=== PATIENT | male | born 1950 | race Caucasian/White ===

== ENCOUNTER → 2016-06-14 | Outpatient (CLI) | payer MEDICARE ==
[2016-06-14 10:51] LABS: Basophils # (A) 0.1 k/uL (0-0.2); Basophils % (A) 1 %; CH 27.4; CHCM 32.5; Eosinophils # (A) 0.4 k/uL (0-0.7); Eosinophils % (A) 6 %; HCT 45.2 % (39.0-53.0); HDW 2.66; HGB 14.4 gm/dL (13.0-17.5); Luc # (Auto) 0.19; Luc % (Auto) 2; Lymphocytes # (A) 1.6 k/uL (1.0-4.8); Lymphocytes % (A) 21 %; MCHC 31.8 g/dL (31.0-37.0); MCV 84.8 fL (80.0-100.0); Mean Platelet Volume 7.2; Monocytes # (A) 0.6 k/uL (0-1.0); Monocytes % (A) 8 %; Neutrophils # (A) 4.9 k/uL (1.3-7.7); Neutrophils % (A) 62 %; RBC 5.33 m/uL (4.30-5.90); RDW 13.9 % (11.5-15.5); WBC 7.9 k/uL (3.8-10.6); WBC (Perox) 8.09
[2016-06-14 12:25] LABS: ALT 47 U/L (21-72); AST 28 U/L (17-59); Alkaline Phosphatase 119 U/L (38-126); Anion Gap 12 mmol/L; Bilirubin, Delta 0.2 mg/dL (0.0-0.2); Blood Urea Nitrogen 8 mg/dL (9-20); Calcium 9.3 mg/dL (8.4-10.2); Carbon Dioxide 28 mmol/L (22-30); Chloride 103 mmol/L (98-107); Cholesterol 163 mg/dL (<200); Glucose 131 mg/dL (74-99); HDL Cholesterol 43 mg/dL (40-60); Non-African American GFR(MDRD) >60 (>60 ml/min/1.73 sqM); Potassium 4.5 mmol/L (3.5-5.1); Sodium 143 mmol/L (137-145); Total Bilirubin 0.3 mg/dL (0.2-1.3); Total Protein 6.5 g/dL (6.3-8.2); Triglycerides 147 mg/dL (<150)
== END | disposition home or self-care (01) ==
LOC: LABWHC1 09:25
PROVIDERS: ATTEND Family Medicine
DX: E11.65 Type 2 diabetes mellitus with hyperglycemia (principal); I48.91 Unspecified atrial fibrillation; I10 Essential (primary) hypertension; Z79.4 Long term (current) use of insulin
CPT/HCPCS: 36415; 80053; 80061; 82248; 84153; 84439; 84443; 85025

== ENCOUNTER → 2017-04-25 | Outpatient (CLI) | payer MEDICARE ==
[2017-04-25 09:40] LABS: CH 27.7; CHCM 33.2; HCT 50.4 % (39.0-53.0); HDW 2.65; MCH 26.6 pg (25.0-35.0); MCHC 31.8 g/dL (31.0-37.0); MCV 83.6 fL (80.0-100.0); Mean Platelet Volume 6.9; RBC 6.03 m/uL (4.30-5.90); RDW 13.1 % (11.5-15.5); WBC 9.1 k/uL (3.8-10.6)
[2017-04-25 09:49] LABS: Prothrombin Time 57.2 sec (9.0-12.0)
[2017-04-25 10:00] LABS: ALT 34 U/L (21-72); AST 28 U/L (17-59); Anion Gap 11 mmol/L; Blood Urea Nitrogen 12 mg/dL (9-20); Carbon Dioxide 29 mmol/L (22-30); Chloride 95 mmol/L (98-107); Non-African American GFR(MDRD) >60 (>60 ml/min/1.73 sqM); Potassium 4.7 mmol/L (3.5-5.1); Sodium 135 mmol/L (137-145)
[2017-04-25 10:02] LABS: INR 6.3 (<1.2)
== END | disposition home or self-care (01) ==
LOC: LABWHC1 09:21
PROVIDERS: ATTEND Internal Medicine Interventional Cardiology
DX: Z01.812 Encounter for preprocedural laboratory examination (principal); R07.89 Other chest pain
CPT/HCPCS: 36415; 80051; 82565; 84439; 84443; 84450; 84460; 84520; 85027; 85610

== ENCOUNTER → 2017-05-31 | Outpatient (CLI) | payer MEDICARE ==
[2017-05-31 11:24] LABS: T4, Free (Free Thyroxine) 2.89 ng/dL (0.78-2.19)
== END | disposition home or self-care (01) ==
LOC: LABWHC1 10:34
PROVIDERS: ATTEND Nurse Practitioner Adult Health
DX: E03.9 Hypothyroidism, unspecified (principal)
CPT/HCPCS: 36415; 84439; 84443

== ENCOUNTER → 2017-06-28 | Outpatient (CLI) | payer MEDICARE ==
[2017-06-28 11:43] LABS: T4, Free (Free Thyroxine) 2.76 ng/dL (0.78-2.19)
== END | disposition home or self-care (01) ==
LOC: LABWHC1 10:44
PROVIDERS: ATTEND Internal Medicine Interventional Cardiology
DX: E03.9 Hypothyroidism, unspecified (principal)
CPT/HCPCS: 36415; 84439; 84443

== ENCOUNTER → 2017-07-01 | Outpatient (CLI) | payer MEDICARE ==
[2017-07-01 13:15] LABS: MCH 26.3 pg (25.0-35.0); MCV 82.4 fL (80.0-100.0); Mean Platelet Volume 7.3; Platelet Count 351 k/uL (150-450); RDW 13.9 % (11.5-15.5); WBC 8.8 k/uL (3.8-10.6)
[2017-07-01 13:25] LABS: INR 2.6 (<1.2); Prothrombin Time 23.4 sec (9.0-12.0)
[2017-07-01 13:31] LABS: Anion Gap 13 mmol/L; Blood Urea Nitrogen 19 mg/dL (9-20); Calcium 10.3 mg/dL (8.4-10.2); Carbon Dioxide 28 mmol/L (22-30); Chloride 99 mmol/L (98-107); Glucose 278 mg/dL (74-99); Sodium 140 mmol/L (137-145)
[2017-07-01 13:48] LABS: T4, Free (Free Thyroxine) 2.45 ng/dL (0.78-2.19)
== END | disposition home or self-care (01) ==
LOC: LABPAT 13:00
PROVIDERS: ATTEND Internal Medicine Interventional Cardiology
DX: I10 Essential (primary) hypertension (principal); I25.10 Atherosclerotic heart disease of native coronary artery without angina pectoris
CPT/HCPCS: 36415; 80048; 84439; 84443; 85027; 85610

== ENCOUNTER → 2017-07-07 | Day surgery (SDC) | payer MEDICARE ==
[2017-07-04 11:54] VITALS: BMI 25.7
[~2017-07-07] MED LIST: ALPRAZolam 0.25 MG TAB PO PRN; ALPRAZolam 0.5 MG TAB PO PRN; ASPIRIN 325 MG TAB PO STA; ATORVASTATIN 80 MG TAB PO STA; HEPARIN SODIUM 1,000 UN/ML (10ML VL) ONE; INSULIN ASPART 100 UNIT/ML 1 ML 10 ML VIAL SQ ONE; INSULIN ASPART 100 UNIT/ML 1 ML 10 ML VIAL SQ SCH; IOHEXOL 350 MG/ML 125ML BOTTLE INJ ONE; LIDOCAINE 2% INJ 20 MG/ML (20 ML MDV) ONE; LIDOCAINE 2% INJ 20 MG/ML SQ ONE; MIDAZOLAM 2 MG/2 ML VIAL IVP ONE; MIDAZOLAM 2 MG/2 ML VIAL ONE; NITROGLYCERIN SL TABS 0.4 MG TAB SUBLINGUAL PRN; RX INFO: IV CONTRAST WAS GIVEN 1 EACH MISC MISCELLANE PRN; SODIUM CHLORIDE 0.9% 1,000 ML IV SCH; SODIUM CHLORIDE 0.9% 1,000 ML in EMPTY BAG 1 BAG IV ONE; VERAPAMIL 2.5 MG/ML 2 ML AMP ONE; diphenhydrAMINE 50 MG/ML 1 ML VIAL IVP ONE; diphenhydrAMINE 50 MG/ML 1 ML VIAL ONE; glipiZIDE 5 MG TAB PO STA
[2017-07-07 09:57] LABS: Glucose,Whole Blood 406 mg/dL (75-99)
[2017-07-07 09:58] VITALS: RESP 18
[2017-07-07 10:14] LABS: INR 1.1 (<1.2); Prothrombin Time 10.3 sec (9.0-12.0)
[2017-07-07 11:08] LABS: Glucose,Whole Blood 391 mg/dL (75-99)
[2017-07-07] MEDS: VERAPAMIL SYRINGE (5 MG/10 ML) INTRAARTER ONE ×2 (11:13→11:25)
[2017-07-07 11:35] LABS: Anion Gap 12 mmol/L; Blood Urea Nitrogen 16 mg/dL (9-20); Calcium 9.4 mg/dL (8.4-10.2); Carbon Dioxide 24 mmol/L (22-30); Chloride 103 mmol/L (98-107); Glucose 361 mg/dL (74-99); Potassium 4.3 mmol/L (3.5-5.1); Sodium 139 mmol/L (137-145)
[2017-07-07 11:50] LABS: Glucose,Whole Blood 345 mg/dL (75-99)
--- NOTE | 2017-07-07 12:18 | CC ---
CARDIAC CATHETERIZATION REPORT DATE OF SERVICE: 07/07/2017. PROCEDURE: Left heart catheterization and coronary angiography. PERFORMED BY: Dr. Narda Mcmullen. Moderate conscious sedation time 33 minutes. Patient was monitored closely. He was given Versed and Benadryl. PROCEDURE NOTE: Under local anesthesia and strict aseptic precautions, a 6-Irish introducer was placed in the right radial artery. Using Ultimate 1 catheter, I performed selective coronary angiography and a pigtail catheter was used to check pressures. LV gram was not performed. The sheath was taken out and a TR band applied as per protocol. The saturation in the fingers of the right hand was 97%. Patient received 2000 units of heparin. He also received verapamil 2 mg at the beginning and end of the procedure. CARDIAC CATHETERIZATION FINDINGS: Left ventricle end-diastolic pressure was about 5 mmHg. There was no gradient across aortic valve. CORONARY ANGIOGRAPHY FINDINGS: RIGHT CORONARY ARTERY: This is a dominant vessel, has no significant disease. Distally IT bifurcates into a large PDA and PLV, both of which supply a sizable amount of myocardium. No significant disease in the dominant RCA. LEFT MAIN CORONARY ARTERY: Short patent disease-free vessel that bifurcates into LAD and circumflex. LEFT ANTERIOR DESCENDING CORONARY ARTERY: A good caliber vessel extends along the anterior wall supplies a sizable amount of myocardium. Gives off septal and diagonal branches and runs all the way to the apex supplying a sizable amount of myocardium. No significant disease in the entire LAD system other than minor 30% irregularities. LEFT POSTERIOR CIRCUMFLEX CORONARY ARTERY: Nondominant, fair caliber, fair distribution vessel that supplies a fair amount of myocardium. No significant disease. LEFT VENTRICULOGRAM: This was not performed. FINAL IMPRESSION: This patient does not have any significant obstructive coronary artery disease. He has a right dominant system. Normal to low filling pressures. RECOMMENDATION: Findings were discussed with the patient and family. Continued medical therapy with risk factor modification advised. His blood sugar is somewhat elevated. We will address this issue as well in the outpatient setting. Patient will be discharged later on today if he remains stable. MMODL / IJN: [id number] /
--- NOTE | 2017-07-07 12:18 | LTR ---
July 07, 2017 Dear Pavan: Thank you for the opportunity to participate in the care of Mr. Roberts. Please find enclosed my cardiac cath report for your records. I am pleased to report to you that he does not have any significant obstructive CAD that would require intervention. Continued risk factor modification, optimization of blood sugars is advised. If the sugars continue to be high, he may be better off to be referred to the intensive diabetes clinic. Thank you for referral and please call for questions. With kindest regards Sincerely yours, Narda Mcmullen MD. NANETTE / JEANNIE: [id number] /
[2017-07-07 13:25] LABS: Glucose,Whole Blood 360 mg/dL (75-99)
[2017-07-07 13:55] VITALS: TEMP 98
[2017-07-07 16:03] VITALS: BP 161/79; PULSE 55
[2017-07-07 17:15] LABS: Glucose,Whole Blood 143 mg/dL (75-99)
[2017-07-07 20:09] LABS: Hemoglobin A1C 11.4 % (4.0-6.0)
== END ==
LOC: CATHCVL 09:14
PROVIDERS: ATTEND Internal Medicine Interventional Cardiology
DX: I20.0 Unstable angina (principal); I10 Essential (primary) hypertension; I48.0 Paroxysmal atrial fibrillation; Z79.01 Long term (current) use of anticoagulants; Z87.891 Personal history of nicotine dependence; E11.9 Type 2 diabetes mellitus without complications; Z79.84 Long term (current) use of oral hypoglycemic drugs; E78.00 Pure hypercholesterolemia, unspecified; E78.5 Hyperlipidemia, unspecified; Z79.899 Other long term (current) drug therapy; E03.9 Hypothyroidism, unspecified; Z82.49 Family history of ischemic heart disease and other diseases of the circulatory system; Z88.8 Allergy status to other drugs, medicaments and biological substances
CPT/HCPCS: 93458; 84481; 80048; 84443; 85610; 83036; C1769; C1894; J2001; J2250; J1200; J1644; Q9967

== ENCOUNTER → 2017-07-10 | Outpatient (CLI) | payer MEDICARE | END | disposition home or self-care (01) | LOC: LABWHC1 16:54 | PROVIDERS: ATTEND Internal Medicine Interventional Cardiology | DX: E03.9 Hypothyroidism, unspecified (principal) | CPT/HCPCS: 36415; 84439 ==

== ENCOUNTER → 2017-08-26 | Outpatient (CLI) | payer MEDICARE ==
[2017-08-26 10:43] LABS: T4, Free (Free Thyroxine) 1.34 ng/dL (0.78-2.19)
== END ==
LOC: LABWHC1 08:45
PROVIDERS: ATTEND Internal Medicine Endocrinology, Diabetes & Metabolism
DX: E78.5 Hyperlipidemia, unspecified (principal)
CPT/HCPCS: 36415; 80061; 82043; 82570; 83036; 84439; 84443

== ENCOUNTER → 2018-02-15 | Outpatient (CLI) | payer MEDICARE ==
[2018-02-15 10:40] LABS: Basophils # (A) 0.1 k/uL (0-0.2); Basophils % (A) 1 %; Eosinophils # (A) 0.5 k/uL (0-0.7); Eosinophils % (A) 5 %; HCT 41.5 % (39.0-53.0); HGB 13.1 gm/dL (13.0-17.5); Lymphocytes # (A) 1.9 k/uL (1.0-4.8); Lymphocytes % (A) 21 %; MCH 26.8 pg (25.0-35.0); MCHC 31.6 g/dL (31.0-37.0); MCV 84.8 fL (80.0-100.0); Mean Platelet Volume 6.9; Monocytes # (A) 0.6 k/uL (0-1.0); Monocytes % (A) 7 %; Neutrophils # (A) 5.9 k/uL (1.3-7.7); Neutrophils % (A) 63 %; Platelet Count 284 k/uL (150-450); RBC 4.89 m/uL (4.30-5.90); WBC 9.3 k/uL (3.8-10.6)
[2018-02-15 11:20] LABS: Albumin 4.1 g/dL (3.5-5.0); Calcium 9.7 mg/dL (8.4-10.2); Potassium 4.5 mmol/L (3.5-5.1); Total Bilirubin 0.4 mg/dL (0.2-1.3); Total Protein 6.9 g/dL (6.3-8.2)
[2018-02-15 11:29] LABS: T4, Free (Free Thyroxine) 1.36 ng/dL (0.78-2.19)
== END | disposition home or self-care (01) ==
LOC: LABWHC1 09:57
PROVIDERS: ATTEND Family Medicine
DX: I10 Essential (primary) hypertension (principal); E03.9 Hypothyroidism, unspecified; E11.9 Type 2 diabetes mellitus without complications; Z79.4 Long term (current) use of insulin
CPT/HCPCS: 36415; 80053; 84439; 84443; 85025

== ENCOUNTER → 2018-04-12 | Outpatient (CLI) | payer MEDICARE ==
[2018-04-12 20:01] LABS: Hemoglobin A1C 6.4 % (4.0-6.0)
== END ==
LOC: LABWHC1 13:01
PROVIDERS: ATTEND Family Medicine
DX: Z00.00 Encounter for general adult medical examination without abnormal findings (principal); E11.9 Type 2 diabetes mellitus without complications; Z79.899 Other long term (current) drug therapy
CPT/HCPCS: 36415; 83036; 84153

== ENCOUNTER 2018-07-21 13:26 | Inpatient (IN) | payer MEDICARE ==
[2018-07-21] MEDS ORDERED: DILTIAZEM DRIP BOLUS FROM BAG 1 MG SOLN IV ONE (14:02)
[2018-07-21] MEDS ORDERED: DILTIAZEM 125 MG in SODIUM CHLORIDE 0.9% 100 ML IV SCH (14:15)
[2018-07-21 14:16] LABS: Anisocytosis Slight; Basophils # (A) 0.1 k/uL (0-0.2); Basophils % (A) 1 %; Eosinophils # (A) 0.4 k/uL (0-0.7); Eosinophils % (A) 4 %; HCT 46.9 % (39.0-53.0); HGB 14.3 gm/dL (13.0-17.5); Hypochromasia Moderate; Lymphocytes # (A) 1.2 k/uL (1.0-4.8); Lymphocytes % (A) 13 %; MCH 23.3 pg (25.0-35.0); MCHC 30.5 g/dL (31.0-37.0); MCV 76.5 fL (80.0-100.0); Mean Platelet Volume 6.3; Microcytosis Slight; Monocytes # (A) 0.6 k/uL (0-1.0); Monocytes % (A) 6 %; Neutrophils # (A) 7.3 k/uL (1.3-7.7); Neutrophils % (A) 75 %; Platelet Count 285 k/uL (150-450); RBC 6.13 m/uL (4.30-5.90); RDW 18.2 % (11.5-15.5); WBC 9.7 k/uL (3.8-10.6)
--- NOTE | 2018-07-21 14:22 | ED ---
General Adult HPI - General Chief complaint: Chest Pain Stated complaint: Chest pain Time Seen by Provider: 07/21/18 13:37 Source: patient, RN notes reviewed, old records reviewed Mode of arrival: wheelchair Limitations: no limitations - History of Present Illness Initial comments: 68-year-old male presents with one-week history of intermittent chest pain and palpitations. History of atrial fibrillation currently on Coumadin. Patient is not on any rate controlling medication at this time. He's had sensation of racing heart with chest pain for the past one week. No significant chest pain at the time my evaluation. Denies nausea vomiting or diarrhea. Denies cough. Denies fever or chills. - Related Data Home Medications Medication Instructions Recorded Confirmed ALPRAZolam [Xanax] 0.25 mg PO Q6H PRN 07/01/14 07/21/18 Simvastatin [Zocor] 20 mg PO HS 07/01/14 07/21/18 metFORMIN HCL 1,000 mg PO BID 01/06/16 07/21/18 Warfarin [Coumadin] 2.5 mg PO SUTUWEFRSA 01/11/16 07/21/18 Levothyroxine Sodium [Synthroid] 100 mcg PO MOTUWETHFR 07/03/17 07/21/18 DULoxetine HCL [Cymbalta] 60 mg PO DAILY 07/21/18 07/21/18 Divalproex ER [Depakote ER] 500 mg PO DAILY 07/21/18 07/21/18 Insulin Lispro Protamin/Lispro 50 unit SQ HS 07/21/18 07/21/18 [humaLOG Mix 75-25 Kwikpen] Insulin Lispro Protamin/Lispro 70 unit SQ QAM 07/21/18 07/21/18 [humaLOG Mix 75-25 Kwikpen] Levothyroxine Sodium [Synthroid] 150 mcg PO SUSA 07/21/18 07/21/18 Warfarin [Coumadin] 5 mg PO MOTH 07/21/18 07/21/18 Allergies Allergy/AdvReac Type Severity Reaction Status Date / Time bupropion [From Wellbutrin] Allergy Unknown Verified 07/21/18 13:53 venlafaxine [From Effexor] Allergy Unknown Verified 07/21/18 13:53 aripiprazole [From Abilify] AdvReac Unknown Verified 07/21/18 13:53 Review of Systems ROS Statement: Those systems with pertinent positive or pertinent negative responses have been documented in the HPI. ROS Other: All systems not noted in ROS Statement are negative. Past Medical History Past Medical History: Atrial Fibrillation, Diabetes Mellitus, Hyperlipidemia, Hypertension, Renal Disease, Thyroid Disorder Additional Past Medical History / Comment(s): L wrist fx,concussion 07/01/14, renal failure stage 3 History of Any Multi-Drug Resistant Organisms: None Reported Past Surgical History: Back Surgery, Hernia Repair, Tonsillectomy Additional Past Surgical History / Comment(s): rt inguinal hernia repair, rt ankle orif, Past Anesthesia/Blood Transfusion Reactions: No Reported Reaction Past Psychological History: Anxiety, Depression Smoking Status: Never smoker Past Alcohol Use History: None Reported Past Drug Use History: None Reported - Past Family History Mother Family Medical History: No Reported History General Exam Limitations: no limitations General appearance: alert, in no apparent distress Head exam: Present: atraumatic, normocephalic Eye exam: Present: normal appearance, PERRL ENT exam: Present: normal exam Neck exam: Present: normal inspection. Absent: tenderness, meningismus Respiratory exam: Present: rales. Absent: respiratory distress, wheezes, rh onchi Cardiovascular Exam: Present: tachycardia, irregular rhythm GI/Abdominal exam: Present: soft. Absent: distended, tenderness, guarding Extremities exam: Present: normal inspection, normal capillary refill. Absent: pedal edema Neurological exam: Present: alert, oriented X3, CN II-XII intact. Absent: motor sensory deficit Psychiatric exam: Present: normal affect, normal mood Skin exam: Present: warm, dry, intact. Absent: cyanosis, diaphoretic Course Vital Signs 07/21/18 07/21/18 07/21/18 13:29 13:57 14:24 Temperature 98.0 F Pulse Rate 63 160 H 135 H Respiratory 18 20 20 Rate Blood Pressure 124/84 141/110 132/119 O2 Sat by Pulse 96 100 98 Oximetry EKG Findings - EKG Comments: EKG Findings:: EKG: Atrial fibrillation with RVR, right superior axis, no ST segment elevation, ventricular rate 147, QRS duration 88, QTC 410 Medical Decision Making - Medical Decision Making 68-year-old male presenting with palpitations, chest pain, dyspnea. Patient has history of atrial fibrillation, found to be in A. fib with rapid ventricular response. He is on Coumadin. Chest x-ray obtained, does show CHF with central vascular congestion. Patient has normal white blood cell count, stable hemoglobin, INR is supratherapeutic at 6.1, Coumadin will be held. Troponin is 0.028, BNP is 12,800 consistent with congestive heart failure secondary to arrhythmia. Patient started on Cardizem drip, weight is improving while in the emergency department. Given Lasix in the emergency prompt. Will be admitted for atrial fibrillation with RVR, congestive heart failure. Case discussed with admitting physician. - Lab Data Result diagrams: 07/21/18 13:52 07/21/18 13:52 Lab Results 07/21/18 07/21/18 07/21/18 Range/Units 13:52 13:52 13:52 WBC 9.7 (3.8-10.6) k/uL RBC 6.13 H (4.30-5.90) m/uL Hgb 14.3 (13.0-17.5) gm/dL Hct 46.9 (39.0-53.0) % MCV 76.5 L (80.0-100.0) fL MCH 23.3 L (25.0-35.0) pg MCHC 30.5 L (31.0-37.0) g/dL RDW 18.2 H (11.5-15.5) % Plt Count 285 (150-450) k/uL Neutrophils % 75 % Lymphocytes % 13 % Monocytes % 6 % Eosinophils % 4 % Basophils % 1 % Neutrophils # 7.3 (1.3-7.7) k/uL Lymphocytes # 1.2 (1.0-4.8) k/uL Monocytes # 0.6 (0-1.0) k/uL Eosinophils # 0.4 (0-0.7) k/uL Basophils # 0.1 (0-0.2) k/uL Hypochromasia Moderate Anisocytosis Slight Microcytosis Slight PT (9.0-12.0) sec INR (<1.2) APTT (22.0-30.0) sec Sodium 138 (137-145) mmol/L Potassium 4.7 (3.5-5.1) mmol/L Chloride 102 (98-107) mmol/L Carbon Dioxide 24 (22-30) mmol/L Anion Gap 12 mmol/L BUN 16 (9-20) mg/dL Creatinine 1.23 (0.66-1.25) mg/dL Est GFR (CKD-EPI)AfAm 69 (>60 ml/min/1.73 sqM) Est GFR (CKD-EPI)NonAf 59 (>60 ml/min/1.73 sqM) Glucose 202 H (74-99) mg/dL Calcium 9.8 (8.4-10.2) mg/dL Magnesium 1.8 (1.6-2.3) mg/dL Total Bilirubin 1.3 (0.2-1.3) mg/dL AST 28 (17-59) U/L ALT 19 L (21-72) U/L Alkaline Phosphatase 96 (38-126) U/L Troponin I (0.000-0.034) ng/mL NT-Pro-B Natriuret Pep 25596 pg/mL Total Protein 7.5 (6.3-8.2) g/dL Albumin 4.5 (3.5-5.0) g/dL Lipase 63 (23-300) U/L 07/21/18 07/21/18 Range/Units 13:52 13:52 WBC (3.8-10.6) k/uL RBC (4.30-5.90) m/uL Hgb (13.0-17.5) gm/dL Hct (39.0-53.0) % MCV (80.0-100.0) fL MCH (25.0-35.0) pg MCHC (31.0-37.0) g/dL RDW (11.5-15.5) % Plt Count (150-450) k/uL Neutrophils % % Lymphocytes % % Monocytes % % Eosinophils % % Basophils % % Neutrophils # (1.3-7.7) k/uL Lymphocytes # (1.0-4.8) k/uL Monocytes # (0-1.0) k/uL Eosinophils # (0-0.7) k/uL Basophils # (0-0.2) k/uL Hypochromasia Anisocytosis Microcytosis PT 58.9 H (9.0-12.0) sec INR 6.1 H* (<1.2) APTT 40.9 H (22.0-30.0) sec Sodium (137-145) mmol/L Potassium (3.5-5.1) mmol/L Chloride (98-107) mmol/L Carbon Dioxide (22-30) mmol/L Anion Gap mmol/L BUN (9-20) mg/dL Creatinine (0.66-1.25) mg/dL Est GFR (CKD-EPI)AfAm (>60 ml/min/1.73 sqM) Est GFR (CKD-EPI)NonAf (>60 ml/min/1.73 sqM) Glucose (74-99) mg/dL Calcium (8.4-10.2) mg/dL Magnesium (1.6-2.3) mg/dL Total Bilirubin (0.2-1.3) mg/dL AST (17-59) U/L ALT (21-72) U/L Alkaline Phosphatase (38-126) U/L Troponin I 0.028 (0.000-0.034) ng/mL NT-Pro-B Natriuret Pep pg/mL Total Protein (6.3-8.2) g/dL Albumin (3.5-5.0) g/dL Lipase (23-300) U/L Critical Care Time Critical Care Time: Yes Total Critical Care Time: 35 Disposition Clinical Impression: Supratherapeutic INR, CHF (congestive heart failure), Atrial fibrillation with RVR Disposition: ADMITTED IP TO THIS HOSP Condition: Stable Is patient prescribed a controlled substance at d/c from ED?: No Referrals: Pavan Elmore MD [Primary Care Provider] - 1-2 days Time of Disposition: 15:30
[2018-07-21 14:25] LABS: Albumin 4.5 g/dL (3.5-5.0); Calcium 9.8 mg/dL (8.4-10.2); Magnesium 1.8 mg/dL (1.6-2.3); Potassium 4.7 mmol/L (3.5-5.1); Total Bilirubin 1.3 mg/dL (0.2-1.3); Total Protein 7.5 g/dL (6.3-8.2)
[2018-07-21 14:30] LABS: Partial Thromboplastin Time 40.9 sec (22.0-30.0); Prothrombin Time 58.9 sec (9.0-12.0)
--- NOTE | 2018-07-21 14:31 | XR ---
EXAMINATION TYPE: XR chest 2V DATE OF EXAM: 07/21/2018 COMPARISON: Chest x-ray March 16, 2016. HISTORY: Chest pain and shortness of breath. TECHNIQUE: Frontal and lateral views of the chest are obtained. FINDINGS: The cardiac silhouette size is more prominent and upper limits of normal. Increased inters titial markings bilaterally are present. There are new small to tiny bilateral pleural effusions with slight blunting of posterior lateral costophrenic angles. No suspicious focal infiltrate or pneumoth orax is present. Overlying EKG leads are seen. The osseous structures are intact. IMPRESSION: Suspect CHF exacerbation as there is increasing cardiac silhouette prominence with suspe cted new mild to moderate interstitial edema and small to tiny bilateral pleural effusions. Correlate clinically.
[2018-07-21 14:36] LABS: INR 6.1 (<1.2)
[2018-07-21] MEDS ORDERED: FUROSEMIDE 10 MG/ML 4 ML VIAL IV STA (14:46)
[2018-07-21] MEDS ORDERED: NALOXONE 0.4 MG/ML 1 ML VIAL IV PRN (15:31)
[2018-07-21] MEDS ORDERED: ACETAMINOPHEN TAB 325 MG TAB PO PRN (15:31)
[2018-07-21 16:52] LABS: Glucose,Whole Blood 199 mg/dL (75-99)
[2018-07-21] MEDS ORDERED: INSULN ASP PRT/INSULIN ASPART 100 UNIT/ML 10 ML VIAL SQ SCH (18:00)
[2018-07-21 20:56] LABS: Glucose,Whole Blood 110 mg/dL (75-99)
[2018-07-21] MEDS: INSULIN ASPART (NovoLOG) 100 UNIT/ML VIAL SQ SCH (21:29)
[2018-07-21] MEDS: ATORVASTATIN 10 MG TAB PO SCH (21:31)
[2018-07-22 06:01] LABS: Glucose,Whole Blood 58 mg/dL (75-99)
[2018-07-22 06:21] LABS: Glucose,Whole Blood 82 mg/dL (75-99)
[2018-07-22] MEDS ORDERED: LEVOTHYROXINE 75 MCG TAB PO SCH (06:30)
[2018-07-22] MEDS: INSULIN ASPART (NovoLOG) 100 UNIT/ML VIAL SQ SCH ×4 (06:34→20:24)
[2018-07-22] MEDS: INSULN ASP PRT/INSULIN ASPART 100 UNIT/ML 10 ML VIAL SQ SCH ×2 (06:34→17:17)
[2018-07-22] MEDS: FUROSEMIDE 10 MG/ML 4 ML VIAL IV SCH ×2 (06:38→18:26)
[2018-07-22 08:22] LABS: Calcium 9.6 mg/dL (8.4-10.2); Potassium 3.9 mmol/L (3.5-5.1)
[2018-07-22 08:29] LABS: Prothrombin Time 48.7 sec (9.0-12.0)
[2018-07-22] MEDS ORDERED: INSULN ASP PRT/INSULIN ASPART 100 UNIT/ML 10 ML VIAL SQ ONE (09:15)
[2018-07-22] MEDS: DULoxetine HCL 60 MG CAPSULE.DR PO SCH (09:19)
[2018-07-22] MEDS: DIVALPROEX ER 500 MG TAB.ER.24H PO SCH (09:19)
[2018-07-22] MEDS: METOPROLOL TARTRATE 50 MG TAB PO SCH ×2 (09:19→19:47)
[2018-07-22 09:40] LABS: Glucose,Whole Blood 123 mg/dL (75-99)
[2018-07-22 09:46] LABS: INR 5.1 (<1.2)
[2018-07-22 10:39] LABS: Glucose,Whole Blood 147 mg/dL (75-99)
[2018-07-22 11:33] LABS: Glucose,Whole Blood 115 mg/dL (75-99)
[2018-07-22 14:20] VITALS: BMI 27.7
--- NOTE | 2018-07-22 15:13 | P.HPIM ---
History of Present Illness H&P Date: 07/22/18 Chief Complaint: Shortness of breath The patient is a 68-year-old white male, well-known to me and my practice. He has a history of atrial fibrillation and is anticoagulated with Coumadin. He is also an insulin-dependent diabetic on [id number] 70/30 insulin, due to cost. He reports a one-week history of increasing shortness of breath and palpitations. Became bad enough that he came emergency room last night and was found to be in atrial fibrillation with RVR. He was started on a Cardizem drip has heart rate is since improved considerably. He denies any chest pains or pressures. He denies any nausea or vomiting. He denies any swelling, diarrhea, or constipation. His is at bedside today during my examination. Staff and noted lower sugars since his admission. Review of Systems All systems: negative Past Medical History Past Medical History: Atrial Fibrillation, Heart Failure (Unspecified), Diabetes Mellitus (Insulin-dependent), Hyperlipidemia, Hypertension, Neurologic Disorder (Closed head injury when he 13), Renal Disease (Stage III), Thyroid Disorder (Hypothyroidism) History of Any Multi-Drug Resistant Organisms: None Reported Past Surgical History: Back Surgery, Hernia Repair (Right inguinal), Orthopedic Surgery (Right ankle ORIF), Tonsillectomy Past Anesthesia/Blood Transfusion Reactions: No Reported Reaction Past Psychological History: Anxiety, Depression Smoking Status: Never smoker Past Alcohol Use History: None Reported Additional Past Alcohol Use History / Comment(s): per old hx-pt smoked x2 years 1ppd quit 1980 Past Drug Use History: None Reported - Past Family History Mother Family Medical History: Congestive Heart Failure (CHF) Father Family Medical History: Congestive Heart Failure (CHF) Medications and Allergies Home Medications Medication Instructions Recorded Confirmed Type ALPRAZolam [Xanax] 0.25 mg PO Q6H PRN 07/01/14 07/21/18 History Simvastatin [Zocor] 20 mg PO HS 07/01/14 07/21/18 History metFORMIN HCL 1,000 mg PO BID 01/06/16 07/21/18 History Warfarin [Coumadin] 2.5 mg PO SUTUWEFRSA 01/11/16 07/21/18 History Levothyroxine Sodium [Synthroid] 100 mcg PO MOTUWETHFR 07/03/17 07/21/18 History DULoxetine HCL [Cymbalta] 60 mg PO DAILY 07/21/18 07/21/18 History Divalproex ER [Depakote ER] 500 mg PO DAILY 07/21/18 07/21/18 History Insulin NPH Hum/Reg Insulin Hm 30 units SQ [id number] 07/21/18 07/21/18 History [Relion Novolin 70-30 Flexpen] Levothyroxine Sodium [Synthroid] 150 mcg PO SUSA 07/21/18 07/21/18 History Warfarin [Coumadin] 5 mg PO MOTH 07/21/18 07/21/18 History Allergies Allergy/AdvReac Type Severity Reaction Status Date / Time bupropion [From Wellbutrin] Allergy Unknown Verified 07/21/18 13:53 venlafaxine [From Effexor] Allergy Unknown Verified 07/21/18 13:53 aripiprazole [From Abilify] AdvReac Unknown Verified 07/21/18 13:53 Physical Exam Vitals: Vital Signs Temp Pulse Pulse Pulse Resp BP BP 07/22/18 11:31 97.3 F L 80 20 106/70 07/22/18 08:00 97.4 F L 96 16 107/82 07/22/18 04:00 97.7 F 80 18 119/71 07/22/18 00:00 97.9 F 102 H 18 123/78 07/21/18 20:00 98.3 F 94 18 127/78 07/21/18 16:30 96.7 F L 103 H 20 134/67 07/21/18 16:07 130 H 20 129/103 07/21/18 16:00 20 07/21/18 15:27 97.5 F L 108 H 18 121/103 Pulse Ox 07/22/18 11:31 96 07/22/18 08:00 97 07/22/18 04:00 96 07/22/18 00:00 97 07/21/18 20:00 94 L 07/21/18 16:30 96 07/21/18 16:07 96 07/21/18 16:00 07/21/18 15:27 98 Intake and Output 07/21/18 07/22/18 07/22/18 22:59 06:59 14:59 Intake Total 240 196.5 Output Total 1725 1300 Balance -1485 -1103.5 Intake: Intake, IV Titration 96.5 Amount Diltiazem 125 mg In 96.5 Sodium Chloride 0.9% 100 ml @ 5 MG/HR 5 mls/hr IV .Q24H [facility] Rx#:[id number] Oral 240 100 Output: Urine 1725 1300 Other: Voiding Method Urinal Urinal Urinal # Voids 0 Weight 91.9 kg 90.1 kg 90.1 kg GENERAL: Fatigued, well-nourished and in no acute distress. He is slightly slow to answer my questions, most likely from his closed head injury HEAD: Atraumatic, normocephalic. EYES: Pupils equal round and reactive to light, extraocular movements intact, sclera anicteric, conjunctiva are normal. ENT:nares patent, oropharynx clear without exudates. Moist mucous membranes. NECK: Normal range of motion, supple without lymphadenopathy or JVD, no thyromegaly LUNGS: Breath sounds clear to auscultation bilaterally and equal. No wheezes rales or rhonchi. HEART: Regular rate and rhythm without murmurs, rubs or gallops.S1S2 Normal. Telemetry shows atrial fibrillation with controlled ventricular response ABDOMEN: Soft, nontender, normoactive bowel sounds. No guarding, no rebound. No masses appreciated. EXTREMITIES: Normal range of motion, No clubbing or cyanosis. There is trace pedal edema NEUROLOGICAL: Cranial nerves II through XII grossly intact. Normal speech, normal gait. PSYCH: Normal mood, normal affect. SKIN: Warm, Dry, normal turgor, no rashes or lesions noted. Results CBC & Chem 7: 07/21/18 13:52 07/22/18 07:07 Labs: Abnormal Lab Results - Last 24 Hours (Table) 07/21/18 07/21/18 07/22/18 Range/Units 16:48 20:54 05:59 PT (9.0-12.0) sec INR (<1.2) POC Glucose (mg/dL) 199 H 110 H 58 L (75-99) mg/dL Troponin I (0.000-0.034) ng/mL 07/22/18 07/22/18 07/22/18 Range/Units 07:07 07:07 09:37 PT 48.7 H (9.0-12.0) sec INR 5.1 H* (<1.2) POC Glucose (mg/dL) 123 H (75-99) mg/dL Troponin I 0.036 H* (0.000-0.034) ng/mL 07/22/18 07/22/18 Range/Units 10:37 11:32 PT (9.0-12.0) sec INR (<1.2) POC Glucose (mg/dL) 147 H 115 H (75-99) mg/dL Troponin I (0.000-0.034) ng/mL Thrombosis Risk Factor Assmnt - DVT/VTE Prophylaxis DVT/VTE Prophylaxis: Pharmacologic Prophylaxis ordered (He is supratherapeutic on Coumadin.) - Choose All That Apply Each Factor Represents 1 point: Heart failure (<1month), Medical pt on bed rest, Obesity (BMI >25) Each Risk Factor Represents 3 Points: Age 75 years or older Thrombosis Risk Factor Assessment Total Risk Factor Score: 6 Thrombosis Risk Factor Assessment Level: High Risk Assessment and Plan (1) Insulin dependent diabetes mellitus Current Visit: Yes Status: Acute Code(s): E11.9 - TYPE 2 DIABETES MELLITUS WITHOUT COMPLICATIONS; Z79.4 - JAIL (CURRENT) USE OF INSULIN SNOMED Code(s): 53899654 (2) Hypothyroidism Current Visit: Yes Status: Acute Code(s): E03.9 - HYPOTHYROIDISM, UNSPECIFIED SNOMED Code(s): 33154393 (3) History of closed head injury Current Visit: Yes Status: Acute Code(s): Z87.820 - PERSONAL HISTORY OF TRAUMATIC BRAIN INJURY SNOMED Code(s): 60188963333299 (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 Current Visit: Yes Status: Acute Code(s): Z79.01 - JAIL (CURRENT) USE OF ANTICOAGULANTS SNOMED Code(s): 564369141 (5) RBC microcytosis Current Visit: Yes Status: Acute Code(s): R71.8 - OTHER ABNORMALITY OF RED BLOOD CELLS SNOMED Code(s): 078539287 (6) Atrial fibrillation with RVR Current Visit: Yes Status: Acute Code(s): I48.91 - UNSPECIFIED ATRIAL FIBRILLATION SNOMED Code(s): 936588998281588 (7) CHF (congestive heart failure) Narrative/Plan: Unspecified type Current Visit: Yes Status: Acute Code(s): I50.9 - HEART FAILURE, UNSPECIFIED SNOMED Code(s): 95256164 (8) Elevated troponin Current Visit: Yes Status: Acute Code(s): R74.8 - ABNORMAL LEVELS OF OTHER SERUM ENZYMES SNOMED Code(s): 657529107 (9) Acute CHF (congestive heart failure) Current Visit: Yes Status: Acute Code(s): I50.9 - HEART FAILURE, UNSPECIFIED SNOMED Code(s): 64514519 (10) Anxiety and depression Current Visit: Yes Status: Acute Code(s): F41.9 - ANXIETY DISORDER, UNSPECIFIED; F32.9 - MAJOR DEPRESSIVE DISORDER, SINGLE EPISODE, UNSPECIFIED SNOMED Code(s): 54041001 Plan: We'll write recommendations from cardiology regarding his heart failure, elevated troponin, further recommendations regarding controlling his atrial fibrillation. He currently remains on a 640 IV push twice a day., Metoprolol, atorvastatin. A 2-D echo is pending Add Pepcid for GI prophylaxis. Coumadin to continue to remain on hold. PT INR daily. We'll restart once it's between 2 and 3 He'll continue on his levothyroxine 100 g and 150 g as directed. We'll check a TSH and free T4 level. He'll continue on his insulin 7030 of 30 units in the morning and will decrease her evening insulin to 15 units before supper. Continue on the Xanax, Depakote and the duloxetine for anxiety and depression. Repeat labs in a.m. He'll be reevaluated next 24 hours.
[2018-07-22] MEDS ORDERED: PHYTONADIONE ORAL 5 MG/5 ML ORAL.SYRG PO STA (15:31)
[2018-07-22 16:31] LABS: Glucose,Whole Blood 46 mg/dL (75-99)
[2018-07-22 16:45] LABS: Glucose,Whole Blood 55 mg/dL (75-99)
[2018-07-22 16:58] LABS: Glucose,Whole Blood 62 mg/dL (75-99)
[2018-07-22 17:13] LABS: Glucose,Whole Blood 81 mg/dL (75-99)
--- NOTE | 2018-07-22 18:40 | CONS ---
CONSULTATION This is a 68-year-old gentleman, a patient of Dr. Elmore who has been admitted to the hospital because he was feeling weak tired exhausted, did not have much energy and was found to be in atrial fibrillation with a moderate ventricular rate and I was asked to see him in this regard. This is a gentleman who I had seen in the past also. Sometime in June of 2017, I performed a cardiac cath and had seen him prior to that in March of 2017. His cardiac cath did not reveal any significant obstructive disease. The patient had a paroxysmal atrial fibrillation. He had a right-dominant system without obstructive CAD. He also had paroxysmal atrial fibrillation at that time. He was advised to be on Coumadin and also placed on amiodarone and advised beta blockers but he never came back for a followup. At the time of my evaluation, he is resting comfortably. Complains of feeling weak, tired and exhausted and he did not feel that his heart was racing fast, but he had some feelings of dizziness or so. About a week ago he felt he thought his heart was racing, but more importantly felt weak and tired. Denies any clear-cut chest discomfort at the time of my evaluation. PAST MEDICAL HISTORY: 1. Remarkable for paroxysmal atrial fibrillation. 2. Type 2 diabetes. 3. Hyperlipidemia. 4. Hypertension. 5. History of thyroid disorder. 6. MEDICATIONS: At home include Xanax, simvastatin, metformin, Coumadin, levothyroxine, Depakote, insulin. ALLERGIES: HE IS ALLERGIC TO WELLBUTRIN, EFFEXOR AND ABILIFY. On reviewing the chart, I noted that this gentleman was seen by me in the office with an abnormal stress test and paroxysmal atrial fibrillation, hypertension and type 2 diabetes. His cardiac cath from June 2017 did not reveal obstructive CAD. However, he was advised to follow up and he did not keep any followup appointments. I am not sure why he is not on a beta justine. However after arrival here, his INR was quite high and he has coagulopathy secondary to Coumadin. EKG revealed atrial fibrillation with nonspecific ST changes, moderate ventricular rate. LABORATORY DATA: Revealed an INR of 6.1. His renal function is normal. The troponin is 0.02 and 0.03. BNP is over 12,000. PHYSICAL EXAMINATION: Blood pressure is 110/70, pulse rate is about 90-100. HEENT unremarkable. Fundus was not examined by me. Neck is supple. No JVD. I do not hear a carotid bruit. Heart exam reveals S1, S2 with irregular rhythm. Short systolic murmur. Lungs revealed decent air entry. Abdomen is soft, nontender. Lower extremities reveal diminished pulses. Central nervous system is normal. IMPRESSION: 1. Paroxysmal atrial fibrillation with rapid ventricular rate. 2. Diastolic heart failure secondary to atrial fibrillation. 3. History of unremarkable cardiac cath in June 2017. 4. Type 2 diabetes mellitus. 5. Hypertension. 6. History of some seizure disorder. RECOMMENDATIONS: I am recommending that we add Lopressor 50 mg b.i.d., repeat PT/INR and consider vitamin K orally. We will obtain echo tomorrow and BMP tomorrow. We will check an additional troponin. I will place him on some IV Lasix as well. I discussed my thoughts in detail with the patient. Once Lopressor is given, we can discontinue his diltiazem. I will consider giving him a small dose of vitamin K for this patient. MMODL / IJN: [id number] /
[2018-07-22 19:31] LABS: T4, Free (Free Thyroxine) 1.23 ng/dL (0.78-2.19)
[2018-07-22] MEDS: ATORVASTATIN 10 MG TAB PO SCH (19:47)
[2018-07-22 20:21] LABS: Glucose,Whole Blood 123 mg/dL (75-99)
[2018-07-23] MEDS: ALPRAZolam 0.25 MG TAB PO PRN ×2 (04:24→20:07)
[2018-07-23 04:26] LABS: Glucose,Whole Blood 130 mg/dL (75-99)
[2018-07-23] MEDS: FUROSEMIDE 10 MG/ML 4 ML VIAL IV SCH ×2 (05:51→18:21)
[2018-07-23] MEDS: LEVOTHYROXINE 100 MCG TAB PO SCH (05:52)
[2018-07-23 05:57] LABS: Glucose,Whole Blood 134 mg/dL (75-99)
[2018-07-23] MEDS: INSULIN ASPART (NovoLOG) 100 UNIT/ML VIAL SQ SCH ×4 (05:57→23:45)
--- NOTE | 2018-07-23 07:12 | XR ---
EXAMINATION TYPE: XR chest 2V DATE OF EXAM: 07/23/2018 COMPARISON: 07/21/2018 HISTORY: Congestive heart failure TECHNIQUE: Frontal and lateral views of the chest are obtained. FINDINGS: Interstitial pulmonary edema is mild. Mild cephalization is seen. Cardiomediastinal silhou ette is enlarged. Findings are stable from the prior. No new sizable pleural effusion or pneumothorax . Osseous structures are grossly intact with minimal degenerative changes of the spine. IMPRESSION: Stable mild interstitial pulmonary edema, likely sequela of decompensated congestive hea rt failure.
[2018-07-23 07:36] LABS: INR 2.3 (<1.2); Magnesium 1.7 mg/dL (1.6-2.3); Potassium 4.4 mmol/L (3.5-5.1); Prothrombin Time 22.5 sec (9.0-12.0)
[2018-07-23 07:54] LABS: Anisocytosis Slight; Basophils # (A) 0.1 k/uL (0-0.2); Basophils % (A) 1 %; Eosinophils # (A) 0.7 k/uL (0-0.7); Eosinophils % (A) 8 %; HCT 46.8 % (39.0-53.0); HGB 14.3 gm/dL (13.0-17.5); Hypochromasia Marked; Lymphocytes # (A) 1.6 k/uL (1.0-4.8); Lymphocytes % (A) 18 %; MCH 23.7 pg (25.0-35.0); MCHC 30.6 g/dL (31.0-37.0); MCV 77.7 fL (80.0-100.0); Mean Platelet Volume 7.8; Microcytosis Slight; Monocytes # (A) 0.6 k/uL (0-1.0); Monocytes % (A) 7 %; Neutrophils # (A) 5.5 k/uL (1.3-7.7); Neutrophils % (A) 64 %; Platelet Count 292 k/uL (150-450); RBC 6.02 m/uL (4.30-5.90); RDW 17.9 % (11.5-15.5); WBC 8.5 k/uL (3.8-10.6)
[2018-07-23] MEDS: DULoxetine HCL 60 MG CAPSULE.DR PO SCH (08:44)
[2018-07-23] MEDS: DIVALPROEX ER 500 MG TAB.ER.24H PO SCH (08:44)
[2018-07-23] MEDS: METOPROLOL TARTRATE 50 MG TAB PO SCH ×2 (08:44→20:08)
[2018-07-23] MEDS: INSULN ASP PRT/INSULIN ASPART 100 UNIT/ML 10 ML VIAL SQ SCH ×2 (08:50→18:21)
--- NOTE | 2018-07-23 10:04 | P.PN ---
Subjective The patient is a 68-year-old white male, well-known to me and my practice. He has a history of atrial fibrillation and is anticoagulated with Coumadin. He is also an insulin-dependent diabetic on [id number] 70/30 insulin, due to cost. He reports a one-week history of increasing shortness of breath and palpitations. Became bad enough that he came emergency room last night and was found to be in atrial fibrillation with RVR. He was started on a Cardizem drip has heart rate is since improved considerably. He denies any chest pains or pr essures. He denies any nausea or vomiting. He denies any swelling, diarrhea, or constipation. His is at bedside today during my examination. Staff and noted lower sugars since his admission. 07/23/2018: Patient is resting comfortably in his room. His is at bedside. She she states she called him confused early this morning. This is since resolved. Cardiology seen him yesterday. He had a catheter in June 2009 was unremarkable. He currently denies any chest pains, pressures, shortness breath, nausea or vomiting. He is urinating without difficulty. He is had a bowel movement this morning. Cardiology indicate based on the records his diastolic congestive heart failure. His atrial fibrillation is now rate controlled. His INR is now therapeutic at 2.3. He was previously on a novel anticoagulant, but cannot continue to cost. This is due to his [employer] insurance. Cardiology feel it this could be restarted and would be cost effective now in 2019. he is amenable. Objective - Vital Signs Vital signs: Vital Signs Temp 98 F 07/23/18 03:10 Pulse 86 07/23/18 08:00 Resp 18 07/23/18 08:00 BP 114/65 07/23/18 08:00 Pulse Ox 94 L 07/23/18 08:35 Intake & Output 07/22/18 07/23/18 07/23/18 18:59 06:59 18:59 Intake Total 1516.5 180 Output Total 1300 Balance 216.5 180 Weight 90.1 kg 89 kg Intake: Intake, IV Titration 96.5 Amount Diltiazem 125 mg In 96.5 Sodium Chloride 0.9% 100 ml @ 5 MG/HR 5 mls/hr IV .Q24H [facility] Rx#:[id number] Oral 1420 180 Output: Urine 1300 Other: Voiding Method Urinal Urinal # Voids 1 - Exam General: The patient is awake and alert, in no distress, and does not appear acutely ill. Neck: The neck is supple, there is no thyromegaly, lymphadenopathy, tenderness or JVD. Cardiovascular: S1S2 is normal, There is a regular rate and rhythm. No murmur, rub or gallop is appreciated. Respiratory: Lungs are clear to auscultation bilaterally, respirations are non-labored, breath sounds are equal. Basilar crackles are now resolved. Gastrointestinal: Soft, non-distended, non-tender abdomen without masses or organomegaly noted. There is no rebound or guarding present. Bowel sounds are unremarkable. Musculoskeletal: Normal ROM, no tenderness, There is no pedal edema. There is no calf tenderness or swelling. No cords were appreciated. Neurological: CN II-XII intact, there are no obvious motor or sensory deficits. Coordination appears grossly intact. Speech is normal. He appears very fatigued. Skin: Skin is warm and dry and no rashes or lesions are noted. - Labs CBC & Chem 7: 07/23/18 06:54 07/23/18 06:54 Labs: Abnormal Lab Results - Last 24 Hours (Table) 07/22/18 07/22/18 07/22/18 Range/Units 07:07 10:37 11:32 RBC (4.30-5.90) m/uL MCV (80.0-100.0) fL MCH (25.0-35.0) pg MCHC (31.0-37.0) g/dL RDW (11.5-15.5) % PT (9.0-12.0) sec INR (<1.2) Chloride (98-107) mmol/L Creatinine (0.66-1.25) mg/dL Glucose (74-99) mg/dL POC Glucose (mg/dL) 147 H 115 H (75-99) mg/dL TSH 26.400 H (0.465-4.680) mIU/L 07/22/18 07/22/18 07/22/18 Range/Units 16:28 16:42 16:56 RBC (4.30-5.90) m/uL MCV (80.0-100.0) fL MCH (25.0-35.0) pg MCHC (31.0-37.0) g/dL RDW (11.5-15.5) % PT (9.0-12.0) sec INR (<1.2) Chloride (98-107) mmol/L Creatinine (0.66-1.25) mg/dL Glucose (74-99) mg/dL POC Glucose (mg/dL) 46 L 55 L 62 L (75-99) mg/dL TSH (0.465-4.680) mIU/L 07/22/18 07/23/18 07/23/18 Range/Units 20:19 04:25 05:56 RBC (4.30-5.90) m/uL MCV (80.0-100.0) fL MCH (25.0-35.0) pg MCHC (31.0-37.0) g/dL RDW (11.5-15.5) % PT (9.0-12.0) sec INR (<1.2) Chloride (98-107) mmol/L Creatinine (0.66-1.25) mg/dL Glucose (74-99) mg/dL POC Glucose (mg/dL) 123 H 130 H 134 H (75-99) mg/dL TSH (0.465-4.680) mIU/L 07/23/18 07/23/18 07/23/18 Range/Units 06:54 06:54 06:54 RBC 6.02 H (4.30-5.90) m/uL MCV 77.7 L (80.0-100.0) fL MCH 23.7 L (25.0-35.0) pg MCHC 30.6 L (31.0-37.0) g/dL RDW 17.9 H (11.5-15.5) % PT 22.5 H (9.0-12.0) sec INR 2.3 H (<1.2) Chloride 97 L (98-107) mmol/L Creatinine 1.37 H (0.66-1.25) mg/dL Glucose 128 H (74-99) mg/dL POC Glucose (mg/dL) (75-99) mg/dL TSH (0.465-4.680) mIU/L Assessment and Plan (1) Atrial fibrillation with RVR Current Visit: Yes Status: Acute Code(s): I48.91 - UNSPECIFIED ATRIAL FIBRILLATION SNOMED Code(s): 670302622551537 (2) Acute on chronic diastolic (congestive) heart failure Current Visit: Yes Status: Acute Code(s): I50.33 - ACUTE ON CHRONIC DIASTOLIC (CONGESTIVE) HEART FAILURE SNOMED Code(s): 561558987 (3) Insulin dependent diabetes mellitus Current Visit: Yes Status: Acute Code(s): E11.9 - TYPE 2 DIABETES MELLITUS WITHOUT COMPLICATIONS; Z79.4 - PENITENTIARY (CURRENT) USE OF INSULIN SNOMED Code(s): 20594420 (4) Hypothyroidism Current Visit: Yes Status: Acute Code(s): E03.9 - HYPOTHYROIDISM, UNSPECIFIED SNOMED Code(s): 58279962 (5) History of closed head injury Current Visit: Yes Status: Acute Code(s): Z87.820 - PERSONAL HISTORY OF TRAUMATIC BRAIN INJURY SNOMED Code(s): 94539127085947 (6) [facility] current use of anticoagulant therapy Current Visit: Yes Status: Acute Code(s): Z79.01 - PENITENTIARY (CURRENT) USE OF ANTICOAGULANTS SNOMED Code(s): 578246650 (7) RBC microcytosis Current Visit: Yes Status: Acute Code(s): R71.8 - OTHER ABNORMALITY OF RED BLOOD CELLS SNOMED Code(s): 116926635 (8) Elevated troponin Current Visit: Yes Status: Acute Code(s): R74.8 - ABNORMAL LEVELS OF OTHER SERUM ENZYMES SNOMED Code(s): 572578981 (9) Anxiety and depression Current Visit: Yes Status: Acute Code(s): F41.9 - ANXIETY DISORDER, UNSPECIF IED; F32.9 - MAJOR DEPRESSIVE DISORDER, SINGLE EPISODE, UNSPECIFIED SNOMED Code(s): 91266541 Plan: We'll wait on recommendations from cardiology Continue his current medications, with the exception of Coumadin , which we will change to Elequis. Continue Pepcid for GI prophylaxis. He'll continue on his levothyroxine 100 g and 150 g as directed. TSH and free T4 level are pending He'll continue on his insulin 70/30 of 30 units& 15 units before supper. Continue on the Xanax, Depakote and the duloxetine for anxiety and depression. Repeat labs in a.m. He'll be reevaluated next 24 hours. hopefully he'll be able to be discharged soon
[2018-07-23 11:52] LABS: Glucose,Whole Blood 179 mg/dL (75-99)
[2018-07-23 12:41] LABS: Hemoglobin A1C 7.8 % (4.0-6.0)
--- NOTE | 2018-07-23 14:18 | P.PN ---
Subjective Progress Note Date: 07/23/18 this is a 68-year-old gentleman admitted to the hospital with symptoms of weakness and exhaustion, was found to be in atrial fibrillation with a moderately rapid ventricular response. Patient had been on Coumadin for anticoagulation and his INR at admission was 6.1. He also has history of diabetes, hypertension, hyperlipidemia, and history of hypothyroidism. Patient was seen and examined today, his INR is 2.3. We did have a discussion with the patient and his regarding discontinuing the Coumadin and starting on Eliquis. Patient had taken Eliquis in the past but could not afford it. We will check into coverage again at this time, in the meantime we will discontinue the Coumadin and from tomorrow start the patient on Eliquis 5 mg one tablet by mouth twice a day. He may be able to be discharged home from our perspective and we will follow him up in the office. Objective - Vital Signs Vital signs: Vital Signs Temp 98 F 07/23/18 03:10 Pulse 84 07/23/18 12:00 Resp 19 07/23/18 12:00 BP 91/70 07/23/18 12:00 Pulse Ox 93 L 07/23/18 12:00 Intake & Output 07/22/18 07/23/18 07/23/18 18:59 06:59 18:59 Intake Total 1516.5 180 Output Total 1300 Balance 216.5 180 Weight 90.1 kg 89 kg Intake: Intake, IV Titration 96.5 Amount Diltiazem 125 mg In 96.5 Sodium Chloride 0.9% 100 ml @ 5 MG/HR 5 mls/hr IV .Q24H [facility] Rx#:[id number] Oral 1420 180 Output: Urine 1300 Other: Voiding Method Urinal Urinal # Voids 1 - Exam PHYSICAL EXAMINATION: GENERAL:68-year-old gentleman in no acute distress at the time of my examination HEENT: Head is atraumatic, normocephalic. Pupils equal, round. Sclera anicteric. Conjunctiva are clear. Mucous membranes of the mouth are moist. Neck is supple. There is no elevated jugular venous pressure.no carotid bruit is heard. HEART EXAMINATION: heart S1 and S2 irregularly irregular CHEST EXAMINATION:[ Lungs are clear to auscultation and precussion. No chest wall tenderness is noted on palpation or with deep breathing.] ABDOMEN: [ Soft, nontender. Bowel sounds are heard. No organomegaly noted]. EXTREMITIES:[ 2+ peripheral pulses with no evidence of peripheral edema and no calf tenderness noted]. NEUROLOGIC [patient is awake, alert and oriented 3.] . - Labs CBC & Chem 7: 07/23/18 06:54 07/23/18 06:54 Labs: Abnormal Lab Results - Last 24 Hours (Table) 07/21/18 07/22/18 07/22/18 Range/Units 13:52 07:07 16:28 RBC (4.30-5.90) m/uL MCV (80.0-100.0) fL MCH (25.0-35.0) pg MCHC (31.0-37.0) g/dL RDW (11.5-15.5) % PT (9.0-12.0) sec INR (<1.2) Chloride (98-107) mmol/L Creatinine (0.66-1.25) mg/dL Glucose (74-99) mg/dL POC Glucose (mg/dL) 46 L (75-99) mg/dL Hemoglobin A1c 7.8 H (4.0-6.0) % TSH 26.400 H (0.465-4.680) mIU/L 07/22/18 07/22/18 07/22/18 Range/Units 16:42 16:56 20:19 RBC (4.30-5.90) m/uL MCV (80.0-100.0) fL MCH (25.0-35.0) pg MCHC (31.0-37.0) g/dL RDW (11.5-15.5) % PT (9.0-12.0) sec INR (<1.2) Chloride (98-107) mmol/L Creatinine (0.66-1.25) mg/dL Glucose (74-99) mg/dL POC Glucose (mg/dL) 55 L 62 L 123 H (75-99) mg/dL Hemoglobin A1c (4.0-6.0) % TSH (0.465-4.680) mIU/L 07/23/18 07/23/18 07/23/18 Range/Units 04:25 05:56 06:54 RBC (4.30-5.90) m/uL MCV (80.0-100.0) fL MCH (25.0-35.0) pg MCHC (31.0-37.0) g/dL RDW (11.5-15.5) % PT (9.0-12.0) sec INR (<1.2) Chloride 97 L (98-107) mmol/L Creatinine 1.37 H (0.66-1.25) mg/dL Glucose 128 H (74-99) mg/dL POC Glucose (mg/dL) 130 H 134 H (75-99) mg/dL Hemoglobin A1c (4.0-6.0) % TSH (0.465-4.680) mIU/L 07/23/18 07/23/18 07/23/18 Range/Units 06:54 06:54 11:45 RBC 6.02 H (4.30-5.90) m/uL MCV 77.7 L (80.0-100.0) fL MCH 23.7 L (25.0-35.0) pg MCHC 30.6 L (31.0-37.0) g/dL RDW 17.9 H (11.5-15.5) % PT 22.5 H (9.0-12.0) sec INR 2.3 H (<1.2) Chloride (98-107) mmol/L Creatinine (0.66-1.25) mg/dL Glucose (74-99) mg/dL POC Glucose (mg/dL) 179 H (75-99) mg/dL Hemoglobin A1c (4.0-6.0) % TSH (0.465-4.680) mIU/L Assessment and Plan Plan: assessment and plan #1 Paroxysmal atrial fibrillation, we'll discontinue the Coumadin and start the patient on Eliquis for anticoagulation, rate is under adequate control #2 diastolic congestive heart failure acute on chronic #3 diabetes #4 hypertension #5 hyperlipidemia #6 hypothyroidism Plan From cardiology's perspective, as mentioned we will discontinue the Coumadin and from tomorrow start the patient on Eliquis. He may be able to be discharged home once cleared by primary and we'll make him a follow-up appointment in the office post discharge. DNP note has been reviewed, I agree with a documented findings and plan of care. Patient was seen and examined.
[2018-07-23 17:09] LABS: Glucose,Whole Blood 161 mg/dL (75-99)
[2018-07-23] MEDS ORDERED: WARFARIN 2.5 MG TAB PO SCH (18:00)
[2018-07-23] MEDS: ATORVASTATIN 10 MG TAB PO SCH (20:07)
[2018-07-23 21:17] LABS: Glucose,Whole Blood 135 mg/dL (75-99)
[2018-07-23] MEDS: APIXABAN 5 MG TAB PO SCH (23:47)
[2018-07-24 06:17] LABS: Glucose,Whole Blood 134 mg/dL (75-99)
[2018-07-24] MEDS: FUROSEMIDE 10 MG/ML 4 ML VIAL IV SCH (06:19)
[2018-07-24] MEDS: LEVOTHYROXINE 100 MCG TAB PO SCH (06:20)
[2018-07-24] MEDS: INSULN ASP PRT/INSULIN ASPART 100 UNIT/ML 10 ML VIAL SQ SCH (06:26)
[2018-07-24] MEDS: INSULIN ASPART (NovoLOG) 100 UNIT/ML VIAL SQ SCH (06:38)
[2018-07-24 06:54] LABS: INR 1.4 (<1.2); Prothrombin Time 13.9 sec (9.0-12.0)
--- NOTE | 2018-07-24 08:29 | ECHOF ---
Referral Reason:lv function MEASUREMENTS -------- HEIGHT: 162.6 cm WEIGHT: 89.8 kg BP: RVIDd: 3.3 cm (< 3.3) IVSd: 1.2 cm (0.6 - 1.1) LVIDd: 3.8 cm (3.9 - 5.3) LVPWd: 1.3 cm (0.6 - 1.1) IVSs: 1.3 cm LVIDs: 3.8 cm LVPWs: 1.5 cm LA Diam: 4.3 cm (2.7 - 3.8) LAESV Index (A-L): 34.61 ml/m Ao Diam: 3.0 cm (2.0 - 3.7) AV Cusp: 1.6 cm (1.5 - 2.6) LA Diam: 3.9 cm (2.7 - 3.8) MV EXCURSION: 14.924 mm (> 18.000) MV EF SLOPE: 29 mm/s (70 - 150) EPSS: 0.8 cm MV E Ignacio: 1.07 m/s MV DecT: 251 ms MV A Ignacio: 0.01 m/s MV E/A Ratio: 129.83 RAP: 5.00 mmHg RVSP: 23.73 mmHg FINDINGS -------- Atrial fibrillation. This was a techncally difficult study with suboptimal views, , Lumason utilized for enhancement of im ages. The left ventricular size is normal. There is mild concentric left ventricular hypertrophy. Overa ll left ventricular systolic function is moderate-severely impaired with, an EF between 30 - 35 %. The right ventricle is normal in size. The right atrial size is normal. 5.0mg OF Lumason UTLIZED: 2 OR MORE WALL SEGMENTS NOT VISUALIZED. There is mild aortic valve sclerosis. There is no evidence of aortic regurgitation. Mild mitral annular calcification present. Mild mitral regurgitation is present. Mild tricuspid regurgitation present. There is no evidence of pulmonary hypertension. The right v entricular systolic pressure, as measured by Doppler, is 23.73mmHg. There is no pulmonic regurgitation present. The aortic root size is normal. The inferior vena cava is dilated with poor inspiratory collapse which is consistent with estimated r ight atrial pressure of 20 mmHg. There is no pericardial effusion. CONCLUSIONS -------- 1. Atrial fibrillation. 2. This was a techncally difficult study with suboptimal views, , Lumason utilized for enhancement of images. 3. The left ventricular size is normal. 4. There is mild concentric left ventricular hypertrophy. 5. Overall left ventricular systolic function is moderate-severely impaired with, an EF between 30 - 35 %. 6. The right ventricle is normal in size. 7. The right atrial size is normal. 8. 5.0mg OF Lumason UTLIZED: 2 OR MORE WALL SEGMENTS NOT VISUALIZED. 9. There is mild aortic valve sclerosis. 10. Mild mitral annular calcification present. 11. Mild mitral regurgitation is present. 12. Mild tricuspid regurgitation present. 13. There is no evidence of pulmonary hypertension. 14. The right ventricular systolic pressure, as measured by Doppler, is 23.73mmHg. 15. There is no pulmonic regurgitation present. 16. The aortic root size is normal. 17. The inferior vena cava is dilated with poor inspiratory collapse which is consistent with estimat ed right atrial pressure of 20 mmHg. 18. There is no pericardial effusion. BOTT[employer] CRANE OPERATOR: Tere Osorio RDCS
[2018-07-24] MEDS: METOPROLOL TARTRATE 50 MG TAB PO SCH (09:01)
[2018-07-24] MEDS: DULoxetine HCL 60 MG CAPSULE.DR PO SCH (09:01)
[2018-07-24] MEDS: DIVALPROEX ER 500 MG TAB.ER.24H PO SCH (09:02)
[2018-07-24] MEDS: APIXABAN 5 MG TAB PO SCH (09:02)
--- NOTE | 2018-07-24 09:19 | P.DS ---
Providers Date of admission: 07/21/18 15:31 Expected date of discharge: 07/24/18 Attending physician: Pavan Elmore Consults: 07/21/18 15:32 Consult Physician Routine Consulting Provider: Maggie Mcmullen Consult Reason/Comments: A-fib, chf Do you want consulting provider notified?: Yes Primary care physician: Pavan Elmore - Discharge Diagnosis(es) (1) Acute on chronic systolic and diastolic heart failure, NYHA class 2 Current Visit: Yes Status: Acute (2) Atrial fibrillation with RVR Current Visit: Yes Status: Acute (3) Insulin dependent diabetes mellitus Current Visit: Yes Status: Acute (4) Hypothyroidism Current Visit: Yes Status: Acute (5) History of closed head injury Current Visit: Yes Status: Acute (6) intermediate current use of anticoagulant therapy Current Visit: Yes Status: Acute (7) RBC microcytosis Current Visit: Yes Status: Acute (8) Elevated troponin Current Visit: Yes Status: Acute (9) Anxiety and depression Current Visit: Yes Status: Acute Hospital Course: The patient is a 68-year-old white male, well-known to me and my practice. He has a history of atrial fibrillation and is anticoagulated with Coumadin. He is also an insulin-dependent diabetic on [id number] 70/30 insulin, due to cost. He reports a one-week history of increasing shortness of breath and palpitations. Became bad enough that he came emergency room last night and was found to be in atrial fibrillation with RVR. He was started on a Cardizem drip has heart rate is since improved considerably. He denies any chest pains or pressures. He denies any nausea or vomiting. He denies any swelling, diarrhea, or constipation. His is at bedside today during my examination. Staff and noted lower sugars since his admission. 07/23/2018: Patient is resting comfortably in his room. His is at bedside. She she states she called him confused early this morning. This is since resolved. Cardiology seen him yesterday. He had a catheter in June 2009 was unremarkable. He currently denies any chest pains, pressures, shortness breath, nausea or vomiting. He is urinating without difficulty. He is had a bowel movement this morning. Cardiology indicate based on the records his diastolic congestive heart failure. His atrial fibrillation is now rate controlled. His INR is now therapeutic at 2.3. He was previously on a novel anticoagulant, but cannot continue to cost. This is due to his [employer] [facility] [employer] insurance. Cardiology feel it this could be restarted and would be cost effective now in 2019. he is amenable. 07/24/2018: Patient is doing well. Her social workers insurance, [employer] be at $260 co-pay initially. Cardiology [facility] to give him samples from there office. They've cleared him for discharge. He remains in A. fib with rate control. He'll longer has a basilar crackles and is not short of breath. Patient Condition at Discharge: Stable Plan - Discharge Summary New Discharge Prescriptions: New Apixaban [Eliquis] 5 mg PO BID tab Metoprolol Tartrate [Lopressor] 50 mg PO BID #60 tab Insuln Asp Prt/Insulin Aspart [NovoLOG MIX 70-30 VIAL] 15 unit SQ AC-SUPPER vial Insuln Asp Prt/Insulin Aspart [NovoLOG MIX 70-30 VIAL] 30 unit SQ AC-BRKFST vial Continue Simvastatin [Zocor] 20 mg PO HS ALPRAZolam [Xanax] 0.25 mg PO Q6H PRN PRN Reason: Anxiety metFORMIN HCL 1,000 mg PO BID Levothyroxine Sodium [Synthroid] 100 mcg PO MOTUWETHFR DULoxetine HCL [Cymbalta] 60 mg PO DAILY Levothyroxine Sodium [Synthroid] 150 mcg PO SUSA Divalproex ER [Depakote ER] 500 mg PO DAILY Insulin NPH Hum/Reg Insulin Hm [Relion Novolin 70-30 Flexpen] 30 units SQ AC- BRKFST Discontinued Warfarin [Coumadin] 2.5 mg PO SUTUWEFRSA Warfarin [Coumadin] 5 mg PO MOTH Discharge Medication List ALPRAZolam [Xanax] 0.25 mg PO Q6H PRN 07/01/14 [History] Simvastatin [Zocor] 20 mg PO HS 07/01/14 [History] metFORMIN HCL 1,000 mg PO BID 01/06/16 [History] Levothyroxine Sodium [Synthroid] 100 mcg PO MOTUWETHFR 07/03/17 [History] DULoxetine HCL [Cymbalta] 60 mg PO DAILY 07/21/18 [History] Divalproex ER [Depakote ER] 500 mg PO DAILY 07/21/18 [History] Insulin NPH Hum/Reg Insulin Hm [Relion Novolin 70-30 Flexpen] 30 units SQ AC- BRKFST 07/21/18 [History] Levothyroxine Sodium [Synthroid] 150 mcg PO SUSA 07/21/18 [History] Apixaban [Eliquis] 5 mg PO BID tab 07/24/18 [Rx] Insuln Asp Prt/Insulin Aspart [NovoLOG MIX 70-30 VIAL] 15 unit SQ AC-SUPPER vial 07/24/18 [Rx] Insuln Asp Prt/Insulin Aspart [NovoLOG MIX 70-30 VIAL] 30 unit SQ AC-BRKFST vial 07/24/18 [Rx] Metoprolol Tartrate [Lopressor] 50 mg PO BID #60 tab 07/24/18 [Rx] Follow up Appointment(s)/Referral(s): Maggie Mcmullen MD [STAFF PHYSICIAN] - 1 Week Pavan Elmore MD [Primary Care Provider] - 08/01/18 3:00 pm (Monday) Patient Instructions/Handouts: A-fib (Atrial Fibrillation) (DC), Safe Use of Anticoagulants (DC) Activity/Diet/Wound Care/Special Instructions: Eliquis - $268.46 copay until $200 deductible is met
[2018-07-24] MEDS ORDERED: SPIRONOLACTONE 25 MG TAB PO SCH (10:45)
[2018-07-24] MEDS ORDERED: LOSARTAN 25 MG TAB PO SCH (10:45)
[2018-07-24 11:44] VITALS: BP 115/67; PULSE 78; RESP 17; TEMP 97.5
--- NOTE | 2018-07-24 16:53 | PN ---
PROGRESS NOTE Mr. Roberts is a gentleman with paroxysmal atrial fibrillation. He came into the hospital and echocardiogram revealed significant LV dysfunction. I am recommending we add a small dose of ARB as well as beta blockers. The patient was not so compliant with medications. His previous echo revealed good systolic function. Whether the LV dysfunction is related to atrial fibrillation or not is unclear; however, he is doing well, ambulating in the hallways. Vitals are stable. S1, S2 heard normally. Short systolic murmur noted. Lungs are clear. Abdomen and lower extremity exam unchanged. Patient is in sinus rhythm. We will discharge the patient on Eliquis 5 mg b.i.d. and I will see him in the office in 2 weeks. Advised to continue current medications. We will consider repeating an echo after a couple of weeks in sinus rhythm. MMODL / IJN: [id number] /
[2018-07-25] MEDS ORDERED: FUROSEMIDE 40 MG TAB PO SCH (09:00)
== END 2018-07-24 11:35 | disposition home or self-care (01) | DRG 291 ==
LOC: EC 13:26 → 3SCARD 15:31
PROVIDERS: ADMIT Family Medicine; ATTEND Family Medicine
DX: I13.0 Hypertensive heart and chronic kidney disease with heart failure and stage 1 through stage 4 chronic kidney disease, or unspecified chronic kidney disease (principal); I50.43 Acute on chronic combined systolic (congestive) and diastolic (congestive) heart failure; E11.22 Type 2 diabetes mellitus with diabetic chronic kidney disease; G40.909 Epilepsy, unspecified, not intractable, without status epilepticus; N18.3 Chronic kidney disease, stage 3 (moderate); I48.0 Paroxysmal atrial fibrillation; R74.8 Abnormal levels of other serum enzymes; R79.1 Abnormal coagulation profile; E78.5 Hyperlipidemia, unspecified; F41.9 Anxiety disorder, unspecified; F32.9 Major depressive disorder, single episode, unspecified; R71.8 Other abnormality of red blood cells; E03.9 Hypothyroidism, unspecified; T45.515A Adverse effect of anticoagulants, initial encounter; Z71.3 Dietary counseling and surveillance; Z68.27 Body mass index [BMI] 27.0-27.9, adult; Z79.01 Long term (current) use of anticoagulants; Z79.890 Hormone replacement therapy; Z79.899 Other long term (current) drug therapy; Z79.4 Long term (current) use of insulin; Z87.820 Personal history of traumatic brain injury; Z88.8 Allergy status to other drugs, medicaments and biological substances; Z82.49 Family history of ischemic heart disease and other diseases of the circulatory system
CPT/HCPCS: 36415; 71046; 80048; 80053; 83036; 83690; 83735; 83880; 84439; 84443; 84484; 85025; 85610; 85730; 93005; 93306; 94760; 96365; 96366; 96375; 96376; 99291

== ENCOUNTER 2018-08-02 01:57 | Inpatient (IN) | payer MEDICARE ==
[2018-08-02] MEDS ORDERED: ONDANSETRON 4 MG/2 ML VIAL IVP STA (02:29)
[2018-08-02] MEDS ORDERED: ASPIRIN 81 MG PO STA (02:29)
[2018-08-02] MEDS ORDERED: MORPHINE SULFATE 2 MG/ML SYRINGE IVP STA (02:29)
--- NOTE | 2018-08-02 03:04 | XR ---
INDICATION: Chest pain COMPARISON: CXR 07/23/18 FINDINGS: AP and lateral views of the chest are submitted for interpretation. There is stable mild pulmonary vascular congestion with pulmonary interstitial prominence. There is no airspace consolidation, pleural effusion, or pneumothorax. The cardiomediastinal silhouette is stable. There are no acute osseous findings. IMPRESSION: 1. Stable exam. Mild pulmonary vascular congestion and interstitial edema are again suggested.
[2018-08-02 03:09] LABS: Calcium 9.7 mg/dL (8.4-10.2); Magnesium 1.8 mg/dL (1.6-2.3); Potassium 4.7 mmol/L (3.5-5.1); Total Bilirubin 0.7 mg/dL (0.2-1.3); Total Protein 6.9 g/dL (6.3-8.2)
[2018-08-02 03:13] LABS: Anisocytosis Slight; Basophils # (A) 0.1 k/uL (0-0.2); Basophils % (A) 1 %; Eosinophils # (A) 0.4 k/uL (0-0.7); Eosinophils % (A) 6 %; HCT 41.7 % (39.0-53.0); HGB 13.5 gm/dL (13.0-17.5); Lymphocytes % (A) 28 %; MCH 23.8 pg (25.0-35.0); MCHC 32.2 g/dL (31.0-37.0); MCV 73.8 fL (80.0-100.0); Mean Platelet Volume 7.6; Microcytosis Moderate; Monocytes # (A) 0.6 k/uL (0-1.0); Monocytes % (A) 8 %; Neutrophils % (A) 55 %; Platelet Count 150 k/uL (150-450); RBC 5.65 m/uL (4.30-5.90); RDW 17.1 % (11.5-15.5); WBC 7.3 k/uL (3.8-10.6)
[2018-08-02 03:37] LABS: Anisocytosis (M) Present; Ovalocytes Present
--- NOTE | 2018-08-02 03:49 | ED ---
Chest Pain HPI - General Source: patient Mode of arrival: ambulatory Limitations: no limitations <Kusum Ziegler - Last Filed: 08/02/18 03:59> <Bernie Franklin - Last Filed: 08/02/18 21:49> - General Chief Complaint: Chest Pain Stated Complaint: Chest Pain Time Seen by Provider: 08/02/18 02:17 - History of Present Illness Initial Comments: 68-year-old male patient presents to the emergency department for evaluation of chest pain and shortness of breath. Patient states that he is having sharp substernal chest pain. Patient states symptoms started around 2 AM, they woke him from sleep. Patient states he is nauseated but has not vomited. Denies abdominal pain. Denies any fever or chills. Denies any cough or congestion. Patient does have a history of atrial fibrillation for which he takes Xarelto. Patient denies any history of coronary artery disease, but states he does have a family history of extensive coronary artery disease. He denies any dizziness or weakness. Patient denies any recent rash, fever, chills, abdominal pain, diarrhea, constipation, back pain, numbness, tingling, hematuria, dysuria, urinary urgency, urinary frequency, headache, visual changes, or any other complaints. (Kusum Ziegler) - Related Data Home Medications Medication Instructions Recorded Confirmed ALPRAZolam [Xanax] 0.25 mg PO Q6H PRN 07/01/14 08/02/18 Simvastatin [Zocor] 20 mg PO HS 07/01/14 08/02/18 metFORMIN HCL 1,000 mg PO BID 01/06/16 08/02/18 Levothyroxine Sodium [Synthroid] 100 mcg PO MOTUWETHFR 07/03/17 08/02/18 DULoxetine HCL [Cymbalta] 60 mg PO DAILY 07/21/18 08/02/18 Divalproex ER [Depakote ER] 500 mg PO DAILY 07/21/18 08/02/18 Levothyroxine Sodium [Synthroid] 150 mcg PO SUSA 07/21/18 08/02/18 Previous Rx's Medication Instructions Recorded Apixaban [Eliquis] 5 mg PO BID tab 07/24/18 Furosemide [Lasix] 40 mg PO DAILY #30 tab 07/24/18 Insuln Asp Prt/Insulin Aspart 15 unit SQ AC-SUPPER vial 07/24/18 [NovoLOG MIX 70-30 VIAL] Insuln Asp Prt/Insulin Aspart 30 unit SQ AC-BRKFST vial 07/24/18 [NovoLOG MIX 70-30 VIAL] Losartan [Cozaar] 25 mg PO DAILY #30 tab 07/24/18 Metoprolol Tartrate [Lopressor] 50 mg PO BID #60 tab 07/24/18 Spironolactone [Aldactone] 25 mg PO DAILY #30 tab 07/24/18 Allergies Allergy/AdvReac Type Severity Reaction Status Date / Time bupropion [From Wellbutrin] Allergy Unknown Verified 08/02/18 09:03 venlafaxine [From Effexor] Allergy Unknown Verified 08/02/18 09:03 aripiprazole [From Abilify] AdvReac Unknown Verified 08/02/18 09:03 Review of Systems ROS Other: All systems not noted in ROS Statement are negative. <Kusum Ziegler - Last Filed: 08/02/18 03:59> ROS Other: All systems not noted in ROS Statement are negative. <Bernie Franklin - Last Filed: 08/02/18 21:49> ROS Statement: Those systems with pertinent positive or pertinent negative responses have been documented in the HPI. EKG Findings - EKG Comments: EKG Findings:: EKG obtained at [place] to 17 shows H of ablation with a competing junctional pacemaker, prolonged QT interval. Ventricular rate is 93, QRS duration is 90, QT 398, QTC 494. No evidence of ST elevation or depression. <Kusum Ziegler - Last Filed: 08/02/18 03:59> Past Medical History Past Medical History: Atrial Fibrillation, Heart Failure, Diabetes Mellitus, Hyperlipidemia, Hypertension, Neurologic Disorder, Renal Disease, Thyroid Disorder Additional Past Medical History / Comment(s): L wrist fx,concussion 07/01/14, renal failure stage 3, HEART FAILURE 07/21/18 History of Any Multi-Drug Resistant Organisms: None Reported Past Surgical History: Back Surgery, Hernia Repair, Orthopedic Surgery, Tonsillectomy Additional Past Surgical History / Comment(s): rt inguinal hernia repair, rt ankle orif, Past Anesthesia/Blood Transfusion Reactions: No Reported Reaction Past Psychological History: Anxiety, Depression Smoking Status: Never smoker Past Alcohol Use History: None Reported Past Drug Use History: None Reported - Past Family History Mother Family Medical History: Congestive Heart Failure (CHF) Father Family Medical History: Congestive Heart Failure (CHF) <Kusum Ziegler - Last Filed: 08/02/18 03:59> General Exam Limitations: no limitations General appearance: alert, in no apparent distress, other (Physical well- developed, well-nourished elderly male patient in no acute distress. Vital signs upon presentation are temperature 97.6F, pulse 97, respirations 24, blood pressure 111/54, pulse ox 96% on room air.) Eye exam: Present: normal appearance, PERRL, EOMI. Absent: scleral icterus, conjunctival injection, periorbital swelling ENT exam: Present: normal exam, normal oropharynx, mucous membranes moist Respiratory exam: Present: normal lung sounds bilaterally. Absent: respiratory distress, wheezes, rales, rhonchi, stridor Cardiovascular Exam: Present: regular rate, normal rhythm, normal heart sounds. Absent: systolic murmur, diastolic murmur, rubs, gallop, clicks GI/Abdominal exam: Present: soft, normal bowel sounds. Absent: distended, tenderness, guarding, rebound, rigid Neurological exam: Present: alert, oriented X3, CN II-XII intact Psychiatric exam: Present: normal affect, normal mood Skin exam: Present: warm, dry, intact, normal color. Absent: rash <Kusum Ziegler M - Last Filed: 08/02/18 03:59> Course Vital Signs 08/02/18 08/02/18 08/02/18 01:59 04:16 04:50 Temperature 97.6 F 97.9 F Pulse Rate 97 86 Pulse Rate [ 74 Left] Respiratory 24 16 15 Rate Blood Pressure 111/54 101/87 Blood Pressure 94/70 [Left Arm] O2 Sat by Pulse 96 99 98 Oximetry Chest Pain [facility] <Kusum Ziegler M - Last Filed: 08/02/18 03:59> <Bernie Franklin P - Last Filed: 08/02/18 21:49> - [facility] RADIOLOGY:Two-view x-ray of the chest is obtained. Report was reviewed in its entirety. Impression by Dr. Gilmore shows stable exam. Mild pulmonary vascular congestion and interstitial edema or again suggested. MDM: 68-year-old male patient presented to the emergency department today for evaluation of chest pain, shortness breath, nausea this started around 02 100 this morning. Physical examination is unremarkable. Labs reviewed and were unremarkable. Initial troponin negative. Patient does have history of atrial fibrillation does take 0.0. He does have extensive family history of coronary artery disease. Given these findings patient will be admitted to the hospital for serial troponins and further evaluation by cardiology. Did discuss findings, results, plan with the patient, he is agreeable. (Kusum Ziegler) I personally saw and examined the patient. I reviewed and agree with the mid- level provider findings including all diagnostic interpretations and treatment plans as written unless otherwise stated. I discussed patient care with primary care provider Dr. De Jesus agrees with plan for admission (Bernie Franklin) Disposition Decision to Admit Reason: Admit from EC Decision Date: 08/02/18 Decision Time: 04:04 <Kusum Ziegler - Last Filed: 08/02/18 03:59> <Bernie Franklin - Last Filed: 08/02/18 21:49> Clinical Impression: Chest pain Disposition: ADMITTED IP TO THIS [facility] Condition: Serious
[2018-08-02] MEDS ORDERED: ONDANSETRON 4 MG/2 ML VIAL IVP PRN (03:57)
[2018-08-02] MEDS ORDERED: NALOXONE 0.4 MG/ML 1 ML VIAL IV PRN (03:57)
[2018-08-02] MEDS: MORPHINE SULFATE 4 MG/ML SYRINGE IV PRN ×2 (04:14→06:46)
[2018-08-02 04:48] LABS: INR 1.2 (<1.2); Partial Thromboplastin Time 33.1 sec (22.0-30.0); Prothrombin Time 12.8 sec (9.0-12.0)
[2018-08-02 06:49] LABS: Glucose,Whole Blood 139 mg/dL (75-99)
[2018-08-02] MEDS ORDERED: HEPARIN SODIUM,PORCINE 5,000 UNIT/ML 1 ML VIAL IV PRN (10:33)
[2018-08-02] MEDS ORDERED: SODIUM CHLORIDE 0.9% 1,000 ML in EMPTY BAG 1 BAG IV ONE (10:34)
[2018-08-02] MEDS ORDERED: HEPARIN SODIUM,PORCINE 5,000 UNIT/ML 1 ML VIAL IV ONE (10:45)
[2018-08-02 10:53] LABS: INR 1.2 (<1.2); Prothrombin Time 12.2 sec (9.0-12.0)
[2018-08-02] MEDS ORDERED: HEPARIN SOD,PORK IN 0.45% NACL 25,000 UNIT in 0.45% NACL 1 250ML.BAG IV SCH (11:00)
[2018-08-02 11:15] LABS: Cholesterol 95 mg/dL (<200); HDL Cholesterol 35 mg/dL (40-60); LDL Cholesterol,Calculated 45 mg/dL (0-99); Triglycerides 76 mg/dL (<150)
[2018-08-02] MEDS: METOPROLOL TARTRATE 50 MG TAB PO SCH ×2 (11:22→21:59)
[2018-08-02] MEDS: LOSARTAN 25 MG TAB PO SCH (11:22)
[2018-08-02] MEDS: ATORVASTATIN 80 MG TAB PO SCH (11:22)
[2018-08-02] MEDS: SPIRONOLACTONE 25 MG TAB PO SCH (11:22)
[2018-08-02] MEDS: DULoxetine HCL 60 MG CAPSULE.DR PO SCH (11:22)
[2018-08-02] MEDS: LEVOTHYROXINE 100 MCG TAB PO SCH (11:22)
[2018-08-02] MEDS: DIVALPROEX ER 500 MG TAB.ER.24H PO SCH (11:32)
[2018-08-02 11:44] LABS: Glucose,Whole Blood 159 mg/dL (75-99)
--- NOTE | 2018-08-02 12:23 | P.CRDCN ---
History of Present Illness History of present illness: This is a pleasant 68-year-old male past medical history significant for paroxysmal atrial fibrillation on long-term anticoagulation, systolic heart failure, diabetes mellitus, hypertension, dyslipidemia and hypothyroidism. He follows with Dr. Mcmullen in the office. He was recently admitted to the hospital with a-fib with RVR and congestive heart failure. He was also noted to have supratherapeutic INR and was switched from coumadin to eliquis. He was discharged home 07/24/2018 and has yet to follow up in the office. Appointment is scheduled for August 09. We have been asked to see him in consultation for chest pain. He is somewhat of a poor historian and unable to clearly articulate but his is in the room and providing most of his history. Apparently he woke up around 0200 with a sharp heavy pain in the mid-sternal region associated with increased shortness of breath and nausea. There was no radiation to the arm, back, neck or jaw. He denies associated palpitations, dizziness, vomiting or diaphoresis. The pain was intermittent and not clearly associated with exertion. At the time of my exam he is chest pain free and breathing appears stable. He initially is seen laying flat in bed. He underwent cardiac catheterization 06/2017 that revealed minor irregularities with no significant obstructive disease. EKG on arrival reveals atrial fibrillation with controlled ventricular response heart rate is [address] and T wave abnormalities noted in the an terior leads. Chest x-ray with mild pulmonary vascular congestion and interstitial edema that is stable from previous exam. Laboratory data reviewed, WBC 7.3, hemoglobin 13.5, platelets 150, sodium 139, potassium 4.7, creatinine 1.2, GFR 61, troponin 0.012 and 2.23, NT proBNP 7950, LDL 45 HDL 35. Current cardiac medications include Eliquis 5 mg twice a day, Lasix 40 mg daily, losartan 25 mg daily, Lopressor 50 mg twice a day, simvastatin 20 mg daily and Aldactone 25 mg daily. Most recent echocardiogram obtained 07/23/2018 reveals impaired LV systolic function with ejection fraction 30-35%, mild MR, mild TR noted. At the time of my exam: CONSTITUTIONAL: Denies fever. Denies chills. EYES: Denies blurred vision. Denies vision changes. Denies eye pain. EARS, NOSE, MOUTH & THROAT: Denies headache. Denies sore throat. Denies ear pain. CARDIOVASCULAR: Denies chest pain. Denies shortness of breath. Denies orthopnea. Denies PND. Denies palpitations. RESPIRATORY: Denies cough. GASTROINTESTINAL: Denies abdominal pain. Denies diarrhea. Denies constipation. Denies nausea. Denies vomiting. MUSCULOSKELETAL: Denies myalgias. INTEGUMENTARY: Denies pruitis. Denies rash. NEUROLOGIC: Denies numbness. Denies tingling. Denies weakness. PSYCHIATRIC: Denies anxiety. Denies depression. ENDOCRINE: Denies fatigue. Denies weight change. Denies polydipsia. Denies polyurina. GENITOURINARY: Denies burning, hematuria or urgency with micturation. HEMATOLOGIC: Denies history of anemia. Denies bleeding. Blood pressure 104/75 heart rate 94, afebrile maintaining oxygen saturation on room air GENERAL: This is a 68-year-old male in no apparent distress at the time of my examination. HEENT: Head is atraumatic, normocephalic. Pupils are equal, round. Sclerae anicteric. Conjunctivae are clear. Mucous membranes of the mouth are moist. Neck is supple. There is no jugular venous distention. No carotid bruit is heard. LUNGS: Clear to auscultation no wheezes, rales or rhonchi. No chest wall tendern ess is noted on palpation or with deep breathing. HEART: Regular rate and rhythm without murmurs, rubs or gallops. S1 and S2 heard. ABDOMEN: Soft, nontender. Bowel sounds are heard. No organomegaly noted. EXTREMITIES: No evidence of peripheral edema and no calf tenderness noted. VASCULAR: Radial and dorsalis pedis pulses palpated, no evidence of clubbing. NEUROLOGIC: Patient is awake, alert and oriented x3. ASSESSMENT Non-ST elevated myocardial infarction Chronic persistent atrial fibrillation on long-term anticoagulation with controlled ventricular response Chronic systolic heart failure, currently euvolemic clinically Hypertension Dyslipidemia Diabetes mellitus PLAN Initiate the patient on IV heparin infusion. Resume Lasix, losartan, Lopressor, simvastatin and Aldactone as previously ordered. Hold Eliquis for cardiac catheterization tomorrow morning with his primary range conservationist Dr. Mcmullen. Further recommendations to follow based upon clinical course. Thank you kindly for this consultation. Nurse Practitioner note has been reviewed, I agree with a documented findings and plan of care. Patient was seen and examined. Past Medical History Past Medical History: Atrial Fibrillation, Heart Failure, Diabetes Mellitus, Hyperlipidemia, Hypertension, Neurologic Disorder, Renal Disease, Thyroid Disorder Additional Past Medical History / Comment(s): L wrist fx,concussion 07/01/14, renal failure stage 3, HEART FAILURE 07/21/18 History of Any Multi-Drug Resistant Organisms: None Reported Past Surgical History: Back Surgery, Hernia Repair, Orthopedic Surgery, [place] ctomy Additional Past Surgical History / Comment(s): rt inguinal hernia repair, rt ankle orif, Past Anesthesia/Blood Transfusion Reactions: No Reported Reaction Smoking Status: Never smoker - Past Family History Mother Family Medical History: Congestive Heart Failure (CHF) Father Family Medical History: Congestive Heart Failure (CHF) Medications and Allergies Home Medications Medication Instructions Recorded Confirmed Type ALPRAZolam [Xanax] 0.25 mg PO Q6H PRN 07/01/14 08/02/18 History Simvastatin [Zocor] 20 mg PO HS 07/01/14 08/02/18 History metFORMIN HCL 1,000 mg PO BID 01/06/16 08/02/18 History Levothyroxine Sodium [Synthroid] 100 mcg PO MOTUWETHFR 07/03/17 08/02/18 History DULoxetine HCL [Cymbalta] 60 mg PO DAILY 07/21/18 08/02/18 History Divalproex ER [Depakote ER] 500 mg PO DAILY 07/21/18 08/02/18 History Levothyroxine Sodium [Synthroid] 150 mcg PO SUSA 07/21/18 08/02/18 History Apixaban [Eliquis] 5 mg PO BID tab 07/24/18 08/02/18 Rx Furosemide [Lasix] 40 mg PO DAILY #30 tab 07/24/18 08/02/18 Rx Insuln Asp Prt/Insulin Aspart 15 unit SQ AC-SUPPER vial 07/24/18 08/02/18 Rx [NovoLOG MIX 70-30 VIAL] Insuln Asp Prt/Insulin Aspart 30 unit SQ AC-BRKFST vial 07/24/18 08/02/18 Rx [NovoLOG MIX 70-30 VIAL] Losartan [Cozaar] 25 mg PO DAILY #30 tab 07/24/18 08/02/18 Rx Metoprolol Tartrate [Lopressor] 50 mg PO BID #60 tab 07/24/18 08/02/18 Rx Spironolactone [Aldactone] 25 mg PO DAILY #30 tab 07/24/18 08/02/18 Rx Allergies Allergy/AdvReac Type Severity Reaction Status Date / Time bupropion [From Wellbutrin] Allergy Unknown Verified 08/02/18 09:03 venlafaxine [From Effexor] Allergy Unknown Verified 08/02/18 09:03 aripiprazole [From Abilify] AdvReac Unknown Verified 08/02/18 09:03 Physical Exam Vitals: Vital Signs Temp Pulse Pulse Resp BP BP Pulse Ox 08/02/18 05:18 16 08/02/18 04:50 97.9 F 74 15 94/70 98 08/02/18 04:16 86 16 101/87 99 08/02/18 01:59 97.6 F 97 24 111/54 96 Intake and Output 08/01/18 08/02/18 08/02/18 22:59 06:59 14:59 Other: Voiding Method Toilet # Voids 1 Weight 89.811 kg Results 08/02/18 02:40 08/02/18 02:40 Cardiac Enzymes 08/02/18 08/02/18 Range/Units 02:40 02:40 AST 27 (17-59) U/L Troponin I 0.012 (0.000-0.034) ng/mL Coagulation 08/02/18 Range/Units 03:50 PT 12.8 H (9.0-12.0) sec APTT 33.1 H (22.0-30.0) sec CBC 08/02/18 Range/Units 02:40 WBC 7.3 (3.8-10.6) k/uL RBC 5.65 (4.30-5.90) m/uL Hgb 13.5 (13.0-17.5) gm/dL Hct 41.7 (39.0-53.0) % Plt Count 150 (150-450) k/uL Comprehensive Metabolic Panel 08/02/18 Range/Units 02:40 Sodium 139 (137-145) mmol/L Potassium 4.7 (3.5-5.1) mmol/L Chloride 102 (98-107) mmol/L Carbon Dioxide 25 (22-30) mmol/L BUN 26 H (9-20) mg/dL Creatinine 1.20 (0.66-1.25) mg/dL Glucose 120 H (74-99) mg/dL Calcium 9.7 (8.4-10.2) mg/dL AST 27 (17-59) U/L ALT 32 (21-72) U/L Alkaline Phosphatase 112 (38-126) U/L Total Protein 6.9 (6.3-8.2) g/dL Albumin 4.0 (3.5-5.0) g/dL Current Medications Generic Name Dose Route Start Last Admin Trade Name Freq PRN Reason Stop Dose Admin Morphine Sulfate 4 mg 08/02/18 03:57 08/02/18 06:46 Morphine Sulfate (Inj) IV 4 mg Q4HR PRN Administration Severe Pain Naloxone HCl 0.2 mg 08/02/18 03:57 Narcan IV Q2M PRN Opioid Reversal Ondansetron HCl 4 mg 08/02/18 03:57 Zofran IVP Q8HR PRN Nausea And Vomiting Intake and Output 08/01/18 08/02/18 08/02/18 22:59 06:59 14:59 Other: Voiding Method Toilet # Voids 1 Weight 89.811 kg 08/02/18 02:40 08/02/18 02:40
[2018-08-02] MEDS: INSULIN ASPART (NovoLOG) 100 UNIT/ML VIAL SQ SCH ×3 (12:31→22:00)
[2018-08-02 16:16] LABS: Glucose,Whole Blood 138 mg/dL (75-99)
--- NOTE | 2018-08-02 17:38 | P.HPIM ---
History of Present Illness H&P Date: 08/02/18 Chief Complaint: Chest pain This 68-year-old patient well-known to Dr. Elmore with a past medical history significant for paroxysmal atrial fibrillation on long-term anticoagulant therapy, systolic heart failure diabetes mellitus, hypertension dyslipidemia hypothyroidism. Was recently discharged from the hospital secondary to atrial fibrillation with rapid ventricular response and congestive heart failure. He was noted at the 10 to the subtherapeutic INR was switched from Coumadin to [place] was. Patient was discharged home 07/24/2018. Patient had an elevated troponin #2. Patient has a long-standing history of depression and mental illness and at times is hard to read, denies palpitations denies dizziness denies vomiting diaphoresis. Patient states the pain was was not always associated with exertion and appeared to be intermittent Review of Systems Constitutional: Reports as per HPI Ears, nose, mouth and throat: Reports as per HPI Cardiovascular: Reports chest pain, Reports decreased exercise tolerance, Reports dyspnea on exertion, Reports high blood pressure (Last catheterization June 2017), Reports lightheadedness Respiratory: Reports as per HPI Gastrointestinal: Reports as per HPI Genitourinary: Reports as per HPI Musculoskeletal: Reports as per HPI Integumentary: Reports as per HPI Neurological: Reports as per HPI Psychiatric: Reports anhedonia, Reports anxiety, Reports depression Past Medical History Past Medical History: Atrial Fibrillation, Heart Failure, Diabetes Mellitus, Hyperlipidemia, Hypertension, Neurologic Disorder, Renal Disease, Thyroid Disorder Additional Past Medical History / Comment(s): L wrist fx,concussion 07/01/14, renal failure stage 3, HEART FAILURE 07/21/18 History of Any Multi-Drug Resistant Organisms: None Reported Past Surgical History: Back Surgery, Hernia Repair, Orthopedic Surgery, Tonsillectomy Additional Past Surgical History / Comment(s): rt inguinal hernia repair, rt ankle orif, Past Anesthesia/Blood Transfusion Reactions: No Reported Reaction Smoking Status: Never smoker - Past Family History Mother Family Medical History: Congestive Heart Failure (CHF) Father Family Medical History: Congestive Heart Failure (CHF) Medications and Allergies Home Medications Medication Instructions Recorded Confirmed Type ALPRAZolam [Xanax] 0.25 mg PO Q6H PRN 07/01/14 08/02/18 History Simvastatin [Zocor] 20 mg PO HS 07/01/14 08/02/18 History metFORMIN HCL 1,000 mg PO BID 01/06/16 08/02/18 History Levothyroxine Sodium [Synthroid] 100 mcg PO MOTUWETHFR 07/03/17 08/02/18 History DULoxetine HCL [Cymbalta] 60 mg PO DAILY 07/21/18 08/02/18 History Divalproex ER [Depakote ER] 500 mg PO DAILY 07/21/18 08/02/18 History Levothyroxine Sodium [Synthroid] 150 mcg PO SUSA 07/21/18 08/02/18 History Apixaban [Eliquis] 5 mg PO BID tab 07/24/18 08/02/18 Rx Furosemide [Lasix] 40 mg PO DAILY #30 tab 07/24/18 08/02/18 Rx Insuln Asp Prt/Insulin Aspart 15 unit SQ AC-SUPPER vial 07/24/18 08/02/18 Rx [NovoLOG MIX 70-30 VIAL] Insuln Asp Prt/Insulin Aspart 30 unit SQ AC-BRKFST vial 07/24/18 08/02/18 Rx [NovoLOG MIX 70-30 VIAL] Losartan [Cozaar] 25 mg PO DAILY #30 tab 07/24/18 08/02/18 Rx Metoprolol Tartrate [Lopressor] 50 mg PO BID #60 tab 07/24/18 08/02/18 Rx Spironolactone [Aldactone] 25 mg PO DAILY #30 tab 07/24/18 08/02/18 Rx Allergies Allergy/AdvReac Type Severity Reaction Status Date / Time bupropion [From Wellbutrin] Allergy Unknown Verified 08/02/18 09:03 venlafaxine [From Effexor] Allergy Unknown Verified 08/02/18 09:03 aripiprazole [From Abilify] AdvReac Unknown Verified 08/02/18 09:03 Physical Exam Osteopathic Statement: *. No significant issues noted on an osteopathic structural exam other than those noted in the History and Physical/Consult. Vitals: Vital Signs Temp Pulse Pulse Resp BP BP Pulse Ox 08/02/18 16:09 97.4 F L 111 H 18 95/66 100 08/02/18 12:00 97.4 F L 94 18 104/75 96 08/02/18 05:18 16 08/02/18 04:50 97.9 F 74 15 94/70 98 08/02/18 04:16 86 16 101/87 99 08/02/18 01:59 97.6 F 97 24 111/54 96 Intake and Output 08/02/18 08/02/18 08/02/18 06:59 14:59 22:59 Intake Total 236 Balance 236 Intake: Oral 236 Other: Voiding Method Toilet Toilet # Voids 1 Weight 89.811 kg General: [Patient awake, alert and oriented times 3. Patient in no acute distress.] HEENT: [PERRL. EOMI. No pharyngeal erythema or exudate.] Neck: [No adenopathy.] Cardiac: [Heart regular in rate and rhythm. No S3. No S4. No clicks, rubs. No murmur.] Lungs: [Clear to auscultation bilaterally.] Abdomen: [No mass. No organomegaly. Bowel sounds presnt and normoactive in all 4 quadrants.] Extremes: [No edema no cyanosis no claudication normal pulses] : [] Musculoskeletal: [No joint erythema, edema or tenderness.] Skin: [No rash.] Neurologic: [No lateralizing deficits. CN II - XII grossly intact.] Lymphatic: [No adenopathy.] Results CBC & Chem 7: 08/02/18 02:40 08/02/18 02:40 Labs: Abnormal Lab Results - Last 24 Hours (Table) 08/02/18 08/02/18 08/02/18 Range/Units 02:40 02:40 03:50 MCV 73.8 L (80.0-100.0) fL MCH 23.8 L (25.0-35.0) pg RDW 17.1 H (11.5-15.5) % PT 12.8 H (9.0-12.0) sec INR 1.2 H (<1.2) APTT 33.1 H (22.0-30.0) sec BUN 26 H (9-20) mg/dL Glucose 120 H (74-99) mg/dL POC Glucose (mg/dL) (75-99) mg/dL Troponin I (0.000-0.034) ng/mL HDL Cholesterol (40-60) mg/dL 08/02/18 08/02/18 08/02/18 Range/Units 06:47 08:47 08:47 MCV (80.0-100.0) fL MCH (25.0-35.0) pg RDW (11.5-15.5) % PT 12.2 H (9.0-12.0) sec INR 1.2 H (<1.2) APTT 35.0 H (22.0-30.0) sec BUN (9-20) mg/dL Glucose (74-99) mg/dL POC Glucose (mg/dL) 139 H (75-99) mg/dL Troponin I 2.230 H* (0.000-0.034) ng/mL HDL Cholesterol (40-60) mg/dL 08/02/18 08/02/18 08/02/18 Range/Units 08:47 11:42 14:32 MCV (80.0-100.0) fL MCH (25.0-35.0) pg RDW (11.5-15.5) % PT (9.0-12.0) sec INR (<1.2) APTT (22.0-30.0) sec BUN (9-20) mg/dL Glucose (74-99) mg/dL POC Glucose (mg/dL) 159 H (75-99) mg/dL Troponin I 6.970 H* (0.000-0.034) ng/mL HDL Cholesterol 35 L (40-60) mg/dL 08/02/18 Range/Units 16:14 MCV (80.0-100.0) fL MCH (25.0-35.0) pg RDW (11.5-15.5) % PT (9.0-12.0) sec INR (<1.2) APTT (22.0-30.0) sec BUN (9-20) mg/dL Glucose (74-99) mg/dL POC Glucose (mg/dL) 138 H (75-99) mg/dL Troponin I (0.000-0.034) ng/mL HDL Cholesterol (40-60) mg/dL Thrombosis Risk Factor Assmnt - DVT/VTE Prophylaxis DVT/VTE Prophylaxis: Pharmacologic Prophylaxis ordered (Patient was subtherapeutic on Coumadin recently, switched to eliquis) - Choose All That Apply Each Risk Factor Represents 2 Points: Age 61-74 years Thrombosis Risk Factor Assessment Total Risk Factor Score: 2 Thrombosis Risk Factor Assessment Level: Low Risk Assessment and Plan (1) Chest pain Current Visit: Yes Status: Acute Code(s): R07.9 - CHEST PAIN, UNSPECIFIED SNOMED Code(s): 93327734 (2) NSTEMI (non-ST elevated myocardial infarction) Current Visit: Yes Status: Acute Code(s): I21.4 - NON-ST ELEVATION (NSTEMI) MYOCARDIAL INFARCTION SNOMED Code(s): 45354825 (3) Acute CHF (congestive heart failure) Current Visit: No Status: Acute Code(s): I50.9 - HEART FAILURE, UNSPECIFIED SNOMED Code(s): 18523020 (4) Acute kidney injury Current Visit: No Status: Acute Code(s): N17.9 - ACUTE KIDNEY FAILURE, UNSPECIFIED SNOMED Code(s): 01000559 (5) Acute on chronic diastolic (congestive) heart failure Current Visit: No Status: Acute Code(s): I50.33 - ACUTE ON CHRONIC DIASTOLIC (CONGESTIVE) HEART FAILURE SNOMED Code(s): 739886776 (6) Acute on chronic systolic and diastolic heart failure, NYHA class 2 Current Visit: No Status: Acute Code(s): I50.43 - ACUTE ON CHRONIC COMBINED SYSTOLIC AND DIASTOLIC HRT FAIL SNOMED Code(s): 093253880715210 (7) Allergic drug reaction Current Visit: No Status: Acute Code(s): T78.40XA - ALLERGY, UNSPECIFIED, INITIAL ENCOUNTER SNOMED Code(s): 174639252 (8) Anxiety and depression Current Visit: No Status: Acute Code(s): F41.9 - ANXIETY DISORDER, UNSPECIFIED; F32.9 - MAJOR DEPRESSIVE DISORDER, SINGLE EPISODE, UNSPECIFIED SNOMED Code(s): 25683453 (9) Atrial fibrillation with RVR Current Visit: No Status: Acute Code(s): I48.91 - UNSPECIFIED ATRIAL FIBRILLATION SNOMED Code(s): 399734394811351 Plan: Cardiology consultation See orders for meds Second troponin elevated Cardiology to perform intervention, cardiac catheterization tomorrow Time with Patient: Greater than 30
[2018-08-02 19:49] LABS: Hemoglobin A1C 6.5 % (4.0-6.0)
[2018-08-02 20:44] LABS: Glucose,Whole Blood 90 mg/dL (75-99)
[2018-08-02] MEDS: ALPRAZolam 0.25 MG TAB PO PRN (23:27)
[2018-08-03 05:40] LABS: Glucose,Whole Blood 132 mg/dL (75-99)
[2018-08-03] MEDS: ATORVASTATIN 80 MG TAB PO SCH (06:15)
[2018-08-03] MEDS: METOPROLOL TARTRATE 50 MG TAB PO SCH ×2 (06:15→22:07)
[2018-08-03] MEDS: LEVOTHYROXINE 100 MCG TAB PO SCH (06:15)
[2018-08-03] MEDS: DIVALPROEX ER 500 MG TAB.ER.24H PO SCH (06:15)
[2018-08-03] MEDS: DULoxetine HCL 60 MG CAPSULE.DR PO SCH (06:15)
[2018-08-03] MEDS: LOSARTAN 25 MG TAB PO SCH (06:15)
[2018-08-03] MEDS: SPIRONOLACTONE 25 MG TAB PO SCH (06:15)
[2018-08-03] MEDS: ASPIRIN 325 MG TAB PO SCH (06:15)
[2018-08-03] MEDS: INSULIN ASPART (NovoLOG) 100 UNIT/ML VIAL SQ SCH ×4 (06:26→22:08)
[2018-08-03 06:35] LABS: Anisocytosis Slight; HGB 13.7 gm/dL (13.0-17.5); Hypochromasia Slight; Lymphocytes % (A) 19 %; MCH 23.9 pg (25.0-35.0); MCHC 31.8 g/dL (31.0-37.0); MCV 75.4 fL (80.0-100.0); Mean Platelet Volume 7.8; Microcytosis Slight; Neutrophils % (A) 65 %; Platelet Count 160 k/uL (150-450); RBC 5.71 m/uL (4.30-5.90); RDW 17.6 % (11.5-15.5); WBC 7.6 k/uL (3.8-10.6)
[2018-08-03 06:36] LABS: Basophils # (A) 0.1 k/uL (0-0.2); Basophils % (A) 1 %; Eosinophils # (A) 0.4 k/uL (0-0.7); Eosinophils % (A) 5 %; Lymphocytes # (A) 1.4 k/uL (1.0-4.8); Monocytes # (A) 0.6 k/uL (0-1.0); Monocytes % (A) 8 %; Neutrophils # (A) 4.9 k/uL (1.3-7.7)
[2018-08-03] MEDS ORDERED: LIDOCAINE 1% INJ 10MG/ML (20 ML MDV) ONE (07:19)
[2018-08-03] MEDS ORDERED: IV FLUID CONTINUATION 1,000 ML IV ONE (07:20)
[2018-08-03] MEDS ORDERED: VERAPAMIL 2.5 MG/ML 2 ML AMP ONE (07:33)
[2018-08-03] MEDS ORDERED: HEPARIN SODIUM 1,000 UN/ML (10ML VL) ONE (07:33)
[2018-08-03] MEDS ORDERED: MIDAZOLAM 2 MG/2 ML VIAL IV ONE (07:41)
[2018-08-03] MEDS ORDERED: LIDOCAINE 1% INJ 10MG/ML (20 ML MDV) SQ ONE (07:47)
[2018-08-03] MEDS: VERAPAMIL SYRINGE (5 MG/10 ML) INTRAARTER ONE ×2 (07:49→08:05)
[2018-08-03] MEDS ORDERED: HEPARIN SODIUM 1,000 UN/ML (10ML VL) IV ONE (07:51)
[2018-08-03] MEDS ORDERED: METOPROLOL TARTRATE 5 MG/5 ML VIAL IVP ONE ×2 (07:58→08:05)
[2018-08-03] MEDS ORDERED: FUROSEMIDE 10 MG/ML 4 ML VIAL ONE (08:04)
[2018-08-03] MEDS ORDERED: FUROSEMIDE 10 MG/ML 4 ML VIAL IV ONE (08:05)
[2018-08-03] MEDS ORDERED: IOPAMIDOL-370 100ML BTL INJ ONE (08:05)
[2018-08-03] MEDS ORDERED: RX INFO: IV CONTRAST WAS GIVEN 1 EACH MISC MISCELLANE PRN (08:16)
[2018-08-03] MEDS ORDERED: SODIUM CHLORIDE 0.9% 1,000 ML IV SCH (08:30)
[2018-08-03] MEDS ORDERED: FUROSEMIDE 40 MG TAB PO SCH (09:00)
[2018-08-03] MEDS ORDERED: AMIODARONE 360 MG in DEXTROSE 5% IN WATER 200 ML IV ONE ×2 (09:36)
[2018-08-03] MEDS ORDERED: DEXTROSE 5% IN WATER 100 ML with AMIODARONE 150 MG IV ONE (09:36)
[2018-08-03] MEDS: ALPRAZolam 0.25 MG TAB PO PRN (10:34)
[2018-08-03] MEDS: APIXABAN 5 MG TAB PO SCH ×2 (10:35→22:07)
[2018-08-03 11:33] LABS: Glucose,Whole Blood 118 mg/dL (75-99)
[2018-08-03 16:43] LABS: Glucose,Whole Blood 125 mg/dL (75-99)
[2018-08-03 16:44] LABS: Calcium 9.5 mg/dL (8.4-10.2); Magnesium 2.1 mg/dL (1.6-2.3)
[2018-08-03 16:49] LABS: Potassium 6.4 mmol/L (3.5-5.1)
[2018-08-03] MEDS: FUROSEMIDE 10 MG/ML 2 ML VIAL IV SCH ×2 (16:52→22:08)
[2018-08-03 17:01] LABS: T4, Free (Free Thyroxine) 1.55 ng/dL (0.78-2.19)
[2018-08-03] MEDS: MORPHINE SULFATE 4 MG/ML SYRINGE IV PRN ×2 (17:20→23:08)
[2018-08-03] MEDS: AMIODARONE 300 MG in DEXTROSE 5% IN WATER 250 ML IV SCH ×2 (18:04)
[2018-08-03] MEDS ORDERED: SODIUM POLYSTYRENE SULFONATE 15 GM/60 ML BOTTLE PO STA (20:54)
[2018-08-03 20:56] LABS: Glucose,Whole Blood 85 mg/dL (75-99)
--- NOTE | 2018-08-03 21:58 | CC ---
CARDIAC CATHETERIZATION REPORT DATE OF SERVICE: 08/03/2018 PROCEDURE: Left heart catheterization, coronary angiography and left ventriculography. PERFORMED BY: Dr. Narda Mcmullen. CLINICAL INFORMATION: Mr. Kory Roberts is a 68-year-old gentleman who was seen by me about a year ago and had a cardiac cath which did not reveal significant obstructive CAD. He had atrial fibrillation, was advised rate control, anticoagulation, and to come back and follow up with me. However, he did not keep office appointments and showed up a year later around the of last month with atrial fibrillation, rapid rate, and echo at that time revealed a significant decrease in LV function of about 35%. However, patient comes back this time with nondescript chest tightness and shortness of breath. He was found to have a normal troponin on arrival, but subsequently the troponin went up and the diagnosis of [id number] was made and he was advised coronary angiography. I talked to the patient at length, explained to him the rationale, risks, benefits and options. I spoke to his as well. They understood all details and wished to proceed with the procedure. PROCEDURE NOTE: Under local anesthesia and strict aseptic precautions, a 6-Kazakh introducer was placed in the right radial artery. Using an Ultimate 1 catheter, I performed coronary angiography of both coronary arteries, and LV pressure was checked with a pigtail catheter. The same catheter was used to perform an LV-gram in the COREAS projection. The patient tolerated the procedure well. The sheath was taken out and the saturation in the fingers of the right hand was 95%. He received 2000 units of heparin intravenously. The patient tolerated procedure well without complication. Moderate conscious sedation time was 20 minutes. Patient was administered Versed, and his oxygen saturation, hemodynamics and EKG were monitored closely. CARDIAC CATHETERIZATION FINDINGS: The left ventricular end-diastolic pressure was about 15 to 18 mmHg without any gradient across the aortic valve. CORONARY ANGIOGRAPHY FINDINGS: RIGHT CORONARY ARTERY: This is a dominant vessel. No significant disease. Distally bifurcates into a large PDA and PLV, both of which supply a sizable amount of myocardium. No significant disease in the dominant RCA. LEFT MAIN CORONARY ARTERY: This is a short, patent, disease-free vessel that bifurcates into LAD and circumflex. LEFT ANTERIOR DESCENDING CORONARY ARTERY: Good-caliber vessel extends along the anterior wall, supplies a sizable amount of myocardium. It gives off septal and diagonal branches and runs all the way to the apex, supplying a sizable amount of myocardium. There are minor irregularities but no significant disease. There are areas of narrowing of up to 30% noted. No change compared to the previous angiogram from 07/07/2017. LEFT POSTERIOR CIRCUMFLEX CORONARY ARTERY: Technically a nondominant vessel of fair caliber and distribution. It gives off a single obtuse marginal that runs distally as a posterolateral branch. There are minor irregularities but no significant disease. LEFT VENTRICULOGRAM: This was performed in 30- degree COREAS projection. Study revealed a left ventricle that is enlarged with global decrease in contractility, estimated ejection fraction of about 20% without mitral regurgitation. FINAL IMPRESSION: This patient has mildly elevated filling pressures, no gradient across the aortic valve, a right-dominant system without obstructive CAD of significance. There is, however, significant decrease in LV function with ejection fraction of 20%, suggestive of nonischemic cardiomyopathy, probably worsened by atrial fibrillation. RECOMMENDATION: Findings were reviewed with the patient as well as his family members, including his grandson and . I am recommending that we will start the patient on amiodarone and will consider electrical cardioversion after resumption of Eliquis at 5 mg b.i.d. I discussed this with the patient. I also spoke to Dr. Sandoval regarding the amiodarone initiation and a transesophageal echo and cardioversion probably on Monday. Overall prognosis remains guarded for this patient. I also explained to his that he should try to be more compliant, both with medication intake as well as followup with physicians. MMODL / IJN: [id number] /
[2018-08-04] MEDS ORDERED: SODIUM POLYSTYRENE SULFONATE 15 GM/60 ML BOTTLE PO STA (01:34)
[2018-08-04 02:25] LABS: Glucose,Whole Blood 121 mg/dL (75-99)
[2018-08-04] MEDS: AMIODARONE 300 MG in DEXTROSE 5% IN WATER 250 ML IV SCH ×2 (03:06)
[2018-08-04] MEDS: LEVOTHYROXINE 75 MCG TAB PO SCH (05:45)
[2018-08-04] MEDS: INSULIN ASPART (NovoLOG) 100 UNIT/ML VIAL SQ SCH ×4 (06:19→21:53)
[2018-08-04 06:33] LABS: Glucose,Whole Blood 125 mg/dL (75-99)
[2018-08-04 08:01] LABS: Anisocytosis Slight; Basophils % (A) 0 %; Eosinophils % (A) 0 %; HCT 44.9 % (39.0-53.0); HGB 14.4 gm/dL (13.0-17.5); Hypochromasia Slight; Lymphocytes # (A) 0.6 k/uL (1.0-4.8); Lymphocytes % (A) 3 %; MCH 23.7 pg (25.0-35.0); MCV 73.9 fL (80.0-100.0); Mean Platelet Volume 12.6; Microcytosis Moderate; Monocytes # (A) 1.1 k/uL (0-1.0); Monocytes % (A) 6 %; Neutrophils # (A) 16.8 k/uL (1.3-7.7); Neutrophils % (A) 90 %; Platelet Count 174 k/uL (150-450); RBC 6.08 m/uL (4.30-5.90); RDW 17.8 % (11.5-15.5); WBC 18.6 k/uL (3.8-10.6)
[2018-08-04 08:20] LABS: Calcium 9.3 mg/dL (8.4-10.2)
[2018-08-04 08:24] LABS: Potassium 8.1 mmol/L (3.5-5.1)
[2018-08-04] MEDS ORDERED: INSULIN REGULAR 100 UNIT/ML VIAL IV ONE ×3 (08:42→17:40)
[2018-08-04] MEDS ORDERED: ALBUTEROL NEB (CONC) 2.5 MG/0.5 ML INHALATION ONE (08:42)
[2018-08-04] MEDS ORDERED: DEXTROSE 50% SYRINGE 50 ML IVP ONE (08:42)
[2018-08-04] MEDS ORDERED: SODIUM BICARB 8.4% 50 ML SYR (1 MEQ/ML) IV ONE ×3 (08:42→12:53)
--- NOTE | 2018-08-04 08:54 | P.PN ---
Subjective Progress Note Date: 08/04/18 This is a pleasant 68-year-old male past medical history significant for paroxysmal atrial fibrillation on long-term anticoagulation, systolic heart failure, diabetes mellitus, hypertension, dyslipidemia and hypothyroidism. He follows with Dr. Mcmullen in the office. He was recently admitted to the hospital with a-fib with RVR and congestive heart failure. He was also noted to have supratherapeutic INR and was switched from coumadin to eliquis. He was discharged home 07/24/2018 and has yet to follow up in the office. Appointment is scheduled for August 09. We have been asked to see him in consultation for chest pain. Patient is undergone left heart catheterization with Dr. LONNY Mcmullen finding mildly elevated filling pressures across the aortic valve, right dominant system without obstructive coronary artery disease of significance. There was a significant decrease in LV function with ejection fraction of 20% suggestive of nonischemic cardio myopathy probably worsened by atrial fibrillation. Patient has been resumed on eliquis 5 mg twice daily. Patient has been treated for hyperkalemia with potassium of 7.5. Repeat this morning is pending. Patient has been on amiodarone drip was stopped during the night due to heart rate and the 40s. He was sleeping during the time. Patient is very confused which apparently is his baseline. Patient has been afebrile, heart rate running in the 60s to 80s, blood pressure 103/68, pulse ox 91% to 94% on 4 L GENERAL: This is a 68-year-old male in no apparent distress at the time of my examination. HEENT: Head is atraumatic, normocephalic. Pupils are equal, round. Sclerae anicteric. Conjunctivae are clear. Mucous membranes of the mouth are moist. Neck is supple. There is no jugular venous distention. No carotid bruit is heard. LUNGS: Clear to auscultation no wheezes, rales or rhonchi. No chest wall tenderness is noted on palpation or with deep breathing. HEART: Regular rate and rhythm without murmurs, rubs or gallops. S1 and S2 heard. ABDOMEN: Soft, nontender. Bowel sounds are heard. No organomegaly noted. EXTREMITIES: No evidence of peripheral edema and no calf tenderness noted. VASCULAR: Radial and dorsalis pedis pulses palpated, no evidence of clubbing. NEUROLOGIC: Patient is awake, alert and oriented x1. ASSESSMENT Non-ST elevated myocardial infarction Chronic persistent atrial fibrillation on long-term anticoagulation with controlled ventricular response, episodes of bradycardia Chronic systolic heart failure, currently euvolemic clinically Ischemic cardiomyopathy with ejection fraction 20% Hypertension Dyslipidemia Diabetes mellitus Acute kidney injury PLAN Discontinue heparin drip and resume eliquis. Discontinue amiodarone drip. Resume Lasix, losartan, Lopressor, simvastatin as previously ordered. Lasix is currently at 20 mg IV every 8 hours. Would recommend consulting nephrology. Hold Aldactone. Further recommendations to follow based upon clinical course. Nurse Practitioner note has been reviewed, I agree with a documented findings and plan of care. Patient was seen and examined. Objective - Vital Signs Vital signs: Vital Signs Temp 97.8 F 08/04/18 04:00 Pulse 85 08/04/18 04:00 Resp 20 08/04/18 04:00 BP 103/68 08/04/18 04:00 Pulse Ox 91 L 08/04/18 04:00 Intake & Output 08/03/18 08/03/18 08/04/18 06:59 18:59 06:59 Intake Total 86.333 375 525.833 Output Total 100 0 Balance 86.333 275 525.833 Weight 88.4 kg 94.5 kg Intake: IV 225 Intake, IV Titration 86.333 525.833 Amount Amiodarone 300 mg In 225.833 Dextrose 5% in Water 250 ml @ 0.5 MG/MIN 25 mls/hr IV .Q10H [facility] Rx#: [id number] Amiodarone 360 mg In 300 Dextrose 5% in Water 200 ml @ 1 MG/MIN 33.333 mls/ hr IV .Q6H [facility] Rx#: [id number] Heparin Sod,Pork in 0.45% 86.333 NaCl 25,000 unit In 0.45 % NaCl 1 250ml.bag @ 11. 135 UNITS/KG/HR 10 mls/hr IV .Q24H [facility] Rx#: [id number] Oral 150 Output: Urine 100 0 Other: Voiding Method Toilet Urinal Urinal # Voids 1 3 - Labs CBC & Chem 7: 08/04/18 06:20 08/04/18 06:20 Labs: Abnormal Lab Results - Last 24 Hours (Table) 04/05/19 04/05/19 04/05/19 Range/Units 05:20 11:26 16:17 APTT 85.0 H (22.0-30.0) sec Sodium 136 L (137-145) mmol/L Potassium 6.4 H* (3.5-5.1) mmol/L BUN 38 H (9-20) mg/dL Creatinine 1.95 H (0.66-1.25) mg/dL Glucose 129 H (74-99) mg/dL POC Glucose (mg/dL) 118 H (75-99) mg/dL TSH 22.000 H (0.465-4.680) mIU/L 08/03/18 08/03/18 08/04/18 Range/Units 16:33 20:11 00:30 APTT (22.0-30.0) sec Sodium (137-145) mmol/L Potassium 7.5 H* 7.5 H* (3.5-5.1) mmol/L BUN (9-20) mg/dL Creatinine (0.66-1.25) mg/dL Glucose (74-99) mg/dL POC Glucose (mg/dL) 125 H (75-99) mg/dL TSH (0.465-4.680) mIU/L 08/04/18 08/04/18 Range/Units 02:18 06:16 APTT (22.0-30.0) sec Sodium (137-145) mmol/L Potassium (3.5-5.1) mmol/L BUN (9-20) mg/dL Creatinine (0.66-1.25) mg/dL Glucose (74-99) mg/dL POC Glucose (mg/dL) 121 H 125 H (75-99) mg/dL TSH (0.465-4.680) mIU/L
[2018-08-04] MEDS: METOPROLOL TARTRATE 50 MG TAB PO SCH ×2 (09:38→19:33)
[2018-08-04] MEDS: ASPIRIN 325 MG TAB PO SCH (09:38)
[2018-08-04] MEDS: ATORVASTATIN 20 MG TAB PO SCH (09:39)
[2018-08-04] MEDS: DIVALPROEX ER 500 MG TAB.ER.24H PO SCH (09:39)
[2018-08-04] MEDS: LOSARTAN 25 MG TAB PO SCH (09:40)
[2018-08-04] MEDS: DULoxetine HCL 60 MG CAPSULE.DR PO SCH (09:40)
[2018-08-04] MEDS: APIXABAN 5 MG TAB PO SCH ×2 (09:40→19:33)
[2018-08-04] MEDS: FUROSEMIDE 10 MG/ML 2 ML VIAL IV SCH (09:41)
[2018-08-04] MEDS ORDERED: CALCIUM GLUCONATE 1 GM in SODIUM CHLORIDE 0.9% 100 ML IVPB ONE (10:11)
--- NOTE | 2018-08-04 11:10 | P.NPCON ---
History of Present Illness - Reason for Consult acute renal failure, hyperkalemia - History of Present Illness Reason for consultation: Acute kidney injury and hyperkalemia History of present illness: Patient is a 68-year-old male seen in renal consultation for acute kidney injury and hyperkalemia. Patient's baseline creatinine is 1 and was 1.2 on admission. It is up at 3.01 today. Patient presented to the hospital with chest pain. He underwent cardiac catheterization on August 03. He is also in atrial fibrillation maintained on amiodarone drip. Ejection fraction is 20%. He is maintained on Cozaar which she got this morning. Aldactone was discontinued yesterday. Patient's potassium level has been gradually going up and was 8.1 this morning. Patient did receive IV insulin with D50, 1 amp of bicarb IV push, and Kayexalate this morning. He is also on IV Lasix 20 mg every 8 hours. Urine output has been low. No vomiting or diarrhea. No active chest pain or shortness of breath. Denies history of hematuria or dysuria. He does have history of insulin-dependent diabetes mellitus. Denies family history of renal disease. Vital signs are stable. General: The patient appeared well nourished and normally developed. HEENT: Head exam is unremarkable. Neck is without jugular venous distension. LUNGS: Breath sounds decreased. HEART: Rate and Rhythm are regular. First and second heart sounds normal. No murmurs, rubs or gallops. ABDOMEN: Abdominal exam reveals normal bowel sounds. Non-tender and non- distended. No evidence of peritonitis. EXTREMITITES: No clubbing, cyanosis, or edema. Past Medical History Past Medical History: Atrial Fibrillation, Heart Failure, Diabetes Mellitus, Hyperlipidemia, Hypertension, Neurologic Disorder, Renal Disease, Thyroid Disorder Additional Past Medical History / Comment(s): L wrist fx,concussion 07/01/14, renal failure stage 3, HEART FAILURE 07/21/18 History of Any Multi-Drug Resistant Organisms: None Reported Past Surgical History: Back Surgery, Hernia Repair, Orthopedic Surgery, Tonsillectomy Additional Past Surgical History / Comment(s): rt inguinal hernia repair, rt ankle orif, Past Anesthesia/Blood Transfusion Reactions: No Reported Reaction Smoking Status: Never smoker - Past Family History Mother Family Medical History: Congestive Heart Failure (CHF) Father Family Medical History: Congestive Heart Failure (CHF) Medications and Allergies Home Medications Medication Instructions Recorded Confirmed Type ALPRAZolam [Xanax] 0.25 mg PO Q6H PRN 07/01/14 08/02/18 History Simvastatin [Zocor] 20 mg PO HS 07/01/14 08/02/18 History metFORMIN HCL 1,000 mg PO BID 01/06/16 08/02/18 History Levothyroxine Sodium [Synthroid] 100 mcg PO MOTUWETHFR 07/03/17 08/02/18 History DULoxetine HCL [Cymbalta] 60 mg PO DAILY 07/21/18 08/02/18 History Divalproex ER [Depakote ER] 500 mg PO DAILY 07/21/18 08/02/18 History Levothyroxine Sodium [Synthroid] 150 mcg PO SUSA 07/21/18 08/02/18 History Apixaban [Eliquis] 5 mg PO BID tab 07/24/18 08/02/18 Rx Furosemide [Lasix] 40 mg PO DAILY #30 tab 07/24/18 08/02/18 Rx Insuln Asp Prt/Insulin Aspart 15 unit SQ AC-SUPPER vial 07/24/18 08/02/18 Rx [NovoLOG MIX 70-30 VIAL] Insuln Asp Prt/Insulin Aspart 30 unit SQ AC-BRKFST vial 07/24/18 08/02/18 Rx [NovoLOG MIX 70-30 VIAL] Losartan [Cozaar] 25 mg PO DAILY #30 tab 07/24/18 08/02/18 Rx Metoprolol Tartrate [Lopressor] 50 mg PO BID #60 tab 07/24/18 08/02/18 Rx Spironolactone [Aldactone] 25 mg PO DAILY #30 tab 07/24/18 08/02/18 Rx Allergies Allergy/AdvReac Type Severity Reaction Status Date / Time bupropion [From Wellbutrin] Allergy Unknown Verified 08/02/18 09:03 venlafaxine [From Effexor] Allergy Unknown Verified 08/02/18 09:03 aripiprazole [From Abilify] AdvReac Unknown Verified 08/02/18 09:03 Physical Exam Vitals: Vital Signs Temp Pulse Pulse Pulse Pulse Resp BP 08/04/18 09:25 48 L 08/04/18 09:05 50 L 08/04/18 08:35 97.9 F 47 L 47 L 18 100/60 08/04/18 04:00 97.8 F 85 55 L 20 103/68 08/04/18 00:00 98.0 F 85 67 20 113/71 08/03/18 20:22 85 17 100/69 08/03/18 20:05 100/69 08/03/18 17:40 78 16 91/64 08/03/18 17:30 72 16 92/61 08/03/18 17:10 68 96/49 08/03/18 17:05 73 16 105/50 08/03/18 16:20 60 17 08/03/18 16:00 66 18 85/46 08/03/18 12:00 96 16 101/69 08/03/18 11:21 69 18 104/70 08/03/18 11:06 96 16 101/69 08/03/18 11:05 96 16 101/69 Pulse Ox 08/04/18 09:25 08/04/18 09:05 08/04/18 08:35 96 08/04/18 04:00 91 L 08/04/18 00:00 94 L 08/03/18 20:22 93 L 08/03/18 20:05 08/03/18 17:40 96 08/03/18 17:30 95 08/03/18 17:10 08/03/18 17:05 92 L 08/03/18 16:20 08/03/18 16:00 95 08/03/18 12:00 94 L 08/03/18 11:21 95 08/03/18 11:06 94 L 08/03/18 11:05 94 L Intake and Output 08/03/18 08/04/18 08/04/18 22:59 06:59 14:59 Intake Total 0 525.833 0 Output Total 0 Balance 0 525.833 0 Intake: Intake, IV Titration 525.833 Amount Amiodarone 300 mg In 225.833 Dextrose 5% in Water 250 ml @ 0.5 MG/MIN 25 mls/hr IV .Q10H [facility] Rx#: [id number] Amiodarone 360 mg In 300 Dextrose 5% in Water 200 ml @ 1 MG/MIN 33.333 mls/ hr IV .Q6H [facility] Rx#: [id number] Oral 0 0 Output: Urine 0 Other: Voiding Method Urinal Urinal # Voids 3 0 Weight 94.5 kg Results - Lab Results Most recent lab results Calcium 9.3 mg/dL (8.4-10.2) 08/04/18 06:20 Magnesium 2.1 mg/dL (1.6-2.3) 08/03/18 16:17 08/04/18 06:20 08/04/18 06:20 Assessment and Plan Plan: Assessment: 1. Acute kidney injury secondary to ATN secondary to hemodynamic instability/retention. He also received IV contrast on August 03. Rule out obstructive uropathy. Creatinine was 1.2 on admission and is up to 3.01 today. 2. Atrial fibrillation maintained on IV amiodarone. 3. Systolic CHF with ejection fraction of 20%. 4. Severe hyperkalemia secondary to acute kidney injury and use of Aldactone and Cozaar. Again need to rule out obstructive uropathy. This was medically treated this morning. 5. Insulin-dependent diabetes mellitus. Plan: 1 g IV calcium gluconate now. Check bladder scan and insert Quintero catheter if greater than 300 mL of urine present. Check urinalysis. Check renal ultrasound. Low potassium diet. Repeat potassium level at 11 AM. If remains persistently hyperkalemic, I will proceed with emergent hemodialysis. This was discussed with the patient and his family who are in agreement. Change Lasix to 40 mg IV twice daily. Thank you for the consultation. I will continue to follow the patient with you during his hospital stay.
[2018-08-04 11:54] LABS: Glucose,Whole Blood 199 mg/dL (75-99)
--- NOTE | 2018-08-04 11:55 | US ---
EXAMINATION TYPE: US kidneys/renal and bladder DATE OF EXAM: 08/04/2018 COMPARISON: Previous study dated 06/09/2011. CLINICAL HISTORY: dagoberto. DAGOBERTO EXAM MEASUREMENTS: Right Kidney: 9.4 x 4.2 x 4.5 cm Left Kidney: 9.8 x 4.5 x 4.3 cm Right Kidney: Appeared wnl Left Kidney: Appeared wnl Bladder: Cath in place IMPRESSION: NORMAL RENAL ULTRASOUND.
[2018-08-04] MEDS ORDERED: DEXTROSE 50% SYRINGE 50 ML IVP STA ×2 (13:00→17:41)
[2018-08-04] MEDS ORDERED: FUROSEMIDE 10 MG/ML 4 ML VIAL IV STA (13:01)
[2018-08-04] MEDS: ALPRAZolam 0.25 MG TAB PO PRN (13:30)
--- NOTE | 2018-08-04 13:46 | P.PN ---
Subjective Progress Note Date: 08/04/18 Principal diagnosis: Admitted with chest pain, second troponin elevated Patient was admitted with chest pain, second troponin was elevated. Underwent cardiac catheterization no ischemia noted however patient's developed ejection fraction on or about 20. Patient was recently admitted with A. fib rapid ventricular response this was corrected, he was noted to have subtherapeutic Coumadin levels and was switched to eliquis. Patient began developing hyperkalemia and in spite of doses of Late potassium continued to climb, patient's creatinine went from 1.2-3.1 patient basically developed acute kidney injury a consultation with nephrology was ordered the spironolactone was stopped as well as Lasix and Cozaar was stopped. Patient was started on calcium 2 daily insulin and bicarbonate IV Lasix 20 mg every 8 hours Urinary output has been low no vomiting diarrhea no active chest pain or shortness of breath current potassium is down from 8.1-6.1 Objective - Vital Signs Vital signs: Vital Signs Temp 98.4 F 08/04/18 11:15 Pulse 49 L 08/04/18 11:15 Resp 18 08/04/18 11:15 BP 126/63 08/04/18 11:15 Pulse Ox 97 08/04/18 11:15 Intake & Output 08/03/18 08/04/18 08/04/18 18:59 06:59 18:59 Intake Total 375 525.833 0 Output Total 100 0 Balance 275 525.833 0 Weight 94.5 kg Intake: IV 225 Intake, IV Titration 525.833 Amount Amiodarone 300 mg In 225.833 Dextrose 5% in Water 250 ml @ 0.5 MG/MIN 25 mls/hr IV .Q10H [facility] Rx#: [id number] Amiodarone 360 mg In 300 Dextrose 5% in Water 200 ml @ 1 MG/MIN 33.333 mls/ hr IV .Q6H [facility] Rx#: [id number] Oral 150 0 Output: Urine 100 0 Other: Voiding Method Urinal Urinal Indwelling Catheter # Voids 3 0 # Bowel Movements 0 - Exam General: [Patient awake, alert and oriented times 3. Patient in no acute distress.] HEENT: [PERRL. EOMI. No pharyngeal erythema or exudate.] Neck: [No adenopathy.] Cardiac: [Heart regular in rate and rhythm. No S3. No S4. No clicks, rubs. No murmur.] Lungs: [Clear to auscultation bilaterally.] Abdomen: [No mass. No organomegaly. Bowel sounds presnt and normoactive in all 4 quadrants.] Extremes: [No edema no cyanosis no claudication normal pulses] : [] Musculoskeletal: [No joint erythema, edema or tenderness.] Skin: [No rash.] Neurologic: [No lateralizing deficits. CN II - XII grossly intact.] Lymphatic: [No adenopathy.] - Labs CBC & Chem 7: 08/04/18 06:20 08/04/18 12:10 Labs: Abnormal Lab Results - Last 24 Hours (Table) 08/03/18 08/03/18 08/03/18 Range/Units 16:17 16:33 20:11 WBC (3.8-10.6) k/uL RBC (4.30-5.90) m/uL MCV (80.0-100.0) fL MCH (25.0-35.0) pg RDW (11.5-15.5) % Neutrophils # (1.3-7.7) k/uL Lymphocytes # (1.0-4.8) k/uL Monocytes # (0-1.0) k/uL Sodium 136 L (137-145) mmol/L Potassium 6.4 H* 7.5 H* (3.5-5.1) mmol/L BUN 38 H (9-20) mg/dL Creatinine 1.95 H (0.66-1.25) mg/dL Glucose 129 H (74-99) mg/dL POC Glucose (mg/dL) 125 H (75-99) mg/dL TSH 22.000 H (0.465-4.680) mIU/L 08/04/18 08/04/18 08/04/18 Range/Units 00:30 02:18 06:16 WBC (3.8-10.6) k/uL RBC (4.30-5.90) m/uL MCV (80.0-100.0) fL MCH (25.0-35.0) pg RDW (11.5-15.5) % Neutrophils # (1.3-7.7) k/uL Lymphocytes # (1.0-4.8) k/uL Monocytes # (0-1.0) k/uL Sodium (137-145) mmol/L Potassium 7.5 H* (3.5-5.1) mmol/L BUN (9-20) mg/dL Creatinine (0.66-1.25) mg/dL Glucose (74-99) mg/dL POC Glucose (mg/dL) 121 H 125 H (75-99) mg/dL TSH (0.465-4.680) mIU/L 08/04/18 08/04/18 08/04/18 Range/Units 06:20 06:20 11:53 WBC 18.6 H (3.8-10.6) k/uL RBC 6.08 H (4.30-5.90) m/uL MCV 73.9 L (80.0-100.0) fL MCH 23.7 L (25.0-35.0) pg RDW 17.8 H (11.5-15.5) % Neutrophils # 16.8 H (1.3-7.7) k/uL Lymphocytes # 0.6 L (1.0-4.8) k/uL Monocytes # 1.1 H (0-1.0) k/uL Sodium 136 L (137-145) mmol/L Potassium 8.1 H* (3.5-5.1) mmol/L BUN 45 H (9-20) mg/dL Creatinine 3.01 H (0.66-1.25) mg/dL Glucose 118 H (74-99) mg/dL POC Glucose (mg/dL) 199 H (75-99) mg/dL TSH (0.465-4.680) mIU/L 08/04/18 Range/Units 12:10 WBC (3.8-10.6) k/uL RBC (4.30-5.90) m/uL MCV (80.0-100.0) fL MCH (25.0-35.0) pg RDW (11.5-15.5) % Neutrophils # (1.3-7.7) k/uL Lymphocytes # (1.0-4.8) k/uL Monocytes # (0-1.0) k/uL Sodium (137-145) mmol/L Potassium 6.2 H* (3.5-5.1) mmol/L BUN (9-20) mg/dL Creatinine (0.66-1.25) mg/dL Glucose (74-99) mg/dL POC Glucose (mg/dL) (75-99) mg/dL TSH (0.465-4.680) mIU/L Assessment and Plan (1) Chest pain Current Visit: Yes Status: Acute Code(s): R07.9 - CHEST PAIN, UNSPECIFIED SNOMED Code(s): 37518942 (2) NSTEMI (non-ST elevated myocardial infarction) Current Visit: Yes Status: Acute Code(s): I21.4 - NON-ST ELEVATION (NSTEMI) MYOCARDIAL INFARCTION SNOMED Code(s): 88647414 (3) Acute CHF (congestive heart failure) Current Visit: No Status: Acute Code(s): I50.9 - HEART FAILURE, UNSPECIFIED SNOMED Code(s): 26593493 (4) Acute kidney injury Current Visit: No Status: Acute Code(s): N17.9 - ACUTE KIDNEY FAILURE, UNSPECIFIED SNOMED Code(s): 12595875 (5) Acute on chronic diastolic (congestive) heart failure Current Visit: No Status: Acute Code(s): I50.33 - ACUTE ON CHRONIC DIASTOLIC (CONGESTIVE) HEART FAILURE SNOMED Code(s): 262337410 (6) Acute on chronic systolic and diastolic heart failure, NYHA class 2 Current Visit: No Status: Acute Code(s): I50.43 - ACUTE ON CHRONIC COMBINED SYSTOLIC AND DIASTOLIC HRT FAIL SNOMED Code(s): 243203418663212 (7) Allergic drug reaction Current Visit: No Status: Acute Code(s): T78.40XA - ALLERGY, UNSPECIFIED, INITIAL ENCOUNTER SNOMED Code(s): 823558424 (8) Anxiety and depression Current Visit: No Status: Acute Code(s): F41.9 - ANXIETY DISORDER, UNSPECIFIED; F32.9 - MAJOR DEPRESSIVE DISORDER, SINGLE EPISODE, UNSPECIFIED SNOMED Code(s): 01133306 (9) Atrial fibrillation with RVR Current Visit: No Status: Acute Code(s): I48.91 - UNSPECIFIED ATRIAL FIBRILLATION SNOMED Code(s): 638571580735877 Plan: Patient is pending cardioversion His renal insufficiency is being corrected consultation with nephrology performed The spironolactone and Cozaar were stopped Patient was started on calcium gluconate, sodium bicarbonate, insulin Potassium has improved from 8.1-6.1 will be at 5 Will continue to follow and evaluate in the morning Time with Patient: Greater than 30
[2018-08-04 14:56] LABS: Appearance,Urine Clear (Clear); Bilirubin,Urine Negative (Negative); Blood,Urine Negative (Negative); Color,Urine Yellow; Glucose,Urine (UA) Negative (Negative); Hyaline Casts,Urine 15 /lpf (0-2); Ketones,Urine Negative (Negative); Leukocyte Esterase,Urine Negative (Negative); Mucus,Urine Rare /hpf; Nitrite,Urine Negative (Negative); PH, Urine 5.5 (5.0-8.0); Protein,Urine 1+ (Negative); RBC,Urine 1 /hpf (0-5); Specific Gravity,Urine 1.041 (1.001-1.035); WBC,Urine 1 /hpf (0-5)
[2018-08-04 16:57] LABS: Glucose,Whole Blood 276 mg/dL (75-99)
[2018-08-04] MEDS: FUROSEMIDE 10 MG/ML 4 ML VIAL IV SCH (19:33)
[2018-08-04 20:30] LABS: Glucose,Whole Blood 240 mg/dL (75-99)
[2018-08-04] MEDS: MORPHINE SULFATE 4 MG/ML SYRINGE IV PRN (20:44)
[2018-08-04] MEDS ORDERED: HALOPERIDOL LACTATE 5 MG/ML 1 ML VIAL IM PRN (22:03)
[2018-08-05 05:44] LABS: Glucose,Whole Blood 92 mg/dL (75-99)
[2018-08-05] MEDS: INSULIN ASPART (NovoLOG) 100 UNIT/ML VIAL SQ SCH ×4 (06:11→23:21)
[2018-08-05] MEDS: LEVOTHYROXINE 75 MCG TAB PO SCH (06:22)
[2018-08-05 06:53] LABS: Calcium 8.7 mg/dL (8.4-10.2); Magnesium 2.2 mg/dL (1.6-2.3); Potassium 5.7 mmol/L (3.5-5.1)
[2018-08-05 07:33] LABS: Anisocytosis Slight; Basophils # (A) 0.1 k/uL (0-0.2); Basophils % (A) 0 %; Eosinophils # (A) 0.1 k/uL (0-0.7); Eosinophils % (A) 1 %; HCT 37.8 % (39.0-53.0); HGB 12.3 gm/dL (13.0-17.5); Lymphocytes # (A) 0.9 k/uL (1.0-4.8); Lymphocytes % (A) 6 %; MCH 24.4 pg (25.0-35.0); MCHC 32.6 g/dL (31.0-37.0); MCV 74.6 fL (80.0-100.0); Mean Platelet Volume 10.3; Microcytosis Slight; Monocytes # (A) 0.7 k/uL (0-1.0); Monocytes % (A) 4 %; Neutrophils # (A) 14.8 k/uL (1.3-7.7); Neutrophils % (A) 88 %; Platelet Count 125 k/uL (150-450); RBC 5.07 m/uL (4.30-5.90); RDW 17.4 % (11.5-15.5); WBC 16.8 k/uL (3.8-10.6)
[2018-08-05] MEDS ORDERED: INSULIN REGULAR 100 UNIT/ML VIAL IV ONE (08:24)
[2018-08-05] MEDS ORDERED: DEXTROSE 50% SYRINGE 50 ML IVP STA (08:27)
[2018-08-05] MEDS ORDERED: ALBUTEROL NEB (CONC) 2.5 MG/0.5 ML INHALATION ONE (08:52)
--- NOTE | 2018-08-05 09:21 | P.PN ---
Subjective Patient is seen in follow-up for acute kidney injury and hyperkalemia. Patient's baseline creatinine is 1 and his renal function has been worsening the last few days. Creatinine up at 3.98 today. Potassium level was 5.7 this morning. Quintero catheter was inserted yesterday as he was noted to have urinary retention. Urine output was 775 mL over the last 24 hours. Oral intake is fair. No vomiting or diarrhea. Patient has atrial fibrillation. Heart rate is controlled. EF noted to be 20%. Vital signs are stable. General: The patient appeared well nourished and normally developed. HEENT: Head exam is unremarkable. Neck is without jugular venous distension. LUNGS: Lungs are clear to auscultation and percussion. Breath sounds decreased. HEART: Rate and Rhythm are regular. First and second heart sounds normal. No murmurs, rubs or gallops. ABDOMEN: Abdominal exam reveals normal bowel sounds. Non-tender and non- distended. No evidence of peritonitis. EXTREMITITES: No clubbing, cyanosis, or edema. Objective - Vital Signs Vital signs: Vital Signs Temp 97.5 F L 08/05/18 04:00 Pulse 85 08/05/18 04:00 Resp 19 08/05/18 04:00 BP 94/58 08/05/18 04:00 Pulse Ox 94 L 08/05/18 04:00 Intake & Output 08/04/18 08/05/18 08/05/18 18:59 06:59 18:59 Intake Total 600 120 422 Output Total 400 375 Balance 200 -255 422 Weight 94.5 kg Intake: Oral 600 120 422 Output: Urine 400 375 Other: Voiding Method Indwelling Catheter Indwelling Catheter # Voids 0 # Bowel Movements 0 - Labs CBC & Chem 7: 08/05/18 05:33 08/05/18 05:33 Labs: Abnormal Lab Results - Last 24 Hours (Table) 08/04/18 08/04/18 08/04/18 Range/Units 11:53 12:10 14:40 WBC (3.8-10.6) k/uL Hgb (13.0-17.5) gm/dL Hct (39.0-53.0) % MCV (80.0-100.0) fL MCH (25.0-35.0) pg RDW (11.5-15.5) % Plt Count (150-450) k/uL Neutrophils # (1.3-7.7) k/uL Lymphocytes # (1.0-4.8) k/uL Potassium 6.2 H* (3.5-5.1) mmol/L BUN (9-20) mg/dL Creatinine (0.66-1.25) mg/dL POC Glucose (mg/dL) 199 H (75-99) mg/dL Ur Specific [place] 1.041 H (1.001-1.035) Urine Protein 1+ H (Negative) Hyaline Casts 15 H (0-2) /lpf Urine Mucus Rare H (None) /hpf 08/04/18 08/04/18 08/04/18 Range/Units 16:43 16:55 20:22 WBC (3.8-10.6) k/uL Hgb (13.0-17.5) gm/dL Hct (39.0-53.0) % MCV (80.0-100.0) fL MCH (25.0-35.0) pg RDW (11.5-15.5) % Plt Count (150-450) k/uL Neutrophils # (1.3-7.7) k/uL Lymphocytes # (1.0-4.8) k/uL Potassium 5.7 H 5.2 H (3.5-5.1) mmol/L BUN (9-20) mg/dL Creatinine (0.66-1.25) mg/dL POC Glucose (mg/dL) 276 H (75-99) mg/dL Ur Specific [place] (1.001-1.035) Urine Protein (Negative) Hyaline Casts (0-2) /lpf Urine Mucus (None) /hpf 08/04/18 08/05/18 08/05/18 Range/Units 20:28 05:33 05:33 WBC 16.8 H (3.8-10.6) k/uL Hgb 12.3 L (13.0-17.5) gm/dL Hct 37.8 L (39.0-53.0) % MCV 74.6 L (80.0-100.0) fL MCH 24.4 L (25.0-35.0) pg RDW 17.4 H (11.5-15.5) % Plt Count 125 L (150-450) k/uL Neutrophils # 14.8 H (1.3-7.7) k/uL Lymphocytes # 0.9 L (1.0-4.8) k/uL Potassium 5.7 H (3.5-5.1) mmol/L BUN 67 H (9-20) mg/dL Creatinine 3.98 H (0.66-1.25) mg/dL POC Glucose (mg/dL) 240 H (75-99) mg/dL Ur Specific [place] (1.001-1.035) Urine Protein (Negative) Hyaline Casts (0-2) /lpf Urine Mucus (None) /hpf Assessment and Plan Plan: Assessment: 1. Acute kidney injury secondary to ATN secondary to hemodynamic instability/retention. He also received IV contrast on August 03. No evidence of hydronephrosis noted on renal ultrasound.. Creatinine was 1.2 on admission and is up to 3.98 today. 2. Atrial fibrillation s/p IV amiodarone. Now on oral metoprolol. Heart rate controlled. Also on anticoagulation. 3. Systolic CHF with ejection fraction of 20%. 4. Severe hyperkalemia secondary to acute kidney injury and use of Aldactone and Cozaar. Improved with medical management. Potassium level 5.7 this morning. 5. Insulin-dependent diabetes mellitus. Plan: Decrease Lasix to 40 mg IV once daily. Maintain Quintero catheter. 10 units of IV insulin with an amp of D50 now. Low potassium diet. Repeat potassium level at 2 PM today. Continue to monitor renal function and urine output. Check CXR.
[2018-08-05] MEDS: ATORVASTATIN 20 MG TAB PO SCH (09:32)
[2018-08-05] MEDS: APIXABAN 5 MG TAB PO SCH ×2 (09:32→20:31)
[2018-08-05] MEDS: DULoxetine HCL 60 MG CAPSULE.DR PO SCH (09:32)
[2018-08-05] MEDS: DIVALPROEX ER 500 MG TAB.ER.24H PO SCH (09:32)
[2018-08-05] MEDS: ASPIRIN 325 MG TAB PO SCH (09:32)
[2018-08-05] MEDS: METOPROLOL TARTRATE 50 MG TAB PO SCH ×2 (09:47→20:32)
[2018-08-05 11:27] LABS: Glucose,Whole Blood 162 mg/dL (75-99)
[2018-08-05] MEDS: ALPRAZolam 0.25 MG TAB PO PRN (11:28)
[2018-08-05] MEDS ORDERED: FUROSEMIDE 10 MG/ML 4 ML VIAL IV PRN (12:34)
--- NOTE | 2018-08-05 12:35 | P.PN ---
Subjective Progress Note Date: 08/05/18 This is a pleasant 68-year-old male past medical history significant for paroxysmal atrial fibrillation on long-term anticoagulation, systolic heart failure, diabetes mellitus, hypertension, dyslipidemia and hypothyroidism. He follows with Dr. Mcmullen in the office. He was recently admitted to the hospital with a-fib with RVR and congestive heart failure. He was also noted to have supratherapeutic INR and was switched from coumadin to eliquis. He was discharged home 07/24/2018 and has yet to follow up in the office. Appointment is scheduled for August 09. We have been asked to see him in consultation for chest pain. Patient is undergone left heart catheterization with Dr. LONNY Mcmullen finding mildly elevated filling pressures across the aortic valve, right dominant system without obstructive coronary artery disease of significance. There was a significant decrease in LV function with ejection fraction of 20% suggestive of nonischemic cardio myopathy probably worsened by atrial fibrillation. Patient has been resumed on eliquis 5 mg twice daily. Patient has been treated for hyperkalemia with potassium of 7.5. Repeat this morning is pending. Patient has been on amiodarone drip was stopped during the night due to heart rate and the 40s. He was sleeping during the time. Patient is very confused which apparently is his baseline. 08/05: Patient continues to have significant confusion. He denies complaints. He is followed by nephrology has had continued worsening of his renal failure. Repeat lab work reveals a potassium of 5.7, BUN 67 and creatinine 3.90 Patient has been afebrile, heart rate running in the 50s to 60s, blood pressure 94/58, pulse ox 91% to 94% on 4 L GENERAL: This is a 68-year-old male in no apparent distress at the time of my examination. HEENT: Head is atraumatic, normocephalic. Pupils are equal, round. Sclerae anicteric. Conjunctivae are clear. Mucous membranes of the mouth are moist. Neck is supple. There is no jugular venous distention. No carotid bruit is heard. LUNGS: Clear to auscultation no wheezes, rales or rhonchi. No chest wall tenderness is noted on palpation or with deep breathing. HEART: Regular rate and rhythm without murmurs, rubs or gallops. S1 and S2 heard. ABDOMEN: Soft, nontender. Bowel sounds are heard. No organomegaly noted. EXTREMITIES: No evidence of peripheral edema and no calf tenderness noted. VASCULAR: Radial and dorsalis pedis pulses palpated, no evidence of clubbing. NEUROLOGIC: Patient is awake, alert and oriented x1. ASSESSMENT Non-ST elevated myocardial infarction Chronic persistent atrial fibrillation on long-term anticoagulation with controlled ventricular response, episodes of bradycardia Chronic systolic heart failure, currently euvolemic clinically Ischemic cardiomyopathy with ejection fraction 20% Hypertension Dyslipidemia Diabetes mellitus Acute kidney injury PLAN Continue eliquis. Resume Lasix, losartan, Lopressor, simvastatin as previously ordered. Continue Lasix per nephrology. Further recommendations to follow based upon clinical course. Nurse Practitioner note has been reviewed, I agree with a documented findings and plan of care. Patient was seen and examined. Objective - Vital Signs Vital signs: Vital Signs Temp 97.5 F L 08/05/18 04:00 Pulse 60 08/05/18 10:00 Resp 19 08/05/18 04:00 BP 94/58 08/05/18 04:00 Pulse Ox 94 L 08/05/18 04:00 Intake & Output 08/04/18 08/05/18 08/05/18 18:59 06:59 18:59 Intake Total 600 120 422 Output Total 400 375 Balance 200 -255 422 Weight 94.5 kg Intake: Oral 600 120 422 Output: Urine 400 375 Other: Voiding Method Indwelling Catheter Indwelling Catheter # Voids 0 # Bowel Movements 0 - Labs CBC & Chem 7: 08/05/18 05:33 08/05/18 05:33 Labs: Abnormal Lab Results - Last 24 Hours (Table) 08/04/18 08/04/18 08/04/18 Range/Units 12:10 14:40 16:43 WBC (3.8-10.6) k/uL Hgb (13.0-17.5) gm/dL Hct (39.0-53.0) % MCV (80.0-100.0) fL MCH (25.0-35.0) pg RDW (11.5-15.5) % Plt Count (150-450) k/uL Neutrophils # (1.3-7.7) k/uL Lymphocytes # (1.0-4.8) k/uL Potassium 6.2 H* 5.7 H (3.5-5.1) mmol/L BUN (9-20) mg/dL Creatinine (0.66-1.25) mg/dL POC Glucose (mg/dL) (75-99) mg/dL Ur Specific [place] 1.041 H (1.001-1.035) Urine Protein 1+ H (Negative) Hyaline Casts 15 H (0-2) /lpf Urine Mucus Rare H (None) /hpf 08/04/18 08/04/18 08/04/18 Range/Units 16:55 20:22 20:28 WBC (3.8-10.6) k/uL Hgb (13.0-17.5) gm/dL Hct (39.0-53.0) % MCV (80.0-100.0) fL MCH (25.0-35.0) pg RDW (11.5-15.5) % Plt Count (150-450) k/uL Neutrophils # (1.3-7.7) k/uL Lymphocytes # (1.0-4.8) k/uL Potassium 5.2 H (3.5-5.1) mmol/L BUN (9-20) mg/dL Creatinine (0.66-1.25) mg/dL POC Glucose (mg/dL) 276 H 240 H (75-99) mg/dL Ur Specific [place] (1.001-1.035) Urine Protein (Negative) Hyaline Casts (0-2) /lpf Urine Mucus (None) /hpf 08/05/18 08/05/18 08/05/18 Range/Units 05:33 05:33 11:25 WBC 16.8 H (3.8-10.6) k/uL Hgb 12.3 L (13.0-17.5) gm/dL Hct 37.8 L (39.0-53.0) % MCV 74.6 L (80.0-100.0) fL MCH 24.4 L (25.0-35.0) pg RDW 17.4 H (11.5-15.5) % Plt Count 125 L (150-450) k/uL Neutrophils # 14.8 H (1.3-7.7) k/uL Lymphocytes # 0.9 L (1.0-4.8) k/uL Potassium 5.7 H (3.5-5.1) mmol/L BUN 67 H (9-20) mg/dL Creatinine 3.98 H (0.66-1.25) mg/dL POC Glucose (mg/dL) 162 H (75-99) mg/dL Ur Specific [place] (1.001-1.035) Urine Protein (Negative) Hyaline Casts (0-2) /lpf Urine Mucus (None) /hpf
--- NOTE | 2018-08-05 12:48 | P.PN ---
Subjective Progress Note Date: 08/05/18 Principal diagnosis: Admitted with chest pain, second troponin elevated, acute kidney injury with elevated BUN/creatinine as well as elevated and potassium Patient was admitted with chest pain, second troponin was elevated. Underwent cardiac catheterization no ischemia noted however patient's developed ejection fraction on or about 20. Patient was recently admitted with A. fib rapid ventricular response this was corrected, he was noted to have subtherapeutic Coumadin levels and was switched to eliquis. Patient began developing hyperkalemia and in spite of doses of Late potassium continued to climb, patient's creatinine went from 1.2-3.1 patient basically developed acute kidney injury a consultation with nephrology was ordered the spironolactone was stopped as well as Lasix and Cozaar was stopped. Patient was started on calcium 2 daily insulin and bicarbonate IV Lasix 20 mg every 8 hours Urinary output has been low no vomiting diarrhea no active chest pain or sh ortness of breath current potassium is down from 8.1-6.1 08/05/2018 Patient's awake alert eating lunch, potassium is 5.1 patient is somewhat improved however his had episode in the room where she had loss of consciousness briefly, and awoke with focal deficits was transferred to the emergency room where she was evaluated and transferred to [facility] for possible stroke Patient is otherwise quite well Objective - Vital Signs Vital signs: Vital Signs Temp 97.5 F L 08/05/18 04:00 Pulse 60 08/05/18 10:00 Resp 19 08/05/18 04:00 BP 94/58 08/05/18 04:00 Pulse Ox 94 L 08/05/18 04:00 Intake & Output 08/04/18 08/05/18 08/05/18 18:59 06:59 18:59 Intake Total 600 120 422 Output Total 400 375 Balance 200 -255 422 Weight 94.5 kg Intake: Oral 600 120 422 Output: Urine 400 375 Other: Voiding Method Indwelling Catheter Indwelling Catheter # Voids 0 # Bowel Movements 0 - Exam General: [Patient awake, alert and oriented times 3. Patient in no acute distress.] HEENT: [PERRL. EOMI. No pharyngeal erythema or exudate.] Neck: [No adenopathy.] Cardiac: [Heart regular in rate and rhythm. No S3. No S4. No clicks, rubs. No murmur.] Lungs: [Clear to auscultation bilaterally.] Abdomen: [No mass. No organomegaly. Bowel sounds presnt and normoactive in all 4 quadrants.] Extremes: [No edema no cyanosis no claudication normal pulses] : [] Musculoskeletal: [No joint erythema, edema or tenderness.] Skin: [No rash.] Neurologic: [No lateralizing deficits. CN II - XII grossly intact.] Lymphatic: [No adenopathy.] - Labs CBC & Chem 7: 08/05/18 05:33 08/05/18 05:33 Labs: Abnormal Lab Results - Last 24 Hours (Table) 08/04/18 08/04/18 08/04/18 Range/Units 14:40 16:43 16:55 WBC (3.8-10.6) k/uL Hgb (13.0-17.5) gm/dL Hct (39.0-53.0) % MCV (80.0-100.0) fL MCH (25.0-35.0) pg RDW (11.5-15.5) % Plt Count (150-450) k/uL Neutrophils # (1.3-7.7) k/uL Lymphocytes # (1.0-4.8) k/uL Potassium 5.7 H (3.5-5.1) mmol/L BUN (9-20) mg/dL Creatinine (0.66-1.25) mg/dL POC Glucose (mg/dL) 276 H (75-99) mg/dL Ur Specific [place] 1.041 H (1.001-1.035) Urine Protein 1+ H (Negative) Hyaline Casts 15 H (0-2) /lpf Urine Mucus Rare H (None) /hpf 08/04/18 08/04/18 08/05/18 Range/Units 20:22 20:28 05:33 WBC 16.8 H (3.8-10.6) k/uL Hgb 12.3 L (13.0-17.5) gm/dL Hct 37.8 L (39.0-53.0) % MCV 74.6 L (80.0-100.0) fL MCH 24.4 L (25.0-35.0) pg RDW 17.4 H (11.5-15.5) % Plt Count 125 L (150-450) k/uL Neutrophils # 14.8 H (1.3-7.7) k/uL Lymphocytes # 0.9 L (1.0-4.8) k/uL Potassium 5.2 H (3.5-5.1) mmol/L BUN (9-20) mg/dL Creatinine (0.66-1.25) mg/dL POC Glucose (mg/dL) 240 H (75-99) mg/dL Ur Specific [place] (1.001-1.035) Urine Protein (Negative) Hyaline Casts (0-2) /lpf Urine Mucus (None) /hpf 08/05/18 08/05/18 Range/Units 05:33 11:25 WBC (3.8-10.6) k/uL Hgb (13.0-17.5) gm/dL Hct (39.0-53.0) % MCV (80.0-100.0) fL MCH (25.0-35.0) pg RDW (11.5-15.5) % Plt Count (150-450) k/uL Neutrophils # (1.3-7.7) k/uL Lymphocytes # (1.0-4.8) k/uL Potassium 5.7 H (3.5-5.1) mmol/L BUN 67 H (9-20) mg/dL Creatinine 3.98 H (0.66-1.25) mg/dL POC Glucose (mg/dL) 162 H (75-99) mg/dL Ur Specific [place] (1.001-1.035) Urine Protein (Negative) Hyaline Casts (0-2) /lpf Urine Mucus (None) /hpf Assessment and Plan (1) Chest pain Current Visit: Yes Status: Acute Code(s): R07.9 - CHEST PAIN, UNSPECIFIED SNOMED Code(s): 21470894 (2) NSTEMI (non-ST elevated myocardial infarction) Current Visit: Yes Status: Acute Code(s): I21.4 - NON-ST ELEVATION (NSTEMI) MYOCARDIAL INFARCTION SNOMED Code(s): 41081511 (3) Acute CHF (congestive heart failure) Current Visit: No Status: Acute Code(s): I50.9 - HEART FAILURE, UNSPECIFIED SNOMED Code(s): 44007993 (4) Acute kidney injury Current Visit: No Status: Acute Code(s): N17.9 - ACUTE KIDNEY FAILURE, UNSPECIFIED SNOMED Code(s): 81575025 (5) Acute on chronic diastolic (congestive) heart failure Current Visit: No Status: Acute Code(s): I50.33 - ACUTE ON CHRONIC DIASTOLIC (CONGESTIVE) HEART FAILURE SNOMED Code(s): 742208800 (6) Acute on chronic systolic and diastolic heart failure, NYHA class 2 Current Visit: No Status: Acute Code(s): I50.43 - ACUTE ON CHRONIC COMBINED SYSTOLIC AND DIASTOLIC HRT FAIL SNOMED Code(s): 519264150215769 (7) Allergic drug reaction Current Visit: No Status: Acute Code(s): T78.40XA - ALLERGY, UNSPECIFIED, INITIAL ENCOUNTER SNOMED Code(s): 908765510 (8) Anxiety and depression Current Visit: No Status: Acute Code(s): F41.9 - ANXIETY DISORDER, UNSPECIFIED; F32.9 - MAJOR DEPRESSIVE DISORDER, SINGLE EPISODE, UNSPECIFIED SNOMED Code(s): 20914222 (9) Atrial fibrillation with RVR Current Visit: No Status: Acute Code(s): I48.91 - UNSPECIFIED ATRIAL FIBRILLATION SNOMED Code(s): 231571368401355 Plan: Patient is pending cardioversion His renal insufficiency is being corrected consultation with nephrology performed The spironolactone and Cozaar were stopped Patient was started on calcium gluconate, sodium bicarbonate, insulin Potassium has improved from 8.1-5.1 Will continue to follow and evaluate in the morning Time with Patient: Greater than 30
--- NOTE | 2018-08-05 12:50 | XR ---
EXAMINATION TYPE: XR chest 1V portable DATE OF EXAM: 08/05/2018 HISTORY: sob. REFERENCE: Previous study dated 08/02/2018. FINDINGS: The heart remains enlarged. There is a has developed vascular congestion and pulmonary froilan a. Pleural spaces appear clear. IMPRESSION: WORSENING CHANGES OF CONGESTIVE HEART FAILURE.
[2018-08-05] MEDS: FUROSEMIDE 10 MG/ML 4 ML VIAL IV SCH (13:40)
[2018-08-05] MEDS: MORPHINE SULFATE 4 MG/ML SYRINGE IV PRN (15:36)
[2018-08-05] MEDS ORDERED: HALOPERIDOL LACTATE 5 MG/ML 1 ML VIAL IM PRN (15:43)
[2018-08-05] MEDS ORDERED: LORazepam 2 MG/ML INJ IV STA (15:45)
[2018-08-05 16:07] LABS: Glucose,Whole Blood 120 mg/dL (75-99)
[2018-08-05 21:07] LABS: Glucose,Whole Blood 98 mg/dL (75-99)
[2018-08-06] MEDS: MORPHINE SULFATE 4 MG/ML SYRINGE IV PRN (00:55)
[2018-08-06] MEDS: INSULIN ASPART (NovoLOG) 100 UNIT/ML VIAL SQ SCH ×4 (06:09→21:01)
[2018-08-06 06:16] LABS: Anisocytosis Slight; Basophils # (A) 0.1 k/uL (0-0.2); Basophils % (A) 1 %; Eosinophils # (A) 0.4 k/uL (0-0.7); Eosinophils % (A) 3 %; HCT 35.7 % (39.0-53.0); HGB 11.6 gm/dL (13.0-17.5); Lymphocytes # (A) 1.1 k/uL (1.0-4.8); Lymphocytes % (A) 8 %; MCH 23.6 pg (25.0-35.0); MCHC 32.4 g/dL (31.0-37.0); MCV 72.9 fL (80.0-100.0); Mean Platelet Volume 9.9; Microcytosis Moderate; Monocytes # (A) 0.7 k/uL (0-1.0); Monocytes % (A) 5 %; Neutrophils # (A) 10.7 k/uL (1.3-7.7); Neutrophils % (A) 82 %; RDW 17.5 % (11.5-15.5); WBC 13.1 k/uL (3.8-10.6)
[2018-08-06 06:24] LABS: Glucose,Whole Blood 112 mg/dL (75-99)
[2018-08-06] MEDS: LEVOTHYROXINE 100 MCG TAB PO SCH (06:28)
[2018-08-06 06:34] LABS: Potassium 4.8 mmol/L (3.5-5.1)
[2018-08-06 06:37] LABS: Platelet Count 98 k/uL (150-450)
[2018-08-06 06:38] LABS: Anisocytosis (M) Present; Ovalocytes Present
[2018-08-06] MEDS: DIVALPROEX ER 500 MG TAB.ER.24H PO SCH (07:51)
[2018-08-06] MEDS: APIXABAN 5 MG TAB PO SCH ×2 (07:51→19:57)
[2018-08-06] MEDS: ASPIRIN 325 MG TAB PO SCH (07:51)
[2018-08-06] MEDS: DULoxetine HCL 60 MG CAPSULE.DR PO SCH (07:51)
[2018-08-06] MEDS: ATORVASTATIN 20 MG TAB PO SCH (07:51)
[2018-08-06] MEDS: METOPROLOL TARTRATE 50 MG TAB PO SCH ×2 (07:54→19:56)
[2018-08-06] MEDS ORDERED: SPIRONOLACTONE 25 MG TAB PO SCH (09:00)
[2018-08-06] MEDS ORDERED: FUROSEMIDE 10 MG/ML 4 ML VIAL IV SCH (09:00)
[2018-08-06] MEDS ORDERED: FUROSEMIDE 40 MG TAB PO SCH (09:00)
--- NOTE | 2018-08-06 09:22 | P.PN ---
Subjective Patient is lying in bed barely opening his eyes to verbal commands. I asked him if he any chest discomfort or breathing trouble and he did not respond back to me He appears to be in no respiratory distress he looks comfortable and was sleeping comfortably when I walked in He has converted to sinus rhythm heart rate 50 beats a minute, spontaneously. He does have short bursts of A. fib with a controlled ventricular response From a heart failure standpoint he looks well. No edema no JVD no orthopnea no breathing trouble Blood pressure is well controlled Blood pressure 104/64 mmHg pulse rate in the 50s afebrile No JVD no lower extremity edema normal heart sounds and regular this time Normal S1 normal S2 Breath sounds are reduced bilaterally due to poor inspiration effort Patient is sleepy he does not respond to my verbal commands but he does open his eyes very slightly when I tried to talk him Impression Likely nonischemic cardio myopathy with mildly elevated filling pressures but well compensated from a heart failure standpoint at this time Persistent atrial fibrillation, converted to sinus rhythm Currently sinus rhythm in the 50s on metoprolol 50 g twice daily Chronic kidney disease creatinine 3.68. Minimal improvement since yesterday BUN is increasing Suggest Reduce aspirin to 81 mg by mouth daily did Continue apixaban 5 g twice daily for stroke prevention Continue atorvastatin 20 mg by mouth daily Switched back to by mouth Lasix starting tomorrow. Stop IV Lasix Continue metoprolol 50 g twice daily and watch heart rate When he converted to sinus rhythm there was no postconversion pause Objective - Vital Signs Vital signs: Vital Signs Temp 97.8 F 08/06/18 07:58 Pulse 56 L 08/06/18 07:58 Resp 20 08/06/18 07:58 BP 104/62 08/06/18 07:58 Pulse Ox 94 L 08/06/18 07:58 Intake & Output 08/05/18 08/06/18 08/06/18 18:59 06:59 18:59 Intake Total 422 120 120 Output Total 200 650 Balance 222 -530 120 Weight 94 kg Intake: Oral 422 120 120 Output: Urine 200 650 Other: Voiding Method Indwelling Catheter Indwelling Catheter Indwelling Catheter - Labs CBC & Chem 7: 08/06/18 05:22 08/06/18 05:22 Labs: Abnormal Lab Results - Last 24 Hours (Table) 04/07/19 04/07/19 04/08/19 Range/Units 11:25 16:05 05:22 WBC 13.1 H (3.8-10.6) k/uL Hgb 11.6 L (13.0-17.5) gm/dL Hct 35.7 L (39.0-53.0) % MCV 72.9 L (80.0-100.0) fL MCH 23.6 L (25.0-35.0) pg RDW 17.5 H (11.5-15.5) % Plt Count 98 L (150-450) k/uL Neutrophils # 10.7 H (1.3-7.7) k/uL Sodium (137-145) mmol/L Chloride (98-107) mmol/L BUN (9-20) mg/dL Creatinine (0.66-1.25) mg/dL POC Glucose (mg/dL) 162 H 120 H (75-99) mg/dL Calcium (8.4-10.2) mg/dL 08/06/18 08/06/18 Range/Units 05:22 06:07 WBC (3.8-10.6) k/uL Hgb (13.0-17.5) gm/dL Hct (39.0-53.0) % MCV (80.0-100.0) fL MCH (25.0-35.0) pg RDW (11.5-15.5) % Plt Count (150-450) k/uL Neutrophils # (1.3-7.7) k/uL Sodium 136 L (137-145) mmol/L [place] 96 L (98-107) mmol/L BUN 78 H (9-20) mg/dL Creatinine 3.68 H (0.66-1.25) mg/dL POC Glucose (mg/dL) 112 H (75-99) mg/dL Calcium 8.0 L (8.4-10.2) mg/dL
--- NOTE | 2018-08-06 10:08 | P.PN ---
Subjective Admitted with chest pain, second troponin elevated, acute kidney injury with elevated BUN/creatinine as well as elevated and potassium Patient was admitted with chest pain, second troponin was elevated. Underwent cardiac catheterization no ischemia noted however patient's developed ejection fraction on or about 20. Patient was recently admitted with A. fib rapid ventricular response this was corrected, he was noted to have subtherapeutic Cou madin levels and was switched to eliquis. Patient began developing hyperkalemia and in spite of doses of Late potassium continued to climb, patient's creatinine went from 1.2-3.1 patient basically developed acute kidney injury a consultation with nephrology was ordered the spironolactone was stopped as well as Lasix and Cozaar was stopped. Patient was started on calcium 2 daily insulin and bicar bonate IV Lasix 20 mg every 8 hours Urinary output has been low no vomiting diarrhea no active chest pain or shortness of breath current potassium is down from 8.1-6.1 08/05/2018 Patient's awake alert eating lunch, potassium is 5.1 patient is somewhat improved however his had episode in the room where she had loss of consciousness briefly, and awoke with focal deficits was transferred to the emergency room where she was evaluated and transferred to [facility] for possible stroke Patient is otherwise quite well Above notes per Dr. Coates 08/06/2018 Patient has his eyes closed. He is not easily arousable. Appears delirious. Withdrawing from pain. When asked several times and open his eyes briefly. He appears to be doing hand gestures consistent with hallucinating. He was a dmitted for suspected non-ST elevated myocardial infarction, due to a significantly worsening congestive heart pattern. He was cathed and found to have no coronary artery disease, but much worse ejection fraction around 2024%. Cardiology felt this is from his atrial fibrillation. Although, he is cardioverted himself he has been having SVT, A. fib runs, followed by sinus rhythm. Cardiology is following him. He is unable to answer any significant questions for me today. Nursing staff indicating is been demented recently. He has a known history of closed head injury that his altered his personality and susceptibility to things such as delirium. His creatinine is elevated since arrival here on 08/02, most likely from the excessive diuretic use. Nephrology is following. Today his GFR is 16. He continues to have a microcytic, no minimal anemia. Objective - Vital Signs Vital signs: Vital Signs Temp 97.8 F 08/06/18 07:58 Pulse 56 L 08/06/18 07:58 Resp 20 08/06/18 07:58 BP 104/62 08/06/18 07:58 Pulse Ox 94 L 08/06/18 07:58 Intake & Output 08/05/18 08/06/18 08/06/18 18:59 06:59 18:59 Intake Total 422 120 120 Output Total 200 650 Balance 222 -530 120 Weight 94 kg Intake: Oral 422 120 120 Output: Urine 200 650 Other: Voiding Method Indwelling Catheter Indwelling Catheter Indwelling Catheter - Exam General: The patient is somnolent, not easily arousable, actively moving his hands as if he is hallucinating. Minimally responding to me. Neck: The neck is supple, there is no thyromegaly, lymphadenopathy, tenderness or JVD. Cardiovascular: S1S2 is normal, There is a regular rate and rhythm. No murmur, rub or gallop is appreciated. Respiratory: Lungs are slightly coarse to auscultation bilaterally, resp irations are non-labored, breath sounds are equal. Gastrointestinal: Soft, non-distended, non-tender abdomen without masses or organomegaly noted. There is no rebound or guarding present. Bowel sounds are unremarkable. Musculoskeletal: Normal ROM, no tenderness, There is no pedal edema. There is no calf tenderness No cords were appreciated. There is right forearm and upper arm edema, +2 noted. Neurological: CN II-XII intact, there are no obvious motor or sensory deficits. Coordination appears grossly intact. Speech is slow, he is not actively answering any questions, just somewhat mumbles. Skin: Skin is warm and dry and no rashes or lesions are noted. - Labs CBC & Chem 7: 08/06/18 05:22 08/06/18 05:22 Labs: Abnormal Lab Results - Last 24 Hours (Table) 08/05/18 08/05/18 08/06/18 Range/Units 11:25 16:05 05:22 WBC 13.1 H (3.8-10.6) k/uL Hgb 11.6 L (13.0-17.5) gm/dL Hct 35.7 L (39.0-53.0) % MCV 72.9 L (80.0-100.0) fL MCH 23.6 L (25.0-35.0) pg RDW 17.5 H (11.5-15.5) % Plt Count 98 L (150-450) k/uL Neutrophils # 10.7 H (1.3-7.7) k/uL Sodium (137-145) mmol/L Chloride (98-107) mmol/L BUN (9-20) mg/dL Creatinine (0.66-1.25) mg/dL POC Glucose (mg/dL) 162 H 120 H (75-99) mg/dL Calcium (8.4-10.2) mg/dL 08/06/18 08/06/18 Range/Units 05:22 06:07 WBC (3.8-10.6) k/uL Hgb (13.0-17.5) gm/dL Hct (39.0-53.0) % MCV (80.0-100.0) fL MCH (25.0-35.0) pg RDW (11.5-15.5) % Plt Count (150-450) k/uL Neutrophils # (1.3-7.7) k/uL Sodium 136 L (137-145) mmol/L Chloride 96 L (98-107) mmol/L BUN 78 H (9-20) mg/dL Creatinine 3.68 H (0.66-1.25) mg/dL POC Glucose (mg/dL) 112 H (75-99) mg/dL Calcium 8.0 L (8.4-10.2) mg/dL Assessment and Plan (1) Chest pain Current Visit: Yes Status: Acute Code(s): R07.9 - CHEST PAIN, UNSPECIFIED SNOMED Code(s): 86768037 (2) NSTEMI (non-ST elevated myocardial infarction) Current Visit: Yes Status: Acute Code(s): I21.4 - NON-ST ELEVATION (NSTEMI) MYOCARDIAL INFARCTION SNOMED Code(s): 05315065 (3) Acute CHF (congestive heart failure) Current Visit: No Status: Acute Code(s): I50.9 - HEART FAILURE, UNSPECIFIED SNOMED Code(s): 98089770 (4) Acute kidney injury Current Visit: No Status: Acute Code(s): N17.9 - ACUTE KIDNEY FAILURE, UNSPECIFIED SNOMED Code(s): 66290796 (5) Acute on chronic diastolic (congestive) heart failure Current Visit: No Status: Acute Code(s): I50.33 - ACUTE ON CHRONIC DIASTOLIC (CONGESTIVE) HEART FAILURE SNOMED Code(s): 728800621 (6) History of closed head injury Current Visit: No Status: Acute Code(s): Z87.820 - PERSONAL HISTORY OF TRAUMATIC BRAIN INJURY SNOMED Code(s): 93973918180358 (7) Hypothyroidism Current Visit: No Status: Acute Code(s): E03.9 - HYPOTHYROIDISM, UNSPECIFIED SNOMED Code(s): 44578433 (8) Insulin dependent diabetes mellitus Current Visit: No Status: Acute Code(s): E11.9 - TYPE 2 DIABETES MELLITUS WITHOUT COMPLICATIONS; Z79.4 - SENIOR CARE (CURRENT) USE OF INSULIN SNOMED Code(s): 67526397 (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 Cardiology is following his nonischemic cardiomyopathy and possible is non-ST elevated microfracture. His heart rate is improved. We'll await further recommendations from them. He continues on Elequis for anticoagulation, aspirin, atorvastatin, furosemide, metoprolol. Continue Synthroid for hypothyroidism. He'll continue on insulin scale for his diabetes. 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 He'll be reevaluated next 24 hours. Repeat labs in am.
[2018-08-06 11:08] LABS: Glucose,Whole Blood 114 mg/dL (75-99)
--- NOTE | 2018-08-06 12:07 | PN ---
PROGRESS NOTE The patient is seen for followup for acute kidney injury. Renal function has improved. Serum creatinine is down from 3.9 to 3.6 mg/dL. Currently, patient is being diuresed. He denies any significant complaints. PHYSICAL EXAMINATION: On examination this morning, blood pressure was 104/62, heart rate 56 per minute. Patient is afebrile. EXAMINATION OF THE HEART: S1, S2. EXAMINATION OF THE LUNGS: Bilateral breath sounds are heard. Abdomen is soft, nontender. Examination of lower extremities shows no evidence of edema. LABS: Labs show sodium 136, potassium 4.8, BUN 78, serum creatinine 3.68, hemoglobin 11.6 g/dL. ASSESSMENT: 1. Acute kidney injury associated with urine retention, currently improving. Patient has had good urine output. He has an indwelling Quintero catheter. He has been receiving Lasix which is currently on hold now. 2. Atrial fibrillation converted to sinus rhythm with bursts of tachycardia. 3. Severe hyperkalemia associated with acute kidney injury, use of Aldactone and Cozaar on initial admission as well as obstructive uropathy and urinary retention, currently improved. 4. Congestive heart failure, acute on top of chronic, mainly systolic. 5. Cardiomyopathy, ejection fraction 20%. PLAN: Continue with indwelling Quintero catheter for now. Okay to switch Lasix to p.o. Repeat labs in a.m. Avoid any nephrotoxic agents. MMODL / IJN: [id number] /
[2018-08-06 16:24] LABS: Glucose,Whole Blood 117 mg/dL (75-99)
[2018-08-06] MEDS: QUEtiapine 50 MG TAB PO SCH (19:57)
[2018-08-06 21:00] LABS: Glucose,Whole Blood 96 mg/dL (75-99)
[2018-08-07 06:10] LABS: Glucose,Whole Blood 118 mg/dL (75-99)
[2018-08-07] MEDS: INSULIN ASPART (NovoLOG) 100 UNIT/ML VIAL SQ SCH ×4 (06:13→20:23)
[2018-08-07 07:45] LABS: Calcium 8.6 mg/dL (8.4-10.2); Magnesium 2.1 mg/dL (1.6-2.3); Potassium 4.9 mmol/L (3.5-5.1)
[2018-08-07] MEDS: METOPROLOL TARTRATE 50 MG TAB PO SCH ×2 (09:04→20:13)
[2018-08-07] MEDS: DULoxetine HCL 60 MG CAPSULE.DR PO SCH (09:05)
[2018-08-07] MEDS: ATORVASTATIN 20 MG TAB PO SCH (09:05)
[2018-08-07] MEDS: APIXABAN 5 MG TAB PO SCH ×2 (09:05→20:13)
[2018-08-07] MEDS: ALPRAZolam 0.25 MG TAB PO PRN ×2 (09:05→20:14)
[2018-08-07] MEDS: LEVOTHYROXINE 100 MCG TAB PO SCH (09:05)
[2018-08-07] MEDS: DIVALPROEX ER 500 MG TAB.ER.24H PO SCH (09:05)
[2018-08-07] MEDS: ASPIRIN 81 MG PO SCH (09:05)
[2018-08-07 09:17] LABS: Anisocytosis Slight; Basophils % (A) 1 %; Eosinophils # (A) 0.3 k/uL (0-0.7); Eosinophils % (A) 3 %; HCT 35.3 % (39.0-53.0); HGB 11.3 gm/dL (13.0-17.5); Lymphocytes # (A) 0.8 k/uL (1.0-4.8); Lymphocytes % (A) 10 %; MCH 23.5 pg (25.0-35.0); MCV 73.6 fL (80.0-100.0); Mean Platelet Volume 9.2; Microcytosis Moderate; Monocytes # (A) 0.5 k/uL (0-1.0); Monocytes % (A) 7 %; Neutrophils # (A) 6.2 k/uL (1.3-7.7); Neutrophils % (A) 78 %; RBC 4.79 m/uL (4.30-5.90); RDW 17.9 % (11.5-15.5); WBC 7.9 k/uL (3.8-10.6)
[2018-08-07 09:43] LABS: Platelet Count 99 k/uL (150-450)
[2018-08-07 11:19] LABS: Glucose,Whole Blood 105 mg/dL (75-99)
--- NOTE | 2018-08-07 12:40 | P.PN ---
Subjective Admitted with chest pain, second troponin elevated, acute kidney injury with elevated BUN/creatinine as well as elevated and potassium Patient was admitted with chest pain, second troponin was elevated. Underwent cardiac catheterization no ischemia noted however patient's developed ejection fraction on or about 20. Patient was recently admitted with A. fib rapid ventricular response this was corrected, he was noted to have subtherapeutic Cou madin levels and was switched to eliquis. Patient began developing hyperkalemia and in spite of doses of Late potassium continued to climb, patient's creatinine went from 1.2-3.1 patient basically developed acute kidney injury a consultation with nephrology was ordered the spironolactone was stopped as well as Lasix and Cozaar was stopped. Patient was started on calcium 2 daily insulin and bicar bonate IV Lasix 20 mg every 8 hours Urinary output has been low no vomiting diarrhea no active chest pain or shortness of breath current potassium is down from 8.1-6.1 08/05/2018 Patient's awake alert eating lunch, potassium is 5.1 patient is somewhat improved however his had episode in the room where she had loss of consciousness briefly, and awoke with focal deficits was transferred to the emergency room where she was evaluated and transferred to [facility] for possible stroke Patient is otherwise quite well Above notes per Dr. Coates 08/06/2018 Patient has his eyes closed. He is not easily arousable. Appears delirious. Withdrawing from pain. When asked several times and open his eyes briefly. He appears to be doing hand gestures consistent with hallucinating. He was a dmitted for suspected non-ST elevated myocardial infarction, due to a significantly worsening congestive heart pattern. He was cathed and found to have no coronary artery disease, but much worse ejection fraction around 20-25%. Cardiology felt this is from his atrial fibrillation. Although, he is cardioverted himself he has been having SVT, A. fib runs, followed by sinus rhythm. Cardiology is following him. He is unable to answer any significant questions for me today. Nursing staff indicating is been demented recently. He has a known history of closed head injury that his altered his personality and susceptibility to things such as delirium. His creatinine is elevated since arrival here on 08/02, most likely from the excessive diuretic use. Nephrology is following. Today his GFR is 16. He continues to have a microcytic, no minimal anemia. 08/07/2018. Patient remains confused and delirious. He opens his eyes but continues to hallucinate. He has a sitter to bedside. He is not responding to questions. Kidney functions continued to improve. GFR is now 22. Glucose also remains well controlled. Overnight he has pulled out his Quintero catheter and IV access. He was started on Seroquel last night hopefully help with this. He does have a history of closed head injury. Objective - Vital Signs Vital signs: Vital Signs Temp 97.4 F L 08/07/18 08:00 Pulse 57 L 08/07/18 08:00 Resp 18 08/07/18 08:00 BP 98/46 08/07/18 08:00 Pulse Ox 94 L 08/07/18 08:00 Intake & Output 08/06/18 08/07/18 08/07/18 18:59 06:59 18:59 Intake Total 120 Output Total 400 Balance -280 Weight 89 kg Intake: Oral 120 Output: Urine 400 Other: Voiding Method Indwelling Catheter Incontinent Incontinent # Voids 3 - Exam General: The patient is somnolent, but easily arousable, actively moving his hands as if he is hallucinating. Minimally responding to me. Neck: The neck is supple, there is no thyromegaly, lymphadenopathy, tenderness or JVD. Cardiovascular: S1S2 is normal, There is a regular rate and rhythm. No murmur, rub or gallop is appreciated. Respiratory: Lungs are slightly coarse to auscultation bilaterally, respirations are non-labored, breath sounds are equal. Further exam was deferred as he became agitated. - Labs CBC & Chem 7: 08/07/18 06:20 08/07/18 06:20 Labs: Abnormal Lab Results - Last 24 Hours (Table) 08/06/18 08/07/18 08/07/18 Range/Units 16:22 06:03 06:20 Hgb 11.3 L (13.0-17.5) gm/dL Hct 35.3 L (39.0-53.0) % MCV 73.6 L (80.0-100.0) fL MCH 23.5 L (25.0-35.0) pg RDW 17.9 H (11.5-15.5) % Plt Count 99 L (150-450) k/uL Lymphocytes # 0.8 L (1.0-4.8) k/uL BUN (9-20) mg/dL Creatinine (0.66-1.25) mg/dL Glucose (74-99) mg/dL POC Glucose (mg/dL) 117 H 118 H (75-99) mg/dL 08/07/18 08/07/18 Range/Units 06:20 11:15 Hgb (13.0-17.5) gm/dL Hct (39.0-53.0) % MCV (80.0-100.0) fL MCH (25.0-35.0) pg RDW (11.5-15.5) % Plt Count (150-450) k/uL Lymphocytes # (1.0-4.8) k/uL BUN 79 H (9-20) mg/dL Creatinine 2.79 H (0.66-1.25) mg/dL Glucose 102 H (74-99) mg/dL POC Glucose (mg/dL) 105 H (75-99) mg/dL Assessment and Plan (1) Chest pain Current Visit: Yes Status: Acute Code(s): R07.9 - CHEST PAIN, UNSPECIFIED SNOMED Code(s): 78378239 (2) NSTEMI (non-ST elevated myocardial infarction) Current Visit: Yes Status: Acute Code(s): I21.4 - NON-ST ELEVATION (NSTEMI) MYOCARDIAL INFARCTION SNOMED Code(s): 70971712 (3) Acute CHF (congestive heart failure) Current Visit: No Status: Acute Code(s): I50.9 - HEART FAILURE, UNSPECIFIED SNOMED Code(s): 85704871 (4) Acute kidney injury Current Visit: No Status: Acute Code(s): N17.9 - ACUTE KIDNEY FAILURE, UNSPECIFIED SNOMED Code(s): 12110419 (5) Acute on chronic diastolic (congestive) heart failure Current Visit: No Status: Acute Code(s): I50.33 - ACUTE ON CHRONIC DIASTOLIC (CONGESTIVE) HEART FAILURE SNOMED Code(s): 633595096 (6) History of closed head injury Current Visit: No Status: Acute Code(s): Z87.820 - PERSONAL HISTORY OF TRAUMATIC BRAIN INJURY SNOMED Code(s): 62831974457790 (7) Hypothyroidism Current Visit: No Status: Acute Code(s): E03.9 - HYPOTHYROIDISM, UNSPECIFIED SNOMED Code(s): 02678806 (8) Insulin dependent diabetes mellitus Current Visit: No Status: Acute Code(s): E11.9 - TYPE 2 DIABETES MELLITUS WITHOUT COMPLICATIONS; Z79.4 - SELF PROPELLED HOT MIX ROLLER OPERATOR (CURRENT) USE OF INSULIN SNOMED Code(s): 00018845 (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 Cardiology is following his nonischemic cardiomyopathy and possible is non-ST elevated myocardial infarction His heart rate is improved. We'll await further recommendations from them. He continues on Elequis for anticoagulation, aspirin, atorvastatin, furosemide, metoprolol. Continue Synthroid for hypothyroidism. He'll continue on insulin scale for his diabetes. 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 He'll be reevaluated next 24 hours. Repeat labs in am.
[2018-08-07 16:33] LABS: Glucose,Whole Blood 101 mg/dL (75-99)
[2018-08-07] MEDS: QUEtiapine 50 MG TAB PO SCH (20:14)
[2018-08-07 20:31] LABS: Glucose,Whole Blood 105 mg/dL (75-99)
--- NOTE | 2018-08-07 23:07 | PN ---
PROGRESS NOTE Patient is seen for followup for acute kidney injury. His renal function continues to improve. His serum creatinine down from 3.9 to 2.7 mg/dL. Patient is currently maintained on Lasix. He has been confused. He was seen this afternoon. The patient keeps removing his IVs. He has no clothes on. He is not in any acute distress. PHYSICAL EXAMINATION: Blood pressure was 106/63, heart rate 65 per minute. Patient is afebrile. Examination of the heart S1, S2. Examination of the lungs, decreased breath sounds at bases. No crackles or wheezing is heard. Abdomen is soft, nontender. Examination lower extremities shows no evidence of edema. LAB: Show sodium 139, potassium 4.9, BUN 79, serum creatinine 2.79, calcium 8.6, hemoglobin 11.3. ASSESSMENT: 1. Acute kidney injury associated with urine retention, currently improving. The patient was volume overloaded and maintained on IV Lasix, however, currently he is confused. He has not been eating. I will hold off on the Lasix. Renal function continues to improve. We will repeat labs in a.m. 2. Atrial fibrillation converted to sinus rhythm with bursts of tachycardia. 3. Severe hyperkalemia associated with acute kidney injury on admission along with use of Aldactone, angiotensin receptor blockers as well as urine retention, currently improved. 4. Congestive heart failure, acute on top of chronic, mainly systolic, now improved. 5. Cardiomyopathy, ejection fraction 20%. 6. Confusion with no focal motor deficits, started on Seroquel. PLAN: Is to hold Lasix and repeat labs in a.m. Reassess in a.m. NANETTE / JEANNIE: [id number] /
[2018-08-08] MEDS: ALPRAZolam 0.25 MG TAB PO PRN (02:04)
[2018-08-08] MEDS: LEVOTHYROXINE 100 MCG TAB PO SCH (05:57)
[2018-08-08 07:05] LABS: Glucose,Whole Blood 172 mg/dL (75-99)
[2018-08-08] MEDS: INSULIN ASPART (NovoLOG) 100 UNIT/ML VIAL SQ SCH ×4 (08:06→21:20)
[2018-08-08] MEDS: ASPIRIN 81 MG PO SCH (08:06)
[2018-08-08] MEDS: DIVALPROEX ER 500 MG TAB.ER.24H PO SCH (08:06)
[2018-08-08] MEDS: APIXABAN 5 MG TAB PO SCH ×2 (08:07→21:19)
[2018-08-08] MEDS: METOPROLOL TARTRATE 50 MG TAB PO SCH ×2 (08:07→21:19)
[2018-08-08] MEDS: DULoxetine HCL 60 MG CAPSULE.DR PO SCH (08:07)
[2018-08-08] MEDS: ATORVASTATIN 20 MG TAB PO SCH (08:07)
[2018-08-08 09:53] LABS: Anisocytosis Slight; Basophils % (A) 0 %; Eosinophils # (A) 0.1 k/uL (0-0.7); Eosinophils % (A) 2 %; HCT 36.2 % (39.0-53.0); HGB 11.4 gm/dL (13.0-17.5); Hypochromasia Slight; Lymphocytes # (A) 0.4 k/uL (1.0-4.8); Lymphocytes % (A) 6 %; MCHC 31.5 g/dL (31.0-37.0); MCV 76.2 fL (80.0-100.0); Mean Platelet Volume 9.5; Microcytosis Slight; Monocytes # (A) 0.5 k/uL (0-1.0); Monocytes % (A) 7 %; Neutrophils # (A) 5.3 k/uL (1.3-7.7); Neutrophils % (A) 82 %; RBC 4.76 m/uL (4.30-5.90); RDW 19.7 % (11.5-15.5); WBC 6.4 k/uL (3.8-10.6)
[2018-08-08 10:13] LABS: Platelet Count 89 k/uL (150-450)
[2018-08-08 10:22] LABS: Calcium 9.1 mg/dL (8.4-10.2); Potassium 4.4 mmol/L (3.5-5.1)
[2018-08-08 12:39] LABS: Glucose,Whole Blood 84 mg/dL (75-99)
[2018-08-08] MEDS ORDERED: QUEtiapine 50 MG TAB PO STA (13:47)
--- NOTE | 2018-08-08 14:26 | P.PN ---
Subjective Progress Note Date: 08/08/18 Interval history: Admitted with chest pain, second troponin elevated, acute kidney injury with elevated BUN/creatinine as well as elevated and potassium Patient was admitted with chest pain, second troponin was elevated. Underwent cardiac catheterization no ischemia noted however patient's developed ejection fraction on or about 20. Patient was recently admitted with A. fib rapid ventricular response this was corrected, he was noted to have subtherapeutic Coumadin levels and was switched to eliquis. Patient began developing hyperkalemia and in spite of doses of Late potassium continued to climb, patient's creatinine went from 1.2-3.1 patient basically developed acute kidney injury a consultation with nephrology was ordered the spironolactone was stopped as well as Lasix and Cozaar was stopped. Patient was started on calcium 2 daily insulin and bicarbonate IV Lasix 20 mg every 8 hours Urinary output has been low no vomiting diarrhea no active chest pain or shortness of breath current potassium is down from 8.1-6.1 08/05/2018 Patient's awake alert eating lunch, potassium is 5.1 patient is somewhat improved however his had episode in the room where she had loss of consciousness briefly, and awoke with focal deficits was transferred to the emergency room where she was evaluated and transferred to [facility] for possible stroke Patient is otherwise quite well Above notes per Dr. Coates 08/06/2018 Patient has his eyes closed. He is not easily arousable. Appears delirious. Withdrawing from pain. When asked several times and open his eyes briefly. He appears to be doing hand gestures consistent with hallucinating. He was admitted for suspected non-ST elevated myocardial infarction, due to a significantly worsening congestive heart pattern. He was cathed and found to have no coronary artery disease, but much worse ejection fraction around 20-25%. Cardiology felt this is from his atrial fibrillation. Although, he is cardioverted himself he has been having SVT, A. fib runs, followed by sinus rhythm. Cardiology is following him. He is unable to answer any significant questions for me today. Nursing staff indicating is been demented recently. He has a known history of closed head injury that his altered his personality and susceptibility to things such as delirium. His creatinine is elevated since arrival here on 08/02, most likely from the excessive diuretic use. Nephrology is following. Today his GFR is 16. He continues to have a microcytic, no minimal anemia. 08/07/2018. Patient remains confused and delirious. He opens his eyes but continues to hallucinate. He has a sitter to bedside. He is not responding to questions. Kidney functions continued to improve. GFR is now 22. Glucose also remains well controlled. Overnight he has pulled out his Quintero catheter and IV access. He was started on Seroquel last night hopefully help with this. He does have a history of closed head injury. 08/08/2018 delirium/confusion persists. Patient pulled out his own IVs, required sitter at bedside during the night. Restless, flinging legs over bedrail. Maintained on Seroquel. Lasix remains on hold .Significant improvement in renal function, creatinine down to 1.7. Afebrile, normal WBC. Consumed 15% of breakfast. Blood sugars controlled. Minimally converses. Objective - Vital Signs Vital signs: Vital Signs Temp 98.1 F 08/08/18 06:20 Pulse 87 08/08/18 06:20 Resp 20 08/08/18 08:00 BP 108/53 08/08/18 06:20 Pulse Ox 98 08/08/18 06:20 Intake & Output 08/07/18 08/08/18 08/08/18 18:59 06:59 18:59 Intake Total 420 Balance 420 Intake: Oral 420 Other: Voiding Method Incontinent Incontinent Incontinent # Voids 1 2 - Exam PHYSICAL EXAM: VITAL SIGNS: [As above] GENERAL: The patient is alert, moving all 4 extremities, confused. Not conversing HEENT: Conjunctivae normal. eyes normal. NECK: No JVD. No thyroid enlargement. No LNs CARDIOVASCULAR: S1, S2 muffled. No murmur, rub, or gallop RESPIRATION: Equal and Nonlabored ,Breath sounds diminished in the bases. Oc casional coarse scattered rhonchi, no crackles. No bronchial breathing. ABDOMEN: Soft, nontender . No guarding. no masses palpable.Bowel sounds heard. LEGS: No edema. no swelling PSYCHIATRY: Alert and oriented 1, restless, confused. NERVOUS SYSTEM: Cranial N 2-12 grossly normal. Moves all 4 limbs. Diffuse weakness. No focal deficits. Skin: no rash - Labs CBC & Chem 7: 08/08/18 09:27 08/08/18 09:27 Labs: Abnormal Lab Results - Last 24 Hours (Table) 08/07/18 08/07/18 08/08/18 Range/Units 16:30 20:17 07:02 Hgb (13.0-17.5) gm/dL Hct (39.0-53.0) % MCV (80.0-100.0) fL MCH (25.0-35.0) pg RDW (11.5-15.5) % Plt Count (150-450) k/uL Lymphocytes # (1.0-4.8) k/uL BUN (9-20) mg/dL Creatinine (0.66-1.25) mg/dL Glucose (74-99) mg/dL POC Glucose (mg/dL) 101 H 105 H 172 H (75-99) mg/dL 08/08/18 08/08/18 Range/Units 09:27 09:27 Hgb 11.4 L (13.0-17.5) gm/dL Hct 36.2 L (39.0-53.0) % MCV 76.2 L (80.0-100.0) fL MCH 24.0 L (25.0-35.0) pg RDW 19.7 H (11.5-15.5) % Plt Count 89 L (150-450) k/uL Lymphocytes # 0.4 L (1.0-4.8) k/uL BUN 60 H (9-20) mg/dL Creatinine 1.70 H (0.66-1.25) mg/dL Glucose 123 H (74-99) mg/dL POC Glucose (mg/dL) (75-99) mg/dL Assessment and Plan Assessment: (1) Chest pain, status post cardiac catheterization reporting significant decrease in LV function, EF 20%, possible nonischemic cardiomyopathy worsened by chronic A. fib. Current Visit: Yes Status: Acute Code(s): R07.9 - CHEST PAIN, UNSPECIFIED SNOMED Code(s): 52984893 (2) Possible NSTEMI (non-ST elevated myocardial infarction) Current Visit: Yes Status: Acute Code(s): I21.4 - NON-ST ELEVATION (NSTEMI) MYOCARDIAL INFARCTION SNOMED Code(s): 14400104 (4) Acute kidney injury secondary to urinary retention Current Visit: No Status: Acute Code(s): N17.9 - ACUTE KIDNEY FAILURE, UNSPECIFIED SNOMED Code(s): 46062137 (5) Acute on chronic diastolic (congestive) heart failure, improved Current Visit: No Status: Acute Code(s): I50.33 - ACUTE ON CHRONIC DIASTOLIC (CONGESTIVE) HEART FAILURE SNOMED Code(s): 525534841 (6) History of closed head injury Current Visit: No Status: Acute Code(s): Z87.820 - PERSONAL HISTORY OF TRAUMATIC BRAIN INJURY SNOMED Code(s): 72041633581656 (7) Hypothyroidism Current Visit: No Status: Acute Code(s): E03.9 - HYPOTHYROIDISM, UNSPECIFIED SNOMED Code(s): 84398752 (8) Insulin dependent diabetes mellitus, controlled Current Visit: No Status: Acute Code(s): E11.9 - TYPE 2 DIABETES MELLITUS WITHOUT COMPLICATIONS; Z79.4 - DESIGN TRANSFERRER (CURRENT) USE OF INSULIN SNOMED Code(s): 46839301 (9) group home current use of anticoagulant therapy Current Visit: No Status: Acute Code(s): Z79.01 - USP (CURRENT) USE OF ANTICOAGULANTS SNOMED Code(s): 089013212 (10) Microcytic anemia Current Visit: Yes Status: Acute Code(s): D50.9 - IRON DEFICIENCY ANEMIA, UNSPECIFIED SNOMED Code(s): 790203038 (11) acute delirium, Metabolic encephalopathy, multifactorial. Current Visit: Yes Status: Acute Code(s): G93.41 - METABOLIC ENCEPHALOPATHY SNOMED Code(s): 99641366 Plan: Continue current medication regime , beta justine, aspirin, statin, monitoring and symptomatic treatment. Anticoagulation with Eliquis. Follow closely with cardiology, further recommendations pending. Diuretics currently on hold as per nephrology .Restless, Seroquel ordered for now in addition to increasing dose. Sitter ordered, discussed with staff. Close monitoring of electrolytes, renal function with repeat labs ordered for a.m. PT/OT. Social work assisting with discharge planning; case currently being reviewed by Odalys. The impression and plan of care has been dictated as directed. : I performed a history and examination of this patient, discussed the same with the dictator. I agree with the dictator's note ,documented as a scribe. Any additional findings or plans will be noted.
[2018-08-08 17:52] LABS: Glucose,Whole Blood 180 mg/dL (75-99)
[2018-08-08 20:53] LABS: Glucose,Whole Blood 140 mg/dL (75-99)
[2018-08-08] MEDS ORDERED: QUEtiapine 100 MG TAB PO SCH (21:00)
[2018-08-09] MEDS: LEVOTHYROXINE 100 MCG TAB PO SCH (06:06)
[2018-08-09 07:20] LABS: Glucose,Whole Blood 152 mg/dL (75-99)
[2018-08-09] MEDS: METOPROLOL TARTRATE 50 MG TAB PO SCH ×2 (07:57→19:36)
[2018-08-09] MEDS: INSULIN ASPART (NovoLOG) 100 UNIT/ML VIAL SQ SCH ×4 (07:57→21:07)
[2018-08-09] MEDS: ATORVASTATIN 20 MG TAB PO SCH (07:57)
[2018-08-09] MEDS: APIXABAN 5 MG TAB PO SCH ×2 (07:58→19:36)
[2018-08-09] MEDS: ASPIRIN 81 MG PO SCH (07:58)
[2018-08-09] MEDS: DULoxetine HCL 60 MG CAPSULE.DR PO SCH (07:58)
[2018-08-09] MEDS: DIVALPROEX ER 500 MG TAB.ER.24H PO SCH (07:58)
[2018-08-09] MEDS: ALPRAZolam 0.25 MG TAB PO PRN ×2 (07:59→19:37)
[2018-08-09 11:02] LABS: Anisocytosis Slight; Basophils % (A) 1 %; Eosinophils # (A) 0.2 k/uL (0-0.7); Eosinophils % (A) 3 %; HCT 38.4 % (39.0-53.0); HGB 11.9 gm/dL (13.0-17.5); Hypochromasia Slight; Lymphocytes # (A) 0.6 k/uL (1.0-4.8); Lymphocytes % (A) 8 %; MCV 77.4 fL (80.0-100.0); Mean Platelet Volume 8.2; Microcytosis Slight; Monocytes # (A) 0.6 k/uL (0-1.0); Monocytes % (A) 9 %; Neutrophils # (A) 5.3 k/uL (1.3-7.7); Neutrophils % (A) 76 %; RBC 4.95 m/uL (4.30-5.90); RDW 19.9 % (11.5-15.5)
[2018-08-09 11:06] LABS: Platelet Count 74 k/uL (150-450)
[2018-08-09 11:23] LABS: Calcium 9.4 mg/dL (8.4-10.2); Potassium 4.4 mmol/L (3.5-5.1)
[2018-08-09 12:11] LABS: Glucose,Whole Blood 190 mg/dL (75-99)
[2018-08-09] MEDS ORDERED: POLYETHYLENE GLYCOL 3350 17 GM POWD.PACK PO STA (15:02)
--- NOTE | 2018-08-09 15:30 | P.PN ---
Subjective Progress Note Date: 08/09/18 Interval history: Admitted with chest pain, second troponin elevated, acute kidney injury with elevated BUN/creatinine as well as elevated and potassium Patient was admitted with chest pain, second troponin was elevated. Underwent cardiac catheterization no ischemia noted however patient's developed ejection fraction on or about 20. Patient was recently admitted with A. fib rapid ventricular response this was corrected, he was noted to have subtherapeutic Coumadin levels and was switched to eliquis. Patient began developing hyperkalemia and in spite of doses of Late potassium continued to climb, patient's creatinine went from 1.2-3.1 patient basically developed acute kidney injury a consultation with nephrology was ordered the spironolactone was stopped as well as Lasix and Cozaar was stopped. Patient was started on calcium 2 daily insulin and bicarbonate IV Lasix 20 mg every 8 hours Urinary output has been low no vomiting diarrhea no active chest pain or shortness of breath current potassium is down from 8.1-6.1 08/05/2018 Patient's awake alert eating lunch, potassium is 5.1 patient is somewhat improved however his had episode in the room where she had loss of consciousness briefly, and awoke with focal deficits was transferred to the emergency room where she was evaluated and transferred to [facility] for possible stroke Patient is otherwise quite well Above notes per Dr. Coates 08/06/2018 Patient has his eyes closed. He is not easily arousable. Appears delirious. Withdrawing from pain. When asked several times and open his eyes briefly. He appears to be doing hand gestures consistent with hallucinating. He was admitted for suspected non-ST elevated myocardial infarction, due to a significantly worsening congestive heart pattern. He was cathed and found to have no coronary artery disease, but much worse ejection fraction around 20-25%. Cardiology felt this is from his atrial fibrillation. Although, he is cardioverted himself he has been having SVT, A. fib runs, followed by sinus rhythm. Cardiology is following him. He is unable to answer any significant questions for me today. Nursing staff indicating is been demented recently. He has a known history of closed head injury that his altered his personality and susceptibility to things such as delirium. His creatinine is elevated since arrival here on 08/02, most likely from the excessive diuretic use. Nephrology is following. Today his GFR is 16. He continues to have a microcytic, no minimal anemia. 08/07/2018. Patient remains confused and delirious. He opens his eyes but continues to hallucinate. He has a sitter to bedside. He is not responding to questions. Kidney functions continued to improve. GFR is now 22. Glucose also remains well controlled. Overnight he has pulled out his Quintero catheter and IV access. He was started on Seroquel last night hopefully help with this. He does have a history of closed head injury. 08/08/2018 delirium/confusion persists. Patient pulled out his own IVs, required sitter at bedside during the night. Restless, flinging legs over bedrail. Maintained on Seroquel. Lasix remains on hold .Significant improvement in renal function, creatinine down to 1.7. Afebrile, normal WBC. Consumed 15% of breakfast. Blood sugars controlled. Minimally converses. 08/09/2018 Seroquel dose increased yesterday,agitation lessening. Delirium improving, occasionally answering simple questions. Drinking water from a straw. Renal function continues to to improve, 1.48. Maintained on Lasix IV push. Sodium 147. Sitter at bedside. No bowel movement, abdomen soft mildly distended. Objective - Vital Signs Vital signs: Vital Signs Temp 97.4 F L 08/09/18 06:15 Pulse 63 08/09/18 14:53 Resp 22 08/09/18 14:53 BP 79/54 08/09/18 14:53 Pulse Ox 95 08/09/18 14:53 Intake & Output 08/08/18 08/09/18 08/09/18 18:59 06:59 18:59 Intake Total 100 Balance 100 Weight 89 kg Intake: Oral 100 Other: Voiding Method Incontinent Incontinent Incontinent # Voids 0 1 2 # Bowel Movements 0 - Exam PHYSICAL EXAM: VITAL SIGNS: [As above] GENERAL: The patient is alert, confused, less agitated. Minimally conversing HEENT: Conjunctivae normal. eyes normal. Oral mucosa moist NECK: No JVD. No thyroid enlargement. No LNs CARDIOVASCULAR: S1, S2 muffled. No murmur, rub, or gallop RESPIRATION: Equal and Nonlabored ,Breath sounds diminished in the bases. Occasional coarse scattered rhonchi, no crackles. ABDOMEN: Soft, mildly distended, nontender . No guarding. no masses pal pable.Bowel sounds heard. LEGS: No edema. no swelling PSYCHIATRY: Alert and oriented 1, restless, confused. NERVOUS SYSTEM: Cranial N 2-12 grossly normal. Moves all 4 limbs. Diffuse weakness. No focal deficits. Skin: no rash - Labs CBC & Chem 7: 08/09/18 10:00 08/09/18 10:00 Labs: Abnormal Lab Results - Last 24 Hours (Table) 08/08/18 08/08/18 08/09/18 Range/Units 17:20 20:49 07:09 Hgb (13.0-17.5) gm/dL Hct (39.0-53.0) % MCV (80.0-100.0) fL MCH (25.0-35.0) pg RDW (11.5-15.5) % Plt Count (150-450) k/uL Lymphocytes # (1.0-4.8) k/uL Sodium (137-145) mmol/L Carbon Dioxide (22-30) mmol/L BUN (9-20) mg/dL Creatinine (0.66-1.25) mg/dL Glucose (74-99) mg/dL POC Glucose (mg/dL) 180 H 140 H 152 H (75-99) mg/dL 08/09/18 08/09/18 08/09/18 Range/Units 10:00 10:00 12:04 Hgb 11.9 L (13.0-17.5) gm/dL Hct 38.4 L (39.0-53.0) % MCV 77.4 L (80.0-100.0) fL MCH 24.0 L (25.0-35.0) pg RDW 19.9 H (11.5-15.5) % Plt Count 74 L (150-450) k/uL Lymphocytes # 0.6 L (1.0-4.8) k/uL Sodium 147 H (137-145) mmol/L Carbon Dioxide 31 H (22-30) mmol/L BUN 47 H (9-20) mg/dL Creatinine 1.48 H (0.66-1.25) mg/dL Glucose 108 H (74-99) mg/dL POC Glucose (mg/dL) 190 H (75-99) mg/dL Assessment and Plan Assessment: (1) Chest pain, status post cardiac catheterization reporting significant decrease in LV function, EF 20%, possible nonischemic cardiomyopathy worsened by chronic A. fib. Current Visit: Yes Status: Acute Code(s): R07.9 - CHEST PAIN, UNSPECIFIED SNOMED Code(s): 17459827 (2) Possible NSTEMI (non-ST elevated myocardial infarction) Current Visit: Yes Status: Acute Code(s): I21.4 - NON-ST ELEVATION (NSTEMI) MYOCARDIAL INFARCTION SNOMED Code(s): 74730928 (4) Acute kidney injury secondary to urinary retention Current Visit: No Status: Acute Code(s): N17.9 - ACUTE KIDNEY FAILURE, UNSPECIFIED SNOMED Code(s): 78776052 (5) Acute on chronic diastolic (congestive) heart failure, improved Current Visit: No Status: Acute Code(s): I50.33 - ACUTE ON CHRONIC DIASTOLIC (CONGESTIVE) HEART FAILURE SNOMED Code(s): 049522755 (6) History of closed head injury Current Visit: No Status: Acute Code(s): Z87.820 - PERSONAL HISTORY OF TRAUMATIC BRAIN INJURY SNOMED Code(s): 66883750033636 (7) Hypothyroidism Current Visit: No Status: Acute Code(s): E03.9 - HYPOTHYROIDISM, UNSPECIFIED SNOMED Code(s): 02178079 (8) Insulin dependent diabetes mellitus, controlled Current Visit: No Status: Acute Code(s): E11.9 - TYPE 2 DIABETES MELLITUS WITHOUT COMPLICATIONS; Z79.4 - MACHINE OPERATOR ASSISTANT (CURRENT) USE OF INSULIN SNOMED Code(s): 65975601 (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 Current Visit: Yes Status: Acute Code(s): G93.41 - METABOLIC ENCEPHALOPATHY SNOMED Code(s): 58339856 Plan: Continue current medication regime , beta justine, aspirin, statin, monitoring and symptomatic treatment. Head CT ordered. Increase Seroquel to 150mg qhs. Renal function continues to improve, sodium slowly climbing .Follow closely with both nephrology and cardiology, further recommendations pending. Close monitoring of electrolytes, renal function with repeat labs ordered for a.m. PT/OT. The impression and plan of care has been dictated as directed. : I performed a history and examination of this patient, discussed the same with the dictator. I agree with the dictator's note ,documented as a scribe. Any additional findings or plans will be noted.
[2018-08-09 17:20] LABS: Glucose,Whole Blood 204 mg/dL (75-99)
--- NOTE | 2018-08-09 17:30 | CT ---
EXAMINATION TYPE: CT brain wo con DATE OF EXAM: 08/09/2018 COMPARISON: 07/01/2014 HISTORY: Mental status changes. CT DLP: 2499 mGycm Automated exposure control for dose reduction was used. FINDINGS: There is diffuse cerebral cortical atrophy. There is no mass effect nor midline shift pain there is n o sign of intracranial hemorrhage. There is some enlargement of the ventricles. Calvarium appears int act. IMPRESSION: CEREBRAL ATROPHY. NO ACUTE INTRACRANIAL ABNORMALITY. NO SIGNIFICANT CHANGE COMPARED TO OLD EXAM.
[2018-08-09] MEDS: QUEtiapine 100 MG TAB PO SCH (19:36)
--- NOTE | 2018-08-09 21:58 | PN ---
PROGRESS NOTE Patient is seen for followup for acute kidney injury. Renal function has been improving. The patient has been confused. He has not been eating much. He had been pulling out his IVs. A Quintero catheter is also out. The patient has been voiding. PHYSICAL EXAMINATION: This afternoon blood pressure was 136/80, it appears that he dropped his pressure to 79/54, around 3 o'clock in the afternoon. Heart rate has been at about 65-70 per minute. Patient is afebrile. Examination of the heart S1, S2. Examination of lungs bilateral breath sounds are heard. Abdomen is soft, nontender. Exam of lower extremities shows no evidence of edema. The patient is confused. He is moving all 4 extremities. LABS: Show hemoglobin 11.9, sodium 147, potassium 4.4, BUN 47, serum creatinine 1.48. ASSESSMENT: 1. Acute kidney injury associated with urine retention, currently improved. The patient's Quintero catheter is discontinued. He has been voiding well and his renal function has been improving. He did have an element of cardiorenal syndrome as well, which is now improved and patient is currently off of diuretics. 2. Mild hypernatremia associated with decreased oral intake. Try to encourage free water intake if the patient is able to eat. 3. Encephalopathy. Brain CT shows no acute changes. Medications were adjusted. However, patient remains confused. 4. Cardiomyopathy, EF 20-25 percent. 5. Congestive heart failure, acute on top of chronic, currently resolved. PLAN: Maintain patient off of diuretics. Encourage increase free water intake if he is able to eat and monitor urine output. Continue to avoid nephrotoxic agents. MMODL / IJN: [id number] /
[2018-08-10] MEDS: LEVOTHYROXINE 100 MCG TAB PO SCH (05:50)
[2018-08-10 07:38] LABS: Glucose,Whole Blood 114 mg/dL (75-99)
[2018-08-10] MEDS: POLYETHYLENE GLYCOL 3350 17 GM POWD.PACK PO SCH (07:45)
[2018-08-10] MEDS: APIXABAN 5 MG TAB PO SCH ×2 (07:45→20:00)
[2018-08-10] MEDS: INSULIN ASPART (NovoLOG) 100 UNIT/ML VIAL SQ SCH ×4 (07:45→22:19)
[2018-08-10] MEDS: DULoxetine HCL 60 MG CAPSULE.DR PO SCH (07:45)
[2018-08-10] MEDS: ASPIRIN 81 MG PO SCH (07:45)
[2018-08-10] MEDS: METOPROLOL TARTRATE 50 MG TAB PO SCH ×2 (07:45→20:00)
[2018-08-10] MEDS: LEVOTHYROXINE 75 MCG TAB PO SCH (07:45)
[2018-08-10] MEDS: ATORVASTATIN 20 MG TAB PO SCH (07:45)
[2018-08-10] MEDS: DIVALPROEX ER 500 MG TAB.ER.24H PO SCH (07:45)
[2018-08-10] MEDS: ALPRAZolam 0.25 MG TAB PO PRN ×3 (07:49→19:58)
[2018-08-10 11:30] LABS: Anisocytosis Moderate; HCT 41.6 % (39.0-53.0); HGB 12.6 gm/dL (13.0-17.5); Hypochromasia Moderate; MCHC 30.3 g/dL (31.0-37.0); MCV 79.1 fL (80.0-100.0); Mean Platelet Volume 7.7; Microcytosis Slight; RBC 5.26 m/uL (4.30-5.90); RDW 20.3 % (11.5-15.5); WBC 7.6 k/uL (3.8-10.6)
[2018-08-10 11:34] LABS: Glucose,Whole Blood 284 mg/dL (75-99)
[2018-08-10 11:38] LABS: Calcium 9.8 mg/dL (8.4-10.2); Platelet Count 80 k/uL (150-450); Potassium 5.2 mmol/L (3.5-5.1)
[2018-08-10 13:35] LABS: Basophils # (M) 0.08 k/uL (0-0.2); Eosinophils # (M) 0.61 k/uL (0-0.7); Lymphocytes # (M) 0.99 k/uL (1.0-4.8); Monocytes # (M) 0.76 k/uL (0-1.0); Neutrophils # (M) 5.17 k/uL (1.3-7.7); Neutrophils % (M) 68 %; Nucleated Red Blood Cells 0 /100 WBC (0-0); Poikilocytosis (M) Present; Target Cells Present; Total Cells Counted 100
--- NOTE | 2018-08-10 14:41 | P.PN ---
Subjective Progress Note Date: 08/10/18 Interval history: Admitted with chest pain, second troponin elevated, acute kidney injury with elevated BUN/creatinine as well as elevated and potassium Patient was admitted with chest pain, second troponin was elevated. Underwent cardiac catheterization no ischemia noted however patient's developed ejection fraction on or about 20. Patient was recently admitted with A. fib rapid ventricular response this was corrected, he was noted to have subtherapeutic Coumadin levels and was switched to eliquis. Patient began developing hyperkalemia and in spite of doses of Late potassium continued to climb, patient's creatinine went from 1.2-3.1 patient basically developed acute kidney injury a consultation with nephrology was ordered the spironolactone was stopped as well as Lasix and Cozaar was stopped. Patient was started on calcium 2 daily insulin and bicarbonate IV Lasix 20 mg every 8 hours Urinary output has been low no vomiting diarrhea no active chest pain or shortness of breath current potassium is down from 8.1-6.1 08/05/2018 Patient's awake alert eating lunch, potassium is 5.1 patient is somewhat improved however his had episode in the room where she had loss of consciousness briefly, and awoke with focal deficits was transferred to the emergency room where she was evaluated and transferred to [facility] for possible stroke Patient is otherwise quite well Above notes per Dr. Coates 08/06/2018 Patient has his eyes closed. He is not easily arousable. Appears delirious. Withdrawing from pain. When asked several times and open his eyes briefly. He appears to be doing hand gestures consistent with hallucinating. He was admitted for suspected non-ST elevated myocardial infarction, due to a significantly worsening congestive heart pattern. He was cathed and found to have no coronary artery disease, but much worse ejection fraction around 20-25%. Cardiology felt this is from his atrial fibrillation. Although, he is cardioverted himself he has been having SVT, A. fib runs, followed by sinus rhythm. Cardiology is following him. He is unable to answer any significant questions for me today. Nursing staff indicating is been demented recently. He has a known history of closed head injury that his altered his personality and susceptibility to things such as delirium. His creatinine is elevated since arrival here on 08/02, most likely from the excessive diuretic use. Nephrology is following. Today his GFR is 16. He continues to have a microcytic, no minimal anemia. 08/07/2018. Patient remains confused and delirious. He opens his eyes but continues to hallucinate. He has a sitter to bedside. He is not responding to questions. Kidney functions continued to improve. GFR is now 22. Glucose also remains well controlled. Overnight he has pulled out his Quintero catheter and IV access. He was started on Seroquel last night hopefully help with this. He does have a history of closed head injury. 08/08/2018 delirium/confusion persists. Patient pulled out his own IVs, required sitter at bedside during the night. Restless, flinging legs over bedrail. Maintained on Seroquel. Lasix remains on hold .Significant improvement in renal function, creatinine down to 1.7. Afebrile, normal WBC. Consumed 15% of breakfast. Blood sugars controlled. Minimally converses. 08/09/2018 Seroquel dose increased yesterday,agitation lessening. Delirium improving, occasionally answering simple questions. Drinking water from a straw. Renal function continues to to improve, 1.48. Maintained on Lasix IV push. Sodium 147. Sitter at bedside. No bowel movement, abdomen soft mildly distended. 08/10/2018 rough night, continues to require sitter at bedside. Complains of low mid abdominal discomfort upon palpation. MiraLAX ordered yesterday, no bowel movements reported. Minimal oral intake. Potassium 5.2, sodium up to 149, chloride 109. Renal function continues to improve. Creatinine 1.37. Afebrile, normal WBC. Maintaining O2 sat of 98% on room air. Head CT nonacute. Objective - Vital Signs Vital signs: Vital Signs Temp 97.4 F L 08/09/18 06:15 Pulse 57 L 08/10/18 07:00 Resp 18 08/10/18 07:00 BP 115/69 08/10/18 07:00 Pulse Ox 98 08/10/18 07:00 Intake & Output 08/09/18 08/10/18 08/10/18 18:59 06:59 18:59 Weight 89 kg Other: Voiding Method Diaper Diaper # Voids 5 1 # Bowel Movements 0 - Exam PHYSICAL EXAM: VITAL SIGNS: [As above] GENERAL: The patient is alert, confused, Minimally conversing HEENT: Conjunctivae normal. Oral mucosa dry NECK: No JVD. No thyroid enlargement. No LNs CARDIOVASCULAR: S1, S2 muffled. No murmur, rub, or gallop RESPIRATION: Bilateral bases diminished with occasional coarse scattered rhonchi, no crackles. No wheezing ABDOMEN: Soft, mildly distended, minimal mid lower abdominal quadrant tenderness to palpation . No guarding. no masses palpable.Bowel sounds heard. LEGS: No edema. no swelling PSYCHIATRY: Alert and oriented 1, restless, confused. NERVOUS SYSTEM: Cranial N 2-12 grossly normal. Moves all 4 limbs. Diffuse weakness. No focal deficits. Skin: no rash - Labs CBC & Chem 7: 08/10/18 10:54 08/10/18 10:54 Labs: Abnormal Lab Results - Last 24 Hours (Table) 08/09/18 08/09/18 08/10/18 Range/Units 12:04 17:18 07:23 Hgb (13.0-17.5) gm/dL MCV (80.0-100.0) fL MCH (25.0-35.0) pg MCHC (31.0-37.0) g/dL RDW (11.5-15.5) % Plt Count (150-450) k/uL Sodium (137-145) mmol/L Potassium (3.5-5.1) mmol/L Chloride (98-107) mmol/L Carbon Dioxide (22-30) mmol/L BUN (9-20) mg/dL Creatinine (0.66-1.25) mg/dL Glucose (74-99) mg/dL POC Glucose (mg/dL) 190 H 204 H 114 H (75-99) mg/dL 08/10/18 08/10/18 08/10/18 Range/Units 10:54 10:54 11:32 Hgb 12.6 L (13.0-17.5) gm/dL MCV 79.1 L (80.0-100.0) fL MCH 24.0 L (25.0-35.0) pg MCHC 30.3 L (31.0-37.0) g/dL RDW 20.3 H (11.5-15.5) % Plt Count 80 L (150-450) k/uL Sodium 149 H (137-145) mmol/L Potassium 5.2 H (3.5-5.1) mmol/L Chloride 109 H (98-107) mmol/L Carbon Dioxide 35 H (22-30) mmol/L BUN 41 H (9-20) mg/dL Creatinine 1.37 H (0.66-1.25) mg/dL Glucose 144 H (74-99) mg/dL POC Glucose (mg/dL) 284 H (75-99) mg/dL Assessment and Plan Assessment: (1) Chest pain, status post cardiac catheterization reporting significant decrease in LV function, EF 20%, possible nonischemic cardiomyopathy worsened by chronic A. fib. Current Visit: Yes Status: Acute Code(s): R07.9 - CHEST PAIN, UNSPECIFIED SNOMED Code(s): 25568526 (2) Possible NSTEMI (non-ST elevated myocardial infarction) Current Visit: Yes Status: Acute Code(s): I21.4 - NON-ST ELEVATION (NSTEMI) MYOCARDIAL INFARCTION SNOMED Code(s): 71540469 (4) Acute kidney injury secondary to urinary retention Current Visit: No Status: Acute Code(s): N17.9 - ACUTE KIDNEY FAILURE, UNSPE CIFIED SNOMED Code(s): 57372925 (5) Acute on chronic diastolic (congestive) heart failure, improved Current Visit: No Status: Acute Code(s): I50.33 - ACUTE ON CHRONIC DIASTOLIC (CONGESTIVE) HEART FAILURE SNOMED Code(s): 001411928 (6) History of closed head injury Current Visit: No Status: Acute Code(s): Z87.820 - PERSONAL HISTORY OF TRAUMATIC BRAIN INJURY SNOMED Code(s): 33099673494298 (7) Hypothyroidism Current Visit: No Status: Acute Code(s): E03.9 - HYPOTHYROIDISM, UNSPECIFIED SNOMED Code(s): 19766469 (8) Insulin dependent diabetes mellitus, controlled Current Visit: No Status: Acute Code(s): E11.9 - TYPE 2 DIABETES MELLITUS WITHOUT COMPLICATIONS; 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 Current Visit: Yes Status: Acute Code(s): G93.41 - METABOLIC ENCEPHALOPATHY SNOMED Code(s): 94118394 Plan: Continue current medication regime , beta justine, aspirin, statin, monitoring and symptomatic treatment. CXR, Flatplate of the abdomen, lactic acid and ammonia levels ordered. Maintain Seroquel. Close monitoring of electrolytes, renal function with repeat labs ordered for a.m. prognosis guarded given multiple complex medical issues. The impression and plan of care has been dictated as directed. : I performed a history and examination of this patient, discussed the same with the dictator. I agree with the dictator's note ,documented as a scribe. Any additional findings or plans will be noted.
[2018-08-10 14:48] LABS: Ammonia <9 umol/L (<30)
--- NOTE | 2018-08-10 14:53 | XR ---
EXAMINATION TYPE: XR chest 1V portable DATE OF EXAM: 08/10/2018 HISTORY: Shortness of breath. COMPARISON: 08/05/2018 TECHNIQUE: Single view of the chest is submitted. FINDINGS: Demonstrated are scattered senescent parenchymal change. Patchy right lower lobe infiltrate infrahilar region. Correlate for pneumonia. Improving aeration lef t perihilar region. The heart is stable. Hilar and mediastinal structures are within normal limits. Degenerative changes are seen of the dorsal spine. IMPRESSION: 1. Patchy right lower lobe infiltrate infrahilar region. Correlate for pneumonia. Improving aeration left perihilar region.
[2018-08-10 14:55] LABS: Lactic Acid, Venous 2.1 mmol/L (0.7-2.0)
--- NOTE | 2018-08-10 14:56 | XR ---
EXAMINATION TYPE: XR abdomen 1V DATE OF EXAM: 08/10/2018 COMPARISON: NONE HISTORY: Pain TECHNIQUE: Single supine KUB image of the abdomen is obtained FINDINGS: Small bowel demonstrates no evidence for dilatation or air fluid levels. Gas and fecal material is seen in non-distended colon. No convincing evidence for pneumoperitoneum. No unusual calcifications. The lung bases are clear. The osseous structures are intact. IMPRESSION: 1. Overall nonobstructive bowel gas pattern.
[2018-08-10 17:26] LABS: Glucose,Whole Blood 106 mg/dL (75-99)
[2018-08-10 17:57] LABS: Glucose,Whole Blood 156 mg/dL (75-99)
[2018-08-10] MEDS: DEXTROSE 5% IN WATER 1,000 ML IV SCH (18:36)
--- NOTE | 2018-08-10 19:29 | PN ---
PROGRESS NOTE The patient is seen for followup for acute kidney injury. He remains confused and requires a sitter. The patient has been voiding. He has not been eating much. However, upon significant encouragement, he does drink his Ensure. PHYSICAL EXAMINATION: This morning,, blood pressure was 115/69, heart rate 57 per minute. He is afebrile. Examination of the heart S1, S2. Examination of lungs bilateral breath sounds are heard. ABDOMEN: Soft. Examination of lower extremities shows no evidence of edema. COTT[employer] exam shows patient is moving all 4 extremities. However, he is confused. LABS: Show sodium 149, potassium 5.2, BUN 41, serum creatinine 1.37. Lactic acid was 2.1, hemoglobin 12.6 g/dL. ASSESSMENT: 1. Acute kidney injury, currently significantly improved. Serum creatinine is down to 1.37. The patient received IV fluids initially. However, currently he is off of fluids and he is hypernatremic and will need to be restarted on D5W. 2. Mild hyperkalemia. The patient has been voiding. We need to rule out urine retention. 3. Confusion, etiology unclear. Consider consult with Neurology. 4. Congestive heart failure, acute on top of chronic, mainly systolic, currently resolved. 5. Cardiomyopathy, ejection fraction 20%. 6. Severe hyperkalemia on initial admission, currently resolved. 7. Hypernatremia associated with free water deficit start D5W. PLAN: Patient will need to restart IV fluids, mainly D5W for hypernatremia. Repeat labs in a.m. Consider neurology consult. MMODL / IJN: [id number] /
[2018-08-10] MEDS: QUEtiapine 100 MG TAB PO SCH (19:59)
[2018-08-10 20:32] LABS: Albumin 3.8 g/dL (3.5-5.0); Potassium 4.9 mmol/L (3.5-5.1); Total Bilirubin 3.3 mg/dL (0.2-1.3); Total Protein 6.7 g/dL (6.3-8.2)
[2018-08-10 20:46] LABS: Glucose,Whole Blood 170 mg/dL (75-99)
[2018-08-10 20:50] LABS: Anisocytosis Slight; Basophils # (A) 0.1 k/uL (0-0.2); Basophils % (A) 1 %; Eosinophils # (A) 0.4 k/uL (0-0.7); Eosinophils % (A) 5 %; HCT 41.4 % (39.0-53.0); HGB 12.5 gm/dL (13.0-17.5); Hypochromasia Moderate; Lymphocytes # (A) 0.9 k/uL (1.0-4.8); Lymphocytes % (A) 13 %; MCH 23.6 pg (25.0-35.0); MCHC 30.1 g/dL (31.0-37.0); MCV 78.3 fL (80.0-100.0); Mean Platelet Volume 8.6; Microcytosis Slight; Monocytes # (A) 0.8 k/uL (0-1.0); Monocytes % (A) 11 %; Neutrophils # (A) 4.8 k/uL (1.3-7.7); Neutrophils % (A) 66 %; RBC 5.29 m/uL (4.30-5.90); RDW 19.6 % (11.5-15.5); WBC 7.2 k/uL (3.8-10.6)
[2018-08-10 20:52] LABS: Platelet Count 80 k/uL (150-450)
--- NOTE | 2018-08-10 20:58 | CT ---
EXAMINATION TYPE: CT abdomen pelvis wo con DATE OF EXAM: 08/10/2018 COMPARISON: None HISTORY: abnormal liver findings CT DLP: 914.3 mGycm Automated exposure control for dose reduction was used. TECHNIQUE: Helical acquisition of images was performed from the lung bases through the pelvis. FINDINGS: Lung bases are clear of consolidation. There is no pleural effusion. Heart size is normal. There is n o pericardial effusion. There is some mild fluid around the liver. Spleen appears normal. There is no pancreatic mass. Stomac h appears normal. There is hypoattenuation in the gallbladder. Kidneys show no hydronephrosis.. Kidne ys have normal size and contour. There is no retroperitoneal adenopathy. Bladder distends smoothly. There is no inguinal hernia. There is no sign of a bowel obstruction. Ther e is no mesenteric edema. There is small amount of fluid in the pelvis. There is small amount of flui d in the left paracolic gutter. Abdominal aorta is atheromatous. Lumbar spine is intact. Bony pelvis is intact. Exam of the pelvis limited slightly by motion. There is no sign of a bowel obstruction. IMPRESSION: THERE IS MILD ASCITES. THERE IS HIGH ATTENUATION IN THE GALLBLADDER THAT COULD RELATE TO CONCENTRATE D BILE OR VICARIOUS CONTRAST EXCRETION.. NO DILATED DUCTS.
[2018-08-10 21:08] LABS: Glucose,Whole Blood 165 mg/dL (75-99)
[2018-08-10 22:12] LABS: Glucose,Whole Blood 191 mg/dL (75-99)
[2018-08-10 22:55] LABS: Appearance,Urine Cloudy (Clear); Bacteria,Urine Rare /hpf; Bilirubin,Urine 1+ (Negative); Blood,Urine Small (Negative); Color,Urine Dark Yellow; Glucose,Urine (UA) Negative (Negative); Ketones,Urine Trace (Negative); Leukocyte Esterase,Urine Small (Negative); Mucus,Urine Rare /hpf; Nitrite,Urine Negative (Negative); Protein,Urine 1+ (Negative); RBC,Urine 21 /hpf (0-5); Specific Gravity,Urine 1.026 (1.001-1.035); Urobilinogen,Urine >12.0 mg/dL (<2.0); WBC,Urine 8 /hpf (0-5)
[2018-08-11] MEDS: ALPRAZolam 0.25 MG TAB PO PRN (05:59)
--- NOTE | 2018-08-11 06:41 | XR ---
EXAMINATION TYPE: XR chest 1V portable DATE OF EXAM: 08/11/2018 HISTORY: ICU. REFERENCE: Previous study dated 08/10/2018. FINDINGS: The heart remains mildly enlarged. There is mild vascular congestion and mild edema. I coul d not exclude some degree of congestive heart failure. This appears to have improved slightly. IMPRESSION: IMPROVING CHANGES OF PULMONARY EDEMA.
[2018-08-11 06:58] LABS: Ammonia <9 umol/L (<30); INR 1.8 (<1.2); Lactic Acid, Venous 1.7 mmol/L (0.7-2.0); Partial Thromboplastin Time 33.5 sec (22.0-30.0); Prothrombin Time 17.8 sec (9.0-12.0)
[2018-08-11 06:59] LABS: Albumin 3.2 g/dL (3.5-5.0); Calcium 9.2 mg/dL (8.4-10.2); Magnesium 2.2 mg/dL (1.6-2.3); Phosphorus 3.4 mg/dL (2.5-4.5); Potassium 4.1 mmol/L (3.5-5.1); Total Bilirubin 2.7 mg/dL (0.2-1.3); Total Protein 5.9 g/dL (6.3-8.2)
[2018-08-11 07:11] LABS: Anisocytosis Moderate; HCT 37.8 % (39.0-53.0); HGB 11.5 gm/dL (13.0-17.5); Hypochromasia Moderate; MCHC 30.5 g/dL (31.0-37.0); MCV 78.8 fL (80.0-100.0); Mean Platelet Volume 8.2; Microcytosis Slight; RDW 20.2 % (11.5-15.5); WBC 6.1 k/uL (3.8-10.6)
[2018-08-11 07:17] LABS: Platelet Count 67 k/uL (150-450)
[2018-08-11 08:13] LABS: Glucose,Whole Blood 159 mg/dL (75-99)
[2018-08-11] MEDS: DIVALPROEX ER 500 MG TAB.ER.24H PO SCH (08:13)
[2018-08-11] MEDS: ATORVASTATIN 20 MG TAB PO SCH (08:14)
[2018-08-11] MEDS: ASPIRIN 81 MG PO SCH (08:14)
[2018-08-11] MEDS: APIXABAN 5 MG TAB PO SCH ×2 (08:14→20:05)
[2018-08-11] MEDS: INSULIN ASPART (NovoLOG) 100 UNIT/ML VIAL SQ SCH ×4 (08:17→20:22)
[2018-08-11] MEDS: DULoxetine HCL 60 MG CAPSULE.DR PO SCH (08:19)
[2018-08-11] MEDS: DEXTROSE 5% IN WATER 1,000 ML IV SCH ×2 (08:20→11:20)
[2018-08-11] MEDS: METOPROLOL TARTRATE 50 MG TAB PO SCH ×2 (08:20→20:23)
[2018-08-11 09:14] LABS: Eosinophils # (M) 0.43 k/uL (0-0.7); Lymphocytes # (M) 0.92 k/uL (1.0-4.8); Monocytes # (M) 0.85 k/uL (0-1.0); Neutrophils % (M) 64 %; Nucleated Red Blood Cells 0 /100 WBC (0-0); Total Cells Counted 100
[2018-08-11 09:15] LABS: Target Cells Present
--- NOTE | 2018-08-11 10:47 | P.PN ---
Subjective Admitted with chest pain, second troponin elevated, acute kidney injury with elevated BUN/creatinine as well as elevated and potassium Patient was admitted with chest pain, second troponin was elevated. Underwent cardiac catheterization no ischemia noted however patient's developed ejection fraction on or about 20. Patient was recently admitted with A. fib rapid ventricular response this was corrected, he was noted to have subtherapeutic Cou madin levels and was switched to eliquis. Patient began developing hyperkalemia and in spite of doses of Late potassium continued to climb, patient's creatinine went from 1.2-3.1 patient basically developed acute kidney injury a consultation with nephrology was ordered the spironolactone was stopped as well as Lasix and Cozaar was stopped. Patient was started on calcium 2 daily insulin and bicar bonate IV Lasix 20 mg every 8 hours Urinary output has been low no vomiting diarrhea no active chest pain or shortness of breath current potassium is down from 8.1-6.1 08/05/2018 Patient's awake alert eating lunch, potassium is 5.1 patient is somewhat improved however his had episode in the room where she had loss of consciousness briefly, and awoke with focal deficits was transferred to the emergency room where she was evaluated and transferred to [facility] for possible stroke Patient is otherwise quite well Above notes per Dr. Coates 08/06/2018 Patient has his eyes closed. He is not easily arousable. Appears delirious. Withdrawing from pain. When asked several times and open his eyes briefly. He appears to be doing hand gestures consistent with hallucinating. He was a dmitted for suspected non-ST elevated myocardial infarction, due to a significantly worsening congestive heart pattern. He was cathed and found to have no coronary artery disease, but much worse ejection fraction around 20-25%. Cardiology felt this is from his atrial fibrillation. Although, he is cardioverted himself he has been having SVT, A. fib runs, followed by sinus rhythm. Cardiology is following him. He is unable to answer any significant questions for me today. Nursing staff indicating is been demented recently. He has a known history of closed head injury that his altered his personality and susceptibility to things such as delirium. His creatinine is elevated since arrival here on 08/02, most likely from the excessive diuretic use. Nephrology is following. Today his GFR is 16. He continues to have a microcytic, no minimal anemia. 08/07/2018. Patient remains confused and delirious. He opens his eyes but continues to hallucinate. He has a sitter to bedside. He is not responding to questions. Kidney functions continued to improve. GFR is now 22. Glucose also remains well controlled. Overnight he has pulled out his Quintero catheter and IV access. He was started on Seroquel last night hopefully help with this. He does have a history of closed head injury. 08/08/2018 delirium/confusion persists. Patient pulled out his own IVs, required sitter at bedside during the night. Restless, flinging legs over bedrail. Maintained on Seroquel. Lasix remains on hold .Significant improvement in renal function, creatinine down to 1.7. Afebrile, normal WBC. Consumed 15% of breakfast. Blood sugars controlled. Minimally converses. 08/09/2018 Seroquel dose increased yesterday,agitation lessening. Delirium improving, occasionally answering simple questions. Drinking water from a straw. Renal function continues to to improve, 1.48. Maintained on Lasix IV push. Sodium 147. Sitter at bedside. No bowel movement, abdomen soft mildly distended. 08/10/2018 rough night, continues to require sitter at bedside. Complains of low mid abdominal discomfort upon palpation. MiraLAX ordered yesterday, no bowel movements reported. Minimal oral intake. Potassium 5.2, sodium up to 149, chloride 109. Renal function continues to improve. Creatinine 1.37. Afeb rile, normal WBC. Maintaining O2 sat of 98% on room air. Head CT nonacute. 08/11/2018: Overnight, patient had continued to be thrashing about. Staff reported that he looked "yellow". Stat labs and stat CT abdomen and pelvis were ordered. Findings showed acute abnormality and liver function tests, CT showed mild ascites high attenuation the gallbladder that could relate to a concentrated bile vicarious contrast extract, no dilated ducts. His lactic acid was also reported at 2.1, and then increase to 4.0. On these findings he was sent to the intensive care unit. This a.m. he is more somnolent and relax. He is receiving his medications. IV fluids were increased. His repeat lactic acid is now 1.7. This may be due to strenuous thrashing due to his significant encephalopathy. He is had 2 ammonia levels, both for less than 9. He seems improved but more somnolent. Urine remains dark. Objective - Vital Signs Vital signs: Vital Signs Temp 97.0 F L 08/11/18 08:00 Pulse 45 L 08/11/18 10:00 Resp 15 08/11/18 10:00 BP 104/69 08/11/18 10:00 Pulse Ox 96 08/11/18 10:00 Intake & Output 08/10/18 08/11/18 08/11/18 18:59 06:59 18:59 Intake Total 1125 600 Output Total 321 80 Balance 804 520 Weight 90.5 kg Intake: IV 1125 600 Dextrose 5% in Water 1, 1125 600 000 ml @ 150 mls/hr IV . Q6H40M [facility] Rx#:[id number] Output: Urine 321 80 Uretheral (Quintero) 150 Other: Voiding Method Diaper Indwelling Catheter Indwelling Catheter Incontinent # Voids 3 1 - Exam General: The patient is somnolent, somewhat difficult to resolve., Minimally responding to me. Now restrained in the intensive care unit Neck: The neck is supple, there is no thyromegaly, lymphadenopathy, tenderness or JVD. Cardiovascular: S1S2 is normal, There is a regular rate and rhythm. No murmur, rub or gallop is appreciated. Respiratory: Lungs are slightly coarse to auscultation bilaterally, respirations are non-labored, breath sounds are equal. ABDOMEN: Soft, mildly distended, minimal mid lower abdominal quadrant tenderness to palpation . No guarding. no masses palpable.Bowel sounds heard. LEGS: No edema. no swelling PSYCHIATRY: Somnolent, oriented times person. NERVOUS SYSTEM: Cranial N 2-12 grossly normal. Moves all 4 limbs. Diffuse weakness. No focal deficits. Skin: There is mild jaundice of the skin, no scleral icterus was noted this time. He has multiple smaller areas of bruising noted from the earlier thrashing while in bed. No significant large bruises are noted. - Labs CBC & Chem 7: 08/11/18 05:56 08/11/18 05:56 Labs: Abnormal Lab Results - Last 24 Hours (Table) 08/10/18 08/10/18 08/10/18 Range/Units 10:54 10:54 11:32 Hgb 12.6 L (13.0-17.5) gm/dL Hct (39.0-53.0) % MCV 79.1 L (80.0-100.0) fL MCH 24.0 L (25.0-35.0) pg MCHC 30.3 L (31.0-37.0) g/dL RDW 20.3 H (11.5-15.5) % Plt Count 80 L (150-450) k/uL Lymphocytes # (1.0-4.8) k/uL Lymphocytes # (Manual) 0.99 L (1.0-4.8) k/uL PT (9.0-12.0) sec INR (<1.2) APTT (22.0-30.0) sec Sodium 149 H (137-145) mmol/L Potassium 5.2 H (3.5-5.1) mmol/L Chloride 109 H (98-107) mmol/L Carbon Dioxide 35 H (22-30) mmol/L BUN 41 H (9-20) mg/dL Creatinine 1.37 H (0.66-1.25) mg/dL Glucose 144 H (74-99) mg/dL POC Glucose (mg/dL) 284 H (75-99) mg/dL Plasma Lactic Acid Aaron (0.7-2.0) mmol/L Total Bilirubin (0.2-1.3) mg/dL AST (17-59) U/L ALT (21-72) U/L Total Protein (6.3-8.2) g/dL Albumin (3.5-5.0) g/dL HDL Cholesterol (40-60) mg/dL Urine Protein (Negative) Urine Ketones (Negative) Urine Blood (Negative) Urine Bilirubin (Negative) Ur Leukocyte Esterase (Negative) Urine RBC (0-5) /hpf Urine WBC (0-5) /hpf Urine Bacteria (None) /hpf Urine Mucus (None) /hpf 08/10/18 08/10/18 08/10/18 Range/Units 14:27 17:11 17:44 Hgb (13.0-17.5) gm/dL Hct (39.0-53.0) % MCV (80.0-100.0) fL MCH (25.0-35.0) pg MCHC (31.0-37.0) g/dL RDW (11.5-15.5) % Plt Count (150-450) k/uL Lymphocytes # (1.0-4.8) k/uL Lymphocytes # (Manual) (1.0-4.8) k/uL PT (9.0-12.0) sec INR (<1.2) APTT (22.0-30.0) sec Sodium (137-145) mmol/L Potassium (3.5-5.1) mmol/L Chloride (98-107) mmol/L Carbon Dioxide (22-30) mmol/L BUN (9-20) mg/dL Creatinine (0.66-1.25) mg/dL Glucose (74-99) mg/dL POC Glucose (mg/dL) 106 H 156 H (75-99) mg/dL Plasma Lactic Acid Aaron 2.1 H* (0.7-2.0) mmol/L Total Bilirubin (0.2-1.3) mg/dL AST (17-59) U/L ALT (21-72) U/L Total Protein (6.3-8.2) g/dL Albumin (3.5-5.0) g/dL HDL Cholesterol (40-60) mg/dL Urine Protein (Negative) Urine Ketones (Negative) Urine Blood (Negative) Urine Bilirubin (Negative) Ur Leukocyte Esterase (Negative) Urine RBC (0-5) /hpf Urine WBC (0-5) /hpf Urine Bacteria (None) /hpf Urine Mucus (None) /hpf 08/10/18 08/10/18 08/10/18 Range/Units 18:21 18:21 18:21 Hgb 12.5 L (13.0-17.5) gm/dL Hct (39.0-53.0) % MCV 78.3 L (80.0-100.0) fL MCH 23.6 L (25.0-35.0) pg MCHC 30.1 L (31.0-37.0) g/dL RDW 19.6 H (11.5-15.5) % Plt Count 80 L (150-450) k/uL Lymphocytes # 0.9 L (1.0-4.8) k/uL Lymphocytes # (Manual) (1.0-4.8) k/uL PT (9.0-12.0) sec INR (<1.2) APTT (22.0-30.0) sec Sodium 150 H (137-145) mmol/L Potassium (3.5-5.1) mmol/L Chloride 110 H (98-107) mmol/L Carbon Dioxide 32 H (22-30) mmol/L BUN 40 H (9-20) mg/dL Creatinine 1.34 H (0.66-1.25) mg/dL Glucose 173 H (74-99) mg/dL POC Glucose (mg/dL) (75-99) mg/dL Plasma Lactic Acid Aaron 4.0 H* (0.7-2.0) mmol/L Total Bilirubin 3.3 H (0.2-1.3) mg/dL AST 714 H (17-59) U/L ALT 1345 H (21-72) U/L Total Protein (6.3-8.2) g/dL Albumin (3.5-5.0) g/dL HDL Cholesterol (40-60) mg/dL Urine Protein (Negative) Urine Ketones (Negative) Urine Blood (Negative) Urine Bilirubin (Negative) Ur Leukocyte Esterase (Negative) Urine RBC (0-5) /hpf Urine WBC (0-5) /hpf Urine Bacteria (None) /hpf Urine Mucus (None) /hpf 08/10/18 08/10/18 08/10/18 Range/Units 20:45 21:06 22:11 Hgb (13.0-17.5) gm/dL Hct (39.0-53.0) % MCV (80.0-100.0) fL MCH (25.0-35.0) pg MCHC (31.0-37.0) g/dL RDW (11.5-15.5) % Plt Count (150-450) k/uL Lymphocytes # (1.0-4.8) k/uL Lymphocytes # (Manual) (1.0-4.8) k/uL PT (9.0-12.0) sec INR (<1.2) APTT (22.0-30.0) sec Sodium (137-145) mmol/L Potassium (3.5-5.1) mmol/L Chloride (98-107) mmol/L Carbon Dioxide (22-30) mmol/L BUN (9-20) mg/dL Creatinine (0.66-1.25) mg/dL Glucose (74-99) mg/dL POC Glucose (mg/dL) 170 H 165 H 191 H (75-99) mg/dL Plasma Lactic Acid Aaron (0.7-2.0) mmol/L Total Bilirubin (0.2-1.3) mg/dL AST (17-59) U/L ALT (21-72) U/L Total Protein (6.3-8.2) g/dL Albumin (3.5-5.0) g/dL HDL Cholesterol (40-60) mg/dL Urine Protein (Negative) Urine Ketones (Negative) Urine Blood (Negative) Urine Bilirubin (Negative) Ur Leukocyte Esterase (Negative) Urine RBC (0-5) /hpf Urine WBC (0-5) /hpf Urine Bacteria (None) /hpf Urine Mucus (None) /hpf 08/10/18 08/11/18 08/11/18 Range/Units 22:26 05:56 05:56 Hgb 11.5 L (13.0-17.5) gm/dL Hct 37.8 L (39.0-53.0) % MCV 78.8 L (80.0-100.0) fL MCH 24.0 L (25.0-35.0) pg MCHC 30.5 L (31.0-37.0) g/dL RDW 20.2 H (11.5-15.5) % Plt Count 67 L (150-450) k/uL Lymphocytes # (1.0-4.8) k/uL Lymphocytes # (Manual) 0.92 L (1.0-4.8) k/uL PT (9.0-12.0) sec INR (<1.2) APTT (22.0-30.0) sec Sodium (137-145) mmol/L Potassium (3.5-5.1) mmol/L Chloride (98-107) mmol/L Carbon Dioxide (22-30) mmol/L BUN 32 H (9-20) mg/dL Creatinine (0.66-1.25) mg/dL Glucose 190 H (74-99) mg/dL POC Glucose (mg/dL) (75-99) mg/dL Plasma Lactic Acid Aaron (0.7-2.0) mmol/L Total Bilirubin 2.7 H (0.2-1.3) mg/dL AST 457 H (17-59) U/L ALT 985 H (21-72) U/L Total Protein 5.9 L (6.3-8.2) g/dL Albumin 3.2 L (3.5-5.0) g/dL HDL Cholesterol 19 L (40-60) mg/dL Urine Protein 1+ H (Negative) Urine Ketones Trace H (Negative) Urine Blood Small H (Negative) Urine Bilirubin 1+ H (Negative) Ur Leukocyte Esterase Small H (Negative) Urine RBC 21 H (0-5) /hpf Urine WBC 8 H (0-5) /hpf Urine Bacteria Rare H (None) /hpf Urine Mucus Rare H (None) /hpf 08/11/18 08/11/18 Range/Units 05:56 08:11 Hgb (13.0-17.5) gm/dL Hct (39.0-53.0) % MCV (80.0-100.0) fL MCH (25.0-35.0) pg MCHC (31.0-37.0) g/dL RDW (11.5-15.5) % Plt Count (150-450) k/uL Lymphocytes # (1.0-4.8) k/uL Lymphocytes # (Manual) (1.0-4.8) k/uL PT 17.8 H (9.0-12.0) sec INR 1.8 H (<1.2) APTT 33.5 H (22.0-30.0) sec Sodium (137-145) mmol/L Potassium (3.5-5.1) mmol/L Chloride (98-107) mmol/L Carbon Dioxide (22-30) mmol/L BUN (9-20) mg/dL Creatinine (0.66-1.25) mg/dL Glucose (74-99) mg/dL POC Glucose (mg/dL) 159 H (75-99) mg/dL Plasma Lactic Acid Aaron (0.7-2.0) mmol/L Total Bilirubin (0.2-1.3) mg/dL AST (17-59) U/L ALT (21-72) U/L Total Protein (6.3-8.2) g/dL Albumin (3.5-5.0) g/dL HDL Cholesterol (40-60) mg/dL Urine Protein (Negative) Urine Ketones (Negative) Urine Blood (Negative) Urine Bilirubin (Negative) Ur Leukocyte Esterase (Negative) Urine RBC (0-5) /hpf Urine WBC (0-5) /hpf Urine Bacteria (None) /hpf Urine Mucus (None) /hpf Microbiology - Last 24 Hours (Table) 08/10/18 22:26 Urine Culture - Preliminary Urine,Catheterized Assessment and Plan (1) Chest pain Current Visit: Yes Status: Acute Code(s): R07.9 - CHEST PAIN, UNSPECIFIED SNOMED Code(s): 47919292 (2) NSTEMI (non-ST elevated myocardial infarction) Current Visit: Yes Status: Acute Code(s): I21.4 - NON-ST ELEVATION (NSTEMI) MYOCARDIAL INFARCTION SNOMED Code(s): 85925211 (3) Acute CHF (congestive heart failure) Current Visit: No Status: Acute Code(s): I50.9 - HEART FAILURE, UNSPECIFIED SNOMED Code(s): 63585676 (4) Acute kidney injury Current Visit: No Status: Acute Code(s): N17.9 - ACUTE KIDNEY FAILURE, UNSPECIFIED SNOMED Code(s): 35896229 (5) Acute on chronic diastolic (congestive) heart failure Current Visit: No Status: Acute Code(s): I50.33 - ACUTE ON CHRONIC DIASTOLIC (CONGESTIVE) HEART FAILURE SNOMED Code(s): 106190690 (6) History of closed head injury Current Visit: No Status: Acute Code(s): Z87.820 - PERSONAL HISTORY OF TRAUMATIC BRAIN INJURY SNOMED Code(s): 62822495523231 (7) Hypothyroidism Current Visit: No Status: Acute Code(s): E03.9 - HYPOTHYROIDISM, UNSPECIFIED SNOMED Code(s): 71089962 (8) Insulin dependent diabetes mellitus Current Visit: No Status: Acute Code(s): E11.9 - TYPE 2 DIABETES MELLITUS WITHOUT COMPLICATIONS; Z79.4 - WELDER/FITTER (CURRENT) USE OF INSULIN SNOMED Code(s): 99922511 (9) residential current use of anticoagulant therapy Current Visit: No Status: Acute Code(s): Z79.01 - NURSING HOME (CURRENT) USE OF ANTICOAGULANTS SNOMED Code(s): 687098014 (10) Microcytic anemia Current Visit: Yes Status: Acute Code(s): D50.9 - IRON DEFICIENCY ANEMIA, UNSPECIFIED SNOMED Code(s): 244483648 (11) Metabolic encephalopathy Current Visit: Yes Status: Acute Code(s): G93.41 - METABOLIC ENCEPHALOPATHY SNOMED Code(s): 24438265 (12) Acute disorder of liver Current Visit: Yes Status: Acute Code(s): K76.9 - LIVER DISEASE, UNSPECIFIED SNOMED Code(s): 456265552 Plan: Critical care and GI been counseled. Labs and ordered to evaluate for acute hepatitis. Cardiology is following his nonischemic cardiomyopathy and possible is non-ST elevated myocardial infarction His heart rate is improved. We'll await further recommendations from them. Per my discussions with critical care, they will hold all liver toxic medications time. He'll continue on insulin scale for his diabetes. Continue on Seroquel for acute delerium, he also has received Haldol. Continue IV fluids at 1 50 mL an hour. Wait on further labs. Wait on apartment leasing consultant recommendations. He'll be reevaluated next 24 hours.
[2018-08-11] MEDS: PANTOPRAZOLE 40 MG/10 ML VIAL IVP SCH (11:12)
[2018-08-11 12:09] LABS: Glucose,Whole Blood 221 mg/dL (75-99)
[2018-08-11 12:11] LABS: Glucose,Whole Blood 190 mg/dL (75-99)
[2018-08-11] MEDS: POLYETHYLENE GLYCOL 3350 17 GM POWD.PACK PO SCH (12:32)
--- NOTE | 2018-08-11 14:35 | P.CNPUL ---
History of Present Illness Consult date: 08/11/18 Chief complaint: Altered mental status History of present illness: This is a 68-year-old male patient got transferred to the intensive care unit yesterday because of altered mentation. The patient was becoming more lethargic and there has been significant abnormalities in his liver function test and at that point it was decided to move this patient with ICU. I reviewed the records and there has been significant medical problems and comorbidities most significant of which are cardiac problems. The patient is known to have coronary artery disease and he has undergone previous non-ST segment elevation myocardial infarction. He initially presented with some chest pain injury this current hospitalization a cardiac catheterization was done that showed nonocclusive disease. The patient also has chronic persistent atrial fibrillation and he has been maintained on long-term anticoagulation. During this current hospital stay, the patient was in A. fib/RVR and addition to CHF. He was given amiodarone during his initial presentation and ultimately the amiodarone was discontinued as the patient became bradycardic. His current rhythm is sinus bradycardia. Also, the patient has congestion heart failure. 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 The patient has hypertension, hyperlipidemia and diabetes mellitus. Note that during this current hospitalization, the patient also developed acute kidney injury. Nephrology was involved in the case. The patient's creatinine gradually improved as the patient was being resuscitated IV fluids. This could've been also contrast nephropathy. In any rate, the patient has developed worsening LFTs, lactic acidosis, some mild coagulopathy while being off anticoagulation other than Eliquis. He got transferred to the ICU. Note that his AST and ALP levels are improving and they're down to 457 and 95 respectively, alk phos is 77, his lactic acid level was as high as 4.0 and is currently down to 1.7. The creatinine level has dropped from 3.9 down to 1.1 which is back to its baseline. In view of his ongoing mental status change, the patient has undergone a CAT scan of the brain that showed no acute abnormalities and there are some chronic NURSING SPECIALIST atrophy. Most recent INR is at 1.8 with a PT of 17.8. Currently is lethargic and encephalopathic. He withdraws to painful is diminished in all 4 extremities. No neck stiffness to no fever or chills. No leukocytosis. Hemoglobin 11.7. Platelet count is at 67,000.The chest x-ray showed improvement changes in the CHF and pulmonary edema and this was done this morning on 08/11/2018. The CAT scan of the abdomen showed mild ascites and there is high attenuation of the gallbladder related to concentrated by. No dilatation of the biliary ducts. The lung bases are essentially clear and there is no effusion. No pericardial effusion. Review of Systems ROS unobtainable: due to mental status 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 of NURSING SPECIALIST concussi on, hypothyroidism History of Any Multi-Drug Resistant Organisms: None Reported Past Surgical History: Back Surgery, Hernia Repair, Orthopedic Surgery, Tonsillectomy Additional Past Surgical History / Comment(s): rt inguinal hernia repair, rt ankle orif, Past Anesthesia/Blood Transfusion Reactions: No Reported Reaction Smoking Status: Never smoker - Past Family History Mother Family Medical History: Congestive Heart Failure (CHF) Father Family Medical History: Congestive Heart Failure (CHF) Medications and Allergies Home Medications Medication Instructions Recorded Confirmed Type ALPRAZolam [Xanax] 0.25 mg PO Q6H PRN 07/01/14 08/02/18 History Simvastatin [Zocor] 20 mg PO HS 07/01/14 08/02/18 History metFORMIN HCL 1,000 mg PO BID 01/06/16 08/02/18 History Levothyroxine Sodium [Synthroid] 100 mcg PO MOTUWETHFR 07/03/17 08/02/18 History DULoxetine HCL [Cymbalta] 60 mg PO DAILY 07/21/18 08/02/18 History Divalproex ER [Depakote ER] 500 mg PO DAILY 07/21/18 08/02/18 History Levothyroxine Sodium [Synthroid] 150 mcg PO SUSA 07/21/18 08/02/18 History Apixaban [Eliquis] 5 mg PO BID tab 07/24/18 08/02/18 Rx Furosemide [Lasix] 40 mg PO DAILY #30 tab 07/24/18 08/02/18 Rx Insuln Asp Prt/Insulin Aspart 15 unit SQ AC-SUPPER vial 07/24/18 08/02/18 Rx [NovoLOG MIX 70-30 VIAL] Insuln Asp Prt/Insulin Aspart 30 unit SQ AC-BRKFST vial 07/24/18 08/02/18 Rx [NovoLOG MIX 70-30 VIAL] Losartan [Cozaar] 25 mg PO DAILY #30 tab 07/24/18 08/02/18 Rx Metoprolol Tartrate [Lopressor] 50 mg PO BID #60 tab 07/24/18 08/02/18 Rx Spironolactone [Aldactone] 25 mg PO DAILY #30 tab 07/24/18 08/02/18 Rx Allergies Allergy/AdvReac Type Severity Reaction Status Date / Time bupropion [From Wellbutrin] Allergy Unknown Verified 08/02/18 09:03 venlafaxine [From Effexor] Allergy Unknown Verified 08/02/18 09:03 aripiprazole [From Abilify] AdvReac Unknown Verified 08/02/18 09:03 Physical Exam Vitals: Vital Signs Temp Pulse Pulse Resp BP BP Pulse Ox 08/11/18 13:00 47 L 13 92/51 98 08/11/18 12:00 97.0 F L 46 L 14 97/56 97 08/11/18 11:00 45 L 14 99/60 98 08/11/18 10:00 45 L 15 104/69 96 08/11/18 09:00 48 L 14 101/66 97 08/11/18 08:00 97.0 F L 45 L 13 101/60 97 08/11/18 07:00 45 L 13 108/65 96 08/11/18 06:00 47 L 12 107/66 95 08/11/18 05:00 50 L 15 98/68 94 L 08/11/18 04:00 96.8 F L 45 L 13 95/66 95 08/11/18 03:00 45 L 13 93/58 97 08/11/18 02:00 45 L 14 114/68 98 08/11/18 01:00 48 L 15 108/74 97 08/11/18 00:00 98.1 F 46 L 12 105/64 97 08/10/18 23:00 47 L 14 103/58 97 08/10/18 22:00 97.6 F 52 L 23 115/74 95 08/10/18 20:04 96.7 F L 61 18 102/40 08/10/18 18:02 22 08/10/18 16:00 22 Intake and Output 08/10/18 08/11/18 08/11/18 22:59 06:59 14:59 Intake Total 75 1050 900 Output Total 150 171 144 Balance -75 879 756 Intake: IV 75 1050 900 Dextrose 5% in Water 1, 75 1050 750 000 ml @ 150 mls/hr IV . [id number] [facility] Rx#:[id number] Dextrose 5% in Water 1, 150 000 ml @ 75 mls/hr IV . [id number] [facility] Rx#:[id number] Output: Urine 150 171 144 Uretheral ([place]) 150 Other: Voiding Method Diaper Indwelling Catheter Indwelling Catheter Incontinent # Voids 1 Weight 90.5 kg Gen. appearance the patient is calm and comfortable. He would wake up upon repeated stimulation. He was speaking full sentences and sometimes few words and then go back to sleep. He would respond to painful stimulation all 4 extrem ities. Obviously, there is still some ongoing confusion and altered mentation Head exam was generally normal. There was no scleral icterus or corneal arcus. Mucous membranes were moist. Neck was supple and without jugular venous distension, thyromegaly, or carotid bruits. Carotids were easily palpable bilaterally. There was no adenopathy. Lungs were clear to auscultation and percussion, and with normal diaphragmatic excursion. No wheezes or rales were noted. Cardiac exam revealed the PMI to be normally situated and sized. The rhythm was regular and no extrasystoles were noted during several minutes of auscultation. The first and second heart sounds were normal and physiologic splitting of the second heart sound was noted. There were no murmurs, rubs, clicks, or gallops. Abdominal exam revealed normal bowel sounds. The abdomen was soft, non-tender, and without masses, organomegaly, or appreciable enlargement of the abdominal aorta. Examination of the extremities revealed easily palpable radial, femoral and pedal pulses. There was no cyanosis, clubbing or edema. Examination of the skin revealed no evidence of significant rashes, suspicious appearing nevi or other concerning lesions. Neurologic the patient is encephalopathic, has altered mentation, moving all 4 extremities and no cranial nerve deficits particularly reactive to light. Results - Laboratory Findings CBC and BMP: 08/11/18 05:56 08/11/18 05:56 PT/INR, D-dimer PT 17.8 sec (9.0-12.0) H 08/11/18 05:56 INR 1.8 (<1.2) H 08/11/18 05:56 Abnormal lab findings: Abnormal Labs 08/02/18 08/02/18 08/02/18 02:40 02:40 03:50 WBC RBC Hgb Hct MCV 73.8 L MCH 23.8 L MCHC RDW 17.1 H Plt Count Neutrophils # Lymphocytes # Lymphocytes # (Manual) Monocytes # PT 12.8 H INR 1.2 H APTT 33.1 H Sodium Potassium Chloride Carbon Dioxide BUN 26 H Creatinine Glucose 120 H POC Glucose (mg/dL) Hemoglobin A1c Plasma Lactic Acid Aaron Calcium Total Bilirubin AST ALT Troponin I Total Protein Albumin HDL Cholesterol TSH Ur Specific Metaline Urine Protein Urine Ketones Urine Blood Urine Bilirubin Ur Leukocyte Esterase Urine RBC Urine WBC Urine Bacteria Hyaline Casts Urine Mucus 08/02/18 08/02/18 08/02/18 06:47 08:47 08:47 WBC RBC Hgb Hct MCV MCH MCHC RDW Plt Count Neutrophils # Lymphocytes # Lymphocytes # (Manual) Monocytes # PT INR APTT Sodium Potassium Chloride Carbon Dioxide BUN Creatinine Glucose POC Glucose (mg/dL) 139 H Hemoglobin A1c 6.5 H Plasma Lactic Acid Aaron Calcium Total Bilirubin AST ALT Troponin I 2.230 H* Total Protein Albumin HDL Cholesterol TSH Ur Specific Metaline Urine Protein Urine Ketones Urine Blood Urine Bilirubin Ur Leukocyte Esterase Urine RBC Urine WBC Urine Bacteria Hyaline Casts Urine Mucus 08/02/18 08/02/18 08/02/18 08:47 08:47 11:42 WBC RBC Hgb Hct MCV MCH MCHC RDW Plt Count Neutrophils # Lymphocytes # Lymphocytes # (Manual) Monocytes # PT 12.2 H INR 1.2 H APTT 35.0 H Sodium Potassium Chloride Carbon Dioxide BUN Creatinine Glucose POC Glucose (mg/dL) 159 H Hemoglobin A1c Plasma Lactic Acid Aaron Calcium Total Bilirubin AST ALT Troponin I Total Protein Albumin HDL Cholesterol 35 L TSH Ur Specific Metaline Urine Protein Urine Ketones Urine Blood Urine Bilirubin Ur Leukocyte Esterase Urine RBC Urine WBC Urine Bacteria Hyaline Casts Urine Mucus 08/02/18 08/02/18 08/02/18 14:32 16:14 17:20 WBC RBC Hgb Hct MCV MCH MCHC RDW Plt Count Neutrophils # Lymphocytes # Lymphocytes # (Manual) Monocytes # PT INR APTT >200.0 H* Sodium Potassium Chloride Carbon Dioxide BUN Creatinine Glucose POC Glucose (mg/dL) 138 H Hemoglobin A1c Plasma Lactic Acid Aaron Calcium Total Bilirubin AST ALT Troponin I 6.970 H* Total Protein Albumin HDL Cholesterol TSH Ur Specific Metaline Urine Protein Urine Ketones Urine Blood Urine Bilirubin Ur Leukocyte Esterase Urine RBC Urine WBC Urine Bacteria Hyaline Casts Urine Mucus 08/03/18 08/03/18 08/03/18 05:20 05:20 05:37 WBC RBC Hgb Hct MCV 75.4 L MCH 23.9 L MCHC RDW 17.6 H Plt Count Neutrophils # Lymphocytes # Lymphocytes # (Manual) Monocytes # PT INR APTT 85.0 H Sodium Potassium Chloride Carbon Dioxide BUN Creatinine Glucose POC Glucose (mg/dL) 132 H Hemoglobin A1c Plasma Lactic Acid Aaron Calcium Total Bilirubin AST ALT Troponin I Total Protein Albumin HDL Cholesterol TSH Ur Specific Metaline Urine Protein Urine Ketones Urine Blood Urine Bilirubin Ur Leukocyte Esterase Urine RBC Urine WBC Urine Bacteria Hyaline Casts Urine Mucus 08/03/18 08/03/18 08/03/18 11:26 16:17 16:33 WBC RBC Hgb Hct MCV MCH MCHC RDW Plt Count Neutrophils # Lymphocytes # Lymphocytes # (Manual) Monocytes # PT INR APTT Sodium 136 L Potassium 6.4 H* Chloride Carbon Dioxide BUN 38 H Creatinine 1.95 H Glucose 129 H POC Glucose (mg/dL) 118 H 125 H Hemoglobin A1c Plasma Lactic Acid Aaron Calcium Total Bilirubin AST ALT Troponin I Total Protein Albumin HDL Cholesterol TSH 22.000 H Ur Specific Metaline Urine Protein Urine Ketones Urine Blood Urine Bilirubin Ur Leukocyte Esterase Urine RBC Urine WBC Urine Bacteria Hyaline Casts Urine Mucus 08/03/18 08/04/18 08/04/18 20:11 00:30 02:18 WBC RBC Hgb Hct MCV MCH MCHC RDW Plt Count Neutrophils # Lymphocytes # Lymphocytes # (Manual) Monocytes # PT INR APTT Sodium Potassium 7.5 H* 7.5 H* Chloride Carbon Dioxide BUN Creatinine Glucose POC Glucose (mg/dL) 121 H Hemoglobin A1c Plasma Lactic Acid Aaron Calcium Total Bilirubin AST ALT Troponin I Total Protein Albumin HDL Cholesterol TSH Ur Specific Metaline Urine Protein Urine Ketones Urine Blood Urine Bilirubin Ur Leukocyte Esterase Urine RBC Urine WBC Urine Bacteria Hyaline Casts Urine Mucus 08/04/18 08/04/18 08/04/18 06:16 06:20 06:20 WBC 18.6 H RBC 6.08 H Hgb Hct MCV 73.9 L MCH 23.7 L MCHC RDW 17.8 H Plt Count Neutrophils # 16.8 H Lymphocytes # 0.6 L Lymphocytes # (Manual) Monocytes # 1.1 H PT INR APTT Sodium 136 L Potassium 8.1 H* Chloride Carbon Dioxide BUN 45 H Creatinine 3.01 H Glucose 118 H POC Glucose (mg/dL) 125 H Hemoglobin A1c Plasma Lactic Acid Aaron Calcium Total Bilirubin AST ALT Troponin I Total Protein Albumin HDL Cholesterol TSH Ur Specific Metaline Urine Protein Urine Ketones Urine Blood Urine Bilirubin Ur Leukocyte Esterase Urine RBC Urine WBC Urine Bacteria Hyaline Casts Urine Mucus 08/04/18 08/04/18 08/04/18 11:53 12:10 14:40 WBC RBC Hgb Hct MCV MCH MCHC RDW Plt Count Neutrophils # Lymphocytes # Lymphocytes # (Manual) Monocytes # PT INR APTT Sodium Potassium 6.2 H* Chloride Carbon Dioxide BUN Creatinine Glucose POC Glucose (mg/dL) 199 H Hemoglobin A1c Plasma Lactic Acid Aaron Calcium Total Bilirubin AST ALT Troponin I Total Protein Albumin HDL Cholesterol TSH Ur Specific Metaline 1.041 H Urine Protein 1+ H Urine Ketones Urine Blood Urine Bilirubin Ur Leukocyte Esterase Urine RBC Urine WBC Urine Bacteria Hyaline Casts 15 H Urine Mucus Rare H 08/04/18 08/04/18 08/04/18 16:43 16:55 20:22 WBC RBC Hgb Hct MCV MCH MCHC RDW Plt Count Neutrophils # Lymphocytes # Lymphocytes # (Manual) Monocytes # PT INR APTT Sodium Potassium 5.7 H 5.2 H Chloride Carbon Dioxide BUN Creatinine Glucose POC Glucose (mg/dL) 276 H Hemoglobin A1c Plasma Lactic Acid Aaron Calcium Total Bilirubin AST ALT Troponin I Total Protein Albumin HDL Cholesterol TSH Ur Specific Metaline Urine Protein Urine Ketones Urine Blood Urine Bilirubin Ur Leukocyte Esterase Urine RBC Urine WBC Urine Bacteria Hyaline Casts Urine Mucus 08/04/18 08/05/18 08/05/18 20:28 05:33 05:33 WBC 16.8 H RBC Hgb 12.3 L Hct 37.8 L MCV 74.6 L MCH 24.4 L MCHC RDW 17.4 H Plt Count 125 L Neutrophils # 14.8 H Lymphocytes # 0.9 L Lymphocytes # (Manual) Monocytes # PT INR APTT Sodium Potassium 5.7 H Chloride Carbon Dioxide BUN 67 H Creatinine 3.98 H Glucose POC Glucose (mg/dL) 240 H Hemoglobin A1c Plasma Lactic Acid Aaron Calcium Total Bilirubin AST ALT Troponin I Total Protein Albumin HDL Cholesterol TSH Ur Specific Metaline Urine Protein Urine Ketones Urine Blood Urine Bilirubin Ur Leukocyte Esterase Urine RBC Urine WBC Urine Bacteria Hyaline Casts Urine Mucus 08/05/18 08/05/18 08/06/18 11:25 16:05 05:22 WBC 13.1 H RBC Hgb 11.6 L Hct 35.7 L MCV 72.9 L MCH 23.6 L MCHC RDW 17.5 H Plt Count 98 L Neutrophils # 10.7 H Lymphocytes # Lymphocytes # (Manual) Monocytes # PT INR APTT Sodium Potassium Chloride Carbon Dioxide BUN Creatinine Glucose POC Glucose (mg/dL) 162 H 120 H Hemoglobin A1c Plasma Lactic Acid Aaron Calcium Total Bilirubin AST ALT Troponin I Total Protein Albumin HDL Cholesterol TSH Ur Specific Metaline Urine Protein Urine Ketones Urine Blood Urine Bilirubin Ur Leukocyte Esterase Urine RBC Urine WBC Urine Bacteria Hyaline Casts Urine Mucus 08/06/18 08/06/18 08/06/18 05:22 06:07 11:06 WBC RBC Hgb Hct MCV MCH MCHC RDW Plt Count Neutrophils # Lymphocytes # Lymphocytes # (Manual) Monocytes # PT INR APTT Sodium 136 L Potassium Chloride 96 L Carbon Dioxide BUN 78 H Creatinine 3.68 H Glucose POC Glucose (mg/dL) 112 H 114 H Hemoglobin A1c Plasma Lactic Acid Aaron Calcium 8.0 L Total Bilirubin AST ALT Troponin I Total Protein Albumin HDL Cholesterol TSH Ur Specific Metaline Urine Protein Urine Ketones Urine Blood Urine Bilirubin Ur Leukocyte Esterase Urine RBC Urine WBC Urine Bacteria Hyaline Casts Urine Mucus 08/06/18 08/07/18 08/07/18 16:22 06:03 06:20 WBC RBC Hgb 11.3 L Hct 35.3 L MCV 73.6 L MCH 23.5 L MCHC RDW 17.9 H Plt Count 99 L Neutrophils # Lymphocytes # 0.8 L Lymphocytes # (Manual) Monocytes # PT INR APTT Sodium Potassium Chloride Carbon Dioxide BUN Creatinine Glucose POC Glucose (mg/dL) 117 H 118 H Hemoglobin A1c Plasma Lactic Acid Aaron Calcium Total Bilirubin AST ALT Troponin I Total Protein Albumin HDL Cholesterol TSH Ur Specific Metaline Urine Protein Urine Ketones Urine Blood Urine Bilirubin Ur Leukocyte Esterase Urine RBC Urine WBC Urine Bacteria Hyaline Casts Urine Mucus 08/07/18 08/07/18 08/07/18 06:20 11:15 16:30 WBC RBC Hgb Hct MCV MCH MCHC RDW Plt Count Neutrophils # Lymphocytes # Lymphocytes # (Manual) Monocytes # PT INR APTT Sodium Potassium Chloride Carbon Dioxide BUN 79 H Creatinine 2.79 H Glucose 102 H POC Glucose (mg/dL) 105 H 101 H Hemoglobin A1c Plasma Lactic Acid Aaron Calcium Total Bilirubin AST ALT Troponin I Total Protein Albumin HDL Cholesterol TSH Ur Specific Metaline Urine Protein Urine Ketones Urine Blood Urine Bilirubin Ur Leukocyte Esterase Urine RBC Urine WBC Urine Bacteria Hyaline Casts Urine Mucus 08/07/18 08/08/18 08/08/18 20:17 07:02 09:27 WBC RBC Hgb 11.4 L Hct 36.2 L MCV 76.2 L MCH 24.0 L MCHC RDW 19.7 H Plt Count 89 L Neutrophils # Lymphocytes # 0.4 L Lymphocytes # (Manual) Monocytes # PT INR APTT Sodium Potassium Chloride Carbon Dioxide BUN Creatinine Glucose POC Glucose (mg/dL) 105 H 172 H Hemoglobin A1c Plasma Lactic Acid Aaron Calcium Total Bilirubin AST ALT Troponin I Total Protein Albumin HDL Cholesterol TSH Ur Specific Metaline Urine Protein Urine Ketones Urine Blood Urine Bilirubin Ur Leukocyte Esterase Urine RBC Urine WBC Urine Bacteria Hyaline Casts Urine Mucus 08/08/18 08/08/18 08/08/18 09:27 17:20 20:49 WBC RBC Hgb Hct MCV MCH MCHC RDW Plt Count Neutrophils # Lymphocytes # Lymphocytes # (Manual) Monocytes # PT INR APTT Sodium Potassium Chloride Carbon Dioxide BUN 60 H Creatinine 1.70 H Glucose 123 H POC Glucose (mg/dL) 180 H 140 H Hemoglobin A1c Plasma Lactic Acid Aaron Calcium Total Bilirubin AST ALT Troponin I Total Protein Albumin HDL Cholesterol TSH Ur Specific Metaline Urine Protein Urine Ketones Urine Blood Urine Bilirubin Ur Leukocyte Esterase Urine RBC Urine WBC Urine Bacteria Hyaline Casts Urine Mucus 08/09/18 08/09/18 08/09/18 07:09 10:00 10:00 WBC RBC Hgb 11.9 L Hct 38.4 L MCV 77.4 L MCH 24.0 L MCHC RDW 19.9 H Plt Count 74 L Neutrophils # Lymphocytes # 0.6 L Lymphocytes # (Manual) Monocytes # PT INR APTT Sodium 147 H Potassium Chloride Carbon Dioxide 31 H BUN 47 H Creatinine 1.48 H Glucose 108 H POC Glucose (mg/dL) 152 H Hemoglobin A1c Plasma Lactic Acid Aaron Calcium Total Bilirubin AST ALT Troponin I Total Protein Albumin HDL Cholesterol TSH Ur Specific Metaline Urine Protein Urine Ketones Urine Blood Urine Bilirubin Ur Leukocyte Esterase Urine RBC Urine WBC Urine Bacteria Hyaline Casts Urine Mucus 08/09/18 08/09/18 08/10/18 12:04 17:18 07:23 WBC RBC Hgb Hct MCV MCH MCHC RDW Plt Count Neutrophils # Lymphocytes # Lymphocytes # (Manual) Monocytes # PT INR APTT Sodium Potassium Chloride Carbon Dioxide BUN Creatinine Glucose POC Glucose (mg/dL) 190 H 204 H 114 H Hemoglobin A1c Plasma Lactic Acid Aaron Calcium Total Bilirubin AST ALT Troponin I Total Protein Albumin HDL Cholesterol TSH Ur Specific Metaline Urine Protein Urine Ketones Urine Blood Urine Bilirubin Ur Leukocyte Esterase Urine RBC Urine WBC Urine Bacteria Hyaline Casts Urine Mucus 08/10/18 08/10/18 08/10/18 10:54 10:54 11:32 WBC RBC Hgb 12.6 L Hct MCV 79.1 L MCH 24.0 L MCHC 30.3 L RDW 20.3 H Plt Count 80 L Neutrophils # Lymphocytes # Lymphocytes # (Manual) 0.99 L Monocytes # PT INR APTT Sodium 149 H Potassium 5.2 H Chloride 109 H Carbon Dioxide 35 H BUN 41 H Creatinine 1.37 H Glucose 144 H POC Glucose (mg/dL) 284 H Hemoglobin A1c Plasma Lactic Acid Aaron Calcium Total Bilirubin AST ALT Troponin I Total Protein Albumin HDL Cholesterol TSH Ur Specific Metaline Urine Protein Urine Ketones Urine Blood Urine Bilirubin Ur Leukocyte Esterase Urine RBC Urine WBC Urine Bacteria Hyaline Casts Urine Mucus 08/10/18 08/10/18 08/10/18 14:27 17:11 17:44 WBC RBC Hgb Hct MCV MCH MCHC RDW Plt Count Neutrophils # Lymphocytes # Lymphocytes # (Manual) Monocytes # PT INR APTT Sodium Potassium Chloride Carbon Dioxide BUN Creatinine Glucose POC Glucose (mg/dL) 106 H 156 H Hemoglobin A1c Plasma Lactic Acid Aaron 2.1 H* Calcium Total Bilirubin AST ALT Troponin I Total Protein Albumin HDL Cholesterol TSH Ur Specific Metaline Urine Protein Urine Ketones Urine Blood Urine Bilirubin Ur Leukocyte Esterase Urine RBC Urine WBC Urine Bacteria Hyaline Casts Urine Mucus 08/10/18 08/10/18 08/10/18 18:21 18:21 18:21 WBC RBC Hgb 12.5 L Hct MCV 78.3 L MCH 23.6 L MCHC 30.1 L RDW 19.6 H Plt Count 80 L Neutrophils # Lymphocytes # 0.9 L Lymphocytes # (Manual) Monocytes # PT INR APTT Sodium 150 H Potassium Chloride 110 H Carbon Dioxide 32 H BUN 40 H Creatinine 1.34 H Glucose 173 H POC Glucose (mg/dL) Hemoglobin A1c Plasma Lactic Acid Aaron 4.0 H* Calcium Total Bilirubin 3.3 H AST 714 H ALT 1345 H Troponin I Total Protein Albumin HDL Cholesterol TSH Ur Specific Metaline Urine Protein Urine Ketones Urine Blood Urine Bilirubin Ur Leukocyte Esterase Urine RBC Urine WBC Urine Bacteria Hyaline Casts Urine Mucus 08/10/18 08/10/18 08/10/18 20:45 21:06 22:11 WBC RBC Hgb Hct MCV MCH MCHC RDW Plt Count Neutrophils # Lymphocytes # Lymphocytes # (Manual) Monocytes # PT INR APTT Sodium Potassium Chloride Carbon Dioxide BUN Creatinine Glucose POC Glucose (mg/dL) 170 H 165 H 191 H Hemoglobin A1c Plasma Lactic Acid Aaron Calcium Total Bilirubin AST ALT Troponin I Total Protein Albumin HDL Cholesterol TSH Ur Specific Metaline Urine Protein Urine Ketones Urine Blood Urine Bilirubin Ur Leukocyte Esterase Urine RBC Urine WBC Urine Bacteria Hyaline Casts Urine Mucus 08/10/18 08/11/18 08/11/18 22:26 05:56 05:56 WBC RBC Hgb 11.5 L Hct 37.8 L MCV 78.8 L MCH 24.0 L MCHC 30.5 L RDW 20.2 H Plt Count 67 L Neutrophils # Lymphocytes # Lymphocytes # (Manual) 0.92 L Monocytes # PT INR APTT Sodium Potassium Chloride Carbon Dioxide BUN 32 H Creatinine Glucose 190 H POC Glucose (mg/dL) Hemoglobin A1c Plasma Lactic Acid Aaron Calcium Total Bilirubin 2.7 H AST 457 H ALT 985 H Troponin I Total Protein 5.9 L Albumin 3.2 L HDL Cholesterol 19 L TSH Ur Specific Metaline Urine Protein 1+ H Urine Ketones Trace H Urine Blood Small H Urine Bilirubin 1+ H Ur Leukocyte Esterase Small H Urine RBC 21 H Urine WBC 8 H Urine Bacteria Rare H Hyaline Casts Urine Mucus Rare H 08/11/18 08/11/18 08/11/18 05:56 08:11 12:07 WBC RBC Hgb Hct MCV MCH MCHC RDW Plt Count Neutrophils # Lymphocytes # Lymphocytes # (Manual) Monocytes # PT 17.8 H INR 1.8 H APTT 33.5 H Sodium Potassium Chloride Carbon Dioxide BUN Creatinine Glucose POC Glucose (mg/dL) 159 H 221 H Hemoglobin A1c Plasma Lactic Acid Aaron Calcium Total Bilirubin AST ALT Troponin I Total Protein Albumin HDL Cholesterol TSH Ur Specific Metaline Urine Protein Urine Ketones Urine Blood Urine Bilirubin Ur Leukocyte Esterase Urine RBC Urine WBC Urine Bacteria Hyaline Casts Urine Mucus 08/11/18 12:10 WBC RBC Hgb Hct MCV MCH MCHC RDW Plt Count Neutrophils # Lymphocytes # Lymphocytes # (Manual) Monocytes # PT INR APTT Sodium Potassium Chloride Carbon Dioxide BUN Creatinine Glucose POC Glucose (mg/dL) 190 H Hemoglobin A1c Plasma Lactic Acid Aaron Calcium Total Bilirubin AST ALT Troponin I Total Protein Albumin HDL Cholesterol TSH Ur Specific Metaline Urine Protein Urine Ketones Urine Blood Urine Bilirubin Ur Leukocyte Esterase Urine RBC Urine WBC Urine Bacteria Hyaline Casts Urine Mucus - Diagnostic Findings Chest x-ray: image reviewed Assessment and Plan Plan: 1 altered mentation, mainly secondary to metabolic encephalopathy. The patient was in acute kidney injury and subsequently went into acute hepatic injury/failure. Note that the renal function is improved and the patient developed significant elevation in the liver function tests with secondary coagulopathy and some mild lactic acidosis. Ammonia levels are low. CAT scan of the brain is negative. No signs of septicemia this point in time. Consider shock liver secondary to poor cardiac output/cardiac myopathy. Consider drug effect as the patient had received amiodarone and subsequently placed on stati ns. 2 coronary artery disease, please refer to the most recent cardiac cath ablation note, nonocclusive disease 3 systolic heart failure/cardiomyopathy 4 sinus bradycardia 5 paroxysmal atrial fibrillation with rapid ventricular response at time of admission 6 hypertension 7 diabetes mellitus 8 hyperlipidemia 9 hypothyroidism 10 CHF with ejection fraction of 30-35% 11 acute kidney injury, recovered 12 lactic acidosis, improving Plan Stop statins. Stop Depakote. Monitor sinus bradycardia and hold beta blockers for heart rate of less than 60. Order an acute hepatitis panel. Order a GI consultation. Monitor LFTs. Haldol for agitation and delirium. IV fluids with D5 water regarding hyperchloremic hypernatremia. The patient be kept in ICU. We'll continue to follow. May consider repeating a CAT scan of the brain if no improvement in his mentation over the next few days. Condition is critical for now. We'll follow.
[2018-08-11 17:13] LABS: Glucose,Whole Blood 120 mg/dL (75-99)
--- NOTE | 2018-08-11 20:03 | PN ---
PROGRESS NOTE Patient is seen for followup for acute kidney injury. The patient was transferred to the ICU last night with decreased mentation. There was concern for hypotension as well. The patient was started on IV fluids. On examination this morning, patient is comfortable. He does open his eyes and responds to his name. On examination, blood pressure was 104/66, heart rate of about 50 per minute. Patient is afebrile. Examination of the heart S1, S2. Examination of the lungs, decreased breath sounds at the bases. Abdomen is soft, nontender. Examination of lower extremities shows no evidence of edema. [employer] exam shows patient has been moving all 4 extremities. LABS: Sodium 142, potassium 4.1, chloride 105, BUN 32, serum creatinine 1.1, AST 457, ALT 985. Hemoglobin was 11.5 g/dL. ASSESSMENT: 1. Hypernatremia associated with free water deficit, currently improved. Continue with D5W. 2. History of severe cardiomyopathy, EF of about 30-35 percent. 3. Mental status changes with negative brain CT and this seems to be slightly improved most likely exacerbated by recent electrolyte imbalance and hypernatremia. The patient had become confused even before he had developed the hypernatremia. 4. Congestive heart failure, acute on top of chronic, mainly systolic, currently resolved. 5. Hyperkalemia on initial admission, now resolved. PLAN: Continue with D5W and encourage increased oral intake. Repeat labs in a.m. NANETTE / JEANNIE: [id number] /
[2018-08-11] MEDS: QUEtiapine 100 MG TAB PO SCH (20:05)
[2018-08-11 20:20] LABS: Glucose,Whole Blood 107 mg/dL (75-99)
[2018-08-11] MEDS: HALOPERIDOL LACTATE 5 MG/ML 1 ML VIAL IVP PRN (22:40)
[2018-08-11 22:44] LABS: Hepatitis A Antibody IgM Non-Reactive (Non-Reactive); Hepatitis B Core IgM Non-Reactive (Non-Reactive)
[2018-08-12] MEDS: ALPRAZolam 0.25 MG TAB PO PRN ×2 (01:17→20:29)
[2018-08-12 05:49] LABS: Anisocytosis Slight; HCT 39.1 % (39.0-53.0); HGB 12.3 gm/dL (13.0-17.5); Hypochromasia Slight; MCH 24.1 pg (25.0-35.0); MCHC 31.5 g/dL (31.0-37.0); MCV 76.3 fL (80.0-100.0); Mean Platelet Volume 8.8; Microcytosis Moderate; Platelet Count 79 k/uL (150-450); RBC 5.12 m/uL (4.30-5.90); RDW 19.7 % (11.5-15.5)
[2018-08-12 05:56] LABS: INR 1.7 (<1.2); Prothrombin Time 17.2 sec (9.0-12.0)
[2018-08-12] MEDS: LEVOTHYROXINE 75 MCG TAB PO SCH (06:16)
[2018-08-12] MEDS: DEXTROSE 5% IN WATER 1,000 ML IV SCH ×2 (06:17→18:07)
[2018-08-12 06:28] LABS: ALT 757 U/L (21-72); AST 247 U/L (17-59); Albumin 3.1 g/dL (3.5-5.0); Alkaline Phosphatase 75 U/L (38-126); Anion Gap 5 mmol/L; Bilirubin, Delta 0.9 mg/dL (0.0-0.2); Bilirubin,Unconjugated 1.5 mg/dL (0.0-1.1); Blood Urea Nitrogen 19 mg/dL (9-20); Calcium 8.9 mg/dL (8.4-10.2); Carbon Dioxide 32 mmol/L (22-30); Chloride 103 mmol/L (98-107); Glucose 165 mg/dL (74-99); Phosphorus 3.2 mg/dL (2.5-4.5); Potassium 4.4 mmol/L (3.5-5.1); Sodium 140 mmol/L (137-145); Total Bilirubin 2.4 mg/dL (0.2-1.3); Total Protein 5.9 g/dL (6.3-8.2)
[2018-08-12 06:45] LABS: Glucose,Whole Blood 190 mg/dL (75-99)
[2018-08-12] MEDS: INSULIN ASPART (NovoLOG) 100 UNIT/ML VIAL SQ SCH ×4 (06:53→22:32)
[2018-08-12] MEDS: METOPROLOL TARTRATE 50 MG TAB PO SCH (07:42)
[2018-08-12] MEDS: DULoxetine HCL 60 MG CAPSULE.DR PO SCH (07:49)
[2018-08-12] MEDS: POLYETHYLENE GLYCOL 3350 17 GM POWD.PACK PO SCH (07:49)
[2018-08-12] MEDS: ASPIRIN 81 MG PO SCH (07:49)
[2018-08-12] MEDS: PANTOPRAZOLE 40 MG/10 ML VIAL IVP SCH (07:49)
[2018-08-12] MEDS: APIXABAN 5 MG TAB PO SCH ×2 (07:49→20:29)
--- NOTE | 2018-08-12 11:45 | PN ---
PROGRESS NOTE HISTORY: Patient is seen for followup for acute kidney injury and hypernatremia. He is maintained on IV fluids. Renal function has improved. Serum sodium is down to 140. Mentation has improved, but last night the patient was agitated again. He received Xanax and he is much calmer now. He is currently sleeping. PHYSICAL EXAM: Blood pressure this morning was 128/76, heart rate 52 per minute. He is afebrile. Examination of the heart S1, S2. Examination lungs bilateral breath sounds are heard. Abdomen is soft, nontender. Exam of lower extremities shows no evidence of edema. [employer] exam shows patient has been moving all 4 extremities. Mentation is improving. LABS: Sodium 140, potassium 4.4, chloride 103, BUN 19, serum creatinine 0.96, hemoglobin 12.3 g/dL. ASSESSMENT: 1. Acute kidney injury, prerenal, currently improved. 2. Hypernatremia associated with free water deficit, maintained on D5W and improved. 3. Altered mentation, mainly metabolic encephalopathy seems to be improving. 4. Severe cardiomyopathy, EF 35%. PLAN: Continue D5W. Continue to encourage increased oral intake. MMODL / IJN: [id number] /
--- NOTE | 2018-08-12 11:50 | P.PN ---
Subjective Admitted with chest pain, second troponin elevated, acute kidney injury with elevated BUN/creatinine as well as elevated and potassium Patient was admitted with chest pain, second troponin was elevated. Underwent cardiac catheterization no ischemia noted however patient's developed ejection fraction on or about 20. Patient was recently admitted with A. fib rapid ventricular response this was corrected, he was noted to have subtherapeutic Cou madin levels and was switched to eliquis. Patient began developing hyperkalemia and in spite of doses of Late potassium continued to climb, patient's creatinine went from 1.2-3.1 patient basically developed acute kidney injury a consultation with nephrology was ordered the spironolactone was stopped as well as Lasix and Cozaar was stopped. Patient was started on calcium 2 daily insulin and bicar bonate IV Lasix 20 mg every 8 hours Urinary output has been low no vomiting diarrhea no active chest pain or shortness of breath current potassium is down from 8.1-6.1 08/05/2018 Patient's awake alert eating lunch, potassium is 5.1 patient is somewhat improved however his had episode in the room where she had loss of consciousness briefly, and awoke with focal deficits was transferred to the emergency room where she was evaluated and transferred to [facility] for possible stroke Patient is otherwise quite well Above notes per Dr. Coates 08/06/2018 Patient has his eyes closed. He is not easily arousable. Appears delirious. Withdrawing from pain. When asked several times and open his eyes briefly. He appears to be doing hand gestures consistent with hallucinating. He was a dmitted for suspected non-ST elevated myocardial infarction, due to a significantly worsening congestive heart pattern. He was cathed and found to have no coronary artery disease, but much worse ejection fraction around 20-25%. Cardiology felt this is from his atrial fibrillation. Although, he is cardioverted himself he has been having SVT, A. fib runs, followed by sinus rhythm. Cardiology is following him. He is unable to answer any significant questions for me today. Nursing staff indicating is been demented recently. He has a known history of closed head injury that his altered his personality and susceptibility to things such as delirium. His creatinine is elevated since arrival here on 08/02, most likely from the excessive diuretic use. Nephrology is following. Today his GFR is 16. He continues to have a microcytic, no minimal anemia. 08/07/2018. Patient remains confused and delirious. He opens his eyes but continues to hallucinate. He has a sitter to bedside. He is not responding to questions. Kidney functions continued to improve. GFR is now 22. Glucose also remains well controlled. Overnight he has pulled out his Quintero catheter and IV access. He was started on Seroquel last night hopefully help with this. He does have a history of closed head injury. 08/08/2018 delirium/confusion persists. Patient pulled out his own IVs, required sitter at bedside during the night. Restless, flinging legs over bedrail. Maintained on Seroquel. Lasix remains on hold .Significant improvement in renal function, creatinine down to 1.7. Afebrile, normal WBC. Consumed 15% of breakfast. Blood sugars controlled. Minimally converses. 08/09/2018 Seroquel dose increased yesterday,agitation lessening. Delirium improving, occasionally answering simple questions. Drinking water from a straw. Renal function continues to to improve, 1.48. Maintained on Lasix IV push. Sodium 147. Sitter at bedside. No bowel movement, abdomen soft mildly distended. 08/10/2018 rough night, continues to require sitter at bedside. Complains of low mid abdominal discomfort upon palpation. MiraLAX ordered yesterday, no bowel movements reported. Minimal oral intake. Potassium 5.2, sodium up to 149, chloride 109. Renal function continues to improve. Creatinine 1.37. Afeb rile, normal WBC. Maintaining O2 sat of 98% on room air. Head CT nonacute. 08/11/2018: Overnight, patient had continued to be thrashing about. Staff reported that he looked "yellow". Stat labs and stat CT abdomen and pelvis were ordered. Findings showed acute abnormality and liver function tests, CT showed mild ascites high attenuation the gallbladder that could relate to a concentrated bile vicarious contrast extract, no dilated ducts. His lactic acid was also reported at 2.1, and then increase to 4.0. On these findings he was sent to the intensive care unit. This a.m. he is more somnolent and relax. He is receiving his medications. IV fluids were increased. His repeat lactic acid is now 1.7. This may be due to strenuous thrashing due to his significant encephalopathy. He is had 2 ammonia levels, both for less than 9. He seems improved but more somnolent. Urine remains dark. 08/12/2018: Patient continues to have significant somnolence now. ICU staff indicating is mostly after Xanax. He remains on Seroquel. Critical care discontinued his amiodarone, Depakote, and other medications that might continue to affect his liver. GI has been consult it and will evaluate him soon. They feel may be related to congestive heart failure that he has elevated unconjugated hyperbilirubinemia and abnormal liver function tests. He does remain slightly bradycardic. His blood pressure remains controlled. Staff report that lastly did become quite agitated before he receives Xanax and pulled out his IV. He did open his eyes for me when I spoke with him this morning. He has Haldol ordered as well for acute agitation. Nursing staff indicated did not help him at all last cycle. F also mention no significant bowel movements in the past several days. Objective - Vital Signs Vital signs: Vital Signs Temp 97.3 F L 08/12/18 08:00 Pulse 49 L 08/12/18 11:00 Resp 14 08/12/18 11:00 BP 102/58 08/12/18 11:00 Pulse Ox 98 08/12/18 11:00 Intake & Output 08/11/18 08/12/18 08/12/18 18:59 06:59 18:59 Intake Total 1275 900 375 Output Total 237 727 320 Balance 1038 173 55 Weight 91.8 kg Intake: IV 1275 900 375 Dextrose 5% in Water 1, 750 000 ml @ 150 mls/hr IV . Q6H40M [facility] Rx#:[id number] Dextrose 5% in Water 1, 525 900 375 000 ml @ 75 mls/hr IV . [id number] [facility] Rx#:[id number] Output: Urine 237 727 320 Other: Voiding Method Indwelling Catheter Indwelling Catheter Indwelling Catheter - Exam General: The patient is somnolent, somewhat difficult to arouse., Minimally responding to me. In the intensive care unit without restraints. Neck: The neck is supple, there is no thyromegaly, lymphadenopathy, tenderness or JVD. Cardiovascular: S1S2 is normal, There is a regular rate and rhythm. No murmur, rub or gallop is appreciated. Respiratory: Lungs are slightly coarse to auscultation bilaterally, respirations are non-labored, breath sounds are equal. ABDOMEN: Soft, mildly distended, minimal mid lower abdominal quadrant tenderness to palpation . No guarding. no masses palpable.Bowel sounds heard. LEGS: No edema. no swelling PSYCHIATRY: Somnolent, oriented times person. NERVOUS SYSTEM: Cranial N 2-12 grossly normal. Moves all 4 limbs. Diffuse we akness. No focal deficits. Skin: There is mild jaundice of the skin, no scleral icterus was noted this time. He has multiple smaller areas of bruising noted from the earlier thrashing while in bed. No significant large bruises are noted. All this does look improved from the previous day. - Labs CBC & Chem 7: 08/12/18 05:37 08/12/18 05:37 Labs: Abnormal Lab Results - Last 24 Hours (Table) 08/11/18 08/11/18 08/11/18 Range/Units 12:07 12:10 17:11 Hgb (13.0-17.5) gm/dL MCV (80.0-100.0) fL MCH (25.0-35.0) pg RDW (11.5-15.5) % Plt Count (150-450) k/uL PT (9.0-12.0) sec INR (<1.2) Carbon Dioxide (22-30) mmol/L Glucose (74-99) mg/dL POC Glucose (mg/dL) 221 H 190 H 120 H (75-99) mg/dL Total Bilirubin (0.2-1.3) mg/dL Unconjugated Bilirubin (0.0-1.1) mg/dL Delta Bilirubin (0.0-0.2) mg/dL AST (17-59) U/L ALT (21-72) U/L Total Protein (6.3-8.2) g/dL Albumin (3.5-5.0) g/dL 08/11/18 08/12/18 08/12/18 Range/Units 20:18 05:37 05:37 Hgb (13.0-17.5) gm/dL MCV (80.0-100.0) fL MCH (25.0-35.0) pg RDW (11.5-15.5) % Plt Count (150-450) k/uL PT 17.2 H (9.0-12.0) sec INR 1.7 H (<1.2) Carbon Dioxide 32 H (22-30) mmol/L Glucose 165 H (74-99) mg/dL POC Glucose (mg/dL) 107 H (75-99) mg/dL Total Bilirubin 2.4 H (0.2-1.3) mg/dL Unconjugated Bilirubin 1.5 H (0.0-1.1) mg/dL Delta Bilirubin 0.9 H (0.0-0.2) mg/dL AST 247 H (17-59) U/L ALT 757 H (21-72) U/L Total Protein 5.9 L (6.3-8.2) g/dL Albumin 3.1 L (3.5-5.0) g/dL 08/12/18 08/12/18 Range/Units 05:37 06:44 Hgb 12.3 L (13.0-17.5) gm/dL MCV 76.3 L (80.0-100.0) fL MCH 24.1 L (25.0-35.0) pg RDW 19.7 H (11.5-15.5) % Plt Count 79 L (150-450) k/uL PT (9.0-12.0) sec INR (<1.2) Carbon Dioxide (22-30) mmol/L Glucose (74-99) mg/dL POC Glucose (mg/dL) 190 H (75-99) mg/dL Total Bilirubin (0.2-1.3) mg/dL Unconjugated Bilirubin (0.0-1.1) mg/dL Delta Bilirubin (0.0-0.2) mg/dL AST (17-59) U/L ALT (21-72) U/L Total Protein (6.3-8.2) g/dL Albumin (3.5-5.0) g/dL Microbiology - Last 24 Hours (Table) 08/10/18 22:26 Urine Culture - Preliminary Urine,Catheterized Coagulase Negative Staph Assessment and Plan (1) Chest pain Current Visit: Yes Status: Acute Code(s): R07.9 - CHEST PAIN, UNSPECIFIED SNOMED Code(s): 23021014 (2) NSTEMI (non-ST elevated myocardial infarction) Current Visit: Yes Status: Acute Code(s): I21.4 - NON-ST ELEVATION (NSTEMI) MYOCARDIAL INFARCTION SNOMED Code(s): 19686158 (3) Acute CHF (congestive heart failure) Current Visit: No Status: Acute Code(s): I50.9 - HEART FAILURE, UNSPECIFIED SNOMED Code(s): 04681709 (4) Acute kidney injury Current Visit: No Status: Acute Code(s): N17.9 - ACUTE KIDNEY FAILURE, UNSPECIFIED SNOMED Code(s): 32377643 (5) Acute on chronic diastolic (congestive) heart failure Current Visit: No Status: Acute Code(s): I50.33 - ACUTE ON CHRONIC DIASTOLIC (CONGESTIVE) HEART FAILURE SNOMED Code(s): 658513050 (6) History of closed head injury Current Visit: No Status: Acute Code(s): Z87.820 - PERSONAL HISTORY OF TRAUMATIC BRAIN INJURY SNOMED Code(s): 92839354594162 (7) Hypothyroidism Current Visit: No Status: Acute Code(s): E03.9 - HYPOTHYROIDISM, UNSPECIFIED SNOMED Code(s): 80664009 (8) Insulin dependent diabetes mellitus Current Visit: No Status: Acute Code(s): E11.9 - TYPE 2 DIABETES MELLITUS WITHOUT COMPLICATIONS; Z79.4 - WILD ANIMAL CARETAKER (CURRENT) USE OF INSULIN SNOMED Code(s): 33663807 (9) [facility] current use of anticoagulant therapy Current Visit: No Status: Acute Code(s): Z79.01 - WILD ANIMAL CARETAKER (CURRENT) USE OF ANTICOAGULANTS SNOMED Code(s): 309435154 (10) Microcytic anemia Current Visit: Yes Status: Acute Code(s): D50.9 - IRON DEFICIENCY ANEMIA, UNSPECIFIED SNOMED Code(s): 939723116 (11) Metabolic encephalopathy Current Visit: Yes Status: Acute Code(s): G93.41 - METABOLIC ENCEPHALOPATHY SNOMED Code(s): 18880895 (12) Acute disorder of liver Current Visit: Yes Status: Acute Code(s): K76.9 - LIVER DISEASE, UNSPECIFIED SNOMED Code(s): 410548640 (13) Indirect hyperbilirubinemia Current Visit: Yes Status: Acute Code(s): E80.6 - OTHER DISORDERS OF BILIRUBIN METABOLISM SNOMED Code(s): 3017171 Plan: Critical care and GI on the case Fleets enemas, Dulcolax suppositories daily when necessary for constipation. Reconsult Cardiology and his heart rate remained suppressed. Continue to hold all liver toxic medications time. He'll continue on insulin scale for his diabetes. Due to his significant somnolence, we'll discontinue the Seroquel and only give Xanax of absolutely necessary. Continue IV fluids at 75mL an hour. Wait on further labs. Wait on internal audit consultant recommendations. He'll be reevaluated next 24 hours.
[2018-08-12] MEDS ORDERED: BISACODYL 10 MG SUPP RECTAL PRN (11:51)
[2018-08-12] MEDS ORDERED: NA PHOS,M-B/NA PHOS,DI-BA 133 ML ENEMA RECTAL PRN (11:51)
--- NOTE | 2018-08-12 12:19 | P.PN ---
Subjective Progress Note Date: 08/12/18 This is a 68-year-old male patient got transferred to the intensive care unit yesterday because of altered mentation. The patient was becoming more lethargic and there has been significant abnormalities in his liver function test and at that point it was decided to move this patient with ICU. I reviewed the records and there has been significant medical problems and comorbidities most significant of which are cardiac problems. The patient is known to have coronary artery disease and he has undergone previous non-ST segment elevation myocardial infarction. He initially presented with some chest pain injury this current hospitalization a cardiac catheterization was done that showed nonocclusive disease. The patient also has chronic persistent atrial fibrillation and he has been maintained on long-term anticoagulation. During this current hospital stay, the patient was in A. fib/RVR and addition to CHF. He was given amiodarone during his initial presentation and ultimately the amiodarone was discontinued as the patient became bradycardic. His current rhythm is sinus bradycardia. Also, the patient has congestion heart failure. 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 The patient has hypertension, hyperlipidemia and diabetes mellitus. Note that during this current hospitalization, the patient also developed acute kidney injury. Nephrology was involved in the case. The patient's creatinine gradually improved as the patient was being resuscitated IV fluids. This could've been also contrast nephropathy. In any rate, the patient has developed worsening LFTs, lactic acidosis, some mild coagulopathy while being off anticoagulation other than Eliquis. He got transferred to the ICU. Note that his AST and ALP levels are improving and they're down to 457 and 95 respectively, alk phos is 77, his lactic acid level was as high as 4.0 and is currently down to 1.7. The creatinine level has dropped from 3.9 down to 1.1 which is back to its baseline. In view of his ongoing mental status change, the patient has undergone a CAT scan of the brain that showed no acute abnormalities and there are some chronic [employer]RATION [employer]IST atrophy. Most recent INR is at 1.8 with a PT of 17.8. Currently is lethargic and encephalopathic. He withdraws to painful is diminished in all 4 extremities. No neck stiffness to no fever or chills. No leukocytosis. Hemoglobin 11.7. Platelet count is at 67,000.The chest x-ray showed improvement changes in the CHF and pulmonary edema and this was done this morning on 08/11/2018. The CAT scan of the abdomen showed mild ascites and there is high attenuation of the gallbladder related to concentrated by. No di latation of the biliary ducts. The lung bases are essentially clear and there is no effusion. No pericardial effusion. On today's evaluation of 08/12/2018 of seeing this patient for a follow-up. The patient is still encephalopathic. The patient is arousable and he will follow some simple commands. For the most part he remains confused and his mental status remains quite diminished. His neurologic exam is nonfocal. His liver function tests are improving. I would say, he is less confused compared to yesterday and his condition is gradually improving. His renal function is also stable and his creatinine is normalized. AST is down to 47. ALT is down to 757. No significant elevation in ammonia levels. No respiratory distress. When awake, he is able to swallow his tablets without any major issues. His cardiac rhythm is sinus bradycardia. Overnight he had an episode of agitation during which the patient was given Xanax and then Haldol and this was approximately 10 PM/1 AM. He slept all night without any major difficulties. The plated count is also stable. No other significant events. Objective - Vital Signs Vital signs: Vital Signs Temp 97.3 F L 08/12/18 08:00 Pulse 49 L 08/12/18 11:00 Resp 14 08/12/18 11:00 BP 102/58 08/12/18 11:00 Pulse Ox 98 08/12/18 11:00 Intake & Output 08/11/18 08/12/18 08/12/18 18:59 06:59 18:59 Intake Total 1275 900 375 Output Total 237 727 320 Balance 1038 173 55 Weight 91.8 kg Intake: IV 1275 900 375 Dextrose 5% in Water 1, 750 000 ml @ 150 mls/hr IV . Q6H40M [facility] Rx#:[id number] Dextrose 5% in Water 1, 525 900 375 000 ml @ 75 mls/hr IV . [id number] [facility] Rx#:[id number] Output: Urine 237 727 320 Other: Voiding Method Indwelling Catheter Indwelling Catheter Indwelling Catheter - Exam Gen. appearance the patient is calm and comfortable. He would wake up upon repeated stimulation. He was speaking full sentences and sometimes few words and then go back to sleep. He would respond to painful stimulation all 4 extremities. Obviously, there is still some ongoing confusion and altered mentation Head exam was generally normal. There was no scleral icterus or corneal arcus. Mucous membranes were moist. Neck was supple and without jugular venous distension, thyromegaly, or carotid bruits. Carotids were easily palpable bilaterally. There was no adenopathy. Lungs were clear to auscultation and percussion, and with normal diaphragmatic excursion. No wheezes or rales were noted. Cardiac exam revealed the PMI to be normally situated and sized. The rhythm was regular and no extrasystoles were noted during several minutes of auscultation. The first and second heart sounds were normal and physiologic splitting of the second heart sound was noted. There were no murmurs, rubs, clicks, or gallops. Abdominal exam revealed normal bowel sounds. The abdomen was soft, non-tender, and without masses, organomegaly, or appreciable enlargement of the abdominal aorta. Examination of the extremities revealed easily palpable radial, femoral and pedal pulses. There was no cyanosis, clubbing or edema. Examination of the skin revealed no evidence of significant rashes, suspicious appearing nevi or other concerning lesions. Neurologic the patient is encephalopathic, has altered mentation, moving all 4 extremities and no cranial nerve deficits particularly reactive to light. - Labs CBC & Chem 7: 08/12/18 05:37 08/12/18 05:37 Labs: Abnormal Lab Results - Last 24 Hours (Table) 08/11/18 08/11/18 08/12/18 Range/Units 17:11 20:18 05:37 Hgb (13.0-17.5) gm/dL MCV (80.0-100.0) fL MCH (25.0-35.0) pg RDW (11.5-15.5) % Plt Count (150-450) k/uL PT 17.2 H (9.0-12.0) sec INR 1.7 H (<1.2) Carbon Dioxide (22-30) mmol/L Glucose (74-99) mg/dL POC Glucose (mg/dL) 120 H 107 H (75-99) mg/dL Total Bilirubin (0.2-1.3) mg/dL Unconjugated Bilirubin (0.0-1.1) mg/dL Delta Bilirubin (0.0-0.2) mg/dL AST (17-59) U/L ALT (21-72) U/L Total Protein (6.3-8.2) g/dL Albumin (3.5-5.0) g/dL 08/12/18 08/12/18 08/12/18 Range/Units 05:37 05:37 06:44 Hgb 12.3 L (13.0-17.5) gm/dL MCV 76.3 L (80.0-100.0) fL MCH 24.1 L (25.0-35.0) pg RDW 19.7 H (11.5-15.5) % Plt Count 79 L (150-450) k/uL PT (9.0-12.0) sec INR (<1.2) Carbon Dioxide 32 H (22-30) mmol/L Glucose 165 H (74-99) mg/dL POC Glucose (mg/dL) 190 H (75-99) mg/dL Total Bilirubin 2.4 H (0.2-1.3) mg/dL Unconjugated Bilirubin 1.5 H (0.0-1.1) mg/dL Delta Bilirubin 0.9 H (0.0-0.2) mg/dL AST 247 H (17-59) U/L ALT 757 H (21-72) U/L Total Protein 5.9 L (6.3-8.2) g/dL Albumin 3.1 L (3.5-5.0) g/dL Microbiology - Last 24 Hours (Table) 08/10/18 22:26 Urine Culture - Preliminary Urine,Catheterized Coagulase Negative Staph Assessment and Plan Plan: 1 altered mentation, mainly secondary to metabolic encephalopathy. The patient was in acute kidney injury and subsequently went into acute hepatic injury/failure. Note that the renal function is improved and the patient developed significant elevation in the liver function tests with secondary coagulopathy and some mild lactic acidosis. Ammonia levels are low. CAT scan of the brain is negative. No signs of septicemia this point in time. Consider shock liver secondary to poor cardiac output/cardiac myopathy. Consider drug effect as the patient had received amiodarone and subsequently placed on statins. The patient's liver function is improving and the patient is gradually improving in terms of her mental status change. GI is on the case. Hepatotoxic medications were all discontinued. 2 coronary artery disease, please refer to the most recent cardiac cath ablation note, nonocclusive disease 3 systolic heart failure/cardiomyopathy 4 sinus bradycardia 5 paroxysmal atrial fibrillation with rapid ventricular response at time of admission 6 hypertension 7 diabetes mellitus 8 hyperlipidemia 9 hypothyroidism 10 CHF with ejection fraction of 30-35% 11 acute kidney injury, recovered 12 lactic acidosis, improving Plan Stop statins. Stop Depakote. The patient is still having a component of sinus bradycardia which is slowly improving. Use Haldol only for agitation. Continue monitoring the renal function and hepatic function. I'm going to keep him in the ICU for another 24 hours. I will that the improvement over the next 24 hours. He is receiving D5 water at the rate of 75 mL's an hour. Continue Eliq uis for now. Continue thyroid hormone supplements. Monitor the blood sugars.
[2018-08-12 12:37] LABS: Glucose,Whole Blood 133 mg/dL (75-99)
--- NOTE | 2018-08-12 15:54 | P.CONS ---
History of Present Illness - Reason for Consult Consult date: 08/12/18 Elevated liver enzymes Requesting physician: Pavan Elmore - Chief Complaint Chest Pain - History of Present Illness 68-year-old male with a medical history significant for coronary artery disease, atrial fibrillation on anticoagulation therapy, hypertension, hyperlipidemia and diabetes mellitus who initially presented to the hospital with complaints of chest pain. The patient subsequently underwent investigation with cardiac catheterization which was significant for nonocclusive disease. The patient's hospitalization has also been unremarkable for atrial fibrillation with RVR. He was also noted to have elevation in his creatinine which has subsequently improv ed. The patient was brought to the ICU for further management due to altered mental status. The gastroenterology service is consulted to see the patient due to elevation in his liver enzymes which have subsequently improved with total bilirubin 2.4 from 3.3, alkaline phosphatase 75 from 112, AST 247 from 714 and ALTs 757 from 1345. The patient had testing with a viral hepatitis panel which was negative. INR 1.8, hemoglobin 11.5, bili count 67,000. Computed tomography scan of the abdomen was significant for mild ascites with no dilated ducts and high attenuation of the gallbladder. Patient is seen lying in bed comfortably today with no acute complaints, he is oriented only to person at this time. Review of Systems Review of systems could not be obtained due to the patient's current altered mental status. 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, hypothyroidism History of Any Multi-Drug Resistant Organisms: None Reported Past Surgical History: Back Surgery, Hernia Repair, Orthopedic Surgery, Tonsillectomy Additional Past Surgical History / Comment(s): rt inguinal hernia repair, rt ankle orif, Past Anesthesia/Blood Transfusion Reactions: No Reported Reaction Smoking Status: Never smoker - Past Family History Mother Family Medical History: Congestive Heart Failure (CHF) Father Family Medical History: Congestive Heart Failure (CHF) Medications and Allergies Home Medications Medication Instructions Recorded Confirmed Type ALPRAZolam [Xanax] 0.25 mg PO Q6H PRN 07/01/14 08/02/18 History Simvastatin [Zocor] 20 mg PO HS 07/01/14 08/02/18 History metFORMIN HCL 1,000 mg PO BID 01/06/16 08/02/18 History Levothyroxine Sodium [Synthroid] 100 mcg PO MOTUWETHFR 07/03/17 08/02/18 History DULoxetine HCL [Cymbalta] 60 mg PO DAILY 07/21/18 08/02/18 History Divalproex ER [Depakote ER] 500 mg PO DAILY 07/21/18 08/02/18 History Levothyroxine Sodium [Synthroid] 150 mcg PO SUSA 07/21/18 08/02/18 History Apixaban [Eliquis] 5 mg PO BID tab 07/24/18 08/02/18 Rx Furosemide [Lasix] 40 mg PO DAILY #30 tab 07/24/18 08/02/18 Rx Insuln Asp Prt/Insulin Aspart 15 unit SQ AC-SUPPER vial 07/24/18 08/02/18 Rx [NovoLOG MIX 70-30 VIAL] Insuln Asp Prt/Insulin Aspart 30 unit SQ AC-BRKFST vial 07/24/18 08/02/18 Rx [NovoLOG MIX 70-30 VIAL] Losartan [Cozaar] 25 mg PO DAILY #30 tab 07/24/18 08/02/18 Rx Metoprolol Tartrate [Lopressor] 50 mg PO BID #60 tab 07/24/18 08/02/18 Rx Spironolactone [Aldactone] 25 mg PO DAILY #30 tab 07/24/18 08/02/18 Rx Allergies Allergy/AdvReac Type Severity Reaction Status Date / Time bupropion [From Wellbutrin] Allergy Unknown Verified 08/02/18 09:03 venlafaxine [From Effexor] Allergy Unknown Verified 08/02/18 09:03 aripiprazole [From Abilify] AdvReac Unknown Verified 08/02/18 09:03 Physical Exam Vitals: Vital Signs Temp Pulse Resp BP Pulse Ox 08/12/18 10:00 51 L 13 117/62 100 08/12/18 09:00 52 L 12 128/76 98 08/12/18 08:00 97.3 F L 58 L 15 119/66 95 08/12/18 07:00 49 L 16 116/68 98 08/12/18 06:00 49 L 15 113/68 94 L 08/12/18 05:00 50 L 11 L 97/60 94 L 08/12/18 04:00 97.4 F L 52 L 16 108/70 98 08/12/18 03:00 53 L 18 121/94 98 08/12/18 02:00 57 L 13 118/91 97 08/12/18 01:00 56 L 15 110/76 99 08/12/18 00:00 96.5 F L 60 18 113/80 96 08/11/18 23:00 54 L 14 90/70 97 08/11/18 22:00 54 L 14 91/73 96 08/11/18 21:00 56 L 17 115/71 100 08/11/18 20:00 96.3 F L 48 L 17 112/74 99 08/11/18 19:00 49 L 13 110/77 97 08/11/18 18:00 50 L 17 102/63 97 08/11/18 17:00 45 L 15 110/69 99 08/11/18 16:00 97.0 F L 47 L 10 L 104/66 97 08/11/18 15:00 48 L 13 93/56 18 L 08/11/18 14:00 45 L 15 111/65 97 08/11/18 13:00 47 L 13 92/51 98 08/11/18 12:00 97.0 F L 46 L 14 97/56 97 08/11/18 11:00 45 L 14 99/60 98 Intake and Output 08/11/18 08/12/18 08/12/18 22:59 06:59 14:59 Intake Total 600 600 300 Output Total 170 630 270 Balance 430 -30 30 Intake: IV 600 600 300 Dextrose 5% in Water 1, 600 600 300 000 ml @ 75 mls/hr IV . [id number] [facility] Rx#:[id number] Output: Urine 170 630 270 Other: Voiding Method Indwelling Catheter Indwelling Catheter Indwelling Catheter Weight 91.8 kg On physical examination, patient appears comfortable in no apparent distress. HEAD: Normocephalic, atraumatic. EYES: No scleral icterus. No conjunctival injection. MOUTH: No lesions, tongue midline. NECK: Trachea midline, no gross abnormalities. CHEST: Decreased air entry in all lung elena, no wheezing or rhonchi appreciated. HEART: Irregularly irregular. ABDOMEN: Soft, obese. Bowel sounds are positive. No organomegaly. No guarding or rigidity. EXTREMITIES: No pedal edema. SKIN: No rashes, no jaundice. NEUROLOGIC: Alert and oriented x1, only to person. No focal deficits. Results CBC & Chem 7: 08/12/18 05:37 08/12/18 05:37 Labs: Abnormal Lab Results - Last 24 Hours (Table) 08/11/18 08/11/18 08/11/18 Range/Units 12:07 12:10 17:11 Hgb (13.0-17.5) gm/dL MCV (80.0-100.0) fL MCH (25.0-35.0) pg RDW (11.5-15.5) % Plt Count (150-450) k/uL PT (9.0-12.0) sec INR (<1.2) Carbon Dioxide (22-30) mmol/L Glucose (74-99) mg/dL POC Glucose (mg/dL) 221 H 190 H 120 H (75-99) mg/dL Total Bilirubin (0.2-1.3) mg/dL Unconjugated Bilirubin (0.0-1.1) mg/dL Delta Bilirubin (0.0-0.2) mg/dL AST (17-59) U/L ALT (21-72) U/L Total Protein (6.3-8.2) g/dL Albumin (3.5-5.0) g/dL 08/11/18 08/12/18 08/12/18 Range/Units 20:18 05:37 05:37 Hgb (13.0-17.5) gm/dL MCV (80.0-100.0) fL MCH (25.0-35.0) pg RDW (11.5-15.5) % Plt Count (150-450) k/uL PT 17.2 H (9.0-12.0) sec INR 1.7 H (<1.2) Carbon Dioxide 32 H (22-30) mmol/L Glucose 165 H (74-99) mg/dL POC Glucose (mg/dL) 107 H (75-99) mg/dL Total Bilirubin 2.4 H (0.2-1.3) mg/dL Unconjugated Bilirubin 1.5 H (0.0-1.1) mg/dL Delta Bilirubin 0.9 H (0.0-0.2) mg/dL AST 247 H (17-59) U/L ALT 757 H (21-72) U/L Total Protein 5.9 L (6.3-8.2) g/dL Albumin 3.1 L (3.5-5.0) g/dL 08/12/18 08/12/18 Range/Units 05:37 06:44 Hgb 12.3 L (13.0-17.5) gm/dL MCV 76.3 L (80.0-100.0) fL MCH 24.1 L (25.0-35.0) pg RDW 19.7 H (11.5-15.5) % Plt Count 79 L (150-450) k/uL PT (9.0-12.0) sec INR (<1.2) Carbon Dioxide (22-30) mmol/L Glucose (74-99) mg/dL POC Glucose (mg/dL) 190 H (75-99) mg/dL Total Bilirubin (0.2-1.3) mg/dL Unconjugated Bilirubin (0.0-1.1) mg/dL Delta Bilirubin (0.0-0.2) mg/dL AST (17-59) U/L ALT (21-72) U/L Total Protein (6.3-8.2) g/dL Albumin (3.5-5.0) g/dL Microbiology - Last 24 Hours (Table) 08/10/18 22:26 Urine Culture - Preliminary Urine,Catheterized Coagulase Negative Staph CT scan - abdomen: report reviewed (Computed tomography scan of the abdomen was significant for mild ascites with no dilated ducts and high attenuation of the gallbladder.) Assessment and Plan (1) Acute disorder of liver Narrative/Plan: 68-year-old male with history of coronary artery disease and atrial fibrillation with RVR who was seen to have an acute rise in liver enzymes during his hospita lization. At this time suspicion is for congestive hepatopathy or ischemia in the setting of low blood pressures (systolic blood pressure in the 90s and diastolic blood pressure in the 50s on the floor), with biliary etiology less likely in the setting of no ductal dilation on imaging scan, viral hepatitis panel was negative. Currently liver enzymes are trending down. Current Visit: Yes Status: Acute Code(s): K76.9 - LIVER DISEASE, UNSPECIFIED SNOMED Code(s): 640915140 (2) Atrial fibrillation with RVR Current Visit: No Status: Acute Code(s): I48.91 - UNSPECIFIED ATRIAL FIBRILLATION SNOMED Code(s): 565928349225496 Plan: Supportive care Okay for diet as tolerated Continue to monitor liver enzymes Will order full liver serologies, however at this time suspicion is for congestive hepatopathy or hypoperfusion in the setting of low blood pressures and cardiac dysfunction Will order ultrasound of the liver Avoid hepatotoxic medications Thank you for allowing us to participate in the care of the patient we will continue to follow
[2018-08-12 17:06] LABS: Glucose,Whole Blood 126 mg/dL (75-99)
--- NOTE | 2018-08-12 17:18 | US ---
EXAMINATION TYPE: US abdomen complete DATE OF EXAM: 08/12/2018 COMPARISON: CT CLINICAL HISTORY: Elevated liver enzymes. EXAM MEASUREMENTS: Liver Length: 13.4 cm Gallbladder Wall: 0.3 cm CBD: 0.5 cm Spleen: 12.9 cm Right Kidney: 10.2 x 4.9 x 4.9 cm Left Kidney: 11.3 x 5.1 x 5.5 cm Technically difficult exam performed portably in ICU on patient unable to cooperate for test. Pancreas: not visualized due to overlying bowel gas Liver: limited visualization to intercostal window Gallbladder: only imaged supine, no stones or sludge seen. Evidence for sonographic Samuels's sign: No CBD: wnl Spleen: wnl Right Kidney: No hydronephrosis or masses seen Left Kidney: No hydronephrosis or masses seen Upper IVC: wnl Abd Aorta: proximal portion not seen due to bowel gas. IMPRESSION: Limited exam. No gallstones or dilated ducts. no acute abnormality.
[2018-08-12 18:07] LABS: Glucose,Whole Blood 138 mg/dL (75-99)
[2018-08-12 20:02] LABS: Glucose,Whole Blood 124 mg/dL (75-99)
[2018-08-12] MEDS: HALOPERIDOL LACTATE 5 MG/ML 1 ML VIAL IVP PRN (21:24)
[2018-08-12] MEDS ORDERED: HALOPERIDOL LACTATE 5 MG/ML 1 ML VIAL IVP PRN (22:57)
[2018-08-12] MEDS ORDERED: ALPRAZolam 0.25 MG TAB PO STA (23:51)
[2018-08-13] MEDS: METOPROLOL TARTRATE 50 MG TAB PO SCH ×4 (00:09→22:00)
[2018-08-13] MEDS: HALOPERIDOL LACTATE 5 MG/ML 1 ML VIAL IVP PRN ×3 (01:24→20:11)
[2018-08-13] MEDS: ALPRAZolam 0.25 MG TAB PO PRN ×2 (02:16→17:14)
[2018-08-13 04:53] LABS: Anisocytosis Slight; HCT 40.1 % (39.0-53.0); HGB 12.3 gm/dL (13.0-17.5); Hypochromasia Slight; MCH 23.4 pg (25.0-35.0); MCHC 30.7 g/dL (31.0-37.0); MCV 76.1 fL (80.0-100.0); Mean Platelet Volume 7.9; Microcytosis Moderate; RBC 5.27 m/uL (4.30-5.90); RDW 19.6 % (11.5-15.5); WBC 9.4 k/uL (3.8-10.6)
[2018-08-13 05:01] LABS: INR 1.7 (<1.2); Prothrombin Time 16.9 sec (9.0-12.0)
[2018-08-13 05:03] LABS: Platelet Count 79 k/uL (150-450)
[2018-08-13 05:08] LABS: ALT 600 U/L (21-72); AST 149 U/L (17-59); Albumin 3.1 g/dL (3.5-5.0); Alkaline Phosphatase 82 U/L (38-126); Anion Gap 7 mmol/L; Bilirubin, Delta 1.1 mg/dL (0.0-0.2); Bilirubin,Unconjugated 1.4 mg/dL (0.0-1.1); Blood Urea Nitrogen 14 mg/dL (9-20); Calcium 8.8 mg/dL (8.4-10.2); Carbon Dioxide 27 mmol/L (22-30); Chloride 104 mmol/L (98-107); Glucose 164 mg/dL (74-99); Magnesium 1.7 mg/dL (1.6-2.3); Potassium 4.7 mmol/L (3.5-5.1); Sodium 138 mmol/L (137-145); Total Bilirubin 2.5 mg/dL (0.2-1.3); Total Protein 5.8 g/dL (6.3-8.2)
[2018-08-13] MEDS ORDERED: Magnesium Replacement Protocol 1 EACH MISC MISCELLANE PRN (06:08)
[2018-08-13] MEDS: DEXTROSE 5% IN WATER 1,000 ML IV SCH ×2 (06:32→20:12)
[2018-08-13] MEDS: LEVOTHYROXINE 100 MCG TAB PO SCH (06:34)
[2018-08-13] MEDS: MAGNESIUM SULFATE-D5W PMX 1 GM in DEXTROSE/WATER 1 100ML.BAG IVPB SCH ×2 (06:34→08:35)
[2018-08-13 07:02] LABS: Glucose,Whole Blood 132 mg/dL (75-99)
[2018-08-13] MEDS: INSULIN ASPART (NovoLOG) 100 UNIT/ML VIAL SQ SCH ×4 (07:07→20:38)
[2018-08-13] MEDS: ASPIRIN 81 MG PO SCH (08:34)
[2018-08-13] MEDS: PANTOPRAZOLE 40 MG/10 ML VIAL IVP SCH (08:34)
[2018-08-13] MEDS: APIXABAN 5 MG TAB PO SCH ×2 (08:34→20:38)
[2018-08-13] MEDS: DULoxetine HCL 60 MG CAPSULE.DR PO SCH (08:42)
[2018-08-13] MEDS: POLYETHYLENE GLYCOL 3350 17 GM POWD.PACK PO SCH (08:43)
--- NOTE | 2018-08-13 11:25 | P.PN ---
Subjective Progress Note Date: 08/13/18 Principal diagnosis: Acute metabolic encephalopathy and mental status change This is a 68-year-old male patient got transferred to the intensive care unit yesterday because of altered mentation. The patient was becoming more lethargic and there has been significant abnormalities in his liver function test and at that point it was decided to move this patient with ICU. I reviewed the records and there has been significant medical problems and comorbidities most significant of which are cardiac problems. The patient is known to have coronary artery disease and he has undergone previous non-ST segment elevation myocardial infarction. He initially presented with some chest pain injury this current hospitalization a cardiac catheterization was done that showed nonocclusive disease. The patient also has chronic persistent atrial fibrillation and he has been maintained on long-term anticoagulation. During this current hospital stay, the patient was in A. fib/RVR and addition to CHF. He was given amiodarone during his initial presentation and ultimately the amiodarone was discontinued as the patient became bradycardic. His current rhythm is sinus bradycardia. Also, the patient has congestion heart failure. 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 The patient has hypertension, hyperlipidemia and diabetes mellitus. Note that during this current hospitalization, the patient also developed acute kidney injury. Nephrology was involved in the case. The patient's creatinine gradually improved as the patient was being resuscitated IV fluids. This could've been also contrast nephropathy. In any rate, the patient has developed worsening LFTs, lactic acidosis, some mild coagulopathy while being off anticoagulation other than Eliquis. He got transferred to the ICU. Note that his AST and ALP levels are improving and they're down to 457 and 95 respectively, alk phos is 77, his lactic acid level was as high as 4.0 and is currently down to 1.7. The creatinine level has dropped from 3.9 down to 1.1 which is back to its baseline. In view of his ongoing mental status change, the patient has undergone a CAT scan of the brain that showed no acute abnormalities and there are some chronic [employer] atrophy. Most recent INR is at 1.8 with a PT of 17.8. Currently is lethargic and encephalopathic. He withdraws to painful is diminished in all 4 extremities. No neck stiffness to no fever or chills. No leukocytosis. Hemoglobin 11.7. Platelet count is at 67,000.The chest x-ray showed improvement changes in the CHF and pulmonary edema and this was done this morning on 08/11/2018. The CAT scan of the abdomen showed mild ascites and there is high attenuation of the gallbladder related to concentrated by. No dilatation of the biliary ducts. The lung bases are essentially clear and there is no effusion. No pericardial effusion. On today's evaluation of 08/12/2018 of seeing this patient for a follow-up. The patient is still encephalopathic. The patient is arousable and he will follow some simple commands. For the most part he remains confused and his mental status remains quite diminished. His neurologic exam is nonfocal. His liver function tests are improving. I would say, he is less confused compared to yesterday and his condition is gradually improving. His renal function is also stable and his creatinine is normalized. AST is down to 47. ALT is down to 757. No significant elevation in ammonia levels. No respiratory distress. When awake, he is able to swallow his tablets without any major issues. His cardiac rhythm is sinus bradycardia. Overnight he had an episode of agitation during which the patient was given Xanax and then Haldol and this was approximately 10 PM/1 AM. He slept all night without any major difficulties. The plated count is also stable. No other significant events. On today's evaluation , patient remains in bed, very calm, arousable, follows simple instructions, less confused compared to what was noted above on his initial evaluation. CBC is normal INR is 1.7 basic metabolic profile is normal liver enzymes are improving, his total bilirubin is 2.5 his AST is 149 ALT is 600 and again that is significantly improved compared to 2 days ago. Clearly his liver enzymes are improving. And his mental status is actually clearing slowly. His ammonia level was not elevated. Patient is able to swallow uneventfully. Hemodynamically he remains stable, and no significant agitation this morning. Did receive Haldol last night. Objective - Vital Signs Vital signs: Vital Signs Temp 97.7 F 08/13/18 08:00 Pulse 53 L 08/13/18 11:00 Resp 13 08/13/18 11:00 BP 116/72 08/13/18 11:00 Pulse Ox 96 08/13/18 11:00 Intake & Output 08/12/18 08/13/18 08/13/18 18:59 06:59 18:59 Intake Total 900 1143 625 Output Total 787 1695 619 Balance 113 -242 -493 Weight 90.8 kg Intake: IV 900 900 375 Dextrose 5% in Water 1, 900 900 375 000 ml @ 75 mls/hr IV . [id number] [facility] Rx#:[id number] Intake, IV Titration 100 Amount Magnesium Sulfate-D5w Pmx 100 1 gm In Dextrose/Water 1 100ml.bag @ 100 mls/hr IVPB Q1H [facility] Rx#: [id number] Oral 150 Tube Feeding 243 Output: Urine 789 1069 850 Other: Voiding Method Indwelling Catheter Indwelling Catheter Indwelling Catheter - Exam Physical Exam: Revealed a 68-year-old white male in no distress. Head: Atraumatic normocephalic. HEENT:[Neck is supple.] [No neck masses.] [No thyromegaly.] [No JVD. PERRLA, EOMI, positive icterus. Dry mucous membranes noted. Chest: [Clear throughout, no crackles, no rhonchi, no wheezes.] Cardiac Exam: [Normal S1 and S2, no S3 gallop, no murmur.] Abdomen: [Soft, nontender, no megaly, no rebound, no guarding, normal bowel sounds.] Extremities: [No clubbing, no edema, no cyanosis.] Neurological Exam: Arousable, opens eyes, follows instructions, seems to be slow and encephalopathic. Lymphatics: Lymphadenopathy. Skin: No rashes. - Labs CBC & Chem 7: 08/13/18 04:38 08/13/18 04:34 Labs: Abnormal Lab Results - Last 24 Hours (Table) 08/12/18 08/12/18 08/12/18 Range/Units 12:35 17:04 18:05 Hgb (13.0-17.5) gm/dL MCV (80.0-100.0) fL MCH (25.0-35.0) pg MCHC (31.0-37.0) g/dL RDW (11.5-15.5) % Plt Count (150-450) k/uL PT (9.0-12.0) sec INR (<1.2) Glucose (74-99) mg/dL POC Glucose (mg/dL) 133 H 126 H 138 H (75-99) mg/dL Total Bilirubin (0.2-1.3) mg/dL Unconjugated Bilirubin (0.0-1.1) mg/dL Delta Bilirubin (0.0-0.2) mg/dL AST (17-59) U/L ALT (21-72) U/L Total Protein (6.3-8.2) g/dL Albumin (3.5-5.0) g/dL 08/12/18 08/13/18 08/13/18 Range/Units 20:00 04:34 04:34 Hgb (13.0-17.5) gm/dL MCV (80.0-100.0) fL MCH (25.0-35.0) pg MCHC (31.0-37.0) g/dL RDW (11.5-15.5) % Plt Count (150-450) k/uL PT 16.9 H (9.0-12.0) sec INR 1.7 H (<1.2) Glucose 164 H (74-99) mg/dL POC Glucose (mg/dL) 124 H (75-99) mg/dL Total Bilirubin 2.5 H (0.2-1.3) mg/dL Unconjugated Bilirubin 1.4 H (0.0-1.1) mg/dL Delta Bilirubin 1.1 H (0.0-0.2) mg/dL AST 149 H (17-59) U/L ALT 600 H (21-72) U/L Total Protein 5.8 L (6.3-8.2) g/dL Albumin 3.1 L (3.5-5.0) g/dL 08/13/18 08/13/18 Range/Units 04:38 07:01 Hgb 12.3 L (13.0-17.5) gm/dL MCV 76.1 L (80.0-100.0) fL MCH 23.4 L (25.0-35.0) pg MCHC 30.7 L (31.0-37.0) g/dL RDW 19.6 H (11.5-15.5) % Plt Count 79 L (150-450) k/uL PT (9.0-12.0) sec INR (<1.2) Glucose (74-99) mg/dL POC Glucose (mg/dL) 132 H (75-99) mg/dL Total Bilirubin (0.2-1.3) mg/dL Unconjugated Bilirubin (0.0-1.1) mg/dL Delta Bilirubin (0.0-0.2) mg/dL AST (17-59) U/L ALT (21-72) U/L Total Protein (6.3-8.2) g/dL Albumin (3.5-5.0) g/dL Microbiology - Last 24 Hours (Table) 08/10/18 22:26 Urine Culture - Final Urine,Catheterized Staphylococcus epidermidis Assessment and Plan Assessment: Impression: 1 acute mental status change secondary to metabolic encephalopathy patient presented with acute kidney injury, acute hepatic injury, and mild lactic acidosis. No signs of sepsis were noted. Could be related to medications, a miodarone was discontinued. 2 systolic congestive heart failure/cardiomyopathy, ejection fraction is 30-35% 3 recent cardiac catheterization 4 paroxysmal atrial fibrillation 5 benign essential hypertension 6 hyperlipidemia 8 hypothyroidism 9 lactic acidosis on presentation, could be hypoperfusion in nature. Again doubt sepsis. 10 acute kidney injury on presentation resolved. Recommendation: Continue to hold statins, Depakote, amiodarone, continue to monitor in the ICU for the next 24 hours, patient is clearly improving slowly, and that seems to be correlating to the improvement at the same time of his liver enzymes. Will follow closely and we will likely transfer out of the ICU in the next 24 hours. Time with Patient: Less than 30
[2018-08-13 11:27] LABS: Glucose,Whole Blood 148 mg/dL (75-99)
--- NOTE | 2018-08-13 11:45 | P.PN ---
Subjective Progress Note Date: 08/13/18 Interval history: Admitted with chest pain, second troponin elevated, acute kidney injury with elevated BUN/creatinine as well as elevated and potassium Patient was admitted with chest pain, second troponin was elevated. Underwent cardiac catheterization no ischemia noted however patient's developed ejection fraction on or about 20. Patient was recently admitted with A. fib rapid ventricular response this was corrected, he was noted to have subtherapeutic Coumadin levels and was switched to eliquis. Patient began developing hyperkalemia and in spite of doses of Late potassium continued to climb, patient's creatinine went from 1.2-3.1 patient basically developed acute kidney injury a consultation with nephrology was ordered the spironolactone was stopped as well as Lasix and Cozaar was stopped. Patient was started on calcium 2 daily insulin and bicarbonate IV Lasix 20 mg every 8 hours Urinary output has been low no vomiting diarrhea no active chest pain or shortness of breath current potassium is down from 8.1-6.1 08/05/2018 Patient's awake alert eating lunch, potassium is 5.1 patient is somewhat improved however his had episode in the room where she had loss of consciousness briefly, and awoke with focal deficits was transferred to the emergency room where she was evaluated and transferred to [facility] for possible stroke Patient is otherwise quite well Above notes per Dr. Coates 08/06/2018 Patient has his eyes closed. He is not easily arousable. Appears delirious. Withdrawing from pain. When asked several times and open his eyes briefly. He appears to be doing hand gestures consistent with hallucinating. He was admitted for suspected non-ST elevated myocardial infarction, due to a significantly worsening congestive heart pattern. He was cathed and found to have no coronary artery disease, but much worse ejection fraction around 20-25%. Cardiology felt this is from his atrial fibrillation. Although, he is cardioverted himself he has been having SVT, A. fib runs, followed by sinus rhythm. Cardiology is following him. He is unable to answer any significant questions for me today. Nursing staff indicating is been demented recently. He has a known history of closed head injury that his altered his personality and susceptibility to things such as delirium. His creatinine is elevated since arrival here on 08/02, most likely from the excessive diuretic use. Nephrology is following. Today his GFR is 16. He continues to have a microcytic, no minimal anemia. 08/07/2018. Patient remains confused and delirious. He opens his eyes but continues to hallucinate. He has a sitter to bedside. He is not responding to questions. Kidney functions continued to improve. GFR is now 22. Glucose also remains well controlled. Overnight he has pulled out his Quintero catheter and IV access. He was started on Seroquel last night hopefully help with this. He does have a history of closed head injury. 08/08/2018 delirium/confusion persists. Patient pulled out his own IVs, required sitter at bedside during the night. Restless, flinging legs over bedrail. Maintained on Seroquel. Lasix remains on hold .Significant improvement in renal function, creatinine down to 1.7. Afebrile, normal WBC. Consumed 15% of breakfast. Blood sugars controlled. Minimally converses. 08/09/2018 Seroquel dose increased yesterday,agitation lessening. Delirium improving, occasionally answering simple questions. Drinking water from a straw. Renal function continues to to improve, 1.48. Maintained on Lasix IV push. Sodium 147. Sitter at bedside. No bowel movement, abdomen soft mildly distended. 08/10/2018 rough night, continues to require sitter at bedside. Complains of low mid abdominal discomfort upon palpation. MiraLAX ordered yesterday, no bowel movements reported. Minimal oral intake. Potassium 5.2, sodium up to 149, chloride 109. Renal function continues to improve. Creatinine 1.37. Afebrile, normal WBC. Maintaining O2 sat of 98% on room air. Head CT nonacute. 08/11/2018: Overnight, patient had continued to be thrashing about. Staff reported that he looked "yellow". Stat labs and stat CT abdomen and pelvis were ordered. Findings showed acute abnormality and liver function tests, CT showed mild ascites high attenuation the gallbladder that could relate to a concentrated bile vicarious contrast extract, no dilated ducts. His lactic acid was also reported at 2.1, and then increase to 4.0. On these findings he was sent to the intensive care unit. This a.m. he is more somnolent and relax. He is receiving his medications. IV fluids were increased. His repeat lactic acid is now 1.7. This may be due to strenuous thrashing due to his significant encephalopathy. He is had 2 ammonia levels, both for less than 9. He seems improved but more somnolent. Urine remains dark. 08/12/2018: Patient continues to have significant somnolence now. ICU staff indicating is mostly after Xanax. He remains on Seroquel. Critical care discontinued his amiodarone, Depakote, and other medications that might continue to affect his liver. GI has been consult it and will evaluate him soon. They feel may be related to congestive heart failure that he has elevated unconjugated hyperbilirubinemia and abnormal liver function tests. He does remain slightly bradycardic. His blood pressure remains controlled. Staff repo rt that lastly did become quite agitated before he receives Xanax and pulled out his IV. He did open his eyes for me when I spoke with him this morning. He has Haldol ordered as well for acute agitation. Nursing staff indicated did not help him at all last cycle. F also mention no significant bowel movements in the past several days. 08/13/2018 Encephalopathic, arousable, calm. Patient agitated during the night, received Haldol and Xanax. Confusion improving,following simple commands, continuous improvement coordinator perative with taking oral meds per staff. Plan 1.7 Abdominal ultrasound, difficult exam secondary to patient unable to cooperate. INR 1.7, T bili 2.5, unconjugated bili 1.4. Significant improvement in LFT's. Hepatitis serology nonreactive. Maintaining O2 sats in the high 90s on 2 L nasal cannula O2. Renal function stable. Telemetry sinus bradycardia, in the 50s.VSS. Objective - Vital Signs Vital signs: Vital Signs Temp 97.7 F 08/13/18 08:00 Pulse 53 L 08/13/18 11:00 Resp 13 08/13/18 11:00 BP 116/72 08/13/18 11:00 Pulse Ox 96 08/13/18 11:00 Intake & Output 08/12/18 08/13/18 08/13/18 18:59 06:59 18:59 Intake Total 900 1143 625 Output Total 780 4975 865 Balance 113 -862 -163 Weight 90.8 kg Intake: IV 900 900 375 Dextrose 5% in Water 1, 900 900 375 000 ml @ 75 mls/hr IV . [id number] [facility] Rx#:[id number] Intake, IV Titration 100 Amount Magnesium Sulfate-D5w Pmx 100 1 gm In Dextrose/Water 1 100ml.bag @ 100 mls/hr IVPB Q1H [facility] Rx#: [id number] Oral 150 Tube Feeding 243 Output: Urine 787 1695 850 Other: Voiding Method Indwelling Catheter Indwelling Catheter Indwelling Catheter - Exam PHYSICAL EXAM: VITAL SIGNS: [As above] GENERAL: The patient is arousable, improving confusion, calm, oriented 1 to person. No acute distress HEENT: Conjunctivae normal. Positive icterus. Oral mucosa dry. Mild jaundice NECK: No JVD. No thyroid enlargement. No LNs CARDIOVASCULAR: S1, S2 muffled. No murmur, rub, or gallop RESPIRATION: Nonlabored, clear throughout. Bilateral bases diminished with no rhonchi, no crackles. No wheezing ABDOMEN: Soft, nontender, no organomegaly,no masses palpable.no guarding .Bowel sounds heard. LEGS: No edema. no swelling. NERVOUS SYSTEM: Encephalopathic -Confused, cooperative, follows simple instructions,opens eyes, moves all 4 extremities, Diffuse weakness. Skin: no rash , multiple small areas of improved bruising on multiple extremities related to thrashing about. - Labs CBC & Chem 7: 08/13/18 04:38 08/13/18 04:34 Labs: Abnormal Lab Results - Last 24 Hours (Table) 08/12/18 08/12/18 08/12/18 Range/Units 12:35 17:04 18:05 Hgb (13.0-17.5) gm/dL MCV (80.0-100.0) fL MCH (25.0-35.0) pg MCHC (31.0-37.0) g/dL RDW (11.5-15.5) % Plt Count (150-450) k/uL PT (9.0-12.0) sec INR (<1.2) Glucose (74-99) mg/dL POC Glucose (mg/dL) 133 H 126 H 138 H (75-99) mg/dL Total Bilirubin (0.2-1.3) mg/dL Unconjugated Bilirubin (0.0-1.1) mg/dL Delta Bilirubin (0.0-0.2) mg/dL AST (17-59) U/L ALT (21-72) U/L Total Protein (6.3-8.2) g/dL Albumin (3.5-5.0) g/dL 08/12/18 08/13/18 08/13/18 Range/Units 20:00 04:34 04:34 Hgb (13.0-17.5) gm/dL MCV (80.0-100.0) fL MCH (25.0-35.0) pg MCHC (31.0-37.0) g/dL RDW (11.5-15.5) % Plt Count (150-450) k/uL PT 16.9 H (9.0-12.0) sec INR 1.7 H (<1.2) Glucose 164 H (74-99) mg/dL POC Glucose (mg/dL) 124 H (75-99) mg/dL Total Bilirubin 2.5 H (0.2-1.3) mg/dL Unconjugated Bilirubin 1.4 H (0.0-1.1) mg/dL Delta Bilirubin 1.1 H (0.0-0.2) mg/dL AST 149 H (17-59) U/L ALT 600 H (21-72) U/L Total Protein 5.8 L (6.3-8.2) g/dL Albumin 3.1 L (3.5-5.0) g/dL 08/13/18 08/13/18 Range/Units 04:38 07:01 Hgb 12.3 L (13.0-17.5) gm/dL MCV 76.1 L (80.0-100.0) fL MCH 23.4 L (25.0-35.0) pg MCHC 30.7 L (31.0-37.0) g/dL RDW 19.6 H (11.5-15.5) % Plt Count 79 L (150-450) k/uL PT (9.0-12.0) sec INR (<1.2) Glucose (74-99) mg/dL POC Glucose (mg/dL) 132 H (75-99) mg/dL Total Bilirubin (0.2-1.3) mg/dL Unconjugated Bilirubin (0.0-1.1) mg/dL Delta Bilirubin (0.0-0.2) mg/dL AST (17-59) U/L ALT (21-72) U/L Total Protein (6.3-8.2) g/dL Albumin (3.5-5.0) g/dL Microbiology - Last 24 Hours (Table) 08/10/18 22:26 Urine Culture - Final Urine,Catheterized Staphylococcus epidermidis Assessment and Plan Assessment: (1) acute delirium, Metabolic encephalopathy, multifactorial, secondary to acute renal failure, acute hepatic injury with mild lactic acidosis-doubt sepsis ,possibly related to cardiomyopathy, possibly medication induced; amiodarone discontinued, improving Current Visit: Yes Status: Acute Code(s): G93.41 - METABOLIC ENCEPHALOPATHY SNOMED Code(s): 57662144 (2) Chest pain, status post cardiac catheterization reporting significant decrease in LV function, EF 20%, possible nonischemic cardiomyopathy worsened by chronic A. fib. Current Visit: Yes Status: Acute Code(s): R07.9 - CHEST PAIN, UNSPECIFIED SNOMED Code(s): 28727910 (3) Possible NSTEMI (non-ST elevated myocardial infarction) Current Visit: Yes Status: Acute Code(s): I21.4 - NON-ST ELEVATION (NSTEMI) MYOCARDIAL INFARCTION SNOMED Code(s): 53435667 (4) Acute kidney injury secondary to urinary retention, resolved Current Visit: No Status: Acute Code(s): N17.9 - ACUTE KIDNEY FAILURE, UNSPECIFIED SNOMED Code(s): 70316498 (5) Acute on chronic diastolic (congestive) heart failure, improved Current Visit: No Status: Acute Code(s): I50.33 - ACUTE ON CHRONIC DIASTOLIC (CONGESTIVE) HEART FAILURE SNOMED Code(s): 887018009 (6) History of closed head injury Current Visit: No Status: Acute Code(s): Z87.820 - PERSONAL HISTORY OF TRAUMATIC BRAIN INJURY SNOMED Code(s): 03689309094968 (7) Hypothyroidism Current Visit: No Status: Acute Code(s): E03.9 - HYPOTHYROIDISM, UNSPECIFIED SNOMED Code(s): 95716541 (8) Insulin dependent diabetes mellitus, controlled Current Visit: No Status: Acute Code(s): E11.9 - TYPE 2 DIABETES MELLITUS WITHOUT COMPLICATIONS; Z79.4 - ARCHITECTURAL TECHNICIAN (CURRENT) USE OF INSULIN SNOMED Code(s): 83314487 (9) terminal make up operator current use of anticoagulant therapy Current Visit: No Status: Acute Code(s): Z79.01 - CUSTODIAL (CURRENT) USE OF ANTICOAGULANTS SNOMED Code(s): 476011436 (10) Microcytic anemia Current Visit: Yes Status: Acute Code(s): D50.9 - IRON DEFICIENCY ANEMIA, UNSPECIFIED SNOMED Code(s): 745637132 11) Acute disorder of liver Current Visit: Yes Status: Acute Code(s): K76.9 - LIVER DISEASE, UNSPECIFIED SNOMED Code(s): 210244200 (12) Indirect hyperbilirubinemia Current Visit: Yes Status: Acute Code(s): E80.6 - OTHER DISORDERS OF BILIRUBIN METABOLISM SNOMED Code(s): 2359912 (!3) paroxysmal atrial fibrillation (14) essential hypertension (15) hyperlipidemia Plan: Continue current medication regime , beta justine, aspirin, Eliquis monitoring and symptomatic treatment. Maintain gentle IV fluid hydration. Hepatotoxic medications had been discontinued/statin remain on hold. Close monitoring of LFTs, electrolytes, coags with repeat labs ordered for a.m. Prognosis guarded given multiple complex medical issues. The impression and plan of care has been dictated as directed. : I performed a history and examination of this patient, discussed the same with the dictator. I agree with the dictator's note ,documented as a scribe. Any additional findings or plans will be noted.
[2018-08-13 12:31] LABS: Ceruloplasmin 27.1 mg/dL (20.0-60.0)
--- NOTE | 2018-08-13 12:35 | P.PN ---
Subjective Progress Note Date: 08/13/18 Principal diagnosis: Elevated liver enzymes Patient is seen lying in bed, no acute complaints. No nausea or vomiting. No signs or symptoms of GI bleeding. Objective - Vital Signs Vital signs: Vital Signs Temp 97.7 F 08/13/18 08:00 Pulse 55 L 08/13/18 09:00 Resp 14 08/13/18 09:00 BP 101/59 08/13/18 09:00 Pulse Ox 96 08/13/18 09:00 Intake & Output 08/12/18 08/13/18 08/13/18 18:59 06:59 18:59 Intake Total 900 1143 325 Output Total 787 1695 680 Balance 113 552 -355 Weight 90.8 kg Intake: IV 900 900 225 Dextrose 5% in Water 1, 900 900 225 000 ml @ 75 mls/hr IV . [id number] [facility] Rx#:[id number] Intake, IV Titration 100 Amount Magnesium Sulfate-D5w Pmx 100 1 gm In Dextrose/Water 1 100ml.bag @ 100 mls/hr IVPB Q1H [facility] Rx#: [id number] Tube Feeding 243 Output: Urine 787 1695 680 Other: Voiding Method Indwelling Catheter Indwelling Catheter - Exam On physical examination, patient appears comfortable in no apparent distress. HEAD: Normocephalic, atraumatic. EYES: Minimal scleral icterus. No conjunctival injection. MOUTH: No lesions, tongue midline. NECK: Trachea midline, no gross abnormalities. CHEST: Decreased air entry bilaterally, no wheezing appreciated. HEART: S1-S2 appreciated. ABDOMEN: Soft, obese. Bowel sounds are positive. No organomegaly. No guarding or rigidity. EXTREMITIES: No pedal edema. SKIN: No rashes, minimal jaundice. NEUROLOGIC: Alert and oriented to person. No focal deficits. - Labs CBC & Chem 7: 08/13/18 04:38 08/13/18 04:34 Labs: Abnormal Lab Results - Last 24 Hours (Table) 08/12/18 08/12/18 08/12/18 Range/Units 12:35 17:04 18:05 Hgb (13.0-17.5) gm/dL MCV (80.0-100.0) fL MCH (25.0-35.0) pg MCHC (31.0-37.0) g/dL RDW (11.5-15.5) % Plt Count (150-450) k/uL PT (9.0-12.0) sec INR (<1.2) Glucose (74-99) mg/dL POC Glucose (mg/dL) 133 H 126 H 138 H (75-99) mg/dL Total Bilirubin (0.2-1.3) mg/dL Unconjugated Bilirubin (0.0-1.1) mg/dL Delta Bilirubin (0.0-0.2) mg/dL AST (17-59) U/L ALT (21-72) U/L Total Protein (6.3-8.2) g/dL Albumin (3.5-5.0) g/dL 08/12/18 08/13/18 08/13/18 Range/Units 20:00 04:34 04:34 Hgb (13.0-17.5) gm/dL MCV (80.0-100.0) fL MCH (25.0-35.0) pg MCHC (31.0-37.0) g/dL RDW (11.5-15.5) % Plt Count (150-450) k/uL PT 16.9 H (9.0-12.0) sec INR 1.7 H (<1.2) Glucose 164 H (74-99) mg/dL POC Glucose (mg/dL) 124 H (75-99) mg/dL Total Bilirubin 2.5 H (0.2-1.3) mg/dL Unconjugated Bilirubin 1.4 H (0.0-1.1) mg/dL Delta Bilirubin 1.1 H (0.0-0.2) mg/dL AST 149 H (17-59) U/L ALT 600 H (21-72) U/L Total Protein 5.8 L (6.3-8.2) g/dL Albumin 3.1 L (3.5-5.0) g/dL 08/13/18 08/13/18 Range/Units 04:38 07:01 Hgb 12.3 L (13.0-17.5) gm/dL MCV 76.1 L (80.0-100.0) fL MCH 23.4 L (25.0-35.0) pg MCHC 30.7 L (31.0-37.0) g/dL RDW 19.6 H (11.5-15.5) % Plt Count 79 L (150-450) k/uL PT (9.0-12.0) sec INR (<1.2) Glucose (74-99) mg/dL POC Glucose (mg/dL) 132 H (75-99) mg/dL Total Bilirubin (0.2-1.3) mg/dL Unconjugated Bilirubin (0.0-1.1) mg/dL Delta Bilirubin (0.0-0.2) mg/dL AST (17-59) U/L ALT (21-72) U/L Total Protein (6.3-8.2) g/dL Albumin (3.5-5.0) g/dL Microbiology - Last 24 Hours (Table) 08/10/18 22:26 Urine Culture - Final Urine,Catheterized Staphylococcus epidermidis Assessment and Plan (1) Acute disorder of liver Narrative/Plan: 68-year-old male with history of coronary artery disease and atrial fibrillation with RVR who was seen to have an acute rise in liver enzymes during his hospitalization. At this time suspicion is for congestive hepatopathy or ischemia in the setting of low blood pressures (systolic blood pressure in the 90s and diastolic blood pressure in the 50s on the floor), with biliary etiology less likely in the setting of no ductal dilation on imaging scan, viral hepatitis panel was negative. Currently liver enzymes are trending down. Current Visit: Yes Status: Acute Code(s): K76.9 - LIVER DISEASE, UNSPECIFIED SNOMED Code(s): 561854725 (2) Atrial fibrillation with RVR Current Visit: No Status: Acute Code(s): I48.91 - UNSPECIFIED ATRIAL FIBRILLATION SNOMED Code(s): 997527650522176 Plan: Supportive care Okay for diet as tolerated Continue to monitor liver enzymes Will order full liver serologies, however at this time suspicion is for congestive hepatopathy or hypoperfusion in the setting of low blood pressures and cardiac dysfunction Viral hepatitis panel negative No ductal dilation or stones seen on ultrasound abdomen Avoid hepatotoxic medications Thank you for allowing us to participate in the care of the patient we will continue to follow
[2018-08-13 12:58] LABS: Iron Saturation 9.29 (15.00-50.00); Protein, Total 5.5 g/dL (6.2-8.2)
--- NOTE | 2018-08-13 14:38 | PN ---
PROGRESS NOTE Patient is seen for followup for acute kidney injury. His renal function has significantly improved. Patient was also hypernatremic and electrolytes are within normal range. Patient was transferred to the ICU with significant alteration in his mentation. Mental status is somewhat improved from 4-5 days ago. However, patient becomes confused mainly at night. Last night, he received about 5 mg of Haldol, Haldol. He also received Xanax and this morning he is sleepy but arousable. CAT scan of the brain was unremarkable. PHYSICAL EXAMINATION: This morning, blood pressure was 117/59, heart rate 54 per minute. He is afebrile. Examination of the heart, S1, S2. Examination of the lungs, bilateral breath sounds are heard. Abdomen is soft, nontender. Examination lower extremities shows no evidence of edema. CRYSTAL CALIBRATOR exam shows patient moving all 4 extremities. He is currently arousable, but goes back to sleep. LABS: Show sodium 138, potassium 4.7, serum creatinine 0.84, BUN 14, calcium 8.8, iron saturation 9.29, ferritin 181. ASSESSMENT: 1. Acute kidney injury, prerenal, currently resolved. 2. Hypernatremia, maintained on D5W and stable and significantly improved. 3. Confusion, altered mentation initially related to hypernatremia. However, his electrolytes have improved and the mentation remains impaired. 4. Severe cardiomyopathy, ejection fraction 35%, currently not in failure. 5. Iron deficiency. PLAN: Continue D5W. I will give 2 doses of IV iron. Consider Neurology consult. MMODL / IJN: [id number] /
[2018-08-13 17:06] LABS: Glucose,Whole Blood 115 mg/dL (75-99)
[2018-08-13 20:17] LABS: Glucose,Whole Blood 140 mg/dL (75-99)
[2018-08-14] MEDS: ALPRAZolam 0.25 MG TAB PO PRN ×3 (01:11→14:43)
[2018-08-14] MEDS: HALOPERIDOL LACTATE 5 MG/ML 1 ML VIAL IVP PRN ×3 (01:12→14:33)
[2018-08-14 05:57] LABS: INR 1.5 (<1.2); Prothrombin Time 15.1 sec (9.0-12.0)
[2018-08-14 06:14] LABS: Albumin 3.2 g/dL (3.5-5.0); Bilirubin,Unconjugated 1.4 mg/dL (0.0-1.1); Total Bilirubin 2.4 mg/dL (0.2-1.3)
[2018-08-14] MEDS: LEVOTHYROXINE 100 MCG TAB PO SCH (06:55)
[2018-08-14] MEDS: DEXTROSE 5% IN WATER 1,000 ML IV SCH (06:55)
[2018-08-14] MEDS: PANTOPRAZOLE 40 MG TABLET PO SCH (06:55)
[2018-08-14] MEDS: INSULIN ASPART (NovoLOG) 100 UNIT/ML VIAL SQ SCH ×4 (07:01→21:42)
[2018-08-14 07:02] LABS: Glucose,Whole Blood 113 mg/dL (75-99)
[2018-08-14] MEDS: ASPIRIN 81 MG PO SCH (09:06)
[2018-08-14] MEDS: APIXABAN 5 MG TAB PO SCH ×2 (09:06→21:42)
[2018-08-14] MEDS: DULoxetine HCL 60 MG CAPSULE.DR PO SCH (09:08)
[2018-08-14] MEDS: SODIUM CHLORIDE 0.9% 1,000 ML IV SCH (09:57)
[2018-08-14] MEDS: POLYETHYLENE GLYCOL 3350 17 GM POWD.PACK PO SCH (09:58)
[2018-08-14] MEDS: METOPROLOL TARTRATE 50 MG TAB PO SCH ×2 (09:58→20:23)
--- NOTE | 2018-08-14 10:12 | P.PN ---
Subjective Patient is seen in follow-up for acute kidney injury, which has significantly improved. Hypernatremia has resolved. Currently maintained on D5W at 75 mL an hour. Patient remains agitated. He received Haldol this morning. Vital signs are stable. General: The patient appeared well nourished and normally developed. HEENT: Head exam is unremarkable. Neck is without jugular venous distension. LUNGS: Lungs are clear to auscultation and percussion. Breath sounds decreased. HEART: Rate and Rhythm are regular. First and second heart sounds normal. No murmurs, rubs or gallops. ABDOMEN: Abdominal exam reveals normal bowel sounds. Non-tender and non- distended. No evidence of peritonitis. EXTREMITITES: No clubbing, cyanosis, or edema. Objective - Vital Signs Vital signs: Vital Signs Temp 96.7 F L 08/14/18 08:00 Pulse 61 08/14/18 08:00 Resp 10 L 08/14/18 08:00 BP 118/73 08/14/18 08:00 Pulse Ox 96 08/14/18 07:00 Intake & Output 08/13/18 08/14/18 08/14/18 18:59 06:59 18:59 Intake Total 1250 900 75 Output Total 1195 925 35 Balance 55 -25 40 Weight 90.8 kg 90.3 kg Intake: IV 900 900 75 Dextrose 5% in Water 1, 900 900 75 000 ml @ 75 mls/hr IV . [id number] [facility] Rx#:[id number] Intake, IV Titration 100 Amount Magnesium Sulfate-D5w Pmx 100 1 gm In Dextrose/Water 1 100ml.bag @ 100 mls/hr IVPB Q1H [facility] Rx#: [id number] Oral 250 Output: Urine 1195 925 35 Other: Voiding Method Indwelling Catheter Indwelling Catheter # Bowel Movements 2 - Labs CBC & Chem 7: 08/13/18 04:38 08/13/18 04:34 Labs: Abnormal Lab Results - Last 24 Hours (Table) 08/13/18 08/13/18 08/13/18 Range/Units 04:34 11:25 17:05 PT (9.0-12.0) sec INR (<1.2) POC Glucose (mg/dL) 148 H 115 H (75-99) mg/dL Iron 25 L (65-175) ug/dL Iron Saturation 9.29 L (15.00-50.00) Total Bilirubin (0.2-1.3) mg/dL Unconjugated Bilirubin (0.0-1.1) mg/dL Delta Bilirubin (0.0-0.2) mg/dL AST (17-59) U/L ALT (21-72) U/L Total Protein (6.3-8.2) g/dL Total Protein (PEP) 5.5 L (6.2-8.2) g/dL Albumin (3.5-5.0) g/dL 08/13/18 08/14/18 08/14/18 Range/Units 20:16 05:35 05:35 PT 15.1 H (9.0-12.0) sec INR 1.5 H (<1.2) POC Glucose (mg/dL) 140 H (75-99) mg/dL Iron (65-175) ug/dL Iron Saturation (15.00-50.00) Total Bilirubin 2.4 H (0.2-1.3) mg/dL Unconjugated Bilirubin 1.4 H (0.0-1.1) mg/dL Delta Bilirubin 1.0 H (0.0-0.2) mg/dL AST 99 H (17-59) U/L ALT 485 H (21-72) U/L Total Protein 6.0 L (6.3-8.2) g/dL Total Protein (PEP) (6.2-8.2) g/dL Albumin 3.2 L (3.5-5.0) g/dL 08/14/18 Range/Units 07:00 PT (9.0-12.0) sec INR (<1.2) POC Glucose (mg/dL) 113 H (75-99) mg/dL Iron (65-175) ug/dL Iron Saturation (15.00-50.00) Total Bilirubin (0.2-1.3) mg/dL Unconjugated Bilirubin (0.0-1.1) mg/dL Delta Bilirubin (0.0-0.2) mg/dL AST (17-59) U/L ALT (21-72) U/L Total Protein (6.3-8.2) g/dL Total Protein (PEP) (6.2-8.2) g/dL Albumin (3.5-5.0) g/dL Assessment and Plan Plan: Assessment: 1. Acute kidney injury secondary to ATN secondary to hemodynamic instability/retention. He also received IV contrast on August 03. Resolved. No evidence of hydronephrosis noted on renal ultrasound.. 2. Hyponatremia secondary to lack of for water intake. Maintained on D5 W. Resolved. 3. Systolic CHF with ejection fraction of 35%. 4. Iron deficiency. 5. Insulin-dependent diabetes mellitus. Plan: I will change IV fluids to normal saline at 50 mL an hour. IV iron 3 doses. First dose today. Repeat electrolytes in the morning.
--- NOTE | 2018-08-14 10:44 | P.PN ---
Subjective Progress Note Date: 08/14/18 Principal diagnosis: Elevated liver enzymes Patient is seen lying in bed, no acute complaints. No nausea or vomiting. Confused sitter at bedside. No signs or symptoms of GI bleeding. LFTs improved. Objective - Vital Signs Vital signs: Vital Signs Temp 96.7 F L 08/14/18 08:00 Pulse 61 08/14/18 08:00 Resp 10 L 08/14/18 08:00 BP 118/73 08/14/18 08:00 Pulse Ox 96 08/14/18 07:00 Intake & Output 08/13/18 08/14/18 08/14/18 18:59 06:59 18:59 Intake Total 1250 900 75 Output Total 1195 925 35 Balance 55 -25 40 Weight 90.8 kg 90.3 kg Intake: IV 900 900 75 Dextrose 5% in Water 1, 900 900 75 000 ml @ 75 mls/hr IV . [id number] [facility] Rx#:[id number] Intake, IV Titration 100 Amount Magnesium Sulfate-D5w Pmx 100 1 gm In Dextrose/Water 1 100ml.bag @ 100 mls/hr IVPB Q1H [facility] Rx#: [id number] Oral 250 Output: Urine 1195 925 35 Other: Voiding Method Indwelling Catheter Indwelling Catheter # Bowel Movements 2 - Exam On physical examination, patient appears restless confused but comfortable HEAD: Normocephalic, atraumatic. EYES: Minimal scleral icterus. No conjunctival injection. MOUTH: No lesions, tongue midline. NECK: Trachea midline, no gross abnormalities. CHEST: Decreased air entry bilaterally, no wheezing appreciated. HEART: S1-S2 appreciated. ABDOMEN: Soft, obese. Bowel sounds are positive. No organomegaly. No guarding or rigidity. EXTREMITIES: No pedal edema. SKIN: No rashes, minimal jaundice. NEUROLOGIC: Alert and oriented to person. No focal deficit - Labs CBC & Chem 7: 08/13/18 04:38 08/13/18 04:34 Labs: Abnormal Lab Results - Last 24 Hours (Table) 08/13/18 08/13/18 08/13/18 Range/Units 04:34 11:25 17:05 PT (9.0-12.0) sec INR (<1.2) POC Glucose (mg/dL) 148 H 115 H (75-99) mg/dL Iron 25 L (65-175) ug/dL Iron Saturation 9.29 L (15.00-50.00) Total Bilirubin (0.2-1.3) mg/dL Unconjugated Bilirubin (0.0-1.1) mg/dL Delta Bilirubin (0.0-0.2) mg/dL AST (17-59) U/L ALT (21-72) U/L Total Protein (6.3-8.2) g/dL Total Protein (PEP) 5.5 L (6.2-8.2) g/dL Albumin (3.5-5.0) g/dL 08/13/18 08/14/18 08/14/18 Range/Units 20:16 05:35 05:35 PT 15.1 H (9.0-12.0) sec INR 1.5 H (<1.2) POC Glucose (mg/dL) 140 H (75-99) mg/dL Iron (65-175) ug/dL Iron Saturation (15.00-50.00) Total Bilirubin 2.4 H (0.2-1.3) mg/dL Unconjugated Bilirubin 1.4 H (0.0-1.1) mg/dL Delta Bilirubin 1.0 H (0.0-0.2) mg/dL AST 99 H (17-59) U/L ALT 485 H (21-72) U/L Total Protein 6.0 L (6.3-8.2) g/dL Total Protein (PEP) (6.2-8.2) g/dL Albumin 3.2 L (3.5-5.0) g/dL 08/14/18 Range/Units 07:00 PT (9.0-12.0) sec INR (<1.2) POC Glucose (mg/dL) 113 H (75-99) mg/dL Iron (65-175) ug/dL Iron Saturation (15.00-50.00) Total Bilirubin (0.2-1.3) mg/dL Unconjugated Bilirubin (0.0-1.1) mg/dL Delta Bilirubin (0.0-0.2) mg/dL AST (17-59) U/L ALT (21-72) U/L Total Protein (6.3-8.2) g/dL Total Protein (PEP) (6.2-8.2) g/dL Albumin (3.5-5.0) g/dL Assessment and Plan (1) Acute disorder of liver Narrative/Plan: 68-year-old male with history of coronary artery disease and atrial fibrillation with RVR who was seen to have an acute rise in liver enzymes during his hospitalization. At this time suspicion is for congestive hepatopathy or ischemia in the setting of low blood pressures (systolic blood pressure in the 90s and diastolic blood pressure in the 50s on the floor), with biliary etiology less likely in the setting of no ductal dilation on imaging scan, viral hepatitis panel was negative. Currently liver enzymes are trending down. Current Visit: Yes Status: Acute Code(s): K76.9 - LIVER DISEASE, UNSPECIFIED SNOMED Code(s): 283823218 (2) Confusion Narrative/Plan: Psychiatric consult. Sitter at bedside. Current Visit: Yes Status: Acute Code(s): R41.0 - DISORIENTATION, UNSPECIFIED SNOMED Code(s): 191059080 (3) Atrial fibrillation with RVR Current Visit: No Status: Acute Code(s): I48.91 - UNSPECIFIED ATRIAL FIBRILLATION SNOMED Code(s): 859709519274738 Plan: 1. We'll follow as needed call GI service for questions and or concerns. Full liver serology for chronic liver disease workup so far negative. Assessment and plan a care discussed with Dr. Rosenberg
[2018-08-14 11:20] LABS: Liver/Kidney Microsome Antibod 3.5 UNITS (<=20)
[2018-08-14] MEDS: SODIUM FERRIC GLUCONAT-SUCROSE 125 MG in SODIUM CHLORIDE 0.9% 100 ML IVPB SCH (11:50)
[2018-08-14 11:54] LABS: Glucose,Whole Blood 138 mg/dL (75-99)
--- NOTE | 2018-08-14 12:19 | P.PN ---
Subjective Progress Note Date: 08/14/18 Principal diagnosis: Acute metabolic encephalopathy and mental status change This is a 68-year-old male patient got transferred to the intensive care unit yesterday because of altered mentation. The patient was becoming more lethargic and there has been significant abnormalities in his liver function test and at that point it was decided to move this patient with ICU. I reviewed the records and there has been significant medical problems and comorbidities most significant of which are cardiac problems. The patient is known to have coronary artery disease and he has undergone previous non-ST segment elevation myocardial infarction. He initially presented with some chest pain injury this current hospitalization a cardiac catheterization was done that showed nonocclusive disease. The patient also has chronic persistent atrial fibrillation and he has been maintained on long-term anticoagulation. During this current hospital stay, the patient was in A. fib/RVR and addition to CHF. He was given amiodarone during his initial presentation and ultimately the amiodarone was discontinued as the patient became bradycardic. His current rhythm is sinus bradycardia. Also, the patient has congestion heart failure. 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 The patient has hypertension, hyperlipidemia and diabetes mellitus. Note that during this current hospitalization, the patient also developed acute kidney injury. Nephrology was involved in the case. The patient's creatinine gradually improved as the patient was being resuscitated IV fluids. This could've been also contrast nephropathy. In any rate, the patient has developed worsening LFTs, lactic acidosis, some mild coagulopathy while being off anticoagulation other than Eliquis. He got transferred to the ICU. Note that his AST and ALP levels are improving and they're down to 457 and 95 respectively, alk phos is 77, his lactic acid level was as high as 4.0 and is currently down to 1.7. The creatinine level has dropped from 3.9 down to 1.1 which is back to its baseline. In view of his ongoing mental status change, the patient has undergone a CAT scan of the brain that showed no acute abnormalities and there are some chronic ENTRY ENGINEER atrophy. Most recent INR is at 1.8 with a PT of 17.8. Currently is lethargic and encephalopathic. He withdraws to painful is diminished in all 4 extremities. No neck stiffness to no fever or chills. No leukocytosis. Hemoglobin 11.7. Platelet count is at 67,000.The chest x-ray showed improvement changes in the CHF and pulmonary edema and this was done this morning on 08/11/2018. The CAT scan of the abdomen showed mild ascites and there is high attenuation of the gallbladder related to concentrated by. No dilatation of the biliary ducts. The lung bases are essentially clear and there is no effusion. No pericardial effusion. On today's evaluation of 08/12/2018 of seeing this patient for a follow-up. The patient is still encephalopathic. The patient is arousable and he will follow some simple commands. For the most part he remains confused and his mental status remains quite diminished. His neurologic exam is nonfocal. His liver function tests are improving. I would say, he is less confused compared to yesterday and his condition is gradually improving. His renal function is also stable and his creatinine is normalized. AST is down to 47. ALT is down to 757. No significant elevation in ammonia levels. No respiratory distress. When awake, he is able to swallow his tablets without any major issues. His cardiac rhythm is sinus bradycardia. Overnight he had an episode of agitation during which the patient was given Xanax and then Haldol and this was approximately 10 PM/1 AM. He slept all night without any major difficulties. The plated count is also stable. No other significant events. On today's evaluation 08/13/2018, patient remains in bed, very calm, arousable, follows simple instructions, less confused compared to what was noted above on his initial evaluation. CBC is normal INR is 1.7 basic metabolic profile is normal liver enzymes are improving, his total bilirubin is 2.5 his AST is 149 ALT is 600 and again that is significantly improved compared to 2 days ago. Clearly his liver enzymes are improving. And his mental status is actually clearing slowly. His ammonia level was not elevated. Patient is able to swallow uneventfully. Hemodynamically he remains stable, and no significant agitation this morning. Did receive Haldol last night. Reevaluated today on 08/14/2018, patient is in bed, calm, arousable, follows simple instructions, a bit confused, and according to the nurse he had episodes of extreme confusion and agitation last night requiring Haldol. Patient is presently calm, and he continues to have these episodes of agitations hence I recommended psychiatric evaluation to possibly maintained the patient on oral antipsychotic or sedative medication/maintenance. His metabolic profile did improve, liver profile is much better compared to the last few days. Bilirubin is 2.4 ALT is 485 AST is 99. Objective - Vital Signs Vital signs: Vital Signs Temp 96.7 F L 08/14/18 08:00 Pulse 61 08/14/18 11:00 Resp 23 08/14/18 11:00 BP 105/83 08/14/18 11:00 Pulse Ox 96 08/14/18 11:00 Intake & Output 08/13/18 08/14/18 08/14/18 18:59 06:59 18:59 Intake Total 1250 900 500 Output Total 1195 925 165 Balance 55 -25 335 Weight 90.8 kg 90.3 kg 90.3 kg Intake: IV 900 900 150 Dextrose 5% in Water 1, 900 900 150 000 ml @ 75 mls/hr IV . [id number] [facility] Rx#:[id number] Intake, IV Titration 100 150 Amount Magnesium Sulfate-D5w Pmx 100 1 gm In Dextrose/Water 1 100ml.bag @ 100 mls/hr IVPB Q1H [facility] Rx#: [id number] Sodium Chloride 0.9% 1, 150 000 ml @ 50 mls/hr IV . Q20H [facility] Rx#:[id number] Oral 250 200 Output: Urine 1195 925 165 Other: Voiding Method Indwelling Catheter Indwelling Catheter Indwelling Catheter # Bowel Movements 2 - Exam Physical Exam: Revealed a 68-year-old white male in no distress. Head: Atraumatic normocephalic. HEENT:[Neck is supple.] [No neck masses.] [No thyromegaly.] [No JVD. PERRLA, EOMI, positive icterus. Dry mucous membranes noted. Chest: [Clear throughout, no crackles, no rhonchi, no wheezes.] Cardiac Exam: [Normal S1 and S2, no S3 gallop, no murmur.] Abdomen: [Soft, nontender, no megaly, no rebound, no guarding, normal bowel sounds.] Extremities: [No clubbing, no edema, no cyanosis.] Neurological Exam: Arousable, opens eyes, follows instructions, seems to be slow and encephalopathic. Lymphatics: Lymphadenopathy. Skin: No rashes. - Labs CBC & Chem 7: 08/13/18 04:38 08/13/18 04:34 Labs: Abnormal Lab Results - Last 24 Hours (Table) 08/13/18 08/13/18 08/13/18 Range/Units 04:34 17:05 20:16 PT (9.0-12.0) sec INR (<1.2) POC Glucose (mg/dL) 115 H 140 H (75-99) mg/dL Iron 25 L (65-175) ug/dL Iron Saturation 9.29 L (15.00-50.00) Total Bilirubin (0.2-1.3) mg/dL Unconjugated Bilirubin (0.0-1.1) mg/dL Delta Bilirubin (0.0-0.2) mg/dL AST (17-59) U/L ALT (21-72) U/L Total Protein (6.3-8.2) g/dL Total Protein (PEP) 5.5 L (6.2-8.2) g/dL Albumin (3.5-5.0) g/dL 08/14/18 08/14/18 08/14/18 Range/Units 05:35 05:35 07:00 PT 15.1 H (9.0-12.0) sec INR 1.5 H (<1.2) POC Glucose (mg/dL) 113 H (75-99) mg/dL Iron (65-175) ug/dL Iron Saturation (15.00-50.00) Total Bilirubin 2.4 H (0.2-1.3) mg/dL Unconjugated Bilirubin 1.4 H (0.0-1.1) mg/dL Delta Bilirubin 1.0 H (0.0-0.2) mg/dL AST 99 H (17-59) U/L ALT 485 H (21-72) U/L Total Protein 6.0 L (6.3-8.2) g/dL Total Protein (PEP) (6.2-8.2) g/dL Albumin 3.2 L (3.5-5.0) g/dL 08/14/18 Range/Units 11:53 PT (9.0-12.0) sec INR (<1.2) POC Glucose (mg/dL) 138 H (75-99) mg/dL Iron (65-175) ug/dL Iron Saturation (15.00-50.00) Total Bilirubin (0.2-1.3) mg/dL Unconjugated Bilirubin (0.0-1.1) mg/dL Delta Bilirubin (0.0-0.2) mg/dL AST (17-59) U/L ALT (21-72) U/L Total Protein (6.3-8.2) g/dL Total Protein (PEP) (6.2-8.2) g/dL Albumin (3.5-5.0) g/dL Assessment and Plan Assessment: Impression: 1 acute mental status change secondary to metabolic encephalopathy patient presented with acute kidney injury, acute hepatic injury, and mild lactic acidosis. No signs of sepsis were noted. Could be related to medications, amiodarone was discontinued. 2 systolic congestive heart failure/cardiomyopathy, ejection fraction is 30-35% 3 recent cardiac catheterization 4 paroxysmal atrial fibrillation 5 benign essential hypertension 6 hyperlipidemia 8 hypothyroidism 9 lactic acidosis on presentation, could be hypoperfusion in nature. Again doubt sepsis. 10 acute kidney injury on presentation resolved. Recommendation: We will recommend psychiatric evaluation on this patient because of his mental status, may require some oral antipsychotic medication, patient will be kept in the ICU for the next 24 hours, we'll continue to follow closely. Will use Haldol as needed for extreme agitation otherwise we'll continue to monitor and treat symptomatically. Time with Patient: Less than 30
[2018-08-14 18:16] LABS: Glucose,Whole Blood 233 mg/dL (75-99)
[2018-08-14 20:31] LABS: Glucose,Whole Blood 153 mg/dL (75-99)
[2018-08-15] MEDS: HALOPERIDOL LACTATE 5 MG/ML 1 ML VIAL IVP PRN ×2 (01:05→11:08)
[2018-08-15] MEDS: ALPRAZolam 0.25 MG TAB PO PRN ×2 (01:17→08:12)
[2018-08-15 06:36] LABS: ALT 391 U/L (21-72); AST 100 U/L (17-59); Albumin 3.3 g/dL (3.5-5.0); Alkaline Phosphatase 87 U/L (38-126); Anion Gap 8 mmol/L; Bilirubin, Delta 1.2 mg/dL (0.0-0.2); Bilirubin,Unconjugated 1.2 mg/dL (0.0-1.1); Blood Urea Nitrogen 11 mg/dL (9-20); Calcium 8.7 mg/dL (8.4-10.2); Carbon Dioxide 23 mmol/L (22-30); Chloride 104 mmol/L (98-107); Glucose 105 mg/dL (74-99); Magnesium 1.5 mg/dL (1.6-2.3); Sodium 135 mmol/L (137-145); Total Bilirubin 2.4 mg/dL (0.2-1.3); Total Protein 6.2 g/dL (6.3-8.2)
[2018-08-15 06:38] LABS: INR 1.4 (<1.2); Prothrombin Time 13.8 sec (9.0-12.0)
[2018-08-15 06:43] LABS: Potassium 5.2 mmol/L (3.5-5.1)
[2018-08-15] MEDS: INSULIN ASPART (NovoLOG) 100 UNIT/ML VIAL SQ SCH ×4 (07:02→21:42)
[2018-08-15] MEDS: SODIUM CHLORIDE 0.9% 1,000 ML IV SCH (07:02)
[2018-08-15] MEDS: LEVOTHYROXINE 100 MCG TAB PO SCH (07:09)
[2018-08-15] MEDS: DULoxetine HCL 60 MG CAPSULE.DR PO SCH (08:12)
[2018-08-15] MEDS: PANTOPRAZOLE 40 MG TABLET PO SCH (08:12)
[2018-08-15] MEDS: APIXABAN 5 MG TAB PO SCH ×2 (08:12→21:06)
[2018-08-15] MEDS: ASPIRIN 81 MG PO SCH (08:12)
[2018-08-15] MEDS: POLYETHYLENE GLYCOL 3350 17 GM POWD.PACK PO SCH (08:12)
[2018-08-15] MEDS: METOPROLOL TARTRATE 50 MG TAB PO SCH ×2 (08:14→20:59)
[2018-08-15] MEDS: SODIUM FERRIC GLUCONAT-SUCROSE 125 MG in SODIUM CHLORIDE 0.9% 100 ML IVPB SCH (09:18)
[2018-08-15] MEDS ORDERED: ALPRAZolam 0.5 MG TAB PO PRN (09:59)
--- NOTE | 2018-08-15 10:12 | P.PN ---
Subjective Patient is seen in follow-up for acute kidney injury, which has significantly improved. Hypernatremia has resolved. D5W has been discontinued. He is currently not on any IV fluids as he has been pulling out his IVs. Patient remains agitated. Oral intake has been fair. Vital signs are stable. General: The patient appeared well nourished and normally developed. HEENT: Head exam is unremarkable. Neck is without jugular venous distension. LUNGS: Lungs are clear to auscultation and percussion. Breath sounds decreased. HEART: Rate and Rhythm are regular. First and second heart sounds normal. No murmurs, rubs or gallops. ABDOMEN: Abdominal exam reveals normal bowel sounds. Non-tender and non- distended. No evidence of peritonitis. EXTREMITITES: No clubbing, cyanosis, or edema. Objective - Vital Signs Vital signs: Vital Signs Temp 97.9 F 08/15/18 08:00 Pulse 57 L 08/15/18 10:00 Resp 22 08/15/18 10:00 BP 117/68 08/15/18 10:00 Pulse Ox 93 L 08/15/18 10:00 Intake & Output 08/14/18 08/15/18 08/15/18 18:59 06:59 18:59 Intake Total 1250 593 100 Output Total 780 1500 690 Balance 470 -907 -590 Weight 90.3 kg 92.3 kg Intake: IV 150 300 0 0.9 300 0 Dextrose 5% in Water 1, 150 000 ml @ 75 mls/hr IV . [id number] [facility] Rx#:[id number] Intake, IV Titration 600 50 100 Amount Sodium Chloride 0.9% 1, 500 50 000 ml @ 50 mls/hr IV . Q20H [facility] Rx#:[id number] Sodium Ferric Gluconat- 100 100 Sucrose 125 mg In Sodium Chloride 0.9% 100 ml @ 100 mls/hr IVPB DAILY [facility] Rx#:[id number] Oral 500 Tube Feeding 243 Output: Urine 780 1500 690 Other: Voiding Method Indwelling Catheter Indwelling Catheter Indwelling Catheter - Labs CBC & Chem 7: 08/13/18 04:38 08/15/18 06:04 Labs: Abnormal Lab Results - Last 24 Hours (Table) 08/14/18 08/14/18 08/14/18 Range/Units 11:53 18:14 20:30 PT (9.0-12.0) sec INR (<1.2) Sodium (137-145) mmol/L Potassium (3.5-5.1) mmol/L Glucose (74-99) mg/dL POC Glucose (mg/dL) 138 H 233 H 153 H (75-99) mg/dL Magnesium (1.6-2.3) mg/dL Total Bilirubin (0.2-1.3) mg/dL Unconjugated Bilirubin (0.0-1.1) mg/dL Delta Bilirubin (0.0-0.2) mg/dL AST (17-59) U/L ALT (21-72) U/L Total Protein (6.3-8.2) g/dL Albumin (3.5-5.0) g/dL 08/15/18 08/15/18 Range/Units 06:04 06:04 PT 13.8 H (9.0-12.0) sec INR 1.4 H (<1.2) Sodium 135 L (137-145) mmol/L Potassium 5.2 H (3.5-5.1) mmol/L Glucose 105 H (74-99) mg/dL POC Glucose (mg/dL) (75-99) mg/dL Magnesium 1.5 L (1.6-2.3) mg/dL Total Bilirubin 2.4 H (0.2-1.3) mg/dL Unconjugated Bilirubin 1.2 H (0.0-1.1) mg/dL Delta Bilirubin 1.2 H (0.0-0.2) mg/dL AST 100 H (17-59) U/L ALT 391 H (21-72) U/L Total Protein 6.2 L (6.3-8.2) g/dL Albumin 3.3 L (3.5-5.0) g/dL Assessment and Plan Plan: Assessment: 1. Acute kidney injury secondary to ATN secondary to hemodynamic instability/retention. He also received IV contrast on August 03. Resolved. No evidence of hydronephrosis noted on renal ultrasound.. 2. Hypernatremia secondary to lack of for water intake. Status post D5W. Resolved. 3. Systolic CHF with ejection fraction of 35%. 4. Iron deficiency. 5. Insulin-dependent diabetes mellitus. 6. Hypomagnesemia due to poor oral intake. Plan: Currently not on IV fluids as he's been pulling out his IVs. IV iron 3 doses. Second dose today. Replace magnesium. 2 g IV today. Repeat electrolytes in the morning.
[2018-08-15] MEDS: MAGNESIUM SULFATE-D5W PMX 1 GM in DEXTROSE/WATER 1 100ML.BAG IVPB SCH ×2 (10:38→11:31)
[2018-08-15 11:35] LABS: Glucose,Whole Blood 226 mg/dL (75-99)
--- NOTE | 2018-08-15 11:49 | P.PN ---
Subjective Progress Note Date: 08/15/18 Principal diagnosis: Acute metabolic encephalopathy and mental status change This is a 68-year-old male patient got transferred to the intensive care unit yesterday because of altered mentation. The patient was becoming more lethargic and there has been significant abnormalities in his liver function test and at that point it was decided to move this patient with ICU. I reviewed the records and there has been significant medical problems and comorbidities most significant of which are cardiac problems. The patient is known to have coronary artery disease and he has undergone previous non-ST segment elevation myocardial infarction. He initially presented with some chest pain injury this current hospitalization a cardiac catheterization was done that showed nonocclusive disease. The patient also has chronic persistent atrial fibrillation and he has been maintained on long-term anticoagulation. During this current hospital stay, the patient was in A. fib/RVR and addition to CHF. He was given amiodarone during his initial presentation and ultimately the amiodarone was discontinued as the patient became bradycardic. His current rhythm is sinus bradycardia. Also, the patient has congestion heart failure. 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 The patient has hypertension, hyperlipidemia and diabetes mellitus. Note that during this current hospitalization, the patient also developed acute kidney injury. Nephrology was involved in the case. The patient's creatinine gradually improved as the patient was being resuscitated IV fluids. This could've been also contrast nephropathy. In any rate, the patient has developed worsening LFTs, lactic acidosis, some mild coagulopathy while being off anticoagulation other than Eliquis. He got transferred to the ICU. Note that his AST and ALP levels are improving and they're down to 457 and 95 respectively, alk phos is 77, his lactic acid level was as high as 4.0 and is currently down to 1.7. The creatinine level has dropped from 3.9 down to 1.1 which is back to its baseline. In view of his ongoing mental status change, the patient has undergone a CAT scan of the brain that showed no acute abnormalities and there are some chronic COMPOSITION FLOOR LAYER atrophy. Most recent INR is at 1.8 with a PT of 17.8. Currently is lethargic and encephalopathic. He withdraws to painful is diminished in all 4 extremities. No neck stiffness to no fever or chills. No leukocytosis. Hemoglobin 11.7. Platelet count is at 67,000.The chest x-ray showed improvement changes in the CHF and pulmonary edema and this was done this morning on 08/11/2018. The CAT scan of the abdomen showed mild ascites and there is high attenuation of the gallbladder related to concentrated by. No dilatation of the biliary ducts. The lung bases are essentially clear and there is no effusion. No pericardial effusion. On today's evaluation of 08/12/2018 of seeing this patient for a follow-up. The patient is still encephalopathic. The patient is arousable and he will follow some simple commands. For the most part he remains confused and his mental status remains quite diminished. His neurologic exam is nonfocal. His liver function tests are improving. I would say, he is less confused compared to yesterday and his condition is gradually improving. His renal function is also stable and his creatinine is normalized. AST is down to 47. ALT is down to 757. No significant elevation in ammonia levels. No respiratory distress. When awake, he is able to swallow his tablets without any major issues. His cardiac rhythm is sinus bradycardia. Overnight he had an episode of agitation during which the patient was given Xanax and then Haldol and this was approximately 10 PM/1 AM. He slept all night without any major difficulties. The plated count is also stable. No other significant events. On today's evaluation 08/13/2018, patient remains in bed, very calm, arousable, follows simple instructions, less confused compared to what was noted above on his initial evaluation. CBC is normal INR is 1.7 basic metabolic profile is normal liver enzymes are improving, his total bilirubin is 2.5 his AST is 149 ALT is 600 and again that is significantly improved compared to 2 days ago. Clearly his liver enzymes are improving. And his mental status is actually clearing slowly. His ammonia level was not elevated. Patient is able to swallow uneventfully. Hemodynamically he remains stable, and no significant agitation this morning. Did receive Haldol last night. Reevaluated today on 08/14/2018, patient is in bed, calm, arousable, follows simple instructions, a bit confused, and according to the nurse he had episodes of extreme confusion and agitation last night requiring Haldol. Patient is presently calm, and he continues to have these episodes of agitations hence I recommended psychiatric evaluation to possibly maintained the patient on oral antipsychotic or sedative medication/maintenance. His metabolic profile did improve, liver profile is much better compared to the last few days. Bilirubin is 2.4 ALT is 485 AST is 99. Patient was reevaluated today on 08/15/2018, continues to have intermittent episodes of confusion, and agitation. He is yet to be seen by psychiatry on consultation, he is still requiring Haldol intermittently, and the dose of Xanax was increased today to 0.5 mg every 6 hours when necessary. All labs were reviewed including . Basic metabolic profile, and his liver enzymes are improving. His renal profile is back to normal. Continues to have elevated ALT and elevated AST. Patient is confused, intermittently agitated, but called during my evaluation this morning. Objective - Vital Signs Vital signs: Vital Signs Temp 97.9 F 08/15/18 08:00 Pulse 54 L 08/15/18 11:00 Resp 18 08/15/18 11:00 BP 96/65 08/15/18 11:00 Pulse Ox 93 L 08/15/18 11:00 Intake & Output 08/14/18 08/15/18 08/15/18 18:59 06:59 18:59 Intake Total 1250 593 200 Output Total 780 1500 732 Balance 077 -370 -821 Weight 90.3 kg 92.3 kg 92.3 kg Intake: IV 150 300 0 0.9 300 0 Dextrose 5% in Water 1, 150 000 ml @ 75 mls/hr IV . [id number] [facility] Rx#:[id number] Intake, IV Titration 600 50 200 Amount Magnesium Sulfate-D5w Pmx 100 1 gm In Dextrose/Water 1 100ml.bag @ 100 mls/hr IVPB Q1H [facility] Rx#: [id number] Sodium Chloride 0.9% 1, 500 50 000 ml @ 50 mls/hr IV . Q20H [facility] Rx#:[id number] Sodium Ferric Gluconat- 100 100 Sucrose 125 mg In Sodium Chloride 0.9% 100 ml @ 100 mls/hr IVPB DAILY [facility] Rx#:[id number] Oral 500 Tube Feeding 243 Output: Urine 780 1500 732 Other: Voiding Method Indwelling Catheter Indwelling Catheter Indwelling Catheter - Exam Physical Exam: Revealed a 68-year-old white male in no distress. Head: Atraumatic normocephalic. HEENT:[Neck is supple.] [No neck masses.] [No thyromegaly.] [No JVD. PERRLA, EOMI, positive icterus. Dry mucous membranes noted. Chest: [Clear throughout, no crackles, no rhonchi, no wheezes.] Cardiac Exam: [Normal S1 and S2, no S3 gallop, no murmur.] Abdomen: [Soft, nontender, no megaly, no rebound, no guarding, normal bowel sounds.] Extremities: [No clubbing, no edema, no cyanosis.] Neurological Exam: Confused, less agitated this morning, follows simple instructions. But clearly disoriented to time place and person. Lymphatics: No evidence of Lymphadenopathy. Skin: No rashes. - Labs CBC & Chem 7: 08/13/18 04:38 08/15/18 06:04 Labs: Abnormal Lab Results - Last 24 Hours (Table) 08/14/18 08/14/18 08/14/18 Range/Units 11:53 18:14 20:30 PT (9.0-12.0) sec INR (<1.2) Sodium (137-145) mmol/L Potassium (3.5-5.1) mmol/L Glucose (74-99) mg/dL POC Glucose (mg/dL) 138 H 233 H 153 H (75-99) mg/dL Magnesium (1.6-2.3) mg/dL Total Bilirubin (0.2-1.3) mg/dL Unconjugated Bilirubin (0.0-1.1) mg/dL Delta Bilirubin (0.0-0.2) mg/dL AST (17-59) U/L ALT (21-72) U/L Total Protein (6.3-8.2) g/dL Albumin (3.5-5.0) g/dL 08/15/18 08/15/18 08/15/18 Range/Units 06:04 06:04 11:33 PT 13.8 H (9.0-12.0) sec INR 1.4 H (<1.2) Sodium 135 L (137-145) mmol/L Potassium 5.2 H (3.5-5.1) mmol/L Glucose 105 H (74-99) mg/dL POC Glucose (mg/dL) 226 H (75-99) mg/dL Magnesium 1.5 L (1.6-2.3) mg/dL Total Bilirubin 2.4 H (0.2-1.3) mg/dL Unconjugated Bilirubin 1.2 H (0.0-1.1) mg/dL Delta Bilirubin 1.2 H (0.0-0.2) mg/dL AST 100 H (17-59) U/L ALT 391 H (21-72) U/L Total Protein 6.2 L (6.3-8.2) g/dL Albumin 3.3 L (3.5-5.0) g/dL Assessment and Plan Assessment: Impression: 1 acute mental status change secondary to metabolic encephalopathy patient presented with acute kidney injury, acute hepatic injury, and mild lactic acidosis. No signs of sepsis were noted. Could be related to medications, amiodarone was discontinued. 2 systolic congestive heart failure/cardiomyopathy, ejection fraction is 30-35% 3 recent cardiac catheterization 4 paroxysmal atrial fibrillation 5 benign essential hypertension 6 hyperlipidemia 8 hypothyroidism 9 lactic acidosis on presentation, could be hypoperfusion in nature. Again doubt sepsis. 10 acute kidney injury on presentation resolved. Recommendation: Continue to monitor the patient in the ICU, increase Xanax to 0.5 mg every 6 hours when necessary, continue Haldol when necessary, requested psychiatric consultation and hopefully he will be seen by psych criteria today. Based on the recommendations, may consider transferring the patient out of the ICU to a regular medical floor with a sitter in the next 24 hours. Time with Patient: Less than 30
[2018-08-15 12:29] LABS: Albumin 2.96 g/dL (3.80-4.90); Gamma Globulin 0.98 g/dL (0.70-1.50)
--- NOTE | 2018-08-15 13:45 | P.PN ---
Subjective Progress Note Date: 08/14/18 Interval history: Admitted with chest pain, second troponin elevated, acute kidney injury with elevated BUN/creatinine as well as elevated and potassium Patient was admitted with chest pain, second troponin was elevated. Underwent cardiac catheterization no ischemia noted however patient's developed ejection fraction on or about 20. Patient was recently admitted with A. fib rapid ventricular response this was corrected, he was noted to have subtherapeutic Coumadin levels and was switched to eliquis. Patient began developing hyperkalemia and in spite of doses of Late potassium continued to climb, patient's creatinine went from 1.2-3.1 patient basically developed acute kidney injury a consultation with nephrology was ordered the spironolactone was stopped as well as Lasix and Cozaar was stopped. Patient was started on calcium 2 daily insulin and bicarbonate IV Lasix 20 mg every 8 hours Urinary output has been low no vomiting diarrhea no active chest pain or shortness of breath current potassium is down from 8.1-6.1 08/05/2018 Patient's awake alert eating lunch, potassium is 5.1 patient is somewhat improved however his had episode in the room where she had loss of consciousness briefly, and awoke with focal deficits was transferred to the emergency room where she was evaluated and transferred to [facility] for possible stroke Patient is otherwise quite well Above notes per Dr. Coates 08/06/2018 Patient has his eyes closed. He is not easily arousable. Appears delirious. Withdrawing from pain. When asked several times and open his eyes briefly. He appears to be doing hand gestures consistent with hallucinating. He was admitted for suspected non-ST elevated myocardial infarction, due to a significantly worsening congestive heart pattern. He was cathed and found to have no coronary artery disease, but much worse ejection fraction around 20-25%. Cardiology felt this is from his atrial fibrillation. Although, he is cardioverted himself he has been having SVT, A. fib runs, followed by sinus rhythm. Cardiology is following him. He is unable to answer any significant questions for me today. Nursing staff indicating is been demented recently. He has a known history of closed head injury that his altered his personality and susceptibility to things such as delirium. His creatinine is elevated since arrival here on 08/02, most likely from the excessive diuretic use. Nephrology is following. Today his GFR is 16. He continues to have a microcytic, no minimal anemia. 08/07/2018. Patient remains confused and delirious. He opens his eyes but continues to hallucinate. He has a sitter to bedside. He is not responding to questions. Kidney functions continued to improve. GFR is now 22. Glucose also remains well controlled. Overnight he has pulled out his Quintero catheter and IV access. He was started on Seroquel last night hopefully help with this. He does have a history of closed head injury. 08/08/2018 delirium/confusion persists. Patient pulled out his own IVs, required sitter at bedside during the night. Restless, flinging legs over bedrail. Maintained on Seroquel. Lasix remains on hold .Significant improvement in renal function, creatinine down to 1.7. Afebrile, normal WBC. Consumed 15% of breakfast. Blood sugars controlled. Minimally converses. 08/09/2018 Seroquel dose increased yesterday,agitation lessening. Delirium improving, occasionally answering simple questions. Drinking water from a straw. Renal function continues to to improve, 1.48. Maintained on Lasix IV push. Sodium 147. Sitter at bedside. No bowel movement, abdomen soft mildly distended. 08/10/2018 rough night, continues to require sitter at bedside. Complains of low mid abdominal discomfort upon palpation. MiraLAX ordered yesterday, no bowel movements reported. Minimal oral intake. Potassium 5.2, sodium up to 149, chloride 109. Renal function continues to improve. Creatinine 1.37. Afebrile, normal WBC. Maintaining O2 sat of 98% on room air. Head CT nonacute. 08/11/2018: Overnight, patient had continued to be thrashing about. Staff reported that he looked "yellow". Stat labs and stat CT abdomen and pelvis were ordered. Findings showed acute abnormality and liver function tests, CT showed mild ascites high attenuation the gallbladder that could relate to a concentrated bile vicarious contrast extract, no dilated ducts. His lactic acid was also reported at 2.1, and then increase to 4.0. On these findings he was sent to the intensive care unit. This a.m. he is more somnolent and relax. He is receiving his medications. IV fluids were increased. His repeat lactic acid is now 1.7. This may be due to strenuous thrashing due to his significant encephalopathy. He is had 2 ammonia levels, both for less than 9. He seems improved but more somnolent. Urine remains dark. 08/12/2018: Patient continues to have significant somnolence now. ICU staff indicating is mostly after Xanax. He remains on Seroquel. Critical care discontinued his amiodarone, Depakote, and other medications that might continue to affect his liver. GI has been consult it and will evaluate him soon. They feel may be related to congestive heart failure that he has elevated unconjugated hyperbilirubinemia and abnormal liver function tests. He does remain slightly bradycardic. His blood pressure remains controlled. Staff repo rt that lastly did become quite agitated before he receives Xanax and pulled out his IV. He did open his eyes for me when I spoke with him this morning. He has Haldol ordered as well for acute agitation. Nursing staff indicated did not help him at all last cycle. F also mention no significant bowel movements in the past several days. 08/13/2018 Encephalopathic, arousable, calm. Patient agitated during the night, received Haldol and Xanax. Confusion improving,following simple commands, grievance coordinator perative with taking oral meds per staff. Plan 1.7 Abdominal ultrasound, difficult exam secondary to patient unable to cooperate. INR 1.7, T bili 2.5, unconjugated bili 1.4. Significant improvement in LFT's. Hepatitis serology nonreactive. Maintaining O2 sats in the high 90s on 2 L nasal cannula O2. Renal function stable. Telemetry sinus bradycardia, in the 50s.VSS. 08/14/18 Significant improvement in renal function. Positive diet intake, consumed 100% of breakfast. Required Haldol last night , confusion/agitation fluctuates.Sitter at bedside, conversing more. Receiving magnesium supplements. LFTs improving, bili 2.4. Objective - Vital Signs Vital signs: Vital Signs Temp 96.5 F L 08/14/18 16:00 Pulse 55 L 08/14/18 17:00 Resp 13 08/14/18 17:00 BP 127/66 08/14/18 17:00 Pulse Ox 98 08/14/18 17:00 Intake & Output 08/13/18 08/14/18 08/14/18 18:59 06:59 18:59 Intake Total 1263 281 4846 Output Total 1195 925 480 Balance 55 -25 720 Weight 90.8 kg 90.3 kg 90.3 kg Intake: IV 900 900 150 Dextrose 5% in Water 1, 900 900 150 000 ml @ 75 mls/hr IV . [id number] [facility] Rx#:[id number] Intake, IV Titration 100 550 Amount Magnesium Sulfate-D5w Pmx 100 1 gm In Dextrose/Water 1 100ml.bag @ 100 mls/hr IVPB Q1H [facility] Rx#: [id number] Sodium Chloride 0.9% 1, 450 000 ml @ 50 mls/hr IV . Q20H [facility] Rx#:[id number] Sodium Ferric Gluconat- 100 Sucrose 125 mg In Sodium Chloride 0.9% 100 ml @ 100 mls/hr IVPB DAILY [facility] Rx#:[id number] Oral 250 500 Output: Urine 1195 925 480 Other: Voiding Method Indwelling Catheter Indwelling Catheter Indwelling Catheter # Bowel Movements 2 - Exam PHYSICAL EXAM: VITAL SIGNS: [As above] GENERAL: The patient is sitting up in bed, agitated,confused/ No acute distress HEENT: Conjunctivae normal. Positive icterus. Oral mucosa moist NECK: No JVD. No thyroid enlargement. No LNs CARDIOVASCULAR: S1, S2 muffled. No murmur, rub, or gallop RESPIRATION: Nonlabored, clear throughout. Bilateral bases diminished with no rhonchi,crackles, or wheezing ABDOMEN: Soft, nontender, no organomegaly,no masses palpable.no guarding .positive Bowel sounds. LEGS: No edema. no swelling. NERVOUS SYSTEM:Confused, cooperative, follows simple instructions,moves all 4 extremities, Diffuse weakness. Skin: no rash. Microbiology 08/10/18 22:26 Urine,Catheterized Urine Culture - Final Staphylococcus epidermidis - Labs CBC & Chem 7: 08/13/18 04:38 08/15/18 06:04 Labs: Abnormal Lab Results - Last 24 Hours (Table) 08/13/18 08/14/18 08/14/18 Range/Units 20:16 05:35 05:35 PT 15.1 H (9.0-12.0) sec INR 1.5 H (<1.2) POC Glucose (mg/dL) 140 H (75-99) mg/dL Total Bilirubin 2.4 H (0.2-1.3) mg/dL Unconjugated Bilirubin 1.4 H (0.0-1.1) mg/dL Delta Bilirubin 1.0 H (0.0-0.2) mg/dL AST 99 H (17-59) U/L ALT 485 H (21-72) U/L Total Protein 6.0 L (6.3-8.2) g/dL Albumin 3.2 L (3.5-5.0) g/dL 08/14/18 08/14/18 Range/Units 07:00 11:53 PT (9.0-12.0) sec INR (<1.2) POC Glucose (mg/dL) 113 H 138 H (75-99) mg/dL Total Bilirubin (0.2-1.3) mg/dL Unconjugated Bilirubin (0.0-1.1) mg/dL Delta Bilirubin (0.0-0.2) mg/dL AST (17-59) U/L ALT (21-72) U/L Total Protein (6.3-8.2) g/dL Albumin (3.5-5.0) g/dL Assessment and Plan Assessment: (1) acute delirium, Metabolic encephalopathy, multifactorial, secondary to acute renal failure, acute hepatic injury with mild lactic acidosis-doubt sepsis ,possibly related to cardiomyopathy, possibly medication induced; amiodarone di scontinued, improving Current Visit: Yes Status: Acute Code(s): G93.41 - METABOLIC ENCEPHALOPATHY SNOMED Code(s): 59948009 (2) Chest pain, status post cardiac catheterization reporting significant decrease in LV function, EF 20%, possible nonischemic cardiomyopathy worsened by chronic A. fib. Current Visit: Yes Status: Acute Code(s): R07.9 - CHEST PAIN, UNSPECIFIED SNOMED Code(s): 98190011 (3) Possible NSTEMI (non-ST elevated myocardial infarction) Current Visit: Yes Status: Acute Code(s): I21.4 - NON-ST ELEVATION (NSTEMI) MYOCARDIAL INFARCTION SNOMED Code(s): 88647107 (4) Acute kidney injury secondary to ATN secondary to urinary retention and IV contrast, resolved Current Visit: No Status: Acute Code(s): N17.9 - ACUTE KIDNEY FAILURE, UNSPECIFIED SNOMED Code(s): 09668381 (5) Acute on chronic systolic (congestive) heart failure, EF 35% improved (6) History of closed head injury Current Visit: No Status: Acute Code(s): Z87.820 - PERSONAL HISTORY OF TRAUMATIC BRAIN INJURY SNOMED Code(s): 60717016877480 (7) Hypothyroidism Current Visit: No Status: Acute Code(s): E03.9 - HYPOTHYROIDISM, UNSPECIFIED SNOMED Code(s): 63108535 (8) Insulin dependent diabetes mellitus, controlled Current Visit: No Status: Acute Code(s): E11.9 - TYPE 2 DIABETES MELLITUS WITHOUT COMPLICATIONS; Z79.4 - SENIOR CARE (CURRENT) USE OF INSULIN SNOMED Code(s): 79794141 (9) skilled nursing current use of anticoagulant therapy Current Visit: No Status: Acute Code(s): Z79.01 - SENIOR CARE (CURRENT) USE OF ANTICOAGULANTS SNOMED Code(s): 341509130 (10) Microcytic anemia Current Visit: Yes Status: Acute Code(s): D50.9 - IRON DEFICIENCY ANEMIA, UNSPECIFIED SNOMED Code(s): 691465600 11) Acute disorder of liver Current Visit: Yes Status: Acute Code(s): K76.9 - LIVER DISEASE, UNSPECIFIED SNOMED Code(s): 576946038 (12) Indirect hyperbilirubinemia Current Visit: Yes Status: Acute Code(s): E80.6 - OTHER DISORDERS OF BILIRUBIN METABOLISM SNOMED Code(s): 3151457 (!3) paroxysmal atrial fibrillation (14) essential hypertension (15) hyperlipidemia (16) hypomagnesemia Plan: Continue current medication regime , beta justine, aspirin, Eliquis monitoring and symptomatic treatment. Psych consult initiated .magnesium supplements as per replacement protocol .Close monitoring of LFTs, electrolytes, coags with repeat labs ordered for a.m. Prognosis guarded given multiple complex medical issues. The impression and plan of care has been dictated as directed. : I performed a history and examination of this patient, discussed the same with the dictator. I agree with the dictator's note ,documented as a scribe. Any additional findings or plans will be noted.
[2018-08-15] MEDS ORDERED: SODIUM CHLORIDE 0.9% 1,000 ML IV ONE (14:06)
--- NOTE | 2018-08-15 14:28 | P.CN ---
Psychiatric Consult - . Consult date: 08/15/18 Consult:: 08/15/18 09:57 Altered mental status Assessment and Plan Assessment: Acute metabolic encephalopathy and mental status change This is a 68-year-old male patient got transferred to the intensive care unit yesterday because of altered mentation. The patient was becoming more lethargic and there has been significant abnormalities in his liver function test and at that point it was decided to move this patient with ICU. I reviewed the records and there has been significant medical problems and comorbidities most significant of which are cardiac problems. The patient is known to have coronar y artery disease and he has undergone previous non-ST segment elevation myocardial infarction. He initially presented with some chest pain injury this current hospitalization a cardiac catheterization was done that showed nonocclusive disease. The patient also has chronic persistent atrial fibrillation and he has been maintained on long-term anticoagulation. During this current hospital stay, the patient was in A. fib/RVR and addition to CHF. He was given amiodarone during his initial presentation and ultimately the amiodarone was discontinued as the patient became bradycardic. His current rhythm is sinus bradycardia. Also, the patient has congestion heart failure. 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 The patient has hypertension, hyperlipidemia and diabetes mellitus. Note that during this current hospitalization, the patient also developed acute kidney injury. Nephrology was involved in the case. The patient's creatinine gradually improved as the patient was being resuscitated IV fluids. This could've been also contrast nephropathy. In any rate, the patient has developed worsening LFTs, lactic acidosis, some mild coagulopathy while being off anticoagulation other than Eliquis. He got transferred to the ICU. Note that his AST and ALP levels are improving and they're down to 457 and 95 respectively, alk phos is 77, his lactic acid level was as high as 4.0 and is currently down to 1.7. The creatinine level has dropped from 3.9 down to 1.1 which is back to its baseline. In view of his ongoing mental status change, the patient has undergone a CAT scan of the brain that showed no acute abnormalities and there are some chronic SURGICAL CODER atrophy. Most recent INR is at 1.8 with a PT of 17.8. Currently is lethargic and encephalopathic. He withdraws to painful is diminished in all 4 extremities. No neck stiffness to no fever or chills. No leukocytosis. Hemoglobin 11.7. Platelet count is at 67,000.The chest x-ray s howed improvement changes in the CHF and pulmonary edema and this was done this morning on 08/11/2018. The CAT scan of the abdomen showed mild ascites and there is high attenuation of the gallbladder related to concentrated by. No dilatation of the biliary ducts. The lung bases are essentially clear and there is no effusion. No pericardial effusion. Abnormal Lab Results - Last 24 Hours (Table) 08/13/18 08/13/18 08/13/18 Range/Units 04:34 17:05 20:16 PT (9.0-12.0) sec INR (<1.2) POC Glucose (mg/dL) 115 H 140 H (75-99) mg/dL Iron 25 L (65-175) ug/dL Iron Saturation 9.29 L (15.00-50.00) Total Bilirubin (0.2-1.3) mg/dL Unconjugated Bilirubin (0.0-1.1) mg/dL Delta Bilirubin (0.0-0.2) mg/dL AST (17-59) U/L ALT (21-72) U/L Total Protein (6.3-8.2) g/dL Total Protein (PEP) 5.5 L (6.2-8.2) g/dL Albumin (3.5-5.0) g/dL 08/14/18 08/14/18 08/14/18 Range/Units 05:35 05:35 07:00 PT 15.1 H (9.0-12.0) sec INR 1.5 H (<1.2) POC Glucose (mg/dL) 113 H (75-99) mg/dL Iron (65-175) ug/dL Iron Saturation (15.00-50.00) Total Bilirubin 2.4 H (0.2-1.3) mg/dL Unconjugated Bilirubin 1.4 H (0.0-1.1) mg/dL Delta Bilirubin 1.0 H (0.0-0.2) mg/dL AST 99 H (17-59) U/L ALT 485 H (21-72) U/L Total Protein 6.0 L (6.3-8.2) g/dL Total Protein (PEP) (6.2-8.2) g/dL Albumin 3.2 L (3.5-5.0) g/dL 08/14/18 Range/Units 11:53 PT (9.0-12.0) sec INR (<1.2) POC Glucose (mg/dL) 138 H (75-99) mg/dL Iron (65-175) ug/dL Iron Saturation (15.00-50.00) Total Bilirubin (0.2-1.3) mg/dL Unconjugated Bilirubin (0.0-1.1) mg/dL Delta Bilirubin (0.0-0.2) mg/dL AST (17-59) U/L ALT (21-72) U/L Total Protein (6.3-8.2) g/dL Total Protein (PEP) (6.2-8.2) g/dL Albumin (3.5-5.0) g/dL Mental Status Examination - General Appearance: [ disheveled, bizarre, appears older than stated age Speech/Language: [slow, slurred, rambled, mumbling, hesitant, halting, monotone, soft,] Attitude/Behavior: [ irritable, withdrawn Mood: [, anxious, irritable, angry, fearful Affect: [fflat, incongruent, labile, blunted constricted Orientation: [ not to time, only person, place situation] Thought Content: [ delusions, obsessions, phobias, other] Risk Factors: [denies suicidal (ideations, plan), and/or Homicidal (ideations, plan), other] Perception: [ hallucinations (auditory Thought Processes: [concrete, circumstantial, tangential, other] Concentration/Attention Span: [ impaired] [Per observation and interview with the patient] Recent Memory: [ impaired] [0 out of 3 in 3 minutes] Remote Memory: [ impaired] [past events, as related history] Intelligence: [below average] [based on history, based on vocabulary, syntax, grammar, and content] Judgement: [ poor] [per patient's behavior/history of present illness] Insight: [poor] [understanding severity of illness/history of present illness] Psychiatric impression: neurocognitive disorder-severe and acute psychosis; rule out thyroid storm-unusual dosing of synthroid Recommendations:stop xanax, changed to ativan only after haldol which is schedule QID, add namenda, ordered tsh thank you Daniel Julian D.O., PhD. (1) Neurocognitive disorder Current Visit: Yes Status: Acute Priority: High Code(s): R41.9 - UNSP SYMPTOMS AND SIGNS W COGNITIVE FUNCTIONS AND AWARENESS SNOMED Code(s): 877438973 (2) Psychosis Current Visit: Yes Status: Acute Priority: High Code(s): F29 - UNSP PSYCHOSIS NOT DUE TO A SUBSTANCE OR KNOWN PHYSIOL COND SNOMED Code(s): 89109053 Time with Patient: Less than 30
[2018-08-15 16:07] LABS: T4, Free (Free Thyroxine) 1.03 ng/dL (0.78-2.19)
--- NOTE | 2018-08-15 16:17 | P.PN ---
Subjective Progress Note Date: 08/15/18 Interval history: Admitted with chest pain, second troponin elevated, acute kidney injury with elevated BUN/creatinine as well as elevated and potassium Patient was admitted with chest pain, second troponin was elevated. Underwent cardiac catheterization no ischemia noted however patient's developed ejection fraction on or about 20. Patient was recently admitted with A. fib rapid ventricular response this was corrected, he was noted to have subtherapeutic Coumadin levels and was switched to eliquis. Patient began developing hyperkalemia and in spite of doses of Late potassium continued to climb, patient's creatinine went from 1.2-3.1 patient basically developed acute kidney injury a consultation with nephrology was ordered the spironolactone was stopped as well as Lasix and Cozaar was stopped. Patient was started on calcium 2 daily insulin and bicarbonate IV Lasix 20 mg every 8 hours Urinary output has been low no vomiting diarrhea no active chest pain or shortness of breath current potassium is down from 8.1-6.1 08/05/2018 Patient's awake alert eating lunch, potassium is 5.1 patient is somewhat improved however his had episode in the room where she had loss of consciousness briefly, and awoke with focal deficits was transferred to the emergency room where she was evaluated and transferred to [facility] for possible stroke Patient is otherwise quite well Above notes per Dr. Coates 08/06/2018 Patient has his eyes closed. He is not easily arousable. Appears delirious. Withdrawing from pain. When asked several times and open his eyes briefly. He appears to be doing hand gestures consistent with hallucinating. He was admitted for suspected non-ST elevated myocardial infarction, due to a significantly worsening congestive heart pattern. He was cathed and found to have no coronary artery disease, but much worse ejection fraction around 20-25%. Cardiology felt this is from his atrial fibrillation. Although, he is cardioverted himself he has been having SVT, A. fib runs, followed by sinus rhythm. Cardiology is following him. He is unable to answer any significant questions for me today. Nursing staff indicating is been demented recently. He has a known history of closed head injury that his altered his personality and susceptibility to things such as delirium. His creatinine is elevated since arrival here on 08/02, most likely from the excessive diuretic use. Nephrology is following. Today his GFR is 16. He continues to have a microcytic, no minimal anemia. 08/07/2018. Patient remains confused and delirious. He opens his eyes but continues to hallucinate. He has a sitter to bedside. He is not responding to questions. Kidney functions continued to improve. GFR is now 22. Glucose also remains well controlled. Overnight he has pulled out his Quintero catheter and IV access. He was started on Seroquel last night hopefully help with this. He does have a history of closed head injury. 08/08/2018 delirium/confusion persists. Patient pulled out his own IVs, required sitter at bedside during the night. Restless, flinging legs over bedrail. Maintained on Seroquel. Lasix remains on hold .Significant improvement in renal function, creatinine down to 1.7. Afebrile, normal WBC. Consumed 15% of breakfast. Blood sugars controlled. Minimally converses. 08/09/2018 Seroquel dose increased yesterday,agitation lessening. Delirium improving, occasionally answering simple questions. Drinking water from a straw. Renal function continues to to improve, 1.48. Maintained on Lasix IV push. Sodium 147. Sitter at bedside. No bowel movement, abdomen soft mildly distended. 08/10/2018 rough night, continues to require sitter at bedside. Complains of low mid abdominal discomfort upon palpation. MiraLAX ordered yesterday, no bowel movements reported. Minimal oral intake. Potassium 5.2, sodium up to 149, chloride 109. Renal function continues to improve. Creatinine 1.37. Afebrile, normal WBC. Maintaining O2 sat of 98% on room air. Head CT nonacute. 08/11/2018: Overnight, patient had continued to be thrashing about. Staff reported that he looked "yellow". Stat labs and stat CT abdomen and pelvis were ordered. Findings showed acute abnormality and liver function tests, CT showed mild ascites high attenuation the gallbladder that could relate to a concentrated bile vicarious contrast extract, no dilated ducts. His lactic acid was also reported at 2.1, and then increase to 4.0. On these findings he was sent to the intensive care unit. This a.m. he is more somnolent and relax. He is receiving his medications. IV fluids were increased. His repeat lactic acid is now 1.7. This may be due to strenuous thrashing due to his significant encephalopathy. He is had 2 ammonia levels, both for less than 9. He seems improved but more somnolent. Urine remains dark. 08/12/2018: Patient continues to have significant somnolence now. ICU staff indicating is mostly after Xanax. He remains on Seroquel. Critical care discontinued his amiodarone, Depakote, and other medications that might continue to affect his liver. GI has been consult it and will evaluate him soon. They feel may be related to congestive heart failure that he has elevated unconjugated hyperbilirubinemia and abnormal liver function tests. He does remain slightly bradycardic. His blood pressure remains controlled. Staff repo rt that lastly did become quite agitated before he receives Xanax and pulled out his IV. He did open his eyes for me when I spoke with him this morning. He has Haldol ordered as well for acute agitation. Nursing staff indicated did not help him at all last cycle. F also mention no significant bowel movements in the past several days. 08/13/2018 Encephalopathic, arousable, calm. Patient agitated during the night, received Haldol and Xanax. Confusion improving,following simple commands, asset management coordinator perative with taking oral meds per staff. Plan 1.7 Abdominal ultrasound, difficult exam secondary to patient unable to cooperate. INR 1.7, T bili 2.5, unconjugated bili 1.4. Significant improvement in LFT's. Hepatitis serology nonreactive. Maintaining O2 sats in the high 90s on 2 L nasal cannula O2. Renal function stable. Telemetry sinus bradycardia, in the 50s.VSS. 08/14/18 Significant improvement in renal function. Positive diet intake, consumed 100% of breakfast. Required Haldol last night , confusion/agitation fluctuates.Sitter at bedside, conversing more. Receiving magnesium supplements. LFTs improving, bili 2.4. 08/15/2018 magnesium 1.5, receiving supplementation. Continues to have sporadic episodes of agitation, anxiety. Xanax increased. Psych consult in place, recom mendations pending T bili 2.4, LFTs improving. INR 1.4. Objective - Vital Signs Vital signs: Vital Signs Temp 97.0 F L 08/15/18 12:00 Pulse 49 L 08/15/18 13:00 Resp 19 08/15/18 13:00 BP 88/60 08/15/18 13:00 Pulse Ox 90 L 08/15/18 13:00 Intake & Output 08/14/18 08/15/18 08/15/18 18:59 06:59 18:59 Intake Total 1250 593 300 Output Total 780 1500 792 Balance 459 -736 -349 Weight 90.3 kg 92.3 kg 92.3 kg Intake: IV 150 300 0 0.9 300 0 Dextrose 5% in Water 1, 150 000 ml @ 75 mls/hr IV . [id number] [facility] Rx#:[id number] Intake, IV Titration 600 50 300 Amount Magnesium Sulfate-D5w Pmx 200 1 gm In Dextrose/Water 1 100ml.bag @ 100 mls/hr IVPB Q1H [facility] Rx#: [id number] Sodium Chloride 0.9% 1, 500 50 000 ml @ 50 mls/hr IV . Q20H [facility] Rx#:[id number] Sodium Ferric Gluconat- 100 100 Sucrose 125 mg In Sodium Chloride 0.9% 100 ml @ 100 mls/hr IVPB DAILY [facility] Rx#:[id number] Oral 500 Tube Feeding 243 Output: Urine 780 1500 792 Other: Voiding Method Indwelling Catheter Indwelling Catheter Indwelling Catheter - Exam PHYSICAL EXAM: VITAL SIGNS: [As above] GENERAL: The patient is sitting up in a chair, alert and oriented 1 ,less agitated, No acute distress HEENT: Conjunctivae normal. Positive icterus. Oral mucosa moist NECK: No JVD. No thyroid enlargement. No LNs CARDIOVASCULAR: S1, S2 muffled. No murmur, rub, or gallop RESPIRATION: Nonlabored, clear throughout. Bilateral bases diminished with no rhonchi,crackles, or wheezing ABDOMEN: Soft, nontender, no organomegaly,no masses palpable.no guarding .positive Bowel sounds. LEGS: No edema. no swelling. NERVOUS SYSTEM:Confused, cooperative, follows simple instructions,moves all 4 extremities, Diffuse weakness. Skin: no rash. Microbiology 08/10/18 22:26 Urine,Catheterized Urine Culture - Final Staphylococcus epidermidis - Labs CBC & Chem 7: 08/13/18 04:38 08/15/18 06:04 Labs: Abnormal Lab Results - Last 24 Hours (Table) 08/13/18 08/14/18 08/14/18 Range/Units 04:34 18:14 20:30 PT (9.0-12.0) sec INR (<1.2) Sodium (137-145) mmol/L Potassium (3.5-5.1) mmol/L Glucose (74-99) mg/dL POC Glucose (mg/dL) 233 H 153 H (75-99) mg/dL Magnesium (1.6-2.3) mg/dL Total Bilirubin (0.2-1.3) mg/dL Unconjugated Bilirubin (0.0-1.1) mg/dL Delta Bilirubin (0.0-0.2) mg/dL AST (17-59) U/L ALT (21-72) U/L Total Protein (6.3-8.2) g/dL Albumin (3.5-5.0) g/dL Albumin (PEP) 2.96 L (3.80-4.90) g/dL 08/15/18 08/15/18 08/15/18 Range/Units 06:04 06:04 11:33 PT 13.8 H (9.0-12.0) sec INR 1.4 H (<1.2) Sodium 135 L (137-145) mmol/L Potassium 5.2 H (3.5-5.1) mmol/L Glucose 105 H (74-99) mg/dL POC Glucose (mg/dL) 226 H (75-99) mg/dL Magnesium 1.5 L (1.6-2.3) mg/dL Total Bilirubin 2.4 H (0.2-1.3) mg/dL Unconjugated Bilirubin 1.2 H (0.0-1.1) mg/dL Delta Bilirubin 1.2 H (0.0-0.2) mg/dL AST 100 H (17-59) U/L ALT 391 H (21-72) U/L Total Protein 6.2 L (6.3-8.2) g/dL Albumin 3.3 L (3.5-5.0) g/dL Albumin (PEP) (3.80-4.90) g/dL Assessment and Plan Assessment: (1) acute delirium, Metabolic encephalopathy, multifactorial, secondary to acute renal failure, acute hepatic injury with mild lactic acidosis-doubt sepsis ,possibly related to cardiomyopathy, possibly medication induced; amiodarone discontinued, improving Current Visit: Yes Status: Acute Code(s): G93.41 - METABOLIC ENCEPHALOPATHY SNOMED Code(s): 42248846 (2) Chest pain, status post cardiac catheterization reporting significant decrease in LV function, EF 20%, possible nonischemic cardiomyopathy worsened by chronic A. fib. Current Visit: Yes Status: Acute Code(s): R07.9 - CHEST PAIN, UNSPECIFIED SNOMED Code(s): 51091737 (3) Possible NSTEMI (non-ST elevated myocardial infarction) Current Visit: Yes Status: Acute Code(s): I21.4 - NON-ST ELEVATION (NSTEMI) MYOCARDIAL INFARCTION SNOMED Code(s): 10003768 (4) Acute kidney injury secondary to ATN secondary to urinary retention and IV contrast, resolved Current Visit: No Status: Acute Code(s): N17.9 - ACUTE KIDNEY FAILURE, UNSPECIFIED SNOMED Code(s): 64736017 (5) Acute on chronic systolic (congestive) heart failure, EF 35% improved (6) History of closed head injury Current Visit: No Status: Acute Code(s): Z87.820 - PERSONAL HISTORY OF TRAUMATIC BRAIN INJURY SNOMED Code(s): 65884617369470 (7) Hypothyroidism Current Visit: No Status: Acute Code(s): E03.9 - HYPOTHYROIDISM, UNSPECIFIED SNOMED Code(s): 24331661 (8) Insulin dependent diabetes mellitus, controlled Current Visit: No Status: Acute Code(s): E11.9 - TYPE 2 DIABETES MELLITUS WITHOUT COMPLICATIONS; Z79.4 - CORRECTION (CURRENT) USE OF INSULIN SNOMED Code(s): 27152299 (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 Current Visit: No Status: Acute Code(s): Z79.01 - CAMPUS RECEPTIONIST (CURRENT) USE OF ANTICOAGULANTS SNOMED Code(s): 345738872 (10) Microcytic anemia Current Visit: Yes Status: Acute Code(s): D50.9 - IRON DEFICIENCY ANEMIA, UNSPECIFIED SNOMED Code(s): 983324379 11) Acute disorder of liver Current Visit: Yes Status: Acute Code(s): K76.9 - LIVER DISEASE, UNSPECIFIED SNOMED Code(s): 419034300 (12) Indirect hyperbilirubinemia Current Visit: Yes Status: Acute Code(s): E80.6 - OTHER DISORDERS OF BILIRUBIN METABOLISM SNOMED Code(s): 2993947 (!3) paroxysmal atrial fibrillation (14) essential hypertension (15) hyperlipidemia (16) hypomagnesemia Plan: Continue current medication regime , beta justine, aspirin, Eliquis monitoring and symptomatic treatment. Psych consult in place, recommendations pending.Haldol, Xanax for agitation. Maintain drug safety associate. Magnesium replacement as per replacement protocol .Close monitoring of LFTs, electrolytes, with repeat labs ordered for a.m. healthcare social worker consult in place regarding potential ECF at discharge, possible mental health unit. is also hospitalized at a different hospital , unable to visit patient, possibly lending to some of his confusion. Prognosis guarded given multiple complex medical issues. The impression and plan of care has been dictated as directed. : I performed a history and examination of this patient, discussed the same with the dictator. I agree with the dictator's note ,documented as a scribe. Any additional findings or plans will be noted.
[2018-08-15 16:32] LABS: Glucose,Whole Blood 136 mg/dL (75-99)
[2018-08-15] MEDS: HALOPERIDOL 5 MG TAB PO SCH ×2 (18:07→21:06)
[2018-08-15] MEDS: MEMANTINE 5 MG TAB PO SCH (21:06)
[2018-08-15 21:15] LABS: Glucose,Whole Blood 136 mg/dL (75-99)
[2018-08-15] MEDS: LORazepam 1 MG TAB PO PRN (22:16)
[2018-08-16 05:53] LABS: Anisocytosis Slight; HCT 37.4 % (39.0-53.0); HGB 11.2 gm/dL (13.0-17.5); Hypochromasia Marked; MCH 23.7 pg (25.0-35.0); MCV 78.9 fL (80.0-100.0); Mean Platelet Volume 7.5; Microcytosis Slight; Platelet Count 100 k/uL (150-450); RBC 4.73 m/uL (4.30-5.90); RDW 19.8 % (11.5-15.5); WBC 9.4 k/uL (3.8-10.6)
[2018-08-16 06:04] LABS: INR 1.3 (<1.2); Prothrombin Time 13.5 sec (9.0-12.0)
[2018-08-16] MEDS: LEVOTHYROXINE 100 MCG TAB PO SCH (06:26)
[2018-08-16 06:27] LABS: ALT 354 U/L (21-72); AST 72 U/L (17-59); Albumin 3.5 g/dL (3.5-5.0); Alkaline Phosphatase 106 U/L (38-126); Anion Gap 8 mmol/L; Bilirubin, Delta 0.9 mg/dL (0.0-0.2); Bilirubin,Unconjugated 1.2 mg/dL (0.0-1.1); Blood Urea Nitrogen 11 mg/dL (9-20); Calcium 9.2 mg/dL (8.4-10.2); Carbon Dioxide 26 mmol/L (22-30); Chloride 104 mmol/L (98-107); Glucose 104 mg/dL (74-99); Potassium 5.2 mmol/L (3.5-5.1); Sodium 138 mmol/L (137-145); Total Bilirubin 2.1 mg/dL (0.2-1.3); Total Protein 6.3 g/dL (6.3-8.2)
[2018-08-16 06:46] LABS: Glucose,Whole Blood 114 mg/dL (75-99)
[2018-08-16] MEDS: INSULIN ASPART (NovoLOG) 100 UNIT/ML VIAL SQ SCH ×4 (06:46→22:12)
[2018-08-16] MEDS: HALOPERIDOL 5 MG TAB PO SCH ×4 (08:31→21:59)
[2018-08-16] MEDS: SODIUM FERRIC GLUCONAT-SUCROSE 125 MG in SODIUM CHLORIDE 0.9% 100 ML IVPB SCH (08:31)
[2018-08-16] MEDS: DULoxetine HCL 60 MG CAPSULE.DR PO SCH (08:32)
[2018-08-16] MEDS: ASPIRIN 81 MG PO SCH (09:00)
[2018-08-16] MEDS: PANTOPRAZOLE 40 MG TABLET PO SCH (09:00)
[2018-08-16] MEDS: APIXABAN 5 MG TAB PO SCH ×2 (09:00→21:59)
--- NOTE | 2018-08-16 10:24 | P.PN ---
Subjective Patient is seen in follow-up for acute kidney injury, which has significantly improved. Hypernatremia has resolved. D5W has been discontinued. He is currently not on any IV fluids as he has been pulling out his IVs. Patient remains agitated but better this AM. Oral intake has been fair. Vital signs are stable. General: The patient appeared well nourished and normally developed. HEENT: Head exam is unremarkable. Neck is without jugular venous distension. LUNGS: Lungs are clear to auscultation and percussion. Breath sounds decreased. HEART: Rate and Rhythm are regular. First and second heart sounds normal. No murmurs, rubs or gallops. ABDOMEN: Abdominal exam reveals normal bowel sounds. Non-tender and non- distended. No evidence of peritonitis. EXTREMITITES: No clubbing, cyanosis, or edema. Objective - Vital Signs Vital signs: Vital Signs Temp 97.6 F 08/16/18 08:00 Pulse 64 08/16/18 10:00 Resp 31 H 08/16/18 10:00 BP 150/104 08/16/18 10:00 Pulse Ox 96 08/16/18 10:00 Intake & Output 08/15/18 08/16/18 08/16/18 18:59 06:59 18:59 Intake Total 1300 120 350 Output Total 973 635 175 Balance 327 -515 175 Weight 92.3 kg 93.7 kg Intake: IV 0 0.9 0 Intake, IV Titration 1300 100 Amount Magnesium Sulfate-D5w Pmx 200 1 gm In Dextrose/Water 1 100ml.bag @ 100 mls/hr IVPB Q1H [facility] Rx#: [id number] Sodium Chloride 0.9% 1, 1000 000 ml @ 500 mls/hr IV . Q2H [facility] Rx#:[id number] Sodium Ferric Gluconat- 100 100 Sucrose 125 mg In Sodium Chloride 0.9% 100 ml @ 100 mls/hr IVPB DAILY COUNTS INCLUDE 234 BEDS AT THE [facility] Rx#:[id number] Oral 120 250 Output: Urine 973 635 175 Other: Voiding Method Indwelling Catheter Indwelling Catheter - Labs CBC & Chem 7: 08/16/18 04:50 08/16/18 04:50 Labs: Abnormal Lab Results - Last 24 Hours (Table) 08/13/18 08/15/18 08/15/18 Range/Units 04:34 06:04 11:33 Hgb (13.0-17.5) gm/dL Hct (39.0-53.0) % MCV (80.0-100.0) fL MCH (25.0-35.0) pg MCHC (31.0-37.0) g/dL RDW (11.5-15.5) % Plt Count (150-450) k/uL PT (9.0-12.0) sec INR (<1.2) Potassium (3.5-5.1) mmol/L Glucose (74-99) mg/dL POC Glucose (mg/dL) 226 H (75-99) mg/dL Total Bilirubin (0.2-1.3) mg/dL Unconjugated Bilirubin (0.0-1.1) mg/dL Delta Bilirubin (0.0-0.2) mg/dL AST (17-59) U/L ALT (21-72) U/L Albumin (PEP) 2.96 L (3.80-4.90) g/dL TSH 27.300 H (0.465-4.680) mIU/L 08/15/18 08/15/18 08/16/18 Range/Units 16:30 21:13 04:50 Hgb (13.0-17.5) gm/dL Hct (39.0-53.0) % MCV (80.0-100.0) fL MCH (25.0-35.0) pg MCHC (31.0-37.0) g/dL RDW (11.5-15.5) % Plt Count (150-450) k/uL PT 13.5 H (9.0-12.0) sec INR 1.3 H (<1.2) Potassium (3.5-5.1) mmol/L Glucose (74-99) mg/dL POC Glucose (mg/dL) 136 H 136 H (75-99) mg/dL Total Bilirubin (0.2-1.3) mg/dL Unconjugated Bilirubin (0.0-1.1) mg/dL Delta Bilirubin (0.0-0.2) mg/dL AST (17-59) U/L ALT (21-72) U/L Albumin (PEP) (3.80-4.90) g/dL TSH (0.465-4.680) mIU/L 08/16/18 08/16/18 08/16/18 Range/Units 04:50 04:50 06:45 Hgb 11.2 L (13.0-17.5) gm/dL Hct 37.4 L (39.0-53.0) % MCV 78.9 L (80.0-100.0) fL MCH 23.7 L (25.0-35.0) pg MCHC 30.0 L (31.0-37.0) g/dL RDW 19.8 H (11.5-15.5) % Plt Count 100 L (150-450) k/uL PT (9.0-12.0) sec INR (<1.2) Potassium 5.2 H (3.5-5.1) mmol/L Glucose 104 H (74-99) mg/dL POC Glucose (mg/dL) 114 H (75-99) mg/dL Total Bilirubin 2.1 H (0.2-1.3) mg/dL Unconjugated Bilirubin 1.2 H (0.0-1.1) mg/dL Delta Bilirubin 0.9 H (0.0-0.2) mg/dL AST 72 H (17-59) U/L ALT 354 H (21-72) U/L Albumin (PEP) (3.80-4.90) g/dL TSH (0.465-4.680) mIU/L Assessment and Plan Plan: Assessment: 1. Acute kidney injury secondary to ATN secondary to hemodynamic instability/retention. He also received IV contrast on August 03. Resolved. No evidence of hydronephrosis noted on renal ultrasound.. 2. Hypernatremia secondary to lack of for water intake. Status post D5W. Resolved. 3. Systolic CHF with ejection fraction of 35%. 4. Iron deficiency. 5. Insulin-dependent diabetes mellitus. 6. Hypomagnesemia due to poor oral intake. Better post replacement. Plan: Currently not on IV fluids as he's been pulling out his IVs. IV iron 3 doses. Third dose today. Repeat electrolytes in the morning.
[2018-08-16] MEDS: DEXTROSE/WATER 1 250ML.BAG with DOPamine DRIP 800 MG IV SCH ×2 (11:37→17:52)
[2018-08-16] MEDS: MEMANTINE 5 MG TAB PO SCH ×2 (11:39→21:59)
[2018-08-16] MEDS: POLYETHYLENE GLYCOL 3350 17 GM POWD.PACK PO SCH (11:39)
[2018-08-16] MEDS: METOPROLOL TARTRATE 50 MG TAB PO SCH ×2 (11:42→21:55)
--- NOTE | 2018-08-16 12:23 | P.PN ---
Subjective Progress Note Date: 08/16/18 Principal diagnosis: Acute metabolic encephalopathy and mental status change This is a 68-year-old male patient got transferred to the intensive care unit yesterday because of altered mentation. The patient was becoming more lethargic and there has been significant abnormalities in his liver function test and at that point it was decided to move this patient with ICU. I reviewed the records and there has been significant medical problems and comorbidities most significant of which are cardiac problems. The patient is known to have coronary artery disease and he has undergone previous non-ST segment elevation myocardial infarction. He initially presented with some chest pain injury this current hospitalization a cardiac catheterization was done that showed nonocclusive disease. The patient also has chronic persistent atrial fibrillation and he has been maintained on long-term anticoagulation. During this current hospital stay, the patient was in A. fib/RVR and addition to CHF. He was given amiodarone during his initial presentation and ultimately the amiodarone was discontinued as the patient became bradycardic. His current rhythm is sinus bradycardia. Also, the patient has congestion heart failure. 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 The patient has hypertension, hyperlipidemia and diabetes mellitus. Note that during this current hospitalization, the patient also developed acute kidney injury. Nephrology was involved in the case. The patient's creatinine gradually improved as the patient was being resuscitated IV fluids. This could've been also contrast nephropathy. In any rate, the patient has developed worsening LFTs, lactic acidosis, some mild coagulopathy while being off anticoagulation other than Eliquis. He got transferred to the ICU. Note that his AST and ALP levels are improving and they're down to 457 and 95 respectively, alk phos is 77, his lactic acid level was as high as 4.0 and is currently down to 1.7. The creatinine level has dropped from 3.9 down to 1.1 which is back to its baseline. In view of his ongoing mental status change, the patient has undergone a CAT scan of the brain that showed no acute abnormalities and there are some chronic HEDIS ANALYST atrophy. Most recent INR is at 1.8 with a PT of 17.8. Currently is lethargic and encephalopathic. He withdraws to painful is diminished in all 4 extremities. No neck stiffness to no fever or chills. No leukocytosis. Hemoglobin 11.7. Platelet count is at 67,000.The chest x-ray showed improvement changes in the CHF and pulmonary edema and this was done this morning on 08/11/2018. The CAT scan of the abdomen showed mild ascites and there is high attenuation of the gallbladder related to concentrated by. No dilatation of the biliary ducts. The lung bases are essentially clear and there is no effusion. No pericardial effusion. On today's evaluation of 08/12/2018 of seeing this patient for a follow-up. The patient is still encephalopathic. The patient is arousable and he will follow some simple commands. For the most part he remains confused and his mental status remains quite diminished. His neurologic exam is nonfocal. His liver function tests are improving. I would say, he is less confused compared to yesterday and his condition is gradually improving. His renal function is also stable and his creatinine is normalized. AST is down to 47. ALT is down to 757. No significant elevation in ammonia levels. No respiratory distress. When awake, he is able to swallow his tablets without any major issues. His cardiac rhythm is sinus bradycardia. Overnight he had an episode of agitation during which the patient was given Xanax and then Haldol and this was approximately 10 PM/1 AM. He slept all night without any major difficulties. The plated count is also stable. No other significant events. On today's evaluation 08/13/2018, patient remains in bed, very calm, arousable, follows simple instructions, less confused compared to what was noted above on his initial evaluation. CBC is normal INR is 1.7 basic metabolic profile is normal liver enzymes are improving, his total bilirubin is 2.5 his AST is 149 ALT is 600 and again that is significantly improved compared to 2 days ago. Clearly his liver enzymes are improving. And his mental status is actually clearing slowly. His ammonia level was not elevated. Patient is able to swallow uneventfully. Hemodynamically he remains stable, and no significant agitation this morning. Did receive Haldol last night. Reevaluated today on 08/14/2018, patient is in bed, calm, arousable, follows simple instructions, a bit confused, and according to the nurse he had episodes of extreme confusion and agitation last night requiring Haldol. Patient is presently calm, and he continues to have these episodes of agitations hence I recommended psychiatric evaluation to possibly maintained the patient on oral antipsychotic or sedative medication/maintenance. His metabolic profile did improve, liver profile is much better compared to the last few days. Bilirubin is 2.4 ALT is 485 AST is 99. Patient was reevaluated today on 08/15/2018, continues to have intermittent episodes of confusion, and agitation. He is yet to be seen by psychiatry on consultation, he is still requiring Haldol intermittently, and the dose of Xanax was increased today to 0.5 mg every 6 hours when necessary. All labs were reviewed including . Basic metabolic profile, and his liver enzymes are improving. His renal profile is back to normal. Continues to have elevated ALT and elevated AST. Patient is confused, intermittently agitated, but called during my evaluation this morning. Reevaluated today on 08/16/2018, patient is about the same, continues to have intermittent episodes of confusion and agitation and restlessness. Seen by psychiatry, placed on Haldol around the clock, and also recommended Ativan to replace Xanax. Not much of a change has been noticed by the nurses, his urine output has improved with fluid bolus yesterday, and I kept him on 50 mL per hour today. CBC is normal electrolytes are normal renal profile is normal liver enzymes are still improving. His ALT is 354 AST is 72 and total bilirubin is 2.1. During my evaluation, patient was resting, followed simple instructions, but definitely confused Objective - Vital Signs Vital signs: Vital Signs Temp 97.6 F 08/16/18 08:00 Pulse 58 L 08/16/18 11:00 Resp 11 L 08/16/18 11:00 BP 129/98 08/16/18 11:00 Pulse Ox 97 08/16/18 11:00 Intake & Output 08/15/18 08/16/18 08/16/18 18:59 06:59 18:59 Intake Total 1300 120 350 Output Total 973 635 215 Balance 327 -515 135 Weight 92.3 kg 93.7 kg Intake: IV 0 0.9 0 Intake, IV Titration 1300 100 Amount Magnesium Sulfate-D5w Pmx 200 1 gm In Dextrose/Water 1 100ml.bag @ 100 mls/hr IVPB Q1H [facility] Rx#: [id number] Sodium Chloride 0.9% 1, 1000 000 ml @ 500 mls/hr IV . Q2H ONE Rx#:[id number] Sodium Ferric Gluconat- 100 100 Sucrose 125 mg In Sodium Chloride 0.9% 100 ml @ 100 mls/hr IVPB DAILY [facility] Rx#:[id number] Oral 120 250 Output: Urine 973 635 215 Other: Voiding Method Indwelling Catheter Indwelling Catheter - Exam Physical Exam: Revealed a 68-year-old white male in no distress. Head: Atraumatic normocephalic. HEENT:[Neck is supple.] [No neck masses.] [No thyromegaly.] [No JVD. PERRLA, EOMI, positive icterus. Dry mucous membranes noted. Chest: [Clear throughout, no crackles, no rhonchi, no wheezes.] Cardiac Exam: [Normal S1 and S2, no S3 gallop, no murmur.] Abdomen: [Soft, nontender, no megaly, no rebound, no guarding, normal bowel sounds.] Extremities: [No clubbing, no edema, no cyanosis.] Neurological Exam: Confused, but followed simple instructions. Otherwise no gross focal deficits. Lymphatics: No evidence of Lymphadenopathy. Skin: No rashes. - Labs CBC & Chem 7: 08/16/18 04:50 08/16/18 04:50 Labs: Abnormal Lab Results - Last 24 Hours (Table) 08/13/18 08/15/18 08/15/18 Range/Units 04:34 06:04 16:30 Hgb (13.0-17.5) gm/dL Hct (39.0-53.0) % MCV (80.0-100.0) fL MCH (25.0-35.0) pg MCHC (31.0-37.0) g/dL RDW (11.5-15.5) % Plt Count (150-450) k/uL PT (9.0-12.0) sec INR (<1.2) Potassium (3.5-5.1) mmol/L Glucose (74-99) mg/dL POC Glucose (mg/dL) 136 H (75-99) mg/dL Total Bilirubin (0.2-1.3) mg/dL Unconjugated Bilirubin (0.0-1.1) mg/dL Delta Bilirubin (0.0-0.2) mg/dL AST (17-59) U/L ALT (21-72) U/L Albumin (PEP) 2.96 L (3.80-4.90) g/dL TSH 27.300 H (0.465-4.680) mIU/L 08/15/18 08/16/18 08/16/18 Range/Units 21:13 04:50 04:50 Hgb (13.0-17.5) gm/dL Hct (39.0-53.0) % MCV (80.0-100.0) fL MCH (25.0-35.0) pg MCHC (31.0-37.0) g/dL RDW (11.5-15.5) % Plt Count (150-450) k/uL PT 13.5 H (9.0-12.0) sec INR 1.3 H (<1.2) Potassium 5.2 H (3.5-5.1) mmol/L Glucose 104 H (74-99) mg/dL POC Glucose (mg/dL) 136 H (75-99) mg/dL Total Bilirubin 2.1 H (0.2-1.3) mg/dL Unconjugated Bilirubin 1.2 H (0.0-1.1) mg/dL Delta Bilirubin 0.9 H (0.0-0.2) mg/dL AST 72 H (17-59) U/L ALT 354 H (21-72) U/L Albumin (PEP) (3.80-4.90) g/dL TSH (0.465-4.680) mIU/L 08/16/18 08/16/18 Range/Units 04:50 06:45 Hgb 11.2 L (13.0-17.5) gm/dL Hct 37.4 L (39.0-53.0) % MCV 78.9 L (80.0-100.0) fL MCH 23.7 L (25.0-35.0) pg MCHC 30.0 L (31.0-37.0) g/dL RDW 19.8 H (11.5-15.5) % Plt Count 100 L (150-450) k/uL PT (9.0-12.0) sec INR (<1.2) Potassium (3.5-5.1) mmol/L Glucose (74-99) mg/dL POC Glucose (mg/dL) 114 H (75-99) mg/dL Total Bilirubin (0.2-1.3) mg/dL Unconjugated Bilirubin (0.0-1.1) mg/dL Delta Bilirubin (0.0-0.2) mg/dL AST (17-59) U/L ALT (21-72) U/L Albumin (PEP) (3.80-4.90) g/dL TSH (0.465-4.680) mIU/L Assessment and Plan Assessment: Impression: 1 acute mental status change secondary to metabolic encephalopathy patient presented with acute kidney injury, acute hepatic injury, and mild lactic acidosis. No signs of sepsis were noted. Could be related to medications, amiodarone was discontinued. 2 systolic congestive heart failure/cardiomyopathy, ejection fraction is 30-35% 3 recent cardiac catheterization 4 paroxysmal atrial fibrillation 5 benign essential hypertension 6 hyperlipidemia 8 hypothyroidism 9 lactic acidosis on presentation, could be hypoperfusion in nature. Again doubt sepsis. 10 acute kidney injury on presentation resolved. Recommendation: Will maintain IV fluid at 50 mL per hour, will continue Ativan and Haldol, we'll arrange for the patient to be transferred out of the ICU to a regular medical floor, with a sitter at bedside. I will see the patient on when necessary basis once he is transferred out of the ICU. Time with Patient: Less than 30
[2018-08-16] MEDS: LORazepam 1 MG TAB PO PRN (12:26)
[2018-08-16 12:28] LABS: Glucose,Whole Blood 147 mg/dL (75-99)
[2018-08-16] MEDS ORDERED: HALOPERIDOL 5 MG TAB PO STA (13:28)
[2018-08-16] MEDS: SODIUM CHLORIDE 0.9% 1,000 ML IV SCH (13:33)
[2018-08-16 17:48] LABS: Glucose,Whole Blood 179 mg/dL (75-99)
--- NOTE | 2018-08-16 18:47 | PN ---
PROGRESS NOTE Kory is a 68-year-old gentleman who was admitted to hospital with chest pain, underwent cardiac catheterization and was found to have nonischemic cardiomyopathy and is being treated for the same. We were asked to see the patient back again by Dr. Baca. Dr. Sandoval had done the earlier consultation. The patient appears confused, but is otherwise doing well. He is on Eliquis, aspirin, Synthroid and Lopressor. On exam, patient is confused and agitated. Vital signs are stable. Chest exam reveals good air entry bilaterally. Heart exam reveals first and second heart sounds. No gallop. Exam of the extremities did not reveal any edema. Peripheral pulses are felt. ASSESSMENT: 1. Nonischemic cardiomyopathy. 2. Confusion and agitation. 3. Atrial fibrillation. PLAN: His heart rate is well controlled. I will continue the Eliquis, aspirin, Lopressor that he is on. He is not on an SATURNINO inhibitor secondary to hyperkalemia. MMODL / IJN: [id number] /
--- NOTE | 2018-08-16 19:46 | P.PN ---
Subjective Progress Note Date: 08/16/18 Interval history: Admitted with chest pain, second troponin elevated, acute kidney injury with elevated BUN/creatinine as well as elevated and potassium Patient was admitted with chest pain, second troponin was elevated. Underwent cardiac catheterization no ischemia noted however patient's developed ejection fraction on or about 20. Patient was recently admitted with A. fib rapid ventricular response this was corrected, he was noted to have subtherapeutic Coumadin levels and was switched to eliquis. Patient began developing hyperkalemia and in spite of doses of Late potassium continued to climb, patient's creatinine went from 1.2-3.1 patient basically developed acute kidney injury a consultation with nephrology was ordered the spironolactone was stopped as well as Lasix and Cozaar was stopped. Patient was started on calcium 2 daily insulin and bicarbonate IV Lasix 20 mg every 8 hours Urinary output has been low no vomiting diarrhea no active chest pain or shortness of breath current potassium is down from 8.1-6.1 08/05/2018 Patient's awake alert eating lunch, potassium is 5.1 patient is somewhat improved however his had episode in the room where she had loss of consciousness briefly, and awoke with focal deficits was transferred to the emergency room where she was evaluated and transferred to [facility] for possible stroke Patient is otherwise quite well Above notes per Dr. Coates 08/06/2018 Patient has his eyes closed. He is not easily arousable. Appears delirious. Withdrawing from pain. When asked several times and open his eyes briefly. He appears to be doing hand gestures consistent with hallucinating. He was admitted for suspected non-ST elevated myocardial infarction, due to a significantly worsening congestive heart pattern. He was cathed and found to have no coronary artery disease, but much worse ejection fraction around 20-25%. Cardiology felt this is from his atrial fibrillation. Although, he is cardioverted himself he has been having SVT, A. fib runs, followed by sinus rhythm. Cardiology is following him. He is unable to answer any significant questions for me today. Nursing staff indicating is been demented recently. He has a known history of closed head injury that his altered his personality and susceptibility to things such as delirium. His creatinine is elevated since arrival here on 08/02, most likely from the excessive diuretic use. Nephrology is following. Today his GFR is 16. He continues to have a microcytic, no minimal anemia. 08/07/2018. Patient remains confused and delirious. He opens his eyes but continues to hallucinate. He has a sitter to bedside. He is not responding to questions. Kidney functions continued to improve. GFR is now 22. Glucose also remains well controlled. Overnight he has pulled out his Quintero catheter and IV access. He was started on Seroquel last night hopefully help with this. He does have a history of closed head injury. 08/08/2018 delirium/confusion persists. Patient pulled out his own IVs, required sitter at bedside during the night. Restless, flinging legs over bedrail. Maintained on Seroquel. Lasix remains on hold .Significant improvement in renal function, creatinine down to 1.7. Afebrile, normal WBC. Consumed 15% of breakfast. Blood sugars controlled. Minimally converses. 08/09/2018 Seroquel dose increased yesterday,agitation lessening. Delirium improving, occasionally answering simple questions. Drinking water from a straw. Renal function continues to to improve, 1.48. Maintained on Lasix IV push. Sodium 147. Sitter at bedside. No bowel movement, abdomen soft mildly distended. 08/10/2018 rough night, continues to require sitter at bedside. Complains of low mid abdominal discomfort upon palpation. MiraLAX ordered yesterday, no bowel movements reported. Minimal oral intake. Potassium 5.2, sodium up to 149, chloride 109. Renal function continues to improve. Creatinine 1.37. Afebrile, normal WBC. Maintaining O2 sat of 98% on room air. Head CT nonacute. 08/11/2018: Overnight, patient had continued to be thrashing about. Staff reported that he looked "yellow". Stat labs and stat CT abdomen and pelvis were ordered. Findings showed acute abnormality and liver function tests, CT showed mild ascites high attenuation the gallbladder that could relate to a concentrated bile vicarious contrast extract, no dilated ducts. His lactic acid was also reported at 2.1, and then increase to 4.0. On these findings he was sent to the intensive care unit. This a.m. he is more somnolent and relax. He is receiving his medications. IV fluids were increased. His repeat lactic acid is now 1.7. This may be due to strenuous thrashing due to his significant encephalopathy. He is had 2 ammonia levels, both for less than 9. He seems improved but more somnolent. Urine remains dark. 08/12/2018: Patient continues to have significant somnolence now. ICU staff indicating is mostly after Xanax. He remains on Seroquel. Critical care discontinued his amiodarone, Depakote, and other medications that might continue to affect his liver. GI has been consult it and will evaluate him soon. They feel may be related to congestive heart failure that he has elevated unconjugated hyperbilirubinemia and abnormal liver function tests. He does remain slightly bradycardic. His blood pressure remains controlled. Staff repo rt that lastly did become quite agitated before he receives Xanax and pulled out his IV. He did open his eyes for me when I spoke with him this morning. He has Haldol ordered as well for acute agitation. Nursing staff indicated did not help him at all last cycle. F also mention no significant bowel movements in the past several days. 08/13/2018 Encephalopathic, arousable, calm. Patient agitated during the night, received Haldol and Xanax. Confusion improving,following simple commands, academic services coordinator perative with taking oral meds per staff. Plan 1.7 Abdominal ultrasound, difficult exam secondary to patient unable to cooperate. INR 1.7, T bili 2.5, unconjugated bili 1.4. Significant improvement in LFT's. Hepatitis serology nonreactive. Maintaining O2 sats in the high 90s on 2 L nasal cannula O2. Renal function stable. Telemetry sinus bradycardia, in the 50s.VSS. 08/14/18 Significant improvement in renal function. Positive diet intake, consumed 100% of breakfast. Required Haldol last night , confusion/agitation fluctuates.Sitter at bedside, conversing more. Receiving magnesium supplements. LFTs improving, bili 2.4. 08/15/2018 magnesium 1.5, receiving supplementation. Continues to have sporadic episodes of agitation, anxiety. Xanax increased. Psych consult in place, recom mendations pending T bili 2.4, LFTs improving. INR 1.4. 08/16/2018 evaluated by psychiatry, recommendations noted; oral Haldol scheduled [id number], Ativan prn. Confused, agitated combative during the night. Sitter at bedside. Currently calm, cooperative. Good diet intake at lunch. Yesterday beta justine initiated, patient's blood pressure dropped, urine output decreased. Received fluid bolus with significant improvement. Obtained on gentle IV fluid hydration. Total bili 2.1, acute improving. Renal function normal, potassium 5.2. Patient currently calm, confused, cooperative, answering questions. Patient asking for his , Informed him that his is recovering from a stroke and now at a local rehab. Objective - Vital Signs Vital signs: Vital Signs Temp 97.6 F 08/16/18 08:00 Pulse 58 L 08/16/18 17:00 Resp 26 H 08/16/18 17:00 BP 141/123 08/16/18 17:00 Pulse Ox 96 08/16/18 12:00 Intake & Output 08/16/18 08/16/18 08/17/18 06:59 18:59 06:59 Intake Total 120 700 50 Output Total 635 315 Balance -515 385 50 Weight 93.7 kg Intake: Intake, IV Titration 450 50 Amount Sodium Chloride 0.9% 1, 350 50 000 ml @ 50 mls/hr IV . Q20H [facility] Rx#:[id number] Sodium Ferric Gluconat- 100 Sucrose 125 mg In Sodium Chloride 0.9% 100 ml @ 100 mls/hr IVPB DAILY [facility] Rx#:[id number] Oral 120 250 Output: Urine 635 315 Other: Voiding Method Indwelling Catheter Indwelling Catheter # Voids 1 - Exam PHYSICAL EXAM: VITAL SIGNS: [As above] GENERAL: The patient is sitting up in a chair, alert and oriented 1 , in no acute distress HEENT: Conjunctivae normal. Positive icterus. Oral mucosa moist NECK: No JVD. No thyroid enlargement. No LNs CARDIOVASCULAR: S1, S2 regular. No murmur, rub, or gallop RESPIRATION: Nonlabored, clear throughout. Bilateral bases diminished with no rhonchi,crackles, or wheezing ABDOMEN: Soft, nontender, no organomegaly,no masses palpable.no guarding .positive Bowel sounds. LEGS: No edema. no swelling. NERVOUS SYSTEM:Confused, cooperative, follows simple instructions,moves all 4 extremities, Diffuse weakness. Skin: no rash. Microbiology 08/10/18 22:26 Urine,Catheterized Urine Culture - Final Staphylococcus epidermidis - Labs CBC & Chem 7: 08/16/18 04:50 08/16/18 04:50 Labs: Abnormal Lab Results - Last 24 Hours (Table) 08/15/18 08/16/18 08/16/18 Range/Units 21:13 04:50 04:50 Hgb (13.0-17.5) gm/dL Hct (39.0-53.0) % MCV (80.0-100.0) fL MCH (25.0-35.0) pg MCHC (31.0-37.0) g/dL RDW (11.5-15.5) % Plt Count (150-450) k/uL PT 13.5 H (9.0-12.0) sec INR 1.3 H (<1.2) Potassium 5.2 H (3.5-5.1) mmol/L Glucose 104 H (74-99) mg/dL POC Glucose (mg/dL) 136 H (75-99) mg/dL Total Bilirubin 2.1 H (0.2-1.3) mg/dL Unconjugated Bilirubin 1.2 H (0.0-1.1) mg/dL Delta Bilirubin 0.9 H (0.0-0.2) mg/dL AST 72 H (17-59) U/L ALT 354 H (21-72) U/L 08/16/18 08/16/18 08/16/18 Range/Units 04:50 06:45 12:26 Hgb 11.2 L (13.0-17.5) gm/dL Hct 37.4 L (39.0-53.0) % MCV 78.9 L (80.0-100.0) fL MCH 23.7 L (25.0-35.0) pg MCHC 30.0 L (31.0-37.0) g/dL RDW 19.8 H (11.5-15.5) % Plt Count 100 L (150-450) k/uL PT (9.0-12.0) sec INR (<1.2) Potassium (3.5-5.1) mmol/L Glucose (74-99) mg/dL POC Glucose (mg/dL) 114 H 147 H (75-99) mg/dL Total Bilirubin (0.2-1.3) mg/dL Unconjugated Bilirubin (0.0-1.1) mg/dL Delta Bilirubin (0.0-0.2) mg/dL AST (17-59) U/L ALT (21-72) U/L 08/16/18 Range/Units 17:46 Hgb (13.0-17.5) gm/dL Hct (39.0-53.0) % MCV (80.0-100.0) fL MCH (25.0-35.0) pg MCHC (31.0-37.0) g/dL RDW (11.5-15.5) % Plt Count (150-450) k/uL PT (9.0-12.0) sec INR (<1.2) Potassium (3.5-5.1) mmol/L Glucose (74-99) mg/dL POC Glucose (mg/dL) 179 H (75-99) mg/dL Total Bilirubin (0.2-1.3) mg/dL Unconjugated Bilirubin (0.0-1.1) mg/dL Delta Bilirubin (0.0-0.2) mg/dL AST (17-59) U/L ALT (21-72) U/L Assessment and Plan Assessment: (1) acute delirium, Metabolic encephalopathy, multifactorial, secondary to acute renal failure, acute hepatic injury with mild lactic acidosis-doubt sepsis ,possibly related to cardiomyopathy, possibly medication induced; amiodarone discontinued, improving Current Visit: Yes Status: Acute Code(s): G93.41 - METABOLIC ENCEPHALOPATHY SNOMED Code(s): 90237141 (2) Chest pain, status post cardiac catheterization reporting significant decrease in LV function, EF 20%, possible nonischemic cardiomyopathy worsened by chronic A. fib. Current Visit: Yes Status: Acute Code(s): R07.9 - CHEST PAIN, UNSPECIFIED SNOMED Code(s): 35254317 (3) Possible NSTEMI (non-ST elevated myocardial infarction) Current Visit: Yes Status: Acute Code(s): I21.4 - NON-ST ELEVATION (NSTEMI) MYOCARDIAL INFARCTION SNOMED Code(s): 96985256 (4) Acute kidney injury secondary to ATN secondary to urinary retention and IV contrast, resolved Current Visit: No Status: Acute Code(s): N17.9 - ACUTE KIDNEY FAILURE, UNSPECIFIED SNOMED Code(s): 54413300 (5) Acute on chronic systolic (congestive) heart failure, EF 35% improved (6) History of closed head injury Current Visit: No Status: Acute Code(s): Z87.820 - PERSONAL HISTORY OF TRAUMATIC BRAIN INJURY SNOMED Code(s): 95356751015035 (7) Hypothyroidism Current Visit: No Status: Acute Code(s): E03.9 - HYPOTHYROIDISM, UNSPECIFIED SNOMED Code(s): 83983759 (8) Insulin dependent diabetes mellitus, controlled Current Visit: No Status: Acute Code(s): E11.9 - TYPE 2 DIABETES MELLITUS WITHOUT COMPLICATIONS; Z79.4 - LONGTERM (CURRENT) USE OF INSULIN SNOMED Code(s): 04294937 (9) [facility] current use of anticoagulant therapy Current Visit: No Status: Acute Code(s): Z79.01 - LONGTERM (CURRENT) USE OF ANTICOAGULANTS SNOMED Code(s): 306385891 (10) Microcytic anemia Current Visit: Yes Status: Acute Code(s): D50.9 - IRON DEFICIENCY ANEMIA, UNSPECIFIED SNOMED Code(s): 737588432 11) Acute disorder of liver Current Visit: Yes Status: Acute Code(s): K76.9 - LIVER DISEASE, UNSPECIFIED SNOMED Code(s): 970840465 (12) Indirect hyperbilirubinemia Current Visit: Yes Status: Acute Code(s): E80.6 - OTHER DISORDERS OF BILIRUBIN METABOLISM SNOMED Code(s): 6251087 (!3) paroxysmal atrial fibrillation (14) essential hypertension (15) hyperlipidemia (16) hypomagnesemia Plan: Continue current medication regime , beta justine, aspirin, Eliquis monitoring and symptomatic treatment. Appreciate psychiatry's recommendations .patient has been cleared by rn or lpn for transfer out of ICU to [facility] with no telemetry with a water safety instructor .maintain gentle IV fluid hydration . Close monitoring of LFTs, electrolytes, with repeat labs ordered for a.m. Subacute rehab at discharge-the same as his 's. Further recommendations to follow. The impression and plan of care has been dictated as directed. : I performed a history and examination of this patient, discussed the same with the dictator. I agree with the dictator's note ,documented as a scribe. Any additional findings or plans will be noted.
[2018-08-16 22:05] LABS: Glucose,Whole Blood 113 mg/dL (75-99)
[2018-08-17] MEDS: LORazepam 1 MG TAB PO PRN ×3 (02:11→18:34)
[2018-08-17 05:41] LABS: Anisocytosis Slight; HCT 39.2 % (39.0-53.0); HGB 12.2 gm/dL (13.0-17.5); Hypochromasia Moderate; MCH 24.2 pg (25.0-35.0); MCHC 31.2 g/dL (31.0-37.0); MCV 77.8 fL (80.0-100.0); Mean Platelet Volume 7.2; Microcytosis Slight; Platelet Count 124 k/uL (150-450); RBC 5.04 m/uL (4.30-5.90); WBC 9.7 k/uL (3.8-10.6)
[2018-08-17 05:55] LABS: Anion Gap 12 mmol/L; Blood Urea Nitrogen 11 mg/dL (9-20); Calcium 9.1 mg/dL (8.4-10.2); Carbon Dioxide 18 mmol/L (22-30); Chloride 107 mmol/L (98-107); Glucose 123 mg/dL (74-99); Magnesium 1.8 mg/dL (1.6-2.3); Potassium 4.9 mmol/L (3.5-5.1); Sodium 137 mmol/L (137-145)
[2018-08-17] MEDS: LEVOTHYROXINE 100 MCG TAB PO SCH (06:08)
[2018-08-17 07:12] LABS: Glucose,Whole Blood 119 mg/dL (75-99)
[2018-08-17 08:25] LABS: Glucose,Whole Blood 114 mg/dL (75-99)
[2018-08-17] MEDS: ASPIRIN 81 MG PO SCH (08:39)
[2018-08-17] MEDS: HALOPERIDOL 5 MG TAB PO SCH ×4 (08:39→21:06)
[2018-08-17] MEDS: APIXABAN 5 MG TAB PO SCH ×2 (08:40→21:07)
[2018-08-17] MEDS: POLYETHYLENE GLYCOL 3350 17 GM POWD.PACK PO SCH (08:40)
[2018-08-17] MEDS: MEMANTINE 5 MG TAB PO SCH ×2 (08:40→21:07)
[2018-08-17] MEDS: PANTOPRAZOLE 40 MG TABLET PO SCH (08:40)
[2018-08-17] MEDS: DULoxetine HCL 60 MG CAPSULE.DR PO SCH (08:40)
[2018-08-17] MEDS: INSULIN ASPART (NovoLOG) 100 UNIT/ML VIAL SQ SCH ×4 (08:41→21:51)
[2018-08-17] MEDS: METOPROLOL TARTRATE 50 MG TAB PO SCH (08:41)
[2018-08-17] MEDS: SODIUM CHLORIDE 0.9% 1,000 ML IV SCH (08:49)
[2018-08-17] MEDS: SODIUM FERRIC GLUCONAT-SUCROSE 125 MG in SODIUM CHLORIDE 0.9% 100 ML IVPB SCH (09:44)
[2018-08-17 11:42] LABS: Glucose,Whole Blood 144 mg/dL (75-99)
--- NOTE | 2018-08-17 12:51 | P.PN ---
Subjective Progress Note Date: 08/17/18 Principal diagnosis: Acute metabolic encephalopathy and mental status change This is a 68-year-old male patient got transferred to the intensive care unit yesterday because of altered mentation. The patient was becoming more lethargic and there has been significant abnormalities in his liver function test and at that point it was decided to move this patient with ICU. I reviewed the records and there has been significant medical problems and comorbidities most significant of which are cardiac problems. The patient is known to have coronary artery disease and he has undergone previous non-ST segment elevation myocardial infarction. He initially presented with some chest pain injury this current hospitalization a cardiac catheterization was done that showed nonocclusive disease. The patient also has chronic persistent atrial fibrillation and he has been maintained on long-term anticoagulation. During this current hospital stay, the patient was in A. fib/RVR and addition to CHF. He was given amiodarone during his initial presentation and ultimately the amiodarone was discontinued as the patient became bradycardic. His current rhythm is sinus bradycardia. Also, the patient has congestion heart failure. 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 The patient has hypertension, hyperlipidemia and diabetes mellitus. Note that during this current hospitalization, the patient also developed acute kidney injury. Nephrology was involved in the case. The patient's creatinine gradually improved as the patient was being resuscitated IV fluids. This could've been also contrast nephropathy. In any rate, the patient has developed worsening LFTs, lactic acidosis, some mild coagulopathy while being off anticoagulation other than Eliquis. He got transferred to the ICU. Note that his AST and ALP levels are improving and they're down to 457 and 95 respectively, alk phos is 77, his lactic acid level was as high as 4.0 and is currently down to 1.7. The creatinine level has dropped from 3.9 down to 1.1 which is back to its baseline. In view of his ongoing mental status change, the patient has undergone a CAT scan of the brain that showed no acute abnormalities and there are some chronic MOLDER SWEEP atrophy. Most recent INR is at 1.8 with a PT of 17.8. Currently is lethargic and encephalopathic. He withdraws to painful is diminished in all 4 extremities. No neck stiffness to no fever or chills. No leukocytosis. Hemoglobin 11.7. Platelet count is at 67,000.The chest x-ray showed improvement changes in the CHF and pulmonary edema and this was done this morning on 08/11/2018. The CAT scan of the abdomen showed mild ascites and there is high attenuation of the gallbladder related to concentrated by. No dilatation of the biliary ducts. The lung bases are essentially clear and there is no effusion. No pericardial effusion. On today's evaluation of 08/12/2018 of seeing this patient for a follow-up. The patient is still encephalopathic. The patient is arousable and he will follow some simple commands. For the most part he remains confused and his mental status remains quite diminished. His neurologic exam is nonfocal. His liver function tests are improving. I would say, he is less confused compared to yesterday and his condition is gradually improving. His renal function is also stable and his creatinine is normalized. AST is down to 47. ALT is down to 757. No significant elevation in ammonia levels. No respiratory distress. When awake, he is able to swallow his tablets without any major issues. His cardiac rhythm is sinus bradycardia. Overnight he had an episode of agitation during which the patient was given Xanax and then Haldol and this was approximately 10 PM/1 AM. He slept all night without any major difficulties. The plated count is also stable. No other significant events. On today's evaluation 08/13/2018, patient remains in bed, very calm, arousable, follows simple instructions, less confused compared to what was noted above on his initial evaluation. CBC is normal INR is 1.7 basic metabolic profile is normal liver enzymes are improving, his total bilirubin is 2.5 his AST is 149 ALT is 600 and again that is significantly improved compared to 2 days ago. Clearly his liver enzymes are improving. And his mental status is actually clearing slowly. His ammonia level was not elevated. Patient is able to swallow uneventfully. Hemodynamically he remains stable, and no significant agitation this morning. Did receive Haldol last night. Reevaluated today on 08/14/2018, patient is in bed, calm, arousable, follows simple instructions, a bit confused, and according to the nurse he had episodes of extreme confusion and agitation last night requiring Haldol. Patient is presently calm, and he continues to have these episodes of agitations hence I recommended psychiatric evaluation to possibly maintained the patient on oral antipsychotic or sedative medication/maintenance. His metabolic profile did improve, liver profile is much better compared to the last few days. Bilirubin is 2.4 ALT is 485 AST is 99. Patient was reevaluated today on 08/15/2018, continues to have intermittent episodes of confusion, and agitation. He is yet to be seen by psychiatry on consultation, he is still requiring Haldol intermittently, and the dose of Xanax was increased today to 0.5 mg every 6 hours when necessary. All labs were reviewed including . Basic metabolic profile, and his liver enzymes are improving. His renal profile is back to normal. Continues to have elevated ALT and elevated AST. Patient is confused, intermittently agitated, but called during my evaluation this morning. Reevaluated today on 08/16/2018, patient is about the same, continues to have intermittent episodes of confusion and agitation and restlessness. Seen by psychiatry, placed on Haldol around the clock, and also recommended Ativan to replace Xanax. Not much of a change has been noticed by the nurses, his urine output has improved with fluid bolus yesterday, and I kept him on 50 mL per hour today. CBC is normal electrolytes are normal renal profile is normal liver enzymes are still improving. His ALT is 354 AST is 72 and total bilirubin is 2.1. During my evaluation, patient was resting, followed simple instructions, but definitely confused Patient was reevaluated today on 08/17/2018, doing better, less agitated, more sedated, calm today compared to yesterday. Labs including CBC and basic metabolic profile were noted to be normal. His urine output is adequate. Patient denies any cough wheezing shortness of breath, no chest pain no nausea no vomiting no abdominal pain. Objective - Vital Signs Vital signs: Vital Signs Temp 97.9 F 08/17/18 07:00 Pulse 46 L 08/16/18 23:00 Resp 20 08/17/18 08:00 BP 105/62 08/17/18 08:00 Pulse Ox 96 08/16/18 23:00 Intake & Output 08/16/18 08/17/18 08/17/18 18:59 06:59 18:59 Intake Total 700 750 550 Output Total 315 100 1 Balance 385 650 549 Weight 91.3 kg Intake: IV 450 200 Sodium Chloride 0.9% 1, 450 200 000 ml @ 50 mls/hr IV . Q20H [facility] Rx#:[id number] Intake, IV Titration 450 50 100 Amount Sodium Chloride 0.9% 1, 350 50 000 ml @ 50 mls/hr IV . Q20H [facility] Rx#:[id number] Sodium Ferric Gluconat- 100 100 Sucrose 125 mg In Sodium Chloride 0.9% 100 ml @ 100 mls/hr IVPB DAILY [facility] Rx#:[id number] Oral 250 250 250 Output: Urine 315 100 1 Other: Voiding Method Indwelling Catheter Incontinent Incontinent # Voids 1 3 # Bowel Movements 2 - Exam Physical Exam: Revealed a 68-year-old white male in no distress. Head: Atraumatic normocephalic. HEENT:[Neck is supple.] [No neck masses.] [No thyromegaly.] [No JVD. PERRLA, EOMI, positive icterus. Dry mucous membranes noted. Chest: [Clear throughout, no crackles, no rhonchi, no wheezes.] Cardiac Exam: [Normal S1 and S2, no S3 gallop, no murmur.] Abdomen: [Soft, nontender, no megaly, no rebound, no guarding, normal bowel sounds.] Extremities: [No clubbing, no edema, no cyanosis.] Neurological Exam: Confused, but followed simple instructions. Otherwise no gross focal deficits. Lymphatics: No evidence of Lymphadenopathy. Skin: No rashes. - Labs CBC & Chem 7: 08/17/18 05:15 08/17/18 05:15 Labs: Abnormal Lab Results - Last 24 Hours (Table) 08/16/18 08/16/18 08/17/18 Range/Units 17:46 22:04 05:15 Hgb 12.2 L (13.0-17.5) gm/dL MCV 77.8 L (80.0-100.0) fL MCH 24.2 L (25.0-35.0) pg RDW 20.0 H (11.5-15.5) % Plt Count 124 L (150-450) k/uL Carbon Dioxide (22-30) mmol/L Glucose (74-99) mg/dL POC Glucose (mg/dL) 179 H 113 H (75-99) mg/dL 08/17/18 08/17/18 08/17/18 Range/Units 05:15 07:11 08:23 Hgb (13.0-17.5) gm/dL MCV (80.0-100.0) fL MCH (25.0-35.0) pg RDW (11.5-15.5) % Plt Count (150-450) k/uL Carbon Dioxide 18 L (22-30) mmol/L Glucose 123 H (74-99) mg/dL POC Glucose (mg/dL) 119 H 114 H (75-99) mg/dL 08/17/18 Range/Units 11:39 Hgb (13.0-17.5) gm/dL MCV (80.0-100.0) fL MCH (25.0-35.0) pg RDW (11.5-15.5) % Plt Count (150-450) k/uL Carbon Dioxide (22-30) mmol/L Glucose (74-99) mg/dL POC Glucose (mg/dL) 144 H (75-99) mg/dL Assessment and Plan Assessment: Impression: 1 acute mental status change secondary to metabolic encephalopathy patient presented with acute kidney injury, acute hepatic injury, and mild lactic acidosis. Improving. 2 systolic congestive heart failure/cardiomyopathy, ejection fraction is 30-35%. No evidence of congestive heart failure at this point. 3 recent cardiac catheterization 4 paroxysmal atrial fibrillation 5 benign essential hypertension 6 hyperlipidemia 8 hypothyroidism 9 lactic acidosis on presentation, could be hypoperfusion in nature. Again doubt sepsis. 10 acute kidney injury on presentation resolved. Recommendation: Continue present supportive care measures, continue Haldol and Ativan, patient is overflow from a regular medical floor, will transfer likely today to a regular medical floor if bed becomes available patient will eventually need a rehab or ECF facility for transfer. Time with Patient: Less than 30
--- NOTE | 2018-08-17 13:08 | P.PN ---
Subjective Patient is seen in follow-up for acute kidney injury, which has significantly improved. Hypernatremia has resolved. D5W has been discontinued. He is currently maintained on normal saline at 50 mL an hour. Patient has been quite confused and agitated the last few days but appears better today. He is currently having lunch. Denies chest pain or shortness of breath. Vital signs are stable. General: The patient appeared well nourished and normally developed. HEENT: Head exam is unremarkable. Neck is without jugular venous distension. LUNGS: Lungs are clear to auscultation and percussion. Breath sounds decreased. HEART: Rate and Rhythm are regular. First and second heart sounds normal. No murmurs, rubs or gallops. ABDOMEN: Abdominal exam reveals normal bowel sounds. Non-tender and non- distended. No evidence of peritonitis. EXTREMITITES: No clubbing, cyanosis, or edema. Objective - Vital Signs Vital signs: Vital Signs Temp 97.9 F 08/17/18 07:00 Pulse 46 L 08/16/18 23:00 Resp 20 08/17/18 08:00 BP 105/62 08/17/18 08:00 Pulse Ox 96 08/16/18 23:00 Intake & Output 08/16/18 08/17/18 08/17/18 18:59 06:59 18:59 Intake Total 700 750 550 Output Total 315 100 1 Balance 385 650 549 Weight 91.3 kg Intake: IV 450 200 Sodium Chloride 0.9% 1, 450 200 000 ml @ 50 mls/hr IV . Q20H [facility] Rx#:[id number] Intake, IV Titration 450 50 100 Amount Sodium Chloride 0.9% 1, 350 50 000 ml @ 50 mls/hr IV . Q20H [facility] Rx#:[id number] Sodium Ferric Gluconat- 100 100 Sucrose 125 mg In Sodium Chloride 0.9% 100 ml @ 100 mls/hr IVPB DAILY [facility] Rx#:[id number] Oral 250 250 250 Output: Urine 315 100 1 Other: Voiding Method Indwelling Catheter Incontinent Incontinent # Voids 1 3 # Bowel Movements 2 - Labs CBC & Chem 7: 08/17/18 05:15 08/17/18 05:15 Labs: Abnormal Lab Results - Last 24 Hours (Table) 08/16/18 08/16/18 08/17/18 Range/Units 17:46 22:04 05:15 Hgb 12.2 L (13.0-17.5) gm/dL MCV 77.8 L (80.0-100.0) fL MCH 24.2 L (25.0-35.0) pg RDW 20.0 H (11.5-15.5) % Plt Count 124 L (150-450) k/uL Carbon Dioxide (22-30) mmol/L Glucose (74-99) mg/dL POC Glucose (mg/dL) 179 H 113 H (75-99) mg/dL 08/17/18 08/17/18 08/17/18 Range/Units 05:15 07:11 08:23 Hgb (13.0-17.5) gm/dL MCV (80.0-100.0) fL MCH (25.0-35.0) pg RDW (11.5-15.5) % Plt Count (150-450) k/uL Carbon Dioxide 18 L (22-30) mmol/L Glucose 123 H (74-99) mg/dL POC Glucose (mg/dL) 119 H 114 H (75-99) mg/dL 08/17/18 Range/Units 11:39 Hgb (13.0-17.5) gm/dL MCV (80.0-100.0) fL MCH (25.0-35.0) pg RDW (11.5-15.5) % Plt Count (150-450) k/uL Carbon Dioxide (22-30) mmol/L Glucose (74-99) mg/dL POC Glucose (mg/dL) 144 H (75-99) mg/dL Assessment and Plan Plan: Assessment: 1. Acute kidney injury secondary to ATN secondary to hemodynamic instability/retention. He also received IV contrast on August 03. Resolved. No evidence of hydronephrosis noted on renal ultrasound.. 2. Hypernatremia secondary to lack of for water intake. Status post D5W. Resolved. 3. Systolic CHF with ejection fraction of 35%. 4. Iron deficiency - status post 3 doses of IV iron. 5. Insulin-dependent diabetes mellitus. 6. Hypomagnesemia due to poor oral intake. Better post replacement. 7. Metabolic acidosis secondary to IV fluids. Plan: Maintain normal saline at 50 mL an hour. Add oral sodium bicarbonate. Encouraged oral intake. Repeat electrolytes in the morning.
--- NOTE | 2018-08-17 13:35 | PN ---
PROGRESS NOTE Kory is a 68-year-old gentleman with cardiomyopathy, atrial fibrillation, bradycardia. He appears confused, agitated and combative. Heart rates were low at times, but heart rate is normal at the moment. He is on Lopressor 50 b.i.d., which I am going to decrease to 25 b.i.d. This morning patient appears confused. Heart rates are better. Blood pressure is well controlled. He is on aspirin, Eliquis, Cymbalta, Synthroid, Lopressor for which dose I am decreasing. On exam, patient is afebrile. Blood pressure is normal. There is no jugular venous distention. Chest exam reveals diminished air entry at the bases. Heart exam reveals first and second heart sounds, irregular rhythm. Systolic murmur at the apex. Abdomen is soft. Examination of extremities did not reveal any edema. Peripheral pulses are palpable. Labs show that the hemoglobin is 12.2, platelet count is 124, creatinine is 0.7, potassium is 4.9. ASSESSMENT: 1. Cardiomyopathy. 2. Chronic atrial fibrillation. 3. Congestive heart failure. 4. Confusion. PLAN: Will continue with the current medications. MMODL / IJN: [id number] /
[2018-08-17] MEDS: DEXTROSE/WATER 1 250ML.BAG with DOPamine DRIP 800 MG IV SCH (17:05)
[2018-08-17 17:06] LABS: Glucose,Whole Blood 133 mg/dL (75-99)
[2018-08-17] MEDS: SODIUM BICARBONATE TAB 650 MG TAB PO SCH (21:09)
[2018-08-17 21:28] LABS: Glucose,Whole Blood 131 mg/dL (75-99)
--- NOTE | 2018-08-17 21:41 | P.PN ---
Subjective Progress Note Date: 08/17/18 Interval history: Admitted with chest pain, second troponin elevated, acute kidney injury with elevated BUN/creatinine as well as elevated and potassium Patient was admitted with chest pain, second troponin was elevated. Underwent cardiac catheterization no ischemia noted however patient's developed ejection fraction on or about 20. Patient was recently admitted with A. fib rapid ventricular response this was corrected, he was noted to have subtherapeutic Coumadin levels and was switched to eliquis. Patient began developing hyperkalemia and in spite of doses of Late potassium continued to climb, patient's creatinine went from 1.2-3.1 patient basically developed acute kidney injury a consultation with nephrology was ordered the spironolactone was stopped as well as Lasix and Cozaar was stopped. Patient was started on calcium 2 daily insulin and bicarbonate IV Lasix 20 mg every 8 hours Urinary output has been low no vomiting diarrhea no active chest pain or shortness of breath current potassium is down from 8.1-6.1 08/05/2018 Patient's awake alert eating lunch, potassium is 5.1 patient is somewhat improved however his had episode in the room where she had loss of consciousness briefly, and awoke with focal deficits was transferred to the emergency room where she was evaluated and transferred to [facility] for possible stroke Patient is otherwise quite well Above notes per Dr. Coates 08/06/2018 Patient has his eyes closed. He is not easily arousable. Appears delirious. Withdrawing from pain. When asked several times and open his eyes briefly. He appears to be doing hand gestures consistent with hallucinating. He was admitted for suspected non-ST elevated myocardial infarction, due to a significantly worsening congestive heart pattern. He was cathed and found to have no coronary artery disease, but much worse ejection fraction around 20-25%. Cardiology felt this is from his atrial fibrillation. Although, he is cardioverted himself he has been having SVT, A. fib runs, followed by sinus rhythm. Cardiology is following him. He is unable to answer any significant questions for me today. Nursing staff indicating is been demented recently. He has a known history of closed head injury that his altered his personality and susceptibility to things such as delirium. His creatinine is elevated since arrival here on 08/02, most likely from the excessive diuretic use. Nephrology is following. Today his GFR is 16. He continues to have a microcytic, no minimal anemia. 08/07/2018. Patient remains confused and delirious. He opens his eyes but continues to hallucinate. He has a sitter to bedside. He is not responding to questions. Kidney functions continued to improve. GFR is now 22. Glucose also remains well controlled. Overnight he has pulled out his Quintero catheter and IV access. He was started on Seroquel last night hopefully help with this. He does have a history of closed head injury. 08/08/2018 delirium/confusion persists. Patient pulled out his own IVs, required sitter at bedside during the night. Restless, flinging legs over bedrail. Maintained on Seroquel. Lasix remains on hold .Significant improvement in renal function, creatinine down to 1.7. Afebrile, normal WBC. Consumed 15% of breakfast. Blood sugars controlled. Minimally converses. 08/09/2018 Seroquel dose increased yesterday,agitation lessening. Delirium improving, occasionally answering simple questions. Drinking water from a straw. Renal function continues to to improve, 1.48. Maintained on Lasix IV push. Sodium 147. Sitter at bedside. No bowel movement, abdomen soft mildly distended. 08/10/2018 rough night, continues to require sitter at bedside. Complains of low mid abdominal discomfort upon palpation. MiraLAX ordered yesterday, no bowel movements reported. Minimal oral intake. Potassium 5.2, sodium up to 149, chloride 109. Renal function continues to improve. Creatinine 1.37. Afebrile, normal WBC. Maintaining O2 sat of 98% on room air. Head CT nonacute. 08/11/2018: Overnight, patient had continued to be thrashing about. Staff reported that he looked "yellow". Stat labs and stat CT abdomen and pelvis were ordered. Findings showed acute abnormality and liver function tests, CT showed mild ascites high attenuation the gallbladder that could relate to a concentrated bile vicarious contrast extract, no dilated ducts. His lactic acid was also reported at 2.1, and then increase to 4.0. On these findings he was sent to the intensive care unit. This a.m. he is more somnolent and relax. He is receiving his medications. IV fluids were increased. His repeat lactic acid is now 1.7. This may be due to strenuous thrashing due to his significant encephalopathy. He is had 2 ammonia levels, both for less than 9. He seems improved but more somnolent. Urine remains dark. 08/12/2018: Patient continues to have significant somnolence now. ICU staff indicating is mostly after Xanax. He remains on Seroquel. Critical care discontinued his amiodarone, Depakote, and other medications that might continue to affect his liver. GI has been consult it and will evaluate him soon. They feel may be related to congestive heart failure that he has elevated unconjugated hyperbilirubinemia and abnormal liver function tests. He does remain slightly bradycardic. His blood pressure remains controlled. Staff repo rt that lastly did become quite agitated before he receives Xanax and pulled out his IV. He did open his eyes for me when I spoke with him this morning. He has Haldol ordered as well for acute agitation. Nursing staff indicated did not help him at all last cycle. F also mention no significant bowel movements in the past several days. 08/13/2018 Encephalopathic, arousable, calm. Patient agitated during the night, received Haldol and Xanax. Confusion improving,following simple commands, dental patient coordinator perative with taking oral meds per staff. Plan 1.7 Abdominal ultrasound, difficult exam secondary to patient unable to cooperate. INR 1.7, T bili 2.5, unconjugated bili 1.4. Significant improvement in LFT's. Hepatitis serology nonreactive. Maintaining O2 sats in the high 90s on 2 L nasal cannula O2. Renal function stable. Telemetry sinus bradycardia, in the 50s.VSS. 08/14/18 Significant improvement in renal function. Positive diet intake, consumed 100% of breakfast. Required Haldol last night , confusion/agitation fluctuates.Sitter at bedside, conversing more. Receiving magnesium supplements. LFTs improving, bili 2.4. 08/15/2018 magnesium 1.5, receiving supplementation. Continues to have sporadic episodes of agitation, anxiety. Xanax increased. Psych consult in place, recom mendations pending T bili 2.4, LFTs improving. INR 1.4. 08/16/2018 evaluated by psychiatry, recommendations noted; oral Haldol scheduled [id number], Ativan prn. Confused, agitated combative during the night. Sitter at bedside. Currently calm, cooperative. Good diet intake at lunch. Yesterday beta justine initiated, patient's blood pressure dropped, urine output decreased. Received fluid bolus with significant improvement. Obtained on gentle IV fluid hydration. Total bili 2.1, acute improving. Renal function normal, potassium 5.2. Patient currently calm, confused, cooperative, answering questions. Patient asking for his , Informed him that his is recovering from a stroke and now at a local rehab. 08/17/2018 maintained on Haldol, Ativan .sitter continues at bedside, more calm her today, conversing a little bit more, less agitation denies chest pain, palpitations or increasing shortness of breath. Awaiting transfer out of ICU to [facility]. Objective - Vital Signs Vital signs: Vital Signs Temp 97.5 F L 08/17/18 20:50 Pulse 61 08/17/18 20:50 Resp 18 08/17/18 20:50 BP 148/81 08/17/18 20:50 Pulse Ox 97 08/17/18 20:50 Intake & Output 08/17/18 08/17/18 08/18/18 06:59 18:59 06:59 Intake Total 750 750 Output Total 100 Balance 650 750 Weight 91.3 kg Intake: IV 450 400 Sodium Chloride 0.9% 1, 450 400 000 ml @ 50 mls/hr IV . Q20H [facility] Rx#:[id number] Intake, IV Titration 50 100 Amount Sodium Chloride 0.9% 1, 50 000 ml @ 50 mls/hr IV . Q20H [facility] Rx#:[id number] Sodium Ferric Gluconat- 100 Sucrose 125 mg In Sodium Chloride 0.9% 100 ml @ 100 mls/hr IVPB DAILY [facility] Rx#:[id number] Oral 250 250 Output: Urine 100 Other: Voiding Method Incontinent Incontinent # Voids 3 3 1 # Bowel Movements 2 - Exam PHYSICAL EXAM: VITAL SIGNS: [As above] GENERAL: The patient is sitting up in bed, alert and oriented 1 , in no acute distress HEENT: Conjunctivae normal. Positive icterus. Oral mucosa moist NECK: No JVD. No thyroid enlargement. No LNs CARDIOVASCULAR: S1, S2 regular. No murmur, rub, or gallop RESPIRATION: Nonlabored, clear throughout. Bilateral bases diminished with no rh onchi,no crackles, or wheezing ABDOMEN: Soft, nontender, no organomegaly,no masses palpable.no guarding .positive Bowel sounds. LEGS: No edema. no swelling. NERVOUS SYSTEM:Confused, cooperative, follows simple instructions,moves all 4 extremities, Diffuse weakness. Skin: no rash. Microbiology 08/10/18 22:26 Urine,Catheterized Urine Culture - Final Staphylococcus epidermidis - Labs CBC & Chem 7: 08/17/18 05:15 08/17/18 05:15 Labs: Abnormal Lab Results - Last 24 Hours (Table) 08/16/18 08/17/18 08/17/18 Range/Units 22:04 05:15 05:15 Hgb 12.2 L (13.0-17.5) gm/dL MCV 77.8 L (80.0-100.0) fL MCH 24.2 L (25.0-35.0) pg RDW 20.0 H (11.5-15.5) % Plt Count 124 L (150-450) k/uL Carbon Dioxide 18 L (22-30) mmol/L Glucose 123 H (74-99) mg/dL POC Glucose (mg/dL) 113 H (75-99) mg/dL 08/17/18 08/17/18 08/17/18 Range/Units 07:11 08:23 11:39 Hgb (13.0-17.5) gm/dL MCV (80.0-100.0) fL MCH (25.0-35.0) pg RDW (11.5-15.5) % Plt Count (150-450) k/uL Carbon Dioxide (22-30) mmol/L Glucose (74-99) mg/dL POC Glucose (mg/dL) 119 H 114 H 144 H (75-99) mg/dL 08/17/18 08/17/18 Range/Units 17:05 21:26 Hgb (13.0-17.5) gm/dL MCV (80.0-100.0) fL MCH (25.0-35.0) pg RDW (11.5-15.5) % Plt Count (150-450) k/uL Carbon Dioxide (22-30) mmol/L Glucose (74-99) mg/dL POC Glucose (mg/dL) 133 H 131 H (75-99) mg/dL Assessment and Plan Assessment: (1) acute delirium, Metabolic encephalopathy, multifactorial, secondary to acute renal failure, acute hepatic injury with mild lactic acidosis-doubt sepsis ,possibly related to cardiomyopathy, possibly medication induced; amiodarone discontinued, improving Current Visit: Yes Status: Acute Code(s): G93.41 - METABOLIC ENCEPHALOPATHY SNOMED Code(s): 32271274 (2) Chest pain, status post cardiac catheterization reporting significant decrease in LV function, EF 20%, possible nonischemic cardiomyopathy worsened by chronic A. fib. Current Visit: Yes Status: Acute Code(s): R07.9 - CHEST PAIN, UNSPECIFIED SNOMED Code(s): 90349279 (3) Possible NSTEMI (non-ST elevated myocardial infarction) Current Visit: Yes Status: Acute Code(s): I21.4 - NON-ST ELEVATION (NSTEMI) MYOCARDIAL INFARCTION SNOMED Code(s): 66567629 (4) Acute kidney injury secondary to ATN secondary to urinary retention and IV contrast, resolved Current Visit: No Status: Acute Code(s): N17.9 - ACUTE KIDNEY FAILURE, UNSPECIFIED SNOMED Code(s): 77382660 (5) Acute on chronic systolic (congestive) heart failure, EF 35% improved (6) History of closed head injury Current Visit: No Status: Acute Code(s): Z87.820 - PERSONAL HISTORY OF TRA UMATIC BRAIN INJURY SNOMED Code(s): 82903315238813 (7) Hypothyroidism Current Visit: No Status: Acute Code(s): E03.9 - HYPOTHYROIDISM, UNSPECIFIED SNOMED Code(s): 58440737 (8) Insulin dependent diabetes mellitus, controlled Current Visit: No Status: Acute Code(s): E11.9 - TYPE 2 DIABETES MELLITUS WITHOUT COMPLICATIONS; Z79.4 - NURSING HOME (CURRENT) USE OF INSULIN SNOMED Code(s): 55796988 (9) intermediate accountant current use of anticoagulant therapy Current Visit: No Status: Acute Code(s): Z79.01 - RESTORATION SILVERSMITH (CURRENT) USE OF ANTICOAGULANTS SNOMED Code(s): 228492885 (10) Microcytic anemia Current Visit: Yes Status: Acute Code(s): D50.9 - IRON DEFICIENCY ANEMIA, UNSPECIFIED SNOMED Code(s): 716025593 11) Acute disorder of liver Current Visit: Yes Status: Acute Code(s): K76.9 - LIVER DISEASE, UNSPECIFIED SNOMED Code(s): 646120699 (12) Indirect hyperbilirubinemia Current Visit: Yes Status: Acute Code(s): E80.6 - OTHER DISORDERS OF BILIRUBIN METABOLISM SNOMED Code(s): 2157195 (!3) paroxysmal atrial fibrillation (14) essential hypertension (15) hyperlipidemia (16) hypomagnesemia Plan: Continue current medication regime , beta justine, aspirin, Eliquis monitoring and symptomatic treatment. Close monitoring of LFTs. on scheduled Haldol .Ativan when necessary. As mentioned above awaiting transfer to [facility] .maintain safety scientist . Subacute rehab at discharge-the same as his 's. Further recommendations to follow. The impression and plan of care has been dictated as directed. : I performed a history and examination of this patient, discussed the same with the dictator. I agree with the dictator's note ,documented as a scribe. Any additional findings or plans will be noted.
[2018-08-18] MEDS ORDERED: HALOPERIDOL LACTATE 5 MG/ML 1 ML VIAL IM STA (00:10)
[2018-08-18] MEDS: SODIUM CHLORIDE 0.9% 1,000 ML IV SCH ×2 (03:00→23:29)
[2018-08-18] MEDS: LEVOTHYROXINE 75 MCG TAB PO SCH (05:34)
[2018-08-18 06:59] LABS: Glucose,Whole Blood 106 mg/dL (75-99)
[2018-08-18] MEDS: INSULIN ASPART (NovoLOG) 100 UNIT/ML VIAL SQ SCH ×4 (07:47→20:33)
[2018-08-18] MEDS: DULoxetine HCL 60 MG CAPSULE.DR PO SCH (08:09)
[2018-08-18] MEDS: HALOPERIDOL 5 MG TAB PO SCH ×4 (08:09→19:55)
[2018-08-18] MEDS: SODIUM BICARBONATE TAB 650 MG TAB PO SCH ×2 (08:09→19:55)
[2018-08-18] MEDS: MEMANTINE 5 MG TAB PO SCH ×2 (08:09→19:55)
[2018-08-18] MEDS: PANTOPRAZOLE 40 MG TABLET PO SCH (08:09)
[2018-08-18] MEDS: POLYETHYLENE GLYCOL 3350 17 GM POWD.PACK PO SCH (08:09)
[2018-08-18] MEDS: APIXABAN 5 MG TAB PO SCH ×2 (08:09→19:55)
[2018-08-18] MEDS: ASPIRIN 81 MG PO SCH (08:09)
[2018-08-18 09:37] LABS: Anisocytosis Moderate; Basophils # (A) 0.1 k/uL (0-0.2); Basophils % (A) 1 %; Eosinophils # (A) 0.3 k/uL (0-0.7); Eosinophils % (A) 3 %; HCT 36.3 % (39.0-53.0); HGB 11.3 gm/dL (13.0-17.5); Hypochromasia Moderate; Lymphocytes # (A) 1.1 k/uL (1.0-4.8); Lymphocytes % (A) 12 %; MCH 24.5 pg (25.0-35.0); MCHC 31.2 g/dL (31.0-37.0); MCV 78.5 fL (80.0-100.0); Mean Platelet Volume 7.4; Microcytosis Slight; Monocytes # (A) 1.1 k/uL (0-1.0); Monocytes % (A) 12 %; Neutrophils # (A) 6.5 k/uL (1.3-7.7); Neutrophils % (A) 70 %; Platelet Count 180 k/uL (150-450); RBC 4.63 m/uL (4.30-5.90); RDW 20.8 % (11.5-15.5); WBC 9.3 k/uL (3.8-10.6)
[2018-08-18 09:39] LABS: ALT 234 U/L (21-72); AST 49 U/L (17-59); Albumin 3.4 g/dL (3.5-5.0); Alkaline Phosphatase 95 U/L (38-126); Anion Gap 9 mmol/L; Blood Urea Nitrogen 10 mg/dL (9-20); Calcium 9.1 mg/dL (8.4-10.2); Carbon Dioxide 21 mmol/L (22-30); Chloride 106 mmol/L (98-107); Glucose 129 mg/dL (74-99); Potassium 4.4 mmol/L (3.5-5.1); Sodium 136 mmol/L (137-145); Total Bilirubin 2.3 mg/dL (0.2-1.3); Total Protein 6.2 g/dL (6.3-8.2)
--- NOTE | 2018-08-18 10:15 | P.PN ---
Subjective Progress Note Date: 08/18/18 Principal diagnosis: Admitted with chest pain, second troponin elevated, acute kidney injury with elevated BUN/creatinine as well as elevated and potassium Patient was admitted with chest pain, second troponin was elevated. Underwent cardiac catheterization no ischemia noted however patient's developed ejection fraction on or about 20. Patient was recently admitted with A. fib rapid ventricular response this was corrected, he was noted to have subtherapeutic Coumadin levels and was switched to eliquis. Patient began developing hyperkalemia and in spite of doses of Late potassium continued to climb, patient's creatinine went from 1.2-3.1 patient basically developed acute kidney injury a consultation with nephrology was ordered the spironolactone was stopped as well as Lasix and Cozaar was stopped. Patient was started on calcium 2 daily insulin and bicarbonate IV Lasix 20 mg every 8 hours Urinary output has been low no vomiting diarrhea no active chest pain or sh ortness of breath current potassium is down from 8.1-6.1 08/05/2018 Patient's awake alert eating lunch, potassium is 5.1 patient is somewhat improved however his had episode in the room where she had loss of consciousness briefly, and awoke with focal deficits was transferred to the emergency room where she was evaluated and transferred to [facility] for possible stroke Patient is otherwise quite well 08/18/2018 Patient is seen in follow-up for acute kidney injury which is significantly improved hypernatremia which is resolved patient is still oriented to self and is confused and agitated but has been improving as liver functions improved it appears that he is clearing more will again follow very closely Objective - Vital Signs Vital signs: Vital Signs Temp 97.6 F 08/18/18 05:17 Pulse 65 08/18/18 05:17 Resp 18 08/18/18 05:17 BP 138/79 08/18/18 05:17 Pulse Ox 100 08/18/18 05:17 Intake & Output 08/17/18 08/18/18 08/18/18 18:59 06:59 18:59 Intake Total 750 Balance 750 Intake: IV 400 Sodium Chloride 0.9% 1, 400 000 ml @ 50 mls/hr IV . Q20H [facility] Rx#:[id number] Intake, IV Titration 100 Amount Sodium Ferric Gluconat- 100 Sucrose 125 mg In Sodium Chloride 0.9% 100 ml @ 100 mls/hr IVPB DAILY [facility] Rx#:[id number] Oral 250 Other: Voiding Method Incontinent Incontinent # Voids 3 5 2 # Bowel Movements 2 - Exam General: [Patient awake, alert and oriented times 3. Patient in no acute distress.] HEENT: [PERRL. EOMI. No pharyngeal erythema or exudate.] Neck: [No adenopathy.] Cardiac: [Heart regular in rate and rhythm. No S3. No S4. No clicks, rubs. No murmur.] Lungs: [Clear to auscultation bilaterally.] Abdomen: [No mass. No organomegaly. Bowel sounds presnt and normoactive in all 4 quadrants.] Extremes: [No edema no cyanosis no claudication normal pulses] : [] Musculoskeletal: [No joint erythema, edema or tenderness.] Skin: [No rash.] Neurologic: [No lateralizing deficits. CN II - XII grossly intact.] Lymphatic: [No adenopathy.] - Labs CBC & Chem 7: 08/18/18 08:53 08/18/18 08:53 Labs: Abnormal Lab Results - Last 24 Hours (Table) 08/17/18 08/17/18 08/17/18 Range/Units 11:39 17:05 21:26 Hgb (13.0-17.5) gm/dL Hct (39.0-53.0) % MCV (80.0-100.0) fL MCH (25.0-35.0) pg RDW (11.5-15.5) % Monocytes # (0-1.0) k/uL Sodium (137-145) mmol/L Carbon Dioxide (22-30) mmol/L Glucose (74-99) mg/dL POC Glucose (mg/dL) 144 H 133 H 131 H (75-99) mg/dL Total Bilirubin (0.2-1.3) mg/dL ALT (21-72) U/L Total Protein (6.3-8.2) g/dL Albumin (3.5-5.0) g/dL 08/18/18 08/18/18 08/18/18 Range/Units 06:58 08:53 08:53 Hgb 11.3 L (13.0-17.5) gm/dL Hct 36.3 L (39.0-53.0) % MCV 78.5 L (80.0-100.0) fL MCH 24.5 L (25.0-35.0) pg RDW 20.8 H (11.5-15.5) % Monocytes # 1.1 H (0-1.0) k/uL Sodium 136 L (137-145) mmol/L Carbon Dioxide 21 L (22-30) mmol/L Glucose 129 H (74-99) mg/dL POC Glucose (mg/dL) 106 H (75-99) mg/dL Total Bilirubin 2.3 H (0.2-1.3) mg/dL ALT 234 H (21-72) U/L Total Protein 6.2 L (6.3-8.2) g/dL Albumin 3.4 L (3.5-5.0) g/dL Assessment and Plan (1) Chest pain Current Visit: Yes Status: Acute Code(s): R07.9 - CHEST PAIN, UNSPECIFIED SNOMED Code(s): 22888705 (2) NSTEMI (non-ST elevated myocardial infarction) Current Visit: Yes Status: Acute Code(s): I21.4 - NON-ST ELEVATION (NSTEMI) MYOCARDIAL INFARCTION SNOMED Code(s): 81422277 (3) Acute CHF (congestive heart failure) Current Visit: No Status: Acute Code(s): I50.9 - HEART FAILURE, UNSPECIFIED SNOMED Code(s): 47808703 (4) Acute kidney injury Current Visit: No Status: Acute Code(s): N17.9 - ACUTE KIDNEY FAILURE, UNSPECIFIED SNOMED Code(s): 50506494 (5) Acute on chronic diastolic (congestive) heart failure Current Visit: No Status: Acute Code(s): I50.33 - ACUTE ON CHRONIC DIASTOLIC (CONGESTIVE) HEART FAILURE SNOMED Code(s): 529060856 (6) Acute on chronic systolic and diastolic heart failure, NYHA class 2 Current Visit: No Status: Acute Code(s): I50.43 - ACUTE ON CHRONIC COMBINED SYSTOLIC AND DIASTOLIC HRT FAIL SNOMED Code(s): 562653350345522 (7) Allergic drug reaction Current Visit: No Status: Acute Code(s): T78.40XA - ALLERGY, UNSPECIFIED, INITIAL ENCOUNTER SNOMED Code(s): 833118293 (8) Anxiety and depression Current Visit: No Status: Acute Code(s): F41.9 - ANXIETY DISORDER, UNSPECIFIED; F32.9 - MAJOR DEPRESSIVE DISORDER, SINGLE EPISODE, UNSPECIFIED SNOMED Code(s): 11115873 (9) Atrial fibrillation with RVR Current Visit: No Status: Acute Code(s): I48.91 - UNSPECIFIED ATRIAL FIBRILLATION SNOMED Code(s): 419923917000139 Plan: Acute kidney injury significantly improved Hypernatremia resolved Systolic congestive heart failure with ejection fraction of 35% Ana insufficiency anemia patient dosed with 3 doses of IV iron Insulin-dependent diabetes mellitus controlled Hypomagnesemia post-replacement Liver enzymes have improved Patient still becomes agitated and requires Haldol to reduce agitation Continue IV solution at 50 an hour sodium bicarb has been added encourage oral intake repeat lab this morning Will continue to follow and evaluate in the morning Time with Patient: Greater than 30
[2018-08-18 11:24] LABS: Glucose,Whole Blood 181 mg/dL (75-99)
[2018-08-18] MEDS: DEXTROSE/WATER 1 250ML.BAG with DOPamine DRIP 800 MG IV SCH (15:32)
[2018-08-18] MEDS: LORazepam 1 MG TAB PO PRN (16:32)
[2018-08-18 17:18] LABS: Glucose,Whole Blood 173 mg/dL (75-99)
[2018-08-19] MEDS: LORazepam 1 MG TAB PO PRN (00:22)
[2018-08-19] MEDS ORDERED: HALOPERIDOL LACTATE 5 MG/ML 1 ML VIAL IM STA ×2 (01:47→02:53)
[2018-08-19] MEDS: LEVOTHYROXINE 75 MCG TAB PO SCH (05:13)
[2018-08-19 06:49] LABS: Glucose,Whole Blood 182 mg/dL (75-99)
[2018-08-19 08:35] LABS: Anisocytosis Moderate; Basophils # (A) 0.1 k/uL (0-0.2); Basophils % (A) 0 %; Eosinophils # (A) 0.1 k/uL (0-0.7); Eosinophils % (A) 1 %; HCT 35.6 % (39.0-53.0); HGB 11.3 gm/dL (13.0-17.5); Hypochromasia Slight; Lymphocytes # (A) 0.9 k/uL (1.0-4.8); Lymphocytes % (A) 5 %; MCH 24.4 pg (25.0-35.0); MCHC 31.8 g/dL (31.0-37.0); MCV 76.8 fL (80.0-100.0); Mean Platelet Volume 7.2; Microcytosis Moderate; Monocytes % (A) 6 %; Neutrophils # (A) 14.1 k/uL (1.3-7.7); Neutrophils % (A) 86 %; Platelet Count 225 k/uL (150-450); RBC 4.64 m/uL (4.30-5.90); RDW 21.6 % (11.5-15.5); WBC 16.5 k/uL (3.8-10.6)
[2018-08-19] MEDS: PANTOPRAZOLE 40 MG TABLET PO SCH (08:48)
[2018-08-19] MEDS: APIXABAN 5 MG TAB PO SCH ×2 (08:48→21:04)
[2018-08-19] MEDS: SODIUM BICARBONATE TAB 650 MG TAB PO SCH ×2 (08:48→21:04)
[2018-08-19] MEDS: HALOPERIDOL 5 MG TAB PO SCH ×4 (08:49→21:04)
[2018-08-19] MEDS: DULoxetine HCL 60 MG CAPSULE.DR PO SCH (08:49)
[2018-08-19] MEDS: ASPIRIN 81 MG PO SCH (08:49)
[2018-08-19] MEDS: POLYETHYLENE GLYCOL 3350 17 GM POWD.PACK PO SCH (08:49)
[2018-08-19] MEDS: MEMANTINE 5 MG TAB PO SCH ×2 (08:50→21:04)
[2018-08-19] MEDS: INSULIN ASPART (NovoLOG) 100 UNIT/ML VIAL SQ SCH ×4 (08:50→20:03)
[2018-08-19 08:53] LABS: ALT 187 U/L (21-72); AST 47 U/L (17-59); Albumin 3.5 g/dL (3.5-5.0); Alkaline Phosphatase 117 U/L (38-126); Anion Gap 12 mmol/L; Blood Urea Nitrogen 9 mg/dL (9-20); Carbon Dioxide 21 mmol/L (22-30); Chloride 101 mmol/L (98-107); Glucose 181 mg/dL (74-99); Potassium 4.4 mmol/L (3.5-5.1); Sodium 134 mmol/L (137-145); Total Bilirubin 2.2 mg/dL (0.2-1.3); Total Protein 6.3 g/dL (6.3-8.2)
[2018-08-19 11:17] LABS: Glucose,Whole Blood 123 mg/dL (75-99)
[2018-08-19 16:41] LABS: Glucose,Whole Blood 186 mg/dL (75-99)
[2018-08-19 20:01] LABS: Glucose,Whole Blood 143 mg/dL (75-99)
[2018-08-19] MEDS: SODIUM CHLORIDE 0.9% 1,000 ML IV SCH (20:01)
[2018-08-20] MEDS: LORazepam 1 MG TAB PO PRN (04:56)
[2018-08-20] MEDS: LEVOTHYROXINE 100 MCG TAB PO SCH (06:00)
[2018-08-20 07:04] LABS: Glucose,Whole Blood 127 mg/dL (75-99)
[2018-08-20] MEDS: PANTOPRAZOLE 40 MG TABLET PO SCH (07:52)
[2018-08-20] MEDS: SODIUM BICARBONATE TAB 650 MG TAB PO SCH (07:52)
[2018-08-20] MEDS: ASPIRIN 81 MG PO SCH (07:53)
[2018-08-20] MEDS: INSULIN ASPART (NovoLOG) 100 UNIT/ML VIAL SQ SCH ×4 (07:53→20:40)
[2018-08-20] MEDS: APIXABAN 5 MG TAB PO SCH ×2 (07:53→20:39)
[2018-08-20] MEDS: DULoxetine HCL 60 MG CAPSULE.DR PO SCH (07:53)
[2018-08-20] MEDS: POLYETHYLENE GLYCOL 3350 17 GM POWD.PACK PO SCH (07:54)
[2018-08-20] MEDS: HALOPERIDOL 5 MG TAB PO SCH ×4 (07:54→22:06)
[2018-08-20] MEDS: MEMANTINE 5 MG TAB PO SCH (07:54)
[2018-08-20 08:05] LABS: ALT 158 U/L (21-72); AST 40 U/L (17-59); Albumin 3.5 g/dL (3.5-5.0); Alkaline Phosphatase 114 U/L (38-126); Anion Gap 7 mmol/L; Blood Urea Nitrogen 10 mg/dL (9-20); Calcium 9.3 mg/dL (8.4-10.2); Carbon Dioxide 25 mmol/L (22-30); Chloride 103 mmol/L (98-107); Glucose 121 mg/dL (74-99); Sodium 135 mmol/L (137-145); Total Bilirubin 2.7 mg/dL (0.2-1.3); Total Protein 6.5 g/dL (6.3-8.2)
--- NOTE | 2018-08-20 08:26 | P.PN ---
Subjective Patient is seen in follow-up for acute kidney injury, which has significantly improved. Hypernatremia has resolved. D5W has been discontinued. He is off IVfs. Has been pulling out IVs. Currently awake and alert. Denies chest pain or dyspnea. Vital signs are stable. General: The patient appeared well nourished and normally developed. HEENT: Head exam is unremarkable. Neck is without jugular venous distension. LUNGS: Lungs are clear to auscultation and percussion. Breath sounds decreased. HEART: Rate and Rhythm are regular. First and second heart sounds normal. No murmurs, rubs or gallops. ABDOMEN: Abdominal exam reveals normal bowel sounds. Non-tender and non- distended. No evidence of peritonitis. EXTREMITITES: No clubbing, cyanosis, or edema. Objective - Vital Signs Vital signs: Vital Signs Temp 97.7 F 08/20/18 05:00 Pulse 113 H 08/20/18 05:00 Resp 16 08/20/18 05:00 BP 124/86 08/20/18 05:00 Pulse Ox 98 08/20/18 05:00 Intake & Output 08/19/18 08/20/18 08/20/18 18:59 06:59 18:59 Intake Total 500 Balance 500 Intake: Oral 500 Other: Voiding Method Diaper Diaper Incontinent Incontinent # Voids 5 2 - Labs CBC & Chem 7: 08/19/18 07:53 08/20/18 07:07 Labs: Abnormal Lab Results - Last 24 Hours (Table) 08/19/18 08/19/18 08/19/18 Range/Units 07:53 07:53 11:16 WBC 16.5 H (3.8-10.6) k/uL Hgb 11.3 L (13.0-17.5) gm/dL Hct 35.6 L (39.0-53.0) % MCV 76.8 L (80.0-100.0) fL MCH 24.4 L (25.0-35.0) pg RDW 21.6 H (11.5-15.5) % Neutrophils # 14.1 H (1.3-7.7) k/uL Lymphocytes # 0.9 L (1.0-4.8) k/uL Sodium 134 L (137-145) mmol/L Carbon Dioxide 21 L (22-30) mmol/L Glucose 181 H (74-99) mg/dL POC Glucose (mg/dL) 123 H (75-99) mg/dL Total Bilirubin 2.2 H (0.2-1.3) mg/dL ALT 187 H (21-72) U/L 08/19/18 08/19/18 08/20/18 Range/Units 16:39 19:49 07:03 WBC (3.8-10.6) k/uL Hgb (13.0-17.5) gm/dL Hct (39.0-53.0) % MCV (80.0-100.0) fL MCH (25.0-35.0) pg RDW (11.5-15.5) % Neutrophils # (1.3-7.7) k/uL Lymphocytes # (1.0-4.8) k/uL Sodium (137-145) mmol/L Carbon Dioxide (22-30) mmol/L Glucose (74-99) mg/dL POC Glucose (mg/dL) 186 H 143 H 127 H (75-99) mg/dL Total Bilirubin (0.2-1.3) mg/dL ALT (21-72) U/L 08/20/18 Range/Units 07:07 WBC (3.8-10.6) k/uL Hgb (13.0-17.5) gm/dL Hct (39.0-53.0) % MCV (80.0-100.0) fL MCH (25.0-35.0) pg RDW (11.5-15.5) % Neutrophils # (1.3-7.7) k/uL Lymphocytes # (1.0-4.8) k/uL Sodium 135 L (137-145) mmol/L Carbon Dioxide (22-30) mmol/L Glucose 121 H (74-99) mg/dL POC Glucose (mg/dL) (75-99) mg/dL Total Bilirubin 2.7 H (0.2-1.3) mg/dL ALT 158 H (21-72) U/L Assessment and Plan Plan: Assessment: 1. Acute kidney injury secondary to ATN secondary to hemodynamic i nstability/retention. He also received IV contrast on August 03. Resolved. No evidence of hydronephrosis noted on renal ultrasound.. 2. Hypernatremia secondary to lack of for water intake. Status post D5W. Resolved. 3. Systolic CHF with ejection fraction of 35%. 4. Iron deficiency - status post 3 doses of IV iron. 5. Insulin-dependent diabetes mellitus. 6. Hypomagnesemia due to poor oral intake. Better post replacement. 7. Metabolic acidosis secondary to IV fluids. Resolved. Plan: Remains off IVFs. Encouraged oral intake. D/c sodium bicarb. Repeat electrolytes in the morning.
[2018-08-20 08:44] LABS: Anisocytosis Moderate; Basophils # (A) 0.1 k/uL (0-0.2); Basophils % (A) 0 %; Eosinophils # (A) 0.3 k/uL (0-0.7); Eosinophils % (A) 2 %; HCT 38.5 % (39.0-53.0); HGB 12.2 gm/dL (13.0-17.5); Hypochromasia Moderate; Lymphocytes # (A) 1.3 k/uL (1.0-4.8); Lymphocytes % (A) 9 %; MCH 24.8 pg (25.0-35.0); MCHC 31.6 g/dL (31.0-37.0); MCV 78.6 fL (80.0-100.0); Microcytosis Slight; Monocytes # (A) 1.3 k/uL (0-1.0); Monocytes % (A) 10 %; Neutrophils # (A) 10.7 k/uL (1.3-7.7); Neutrophils % (A) 77 %; Platelet Count 242 k/uL (150-450); RDW 21.8 % (11.5-15.5); WBC 13.9 k/uL (3.8-10.6)
[2018-08-20 11:14] LABS: Glucose,Whole Blood 205 mg/dL (75-99)
[2018-08-20 11:41] VITALS: BMI 28.0
[2018-08-20 14:21] LABS: Appearance,Urine Turbid (Clear); Bilirubin,Urine Negative (Negative); Blood,Urine Small (Negative); Color,Urine Yellow; Glucose,Urine (UA) Negative (Negative); Ketones,Urine Negative (Negative); Leukocyte Esterase,Urine Large (Negative); Nitrite,Urine Negative (Negative); PH, Urine 6.5 (5.0-8.0); Protein,Urine Trace (Negative); RBC,Urine 9 /hpf (0-5); Specific Gravity,Urine 1.016 (1.001-1.035)
--- NOTE | 2018-08-20 15:01 | P.CN ---
Psychiatric Consult - . Consult date: 08/20/18 Consult:: 08/15/18 09:57 Altered mental status Assessment and Plan (1) Neurocognitive disorder Narrative/Plan: Mental Status Examination - General Appearance: [ disheveled, bizarre, appears older than stated age Speech/Language: [slow, slurred, rambled, mumbling, hesitant, halting, monotone, soft,] Attitude/Behavior: [ irritable, withdrawn Mood: [, anxious, irritable, angry, fearful Affect: [fflat, incongruent, labile, blunted constricted Orientation: [ not to time, only person, place situation] Thought Content: [ delusions, obsessions, phobias, other] Risk Factors: [denies suicidal (ideations, plan), and/or Homicidal (ideations, plan), other] Perception: [ hallucinations (auditory Thought Processes: [concrete, circumstantial, tangential, other] Concentration/Attention Span: [ impaired] [Per observation and interview with the patient] Recent Memory: [ impaired] [0 out of 3 in 3 minutes] Remote Memory: [ impaired] [past events, as related history] Intelligence: [below average] [based on history, based on vocabulary, syntax, grammar, and content] Judgement: [ poor] [per patient's behavior/history of present illness] Insight: [poor] [understanding severity of illness/history of present illness] Psychiatric impression: neurocognitive disorder-severe and acute psychosis; rule out thyroid storm-unusual dosing of synthroid Recommendations:stop xanax, changed to ativan only after haldol which is schedule QID, increase namenda, add depokote sprinkles and add aricept thank you Daniel Julian D.O., PhD. Current Visit: Yes Status: Acute Priority: High Code(s): R41.9 - UNSP SYMPTOMS AND SIGNS W COGNITIVE FUNCTIONS AND AWARENESS SNOMED Code(s): 376532645 (2) Psychosis Current Visit: Yes Status: Acute Priority: High Code(s): F29 - UNSP PSYCHOSIS NOT DUE TO A SUBSTANCE OR KNOWN PHYSIOL COND SNOMED Code(s): 81428373 Time with Patient: Less than 30
--- NOTE | 2018-08-20 16:13 | P.PN ---
Subjective Progress Note Date: 08/20/18 Interval history: Admitted with chest pain, second troponin elevated, acute kidney injury with elevated BUN/creatinine as well as elevated and potassium Patient was admitted with chest pain, second troponin was elevated. Underwent cardiac catheterization no ischemia noted however patient's developed ejection fraction on or about 20. Patient was recently admitted with A. fib rapid ventricular response this was corrected, he was noted to have subtherapeutic Coumadin levels and was switched to eliquis. Patient began developing hyperkalemia and in spite of doses of Late potassium continued to climb, patient's creatinine went from 1.2-3.1 patient basically developed acute kidney injury a consultation with nephrology was ordered the spironolactone was stopped as well as Lasix and Cozaar was stopped. Patient was started on calcium 2 daily insulin and bicarbonate IV Lasix 20 mg every 8 hours Urinary output has been low no vomiting diarrhea no active chest pain or shortness of breath current potassium is down from 8.1-6.1 08/05/2018 Patient's awake alert eating lunch, potassium is 5.1 patient is somewhat improved however his had episode in the room where she had loss of consciousness briefly, and awoke with focal deficits was transferred to the emergency room where she was evaluated and transferred to [facility] for possible stroke Patient is otherwise quite well Above notes per Dr. Coates 08/06/2018 Patient has his eyes closed. He is not easily arousable. Appears delirious. Withdrawing from pain. When asked several times and open his eyes briefly. He appears to be doing hand gestures consistent with hallucinating. He was admitted for suspected non-ST elevated myocardial infarction, due to a significantly worsening congestive heart pattern. He was cathed and found to have no coronary artery disease, but much worse ejection fraction around 20-25%. Cardiology felt this is from his atrial fibrillation. Although, he is cardioverted himself he has been having SVT, A. fib runs, followed by sinus rhythm. Cardiology is following him. He is unable to answer any significant questions for me today. Nursing staff indicating is been demented recently. He has a known history of closed head injury that his altered his personality and susceptibility to things such as delirium. His creatinine is elevated since arrival here on 08/02, most likely from the excessive diuretic use. Nephrology is following. Today his GFR is 16. He continues to have a microcytic, no minimal anemia. 08/07/2018. Patient remains confused and delirious. He opens his eyes but continues to hallucinate. He has a sitter to bedside. He is not responding to questions. Kidney functions continued to improve. GFR is now 22. Glucose also remains well controlled. Overnight he has pulled out his Quintero catheter and IV access. He was started on Seroquel last night hopefully help with this. He does have a history of closed head injury. 08/08/2018 delirium/confusion persists. Patient pulled out his own IVs, required sitter at bedside during the night. Restless, flinging legs over bedrail. Maintained on Seroquel. Lasix remains on hold .Significant improvement in renal function, creatinine down to 1.7. Afebrile, normal WBC. Consumed 15% of breakfast. Blood sugars controlled. Minimally converses. 08/09/2018 Seroquel dose increased yesterday,agitation lessening. Delirium improving, occasionally answering simple questions. Drinking water from a straw. Renal function continues to to improve, 1.48. Maintained on Lasix IV push. Sodium 147. Sitter at bedside. No bowel movement, abdomen soft mildly distended. 08/10/2018 rough night, continues to require sitter at bedside. Complains of low mid abdominal discomfort upon palpation. MiraLAX ordered yesterday, no bowel movements reported. Minimal oral intake. Potassium 5.2, sodium up to 149, chloride 109. Renal function continues to improve. Creatinine 1.37. Afebrile, normal WBC. Maintaining O2 sat of 98% on room air. Head CT nonacute. 08/11/2018: Overnight, patient had continued to be thrashing about. Staff reported that he looked "yellow". Stat labs and stat CT abdomen and pelvis were ordered. Findings showed acute abnormality and liver function tests, CT showed mild ascites high attenuation the gallbladder that could relate to a concentrated bile vicarious contrast extract, no dilated ducts. His lactic acid was also reported at 2.1, and then increase to 4.0. On these findings he was sent to the intensive care unit. This a.m. he is more somnolent and relax. He is receiving his medications. IV fluids were increased. His repeat lactic acid is now 1.7. This may be due to strenuous thrashing due to his significant encephalopathy. He is had 2 ammonia levels, both for less than 9. He seems improved but more somnolent. Urine remains dark. 08/12/2018: Patient continues to have significant somnolence now. ICU staff indicating is mostly after Xanax. He remains on Seroquel. Critical care discontinued his amiodarone, Depakote, and other medications that might continue to affect his liver. GI has been consult it and will evaluate him soon. They feel may be related to congestive heart failure that he has elevated unconjugated hyperbilirubinemia and abnormal liver function tests. He does remain slightly bradycardic. His blood pressure remains controlled. Staff repo rt that lastly did become quite agitated before he receives Xanax and pulled out his IV. He did open his eyes for me when I spoke with him this morning. He has Haldol ordered as well for acute agitation. Nursing staff indicated did not help him at all last cycle. F also mention no significant bowel movements in the past several days. 08/13/2018 Encephalopathic, arousable, calm. Patient agitated during the night, received Haldol and Xanax. 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 Plan 1.7 Abdominal ultrasound, difficult exam secondary to patient unable to cooperate. INR 1.7, T bili 2.5, unconjugated bili 1.4. Significant improvement in LFT's. Hepatitis serology nonreactive. Maintaining O2 sats in the high 90s on 2 L nasal cannula O2. Renal function stable. Telemetry sinus bradycardia, in the 50s.VSS. 08/14/18 Significant improvement in renal function. Positive diet intake, consumed 100% of breakfast. Required Haldol last night , confusion/agitation fluctuates.Sitter at bedside, conversing more. Receiving magnesium supplements. LFTs improving, bili 2.4. 08/15/2018 magnesium 1.5, receiving supplementation. Continues to have sporadic episodes of agitation, anxiety. Xanax increased. Psych consult in place, recom mendations pending T bili 2.4, LFTs improving. INR 1.4. 08/16/2018 evaluated by psychiatry, recommendations noted; oral Haldol scheduled [id number], Ativan prn. Confused, agitated combative during the night. Sitter at bedside. Currently calm, cooperative. Good diet intake at lunch. Yesterday beta justine initiated, patient's blood pressure dropped, urine output decreased. Received fluid bolus with significant improvement. Obtained on gentle IV fluid hydration. Total bili 2.1, acute improving. Renal function normal, potassium 5.2. Patient currently calm, confused, cooperative, answering questions. Patient asking for his , Informed him that his is recovering from a stroke and now at a local rehab. 08/17/2018 maintained on Haldol, Ativan .sitter continues at bedside, more calm her today, conversing a little bit more, less agitation denies chest pain, palpitations or increasing shortness of breath. Awaiting transfer out of ICU to [facility]. 08/20/2018 restless, attempting to get out of bed, sitter at bedside. Patient is improving now, feeding himself. More conversational. Confused though thinks he's in [place]. T bili 2.7 , LFTs improving. Afebrile. Objective - Vital Signs Vital signs: Vital Signs Temp 97.8 F 08/20/18 11:18 Pulse 104 H 08/20/18 11:18 Resp 17 08/20/18 11:18 BP 127/84 08/20/18 11:18 Pulse Ox 97 08/20/18 11:18 Intake & Output 08/19/18 08/20/18 08/20/18 18:59 06:59 18:59 Intake Total 500 Balance 500 Weight 91.3 kg Intake: Oral 500 Other: Voiding Method Diaper Diaper Incontinent Incontinent # Voids 5 2 - Exam PHYSICAL EXAM: VITAL SIGNS: [As above] GENERAL: The patient is sitting up in bed, alert and oriented 2 , in no acute distress HEENT: PERRL.Conjunctivae normal. Oral mucosa moist NECK: No JVD. No thyroid enlargement. No LNs CARDIOVASCULAR: S1, S2 regular. No murmur, rub, or gallop RESPIRATION: Nonlabored, clear throughout. Bilateral bases diminished with no rhonchi,no crackles, or wheezing ABDOMEN: Soft, nontender, no organomegaly,no masses palpable.no guarding .positive Bowel sounds. LEGS: No edema. no swelling. NERVOUS SYSTEM:Confused, cooperative, follows simple instructions,moves all 4 extremities, Diffuse weakness. Skin: no rash. Microbiology 08/10/18 22:26 Urine,Catheterized Urine Culture - Final Staphylococcus epidermidis - Labs CBC & Chem 7: 08/20/18 07:07 08/20/18 07:07 Labs: Abnormal Lab Results - Last 24 Hours (Table) 08/19/18 08/19/18 08/20/18 Range/Units 16:39 19:49 07:03 WBC (3.8-10.6) k/uL Hgb (13.0-17.5) gm/dL Hct (39.0-53.0) % MCV (80.0-100.0) fL MCH (25.0-35.0) pg RDW (11.5-15.5) % Neutrophils # (1.3-7.7) k/uL Monocytes # (0-1.0) k/uL Sodium (137-145) mmol/L Glucose (74-99) mg/dL POC Glucose (mg/dL) 186 H 143 H 127 H (75-99) mg/dL Total Bilirubin (0.2-1.3) mg/dL ALT (21-72) U/L 08/20/18 08/20/18 08/20/18 Range/Units 07:07 07:07 11:13 WBC 13.9 H (3.8-10.6) k/uL Hgb 12.2 L (13.0-17.5) gm/dL Hct 38.5 L (39.0-53.0) % MCV 78.6 L (80.0-100.0) fL MCH 24.8 L (25.0-35.0) pg RDW 21.8 H (11.5-15.5) % Neutrophils # 10.7 H (1.3-7.7) k/uL Monocytes # 1.3 H (0-1.0) k/uL Sodium 135 L (137-145) mmol/L Glucose 121 H (74-99) mg/dL POC Glucose (mg/dL) 205 H (75-99) mg/dL Total Bilirubin 2.7 H (0.2-1.3) mg/dL ALT 158 H (21-72) U/L Assessment and Plan Assessment: (1) acute delirium, Metabolic encephalopathy, multifactorial, secondary to acute renal failure, acute hepatic injury with mild lactic acidosis-doubt sepsis ,possibly related to cardiomyopathy, possibly medication induced; amiodarone discontinued, improving Current Visit: Yes Status: Acute Code(s): G93.41 - METABOLIC ENCEPHALOPATHY SNOMED Code(s): 41479715 (2) Chest pain, status post cardiac catheterization reporting significant decrease in LV function, EF 20%, possible nonischemic cardiomyopathy worsened by chronic A. fib. Current Visit: Yes Status: Acute Code(s): R07.9 - CHEST PAIN, UNSPECIFIED SNOMED Code(s): 23506815 (3) Possible NSTEMI (non-ST elevated myocardial infarction) Current Visit: Yes Status: Acute Code(s): I21.4 - NON-ST ELEVATION (NSTEMI) MYOCARDIAL INFARCTION SNOMED Code(s): 08054437 (4) Acute kidney injury secondary to ATN secondary to urinary retention and IV contrast, resolved Current Visit: No Status: Acute Code(s): N17.9 - ACUTE KIDNEY FAILURE, UNSPECIFIED SNOMED Code(s): 35868288 (5) Acute on chronic systolic (congestive) heart failure, EF 35% improved (6) History of closed head injury Current Visit: No Status: Acute Code(s): Z87.820 - PERSONAL HISTORY OF TRAUMATIC BRAIN INJURY SNOMED Code(s): 88070325593389 (7) Hypothyroidism Current Visit: No Status: Acute Code(s): E03.9 - HYPOTHYROIDISM, UNSPECIFIED SNOMED Code(s): 66217908 (8) Insulin dependent diabetes mellitus, controlled Current Visit: No Status: Acute Code(s): E11.9 - TYPE 2 DIABETES MELLITUS WITHOUT COMPLICATIONS; Z79.4 - WIRE TECHNICIAN (CURRENT) USE OF INSULIN SNOMED Code(s): 79639764 (9) assisted current use of anticoagulant therapy Current Visit: No Status: Acute Code(s): Z79.01 - WIRE TECHNICIAN (CURRENT) USE OF ANTICOAGULANTS SNOMED Code(s): 569320930 (10) Microcytic anemia Current Visit: Yes Status: Acute Code(s): D50.9 - IRON DEFICIENCY ANEMIA, UNSPECIFIED SNOMED Code(s): 340200628 11) Acute disorder of liver Current Visit: Yes Status: Acute Code(s): K76.9 - LIVER DISEASE, UNSPECIFIED SNOMED Code(s): 523520955 (12) Indirect hyperbilirubinemia Current Visit: Yes Status: Acute Code(s): E80.6 - OTHER DISORDERS OF BILIRUBIN METABOLISM SNOMED Code(s): 1313374 (!3) paroxysmal atrial fibrillation (14) essential hypertension (15) hyperlipidemia (16) hypomagnesemia (17) rule out UTI Plan: Continue current medication regime , beta justine, aspirin, Eliquis monitoring and symptomatic treatment. Elevated WBC 2 days though trending down; UA with culture ordered. Psychiatry to reevaluate, discharge planning in progress .Subacute rehab at discharge-the same as his 's. Further recommendations to follow. The impression and plan of care has been dictated as directed. : I performed a history and examination of this patient, discussed the same with the dictator. I agree with the dictator's note ,documented as a scribe. Any additional findings or plans will be noted.
[2018-08-20 17:10] LABS: Glucose,Whole Blood 208 mg/dL (75-99)
[2018-08-20] MEDS: SODIUM CHLORIDE 0.9% 1,000 ML IV SCH (18:32)
[2018-08-20] MEDS: DIVALPROEX SPRINKLE 125 MG CAP.SPRINK PO SCH (20:39)
[2018-08-20] MEDS: DONEPEZIL 5 MG TAB PO SCH (20:39)
[2018-08-20] MEDS: MEMANTINE 10 MG TAB PO SCH (20:40)
[2018-08-20 20:48] LABS: Glucose,Whole Blood 162 mg/dL (75-99)
[2018-08-21] MEDS: LEVOTHYROXINE 100 MCG TAB PO SCH (05:37)
[2018-08-21 06:59] LABS: Glucose,Whole Blood 155 mg/dL (75-99)
[2018-08-21] MEDS: POLYETHYLENE GLYCOL 3350 17 GM POWD.PACK PO SCH (08:13)
[2018-08-21] MEDS: INSULIN ASPART (NovoLOG) 100 UNIT/ML VIAL SQ SCH ×4 (08:13→22:30)
[2018-08-21] MEDS: PANTOPRAZOLE 40 MG TABLET PO SCH (08:14)
[2018-08-21] MEDS: APIXABAN 5 MG TAB PO SCH ×2 (08:14→22:31)
[2018-08-21] MEDS: DULoxetine HCL 60 MG CAPSULE.DR PO SCH (08:14)
[2018-08-21] MEDS: ASPIRIN 81 MG PO SCH (08:14)
[2018-08-21] MEDS: MEMANTINE 10 MG TAB PO SCH ×2 (08:15→22:30)
[2018-08-21] MEDS: DIVALPROEX SPRINKLE 125 MG CAP.SPRINK PO SCH ×2 (08:15→22:31)
[2018-08-21] MEDS: HALOPERIDOL 5 MG TAB PO SCH ×4 (08:15→22:31)
[2018-08-21 11:30] LABS: Glucose,Whole Blood 251 mg/dL (75-99)
--- NOTE | 2018-08-21 11:40 | P.PN ---
Subjective Progress Note Date: 08/21/18 Interval history: Admitted with chest pain, second troponin elevated, acute kidney injury with elevated BUN/creatinine as well as elevated and potassium Patient was admitted with chest pain, second troponin was elevated. Underwent cardiac catheterization no ischemia noted however patient's developed ejection fraction on or about 20. Patient was recently admitted with A. fib rapid ventricular response this was corrected, he was noted to have subtherapeutic Coumadin levels and was switched to eliquis. Patient began developing hyperkalemia and in spite of doses of Late potassium continued to climb, patient's creatinine went from 1.2-3.1 patient basically developed acute kidney injury a consultation with nephrology was ordered the spironolactone was stopped as well as Lasix and Cozaar was stopped. Patient was started on calcium 2 daily insulin and bicarbonate IV Lasix 20 mg every 8 hours Urinary output has been low no vomiting diarrhea no active chest pain or shortness of breath current potassium is down from 8.1-6.1 08/05/2018 Patient's awake alert eating lunch, potassium is 5.1 patient is somewhat improved however his had episode in the room where she had loss of consciousness briefly, and awoke with focal deficits was transferred to the emergency room where she was evaluated and transferred to [facility] for possible stroke Patient is otherwise quite well Above notes per Dr. Coates 08/06/2018 Patient has his eyes closed. He is not easily arousable. Appears delirious. Withdrawing from pain. When asked several times and open his eyes briefly. He appears to be doing hand gestures consistent with hallucinating. He was admitted for suspected non-ST elevated myocardial infarction, due to a significantly worsening congestive heart pattern. He was cathed and found to have no coronary artery disease, but much worse ejection fraction around 20-25%. Cardiology felt this is from his atrial fibrillation. Although, he is cardioverted himself he has been having SVT, A. fib runs, followed by sinus rhythm. Cardiology is following him. He is unable to answer any significant questions for me today. Nursing staff indicating is been demented recently. He has a known history of closed head injury that his altered his personality and susceptibility to things such as delirium. His creatinine is elevated since arrival here on 08/02, most likely from the excessive diuretic use. Nephrology is following. Today his GFR is 16. He continues to have a microcytic, no minimal anemia. 08/07/2018. Patient remains confused and delirious. He opens his eyes but continues to hallucinate. He has a sitter to bedside. He is not responding to questions. Kidney functions continued to improve. GFR is now 22. Glucose also remains well controlled. Overnight he has pulled out his Quintero catheter and IV access. He was started on Seroquel last night hopefully help with this. He does have a history of closed head injury. 08/08/2018 delirium/confusion persists. Patient pulled out his own IVs, required sitter at bedside during the night. Restless, flinging legs over bedrail. Maintained on Seroquel. Lasix remains on hold .Significant improvement in renal function, creatinine down to 1.7. Afebrile, normal WBC. Consumed 15% of breakfast. Blood sugars controlled. Minimally converses. 08/09/2018 Seroquel dose increased yesterday,agitation lessening. Delirium improving, occasionally answering simple questions. Drinking water from a straw. Renal function continues to to improve, 1.48. Maintained on Lasix IV push. Sodium 147. Sitter at bedside. No bowel movement, abdomen soft mildly distended. 08/10/2018 rough night, continues to require sitter at bedside. Complains of low mid abdominal discomfort upon palpation. MiraLAX ordered yesterday, no bowel movements reported. Minimal oral intake. Potassium 5.2, sodium up to 149, chloride 109. Renal function continues to improve. Creatinine 1.37. Afebrile, normal WBC. Maintaining O2 sat of 98% on room air. Head CT nonacute. 08/11/2018: Overnight, patient had continued to be thrashing about. Staff reported that he looked "yellow". Stat labs and stat CT abdomen and pelvis were ordered. Findings showed acute abnormality and liver function tests, CT showed mild ascites high attenuation the gallbladder that could relate to a concentrated bile vicarious contrast extract, no dilated ducts. His lactic acid was also reported at 2.1, and then increase to 4.0. On these findings he was sent to the intensive care unit. This a.m. he is more somnolent and relax. He is receiving his medications. IV fluids were increased. His repeat lactic acid is now 1.7. This may be due to strenuous thrashing due to his significant encephalopathy. He is had 2 ammonia levels, both for less than 9. He seems improved but more somnolent. Urine remains dark. 08/12/2018: Patient continues to have significant somnolence now. ICU staff indicating is mostly after Xanax. He remains on Seroquel. Critical care discontinued his amiodarone, Depakote, and other medications that might continue to affect his liver. GI has been consult it and will evaluate him soon. They feel may be related to congestive heart failure that he has elevated unconjugated hyperbilirubinemia and abnormal liver function tests. He does remain slightly bradycardic. His blood pressure remains controlled. Staff repo rt that lastly did become quite agitated before he receives Xanax and pulled out his IV. He did open his eyes for me when I spoke with him this morning. He has Haldol ordered as well for acute agitation. Nursing staff indicated did not help him at all last cycle. F also mention no significant bowel movements in the past several days. 08/13/2018 Encephalopathic, arousable, calm. Patient agitated during the night, received Haldol and Xanax. Confusion improving,following simple commands, clinical education coordinator perative with taking oral meds per staff. Plan 1.7 Abdominal ultrasound, difficult exam secondary to patient unable to cooperate. INR 1.7, T bili 2.5, unconjugated bili 1.4. Significant improvement in LFT's. Hepatitis serology nonreactive. Maintaining O2 sats in the high 90s on 2 L nasal cannula O2. Renal function stable. Telemetry sinus bradycardia, in the 50s.VSS. 08/14/18 Significant improvement in renal function. Positive diet intake, consumed 100% of breakfast. Required Haldol last night , confusion/agitation fluctuates.Sitter at bedside, conversing more. Receiving magnesium supplements. LFTs improving, bili 2.4. 08/15/2018 magnesium 1.5, receiving supplementation. Continues to have sporadic episodes of agitation, anxiety. Xanax increased. Psych consult in place, recom mendations pending T bili 2.4, LFTs improving. INR 1.4. 08/16/2018 evaluated by psychiatry, recommendations noted; oral Haldol scheduled [id number], Ativan prn. Confused, agitated combative during the night. Sitter at bedside. Currently calm, cooperative. Good diet intake at lunch. Yesterday beta justine initiated, patient's blood pressure dropped, urine output decreased. Received fluid bolus with significant improvement. Obtained on gentle IV fluid hydration. Total bili 2.1, acute improving. Renal function normal, potassium 5.2. Patient currently calm, confused, cooperative, answering questions. Patient asking for his , Informed him that his is recovering from a stroke and now at a local rehab. 08/17/2018 maintained on Haldol, Ativan .sitter continues at bedside, more calm her today, conversing a little bit more, less agitation denies chest pain, palpitations or increasing shortness of breath. Awaiting transfer out of ICU to [facility]. 08/20/2018 restless, attempting to get out of bed, sitter at bedside. Patient is improving now, feeding himself. More conversational. Confused though thinks he's in [place]. T bili 2.7 , LFTs improving. Afebrile. 08/21/2018 further evaluated by psychiatry yesterday with Aricept and Depakote added to med regime. This morning patient less restless. Conversing appropriately. Ambulated with assistance of PT. diet intake good, feeding himself. Afebrile, CBC pending. Repeat UA reporting large leukocytes, large urine WBCs, culture pending. Denies chest pain, palpitations or increasing shortness of breath. Objective - Vital Signs Vital signs: Vital Signs Temp 98.2 F 08/21/18 05:00 Pulse 115 H 08/21/18 05:00 Resp 17 08/21/18 05:00 BP 126/88 08/21/18 05:00 Pulse Ox 97 08/21/18 05:00 Intake & Output 08/20/18 08/21/18 08/21/18 18:59 06:59 18:59 Intake Total 240 680 Output Total 400 Balance -160 680 Weight 91.3 kg Intake: IV 200 Sodium Chloride 0.9% 1, 200 000 ml @ 50 mls/hr IV . Q20H [place] Rx#:[id number] Oral 240 480 Output: Urine 400 Other: Voiding Method Diaper Urinal Urinal Incontinent Diaper Diaper Incontinent Incontinent # Voids 1 - Exam PHYSICAL EXAM: VITAL SIGNS: [As above] GENERAL: The patient is sitting up in bed, alert and oriented 2 , in no acute distress HEENT: PERRL.Conjunctivae normal. Oral mucosa moist NECK: No JVD. No thyroid enlargement. No LNs CARDIOVASCULAR: S1, S2 regular. No murmur, rub, or gallop RESPIRATION: Nonlabored, clear throughout. Bilateral bases diminished with no rhonchi,no crackles, or wheezing ABDOMEN: Soft, nontender, no organomegaly,no masses palpable.no guarding .positive Bowel sounds. LEGS: No edema. no swelling. NERVOUS SYSTEM: Less confused, less restless,cooperative.conversing appropriately.follows simple instructions,moves all 4 extremities, Diffuse weakness. No focal deficits. Skin: no rash. Microbiology 08/10/18 22:26 Urine,Catheterized Urine Culture - Final Staphylococcus epidermidis - Labs CBC & Chem 7: 08/20/18 07:07 08/20/18 07:07 Labs: Abnormal Lab Results - Last 24 Hours (Table) 08/20/18 08/20/18 08/20/18 Range/Units 13:45 17:09 20:23 POC Glucose (mg/dL) 208 H 162 H (75-99) mg/dL Urine Protein Trace H (Negative) Urine Blood Small H (Negative) Ur Leukocyte Esterase Large H (Negative) Urine RBC 9 H (0-5) /hpf Urine WBC >182 H (0-5) /hpf 08/21/18 Range/Units 06:57 POC Glucose (mg/dL) 155 H (75-99) mg/dL Urine Protein (Negative) Urine Blood (Negative) Ur Leukocyte Esterase (Negative) Urine RBC (0-5) /hpf Urine WBC (0-5) /hpf Microbiology - Last 24 Hours (Table) 08/20/18 13:45 Urine Culture - Preliminary Urine,Clean Catch Assessment and Plan Assessment: (1) acute delirium, Metabolic encephalopathy, multifactorial, secondary to acute renal failure, acute hepatic injury with mild lactic acidosis-doubt sepsis ,possibly related to cardiomyopathy, possibly medication induced; amiodarone dis continued, improving Current Visit: Yes Status: Acute Code(s): G93.41 - METABOLIC ENCEPHALOPATHY SNOMED Code(s): 22268266 (2) Chest pain, status post cardiac catheterization reporting significant decrease in LV function, EF 20%, possible nonischemic cardiomyopathy worsened by chronic A. fib. Current Visit: Yes Status: Acute Code(s): R07.9 - CHEST PAIN, UNSPECIFIED SNOMED Code(s): 42010032 (3) Possible NSTEMI (non-ST elevated myocardial infarction) Current Visit: Yes Status: Acute Code(s): I21.4 - NON-ST ELEVATION (NSTEMI) MYOCARDIAL INFARCTION SNOMED Code(s): 63417173 (4) Acute kidney injury secondary to ATN secondary to urinary retention and IV contrast, resolved Current Visit: No Status: Acute Code(s): N17.9 - ACUTE KIDNEY FAILURE, UNSPECIFIED SNOMED Code(s): 24893910 (5) Acute on chronic systolic (congestive) heart failure, EF 35% improved (6) History of closed head injury Current Visit: No Status: Acute Code(s): Z87.820 - PERSONAL HISTORY OF TRAUMATIC BRAIN INJURY SNOMED Code(s): 04739477435638 (7) Hypothyroidism Current Visit: No Status: Acute Code(s): E03.9 - HYPOTHYROIDISM, UNSPECIFIED SNOMED Code(s): 68958954 (8) Insulin dependent diabetes mellitus, controlled Current Visit: No Status: Acute Code(s): E11.9 - TYPE 2 DIABETES MELLITUS WITHOUT COMPLICATIONS; Z79.4 - USP (CURRENT) USE OF INSULIN SNOMED Code(s): 10000279 (9) intermediate card 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 current use of anticoagulant therapy Current Visit: No Status: Acute Code(s): Z79.01 - USP (CURRENT) USE OF ANTICOAGULANTS SNOMED Code(s): 703165177 (10) Microcytic anemia Current Visit: Yes Status: Acute Code(s): D50.9 - IRON DEFICIENCY ANEMIA, UNSPECIFIED SNOMED Code(s): 399587383 11) Acute disorder of liver Current Visit: Yes Status: Acute Code(s): K76.9 - LIVER DISEASE, UNSPECIFIED SNOMED Code(s): 448931806 (12) Indirect hyperbilirubinemia Current Visit: Yes Status: Acute Code(s): E80.6 - OTHER DISORDERS OF BILIRUBIN METABOLISM SNOMED Code(s): 6558438 (!3) paroxysmal atrial fibrillation (14) essential hypertension (15) hyperlipidemia (16) hypomagnesemia (17) possible acute UTI, cultures pending Plan: Continue current medication regime ,monitoring and symptomatic treatment. Empiric Rocephin initiated for possible acute UTI, cultures pending. As mentioned above. Septic and Depakote added to med regime as per psychiatry with significant clinical improvement.discharge planning in progress for subacute rehab pending authorization -social work attempting to place in the same Subacute rehab as his 's. Further recommendations to follow. The impression and plan of care has been dictated as directed. : I performed a history and examination of this patient, discussed the same with the dictator. I agree with the dictator's note ,documented as a scribe. Any additional findings or plans will be noted.
[2018-08-21 13:33] LABS: Anisocytosis Moderate; Basophils # (A) 0.1 k/uL (0-0.2); Basophils % (A) 1 %; Eosinophils # (A) 0.5 k/uL (0-0.7); Eosinophils % (A) 4 %; HCT 40.7 % (39.0-53.0); HGB 12.3 gm/dL (13.0-17.5); Hypochromasia Moderate; Lymphocytes # (A) 1.4 k/uL (1.0-4.8); Lymphocytes % (A) 11 %; MCH 24.2 pg (25.0-35.0); MCHC 30.3 g/dL (31.0-37.0); Microcytosis Slight; Monocytes # (A) 0.9 k/uL (0-1.0); Monocytes % (A) 7 %; Neutrophils # (A) 9.1 k/uL (1.3-7.7); Neutrophils % (A) 73 %; Platelet Count 295 k/uL (150-450); RBC 5.09 m/uL (4.30-5.90); RDW 21.9 % (11.5-15.5); WBC 12.4 k/uL (3.8-10.6)
[2018-08-21 17:11] LABS: Glucose,Whole Blood 146 mg/dL (75-99)
[2018-08-21 20:34] LABS: Glucose,Whole Blood 200 mg/dL (75-99)
[2018-08-21] MEDS: DONEPEZIL 5 MG TAB PO SCH (22:30)
[2018-08-22] MEDS: LEVOTHYROXINE 100 MCG TAB PO SCH (05:32)
[2018-08-22 06:55] LABS: Glucose,Whole Blood 156 mg/dL (75-99)
[2018-08-22] MEDS: INSULIN ASPART (NovoLOG) 100 UNIT/ML VIAL SQ SCH ×4 (07:43→22:19)
[2018-08-22] MEDS: APIXABAN 5 MG TAB PO SCH ×2 (07:43→22:19)
[2018-08-22] MEDS: PANTOPRAZOLE 40 MG TABLET PO SCH (07:43)
[2018-08-22] MEDS: DIVALPROEX SPRINKLE 125 MG CAP.SPRINK PO SCH ×2 (07:44→22:19)
[2018-08-22] MEDS: POLYETHYLENE GLYCOL 3350 17 GM POWD.PACK PO SCH (07:44)
[2018-08-22] MEDS: MEMANTINE 10 MG TAB PO SCH ×2 (07:44→22:19)
[2018-08-22] MEDS: ASPIRIN 81 MG PO SCH (07:44)
[2018-08-22] MEDS: DULoxetine HCL 60 MG CAPSULE.DR PO SCH (07:44)
[2018-08-22] MEDS: HALOPERIDOL ORAL SOLN 10 MG/5 ML CUP PO SCH ×4 (07:56→22:19)
[2018-08-22] MEDS: METOPROLOL TARTRATE 25 MG TAB PO SCH ×2 (11:59→22:19)
[2018-08-22] MEDS: LOSARTAN 25 MG TAB PO SCH (12:00)
[2018-08-22 12:04] LABS: Glucose,Whole Blood 138 mg/dL (75-99)
--- NOTE | 2018-08-22 13:41 | P.PN ---
Subjective Progress Note Date: 08/22/18 Interval history: Admitted with chest pain, second troponin elevated, acute kidney injury with elevated BUN/creatinine as well as elevated and potassium Patient was admitted with chest pain, second troponin was elevated. Underwent cardiac catheterization no ischemia noted however patient's developed ejection fraction on or about 20. Patient was recently admitted with A. fib rapid ventricular response this was corrected, he was noted to have subtherapeutic Coumadin levels and was switched to eliquis. Patient began developing hyperkalemia and in spite of doses of Late potassium continued to climb, patient's creatinine went from 1.2-3.1 patient basically developed acute kidney injury a consultation with nephrology was ordered the spironolactone was stopped as well as Lasix and Cozaar was stopped. Patient was started on calcium 2 daily insulin and bicarbonate IV Lasix 20 mg every 8 hours Urinary output has been low no vomiting diarrhea no active chest pain or shortness of breath current potassium is down from 8.1-6.1 08/05/2018 Patient's awake alert eating lunch, potassium is 5.1 patient is somewhat improved however his had episode in the room where she had loss of consciousness briefly, and awoke with focal deficits was transferred to the emergency room where she was evaluated and transferred to [facility] for possible stroke Patient is otherwise quite well Above notes per Dr. Coates 08/06/2018 Patient has his eyes closed. He is not easily arousable. Appears delirious. Withdrawing from pain. When asked several times and open his eyes briefly. He appears to be doing hand gestures consistent with hallucinating. He was admitted for suspected non-ST elevated myocardial infarction, due to a significantly worsening congestive heart pattern. He was cathed and found to have no coronary artery disease, but much worse ejection fraction around 20-25%. Cardiology felt this is from his atrial fibrillation. Although, he is cardioverted himself he has been having SVT, A. fib runs, followed by sinus rhythm. Cardiology is following him. He is unable to answer any significant questions for me today. Nursing staff indicating is been demented recently. He has a known history of closed head injury that his altered his personality and susceptibility to things such as delirium. His creatinine is elevated since arrival here on 08/02, most likely from the excessive diuretic use. Nephrology is following. Today his GFR is 16. He continues to have a microcytic, no minimal anemia. 08/07/2018. Patient remains confused and delirious. He opens his eyes but continues to hallucinate. He has a sitter to bedside. He is not responding to questions. Kidney functions continued to improve. GFR is now 22. Glucose also remains well controlled. Overnight he has pulled out his Quintero catheter and IV access. He was started on Seroquel last night hopefully help with this. He does have a history of closed head injury. 08/08/2018 delirium/confusion persists. Patient pulled out his own IVs, required sitter at bedside during the night. Restless, flinging legs over bedrail. Maintained on Seroquel. Lasix remains on hold .Significant improvement in renal function, creatinine down to 1.7. Afebrile, normal WBC. Consumed 15% of breakfast. Blood sugars controlled. Minimally converses. 08/09/2018 Seroquel dose increased yesterday,agitation lessening. Delirium improving, occasionally answering simple questions. Drinking water from a straw. Renal function continues to to improve, 1.48. Maintained on Lasix IV push. Sodium 147. Sitter at bedside. No bowel movement, abdomen soft mildly distended. 08/10/2018 rough night, continues to require sitter at bedside. Complains of low mid abdominal discomfort upon palpation. MiraLAX ordered yesterday, no bowel movements reported. Minimal oral intake. Potassium 5.2, sodium up to 149, chloride 109. Renal function continues to improve. Creatinine 1.37. Afebrile, normal WBC. Maintaining O2 sat of 98% on room air. Head CT nonacute. 08/11/2018: Overnight, patient had continued to be thrashing about. Staff reported that he looked "yellow". Stat labs and stat CT abdomen and pelvis were ordered. Findings showed acute abnormality and liver function tests, CT showed mild ascites high attenuation the gallbladder that could relate to a concentrated bile vicarious contrast extract, no dilated ducts. His lactic acid was also reported at 2.1, and then increase to 4.0. On these findings he was sent to the intensive care unit. This a.m. he is more somnolent and relax. He is receiving his medications. IV fluids were increased. His repeat lactic acid is now 1.7. This may be due to strenuous thrashing due to his significant encephalopathy. He is had 2 ammonia levels, both for less than 9. He seems improved but more somnolent. Urine remains dark. 08/12/2018: Patient continues to have significant somnolence now. ICU staff indicating is mostly after Xanax. He remains on Seroquel. Critical care discontinued his amiodarone, Depakote, and other medications that might continue to affect his liver. GI has been consult it and will evaluate him soon. They feel may be related to congestive heart failure that he has elevated unconjugated hyperbilirubinemia and abnormal liver function tests. He does remain slightly bradycardic. His blood pressure remains controlled. Staff repo rt that lastly did become quite agitated before he receives Xanax and pulled out his IV. He did open his eyes for me when I spoke with him this morning. He has Haldol ordered as well for acute agitation. Nursing staff indicated did not help him at all last cycle. F also mention no significant bowel movements in the past several days. 08/13/2018 Encephalopathic, arousable, calm. Patient agitated during the night, received Haldol and Xanax. Confusion improving,following simple commands, online program coordinator perative with taking oral meds per staff. Plan 1.7 Abdominal ultrasound, difficult exam secondary to patient unable to cooperate. INR 1.7, T bili 2.5, unconjugated bili 1.4. Significant improvement in LFT's. Hepatitis serology nonreactive. Maintaining O2 sats in the high 90s on 2 L nasal cannula O2. Renal function stable. Telemetry sinus bradycardia, in the 50s.VSS. 08/14/18 Significant improvement in renal function. Positive diet intake, consumed 100% of breakfast. Required Haldol last night , confusion/agitation fluctuates.Sitter at bedside, conversing more. Receiving magnesium supplements. LFTs improving, bili 2.4. 08/15/2018 magnesium 1.5, receiving supplementation. Continues to have sporadic episodes of agitation, anxiety. Xanax increased. Psych consult in place, recom mendations pending T bili 2.4, LFTs improving. INR 1.4. 08/16/2018 evaluated by psychiatry, recommendations noted; oral Haldol scheduled [id number], Ativan prn. Confused, agitated combative during the night. Sitter at bedside. Currently calm, cooperative. Good diet intake at lunch. Yesterday beta justine initiated, patient's blood pressure dropped, urine output decreased. Received fluid bolus with significant improvement. Obtained on gentle IV fluid hydration. Total bili 2.1, acute improving. Renal function normal, potassium 5.2. Patient currently calm, confused, cooperative, answering questions. Patient asking for his , Informed him that his is recovering from a stroke and now at a local rehab. 08/17/2018 maintained on Haldol, Ativan .sitter continues at bedside, more calm her today, conversing a little bit more, less agitation denies chest pain, palpitations or increasing shortness of breath. Awaiting transfer out of ICU to [facility]. 08/20/2018 restless, attempting to get out of bed, sitter at bedside. Patient is improving now, feeding himself. More conversational. Confused though thinks he's in [place]. T bili 2.7 , LFTs improving. Afebrile. 08/21/2018 further evaluated by psychiatry yesterday with Aricept and Depakote added to med regime. This morning patient less restless. Conversing appropriately. Ambulated with assistance of PT. diet intake good, feeding himself. Afebrile, CBC pending. Repeat UA reporting large leukocytes, large urine WBCs, culture pending. Denies chest pain, palpitations or increasing shortness of breath. 08/22/2018 significant clinical improvement. Good diet intake, blood sugars controlled. no restlessness. Conversing appropriately. Afebrile. Awaiting to subacute placement. Objective - Vital Signs Vital signs: Vital Signs Temp 98 F 08/22/18 12:20 Pulse 101 H 08/22/18 12:20 Resp 18 08/22/18 12:20 BP 119/85 08/22/18 12:20 Pulse Ox 100 08/22/18 12:20 Intake & Output 08/21/18 08/22/18 08/22/18 18:59 06:59 18:59 Intake Total 480 780 Output Total 1000 Balance 480 -220 Intake: Oral 480 780 Output: Urine 1000 Other: Voiding Method Toilet Toilet Urinal Urinal Urinal Diaper Diaper Incontinent Incontinent # Voids 4 1 # Bowel Movements 3 1 - Exam PHYSICAL EXAM: VITAL SIGNS: [As above] GENERAL: The patient is sitting up in bed, alert and oriented 2 , no acute distress HEENT: PERRL.Conjunctivae normal. Oral mucosa moist NECK: No JVD. No thyroid enlargement. No LNs CARDIOVASCULAR: S1, S2 regular. No murmur, rub, or gallop RESPIRATION: Bilateral bases diminished with no rhonchi,no crackles, or wheezing ABDOMEN: Soft, nontender, no organomegaly,no masses palpable.no guarding .positive Bowel sounds. LEGS: No edema. no swelling. NERVOUS SYSTEM: Cranial nerves II through XII grossly intact,moves all 4 extremities, Diffuse weakness. No focal deficits. Skin: no rash. Microbiology 08/10/18 22:26 Urine,Catheterized Urine Culture - Final Staphylococcus epidermidis - Labs CBC & Chem 7: 08/21/18 13:14 08/20/18 07:07 Labs: Abnormal Lab Results - Last 24 Hours (Table) 08/20/18 08/21/18 08/21/18 Range/Units 07:07 13:14 17:08 WBC 12.4 H (3.8-10.6) k/uL Hgb 12.3 L (13.0-17.5) gm/dL MCH 24.2 L (25.0-35.0) pg MCHC 30.3 L (31.0-37.0) g/dL RDW 21.9 H (11.5-15.5) % Neutrophils # 9.1 H (1.3-7.7) k/uL POC Glucose (mg/dL) 146 H (75-99) mg/dL TSH 29.500 H (0.465-4.680) mIU/L 08/21/18 08/22/18 08/22/18 Range/Units 20:32 06:53 11:52 WBC (3.8-10.6) k/uL Hgb (13.0-17.5) gm/dL MCH (25.0-35.0) pg MCHC (31.0-37.0) g/dL RDW (11.5-15.5) % Neutrophils # (1.3-7.7) k/uL POC Glucose (mg/dL) 200 H 156 H 138 H (75-99) mg/dL TSH (0.465-4.680) mIU/L Microbiology - Last 24 Hours (Table) 08/20/18 13:45 Urine Culture - Preliminary Urine,Clean Catch Coagulase Negative Staph Assessment and Plan Assessment: (1) acute delirium, Metabolic encephalopathy, multifactorial, secondary to acute renal failure, acute hepatic injury with mild lactic acidosis-doubt sepsis ,poss ibly related to cardiomyopathy, possibly medication induced; amiodarone discontinued, improving Current Visit: Yes Status: Acute Code(s): G93.41 - METABOLIC ENCEPHALOPATHY SNOMED Code(s): 56691838 (2) Chest pain, status post cardiac catheterization reporting significant decrease in LV function, EF 20%, possible nonischemic cardiomyopathy worsened by chronic A. fib. Current Visit: Yes Status: Acute Code(s): R07.9 - CHEST PAIN, UNSPECIFIED SNOMED Code(s): 62126714 (3) Possible NSTEMI (non-ST elevated myocardial infarction) Current Visit: Yes Status: Acute Code(s): I21.4 - NON-ST ELEVATION (NSTEMI) MYOCARDIAL INFARCTION SNOMED Code(s): 39736770 (4) Acute kidney injury secondary to ATN secondary to urinary retention and IV contrast, resolved Current Visit: No Status: Acute Code(s): N17.9 - ACUTE KIDNEY FAILURE, UNSPECIFIED SNOMED Code(s): 13204580 (5) Acute on chronic systolic (congestive) heart failure, EF 35% improved (6) History of closed head injury Current Visit: No Status: Acute Code(s): Z87.820 - PERSONAL HISTORY OF TRAUMATIC BRAIN INJURY SNOMED Code(s): 42948805245752 (7) Hypothyroidism Current Visit: No Status: Acute Code(s): E03.9 - HYPOTHYROIDISM, UNSPECIFIED SNOMED Code(s): 87252221 (8) Insulin dependent diabetes mellitus, controlled Current Visit: No Status: Acute Code(s): E11.9 - TYPE 2 DIABETES MELLITUS WI THOUT COMPLICATIONS; Z79.4 - SURVEYING [employer]OD[employer] (CURRENT) USE OF INSULIN SNOMED Code(s): 44930131 (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 Current Visit: No Status: Acute Code(s): Z79.01 - CORRECTION (CURRENT) USE OF ANTICOAGULANTS SNOMED Code(s): 245881891 (10) Microcytic anemia Current Visit: Yes Status: Acute Code(s): D50.9 - IRON DEFICIENCY ANEMIA, UNSPECIFIED SNOMED Code(s): 840247037 11) Acute disorder of liver Current Visit: Yes Status: Acute Code(s): K76.9 - LIVER DISEASE, UNSPECIFIED SNOMED Code(s): 480962319 (12) Indirect hyperbilirubinemia Current Visit: Yes Status: Acute Code(s): E80.6 - OTHER DISORDERS OF BILIRUBIN METABOLISM SNOMED Code(s): 0308593 (!3) paroxysmal atrial fibrillation (14) essential hypertension (15) hyperlipidemia (16) hypomagnesemia (17) possible acute UTI, cultures reporting coagulase-negative staph Plan: Continue current medication regime ,monitoring and symptomatic treatment. Increase ambulation as tolerated. Discharge planning in progress for subacute rehab pending authorization. Further recommendations to follow. The impression and plan of care has been dictated as directed. : I performed a history and examination of this patient, discussed the same with the dictator. I agree with the dictator's note ,documented as a scribe. Any additional findings or plans will be noted.
[2018-08-22 13:57] LABS: T4, Free (Free Thyroxine) 0.88 ng/dL (0.78-2.19)
[2018-08-22 16:45] LABS: T4, Free (Free Thyroxine) 1.08 ng/dL (0.78-2.19)
[2018-08-22 17:08] LABS: Glucose,Whole Blood 104 mg/dL (75-99)
[2018-08-22 20:23] LABS: Glucose,Whole Blood 147 mg/dL (75-99)
[2018-08-22] MEDS: DONEPEZIL 5 MG TAB PO SCH (22:19)
[2018-08-23] MEDS: LEVOTHYROXINE 100 MCG TAB PO SCH (05:51)
[2018-08-23 07:12] LABS: Glucose,Whole Blood 113 mg/dL (75-99)
[2018-08-23] MEDS: INSULIN ASPART (NovoLOG) 100 UNIT/ML VIAL SQ SCH ×2 (08:05→12:39)
[2018-08-23] MEDS: POLYETHYLENE GLYCOL 3350 17 GM POWD.PACK PO SCH (08:06)
[2018-08-23] MEDS: APIXABAN 5 MG TAB PO SCH (08:07)
[2018-08-23] MEDS: DULoxetine HCL 60 MG CAPSULE.DR PO SCH (08:07)
[2018-08-23] MEDS: HALOPERIDOL ORAL SOLN 10 MG/5 ML CUP PO SCH ×2 (08:07→12:39)
[2018-08-23] MEDS: PANTOPRAZOLE 40 MG TABLET PO SCH (08:07)
[2018-08-23] MEDS: DIVALPROEX SPRINKLE 125 MG CAP.SPRINK PO SCH (08:07)
[2018-08-23] MEDS: METOPROLOL TARTRATE 25 MG TAB PO SCH (08:08)
[2018-08-23] MEDS: MEMANTINE 10 MG TAB PO SCH (08:08)
[2018-08-23] MEDS: LOSARTAN 25 MG TAB PO SCH (08:11)
[2018-08-23 08:17] LABS: Anisocytosis Moderate; Basophils # (A) 0.1 k/uL (0-0.2); Basophils % (A) 1 %; Eosinophils # (A) 0.7 k/uL (0-0.7); Eosinophils % (A) 7 %; HGB 14.5 gm/dL (13.0-17.5); Hypochromasia Moderate; Lymphocytes # (A) 1.6 k/uL (1.0-4.8); Lymphocytes % (A) 15 %; MCH 24.4 pg (25.0-35.0); MCHC 30.2 g/dL (31.0-37.0); MCV 80.6 fL (80.0-100.0); Mean Platelet Volume 7.3; Microcytosis Slight; Monocytes # (A) 0.6 k/uL (0-1.0); Monocytes % (A) 5 %; Neutrophils # (A) 7.6 k/uL (1.3-7.7); Neutrophils % (A) 69 %; Platelet Count 389 k/uL (150-450); RBC 5.96 m/uL (4.30-5.90)
[2018-08-23 08:36] LABS: ALT 108 U/L (21-72); AST 41 U/L (17-59); Albumin 4.1 g/dL (3.5-5.0); Alkaline Phosphatase 136 U/L (38-126); Anion Gap 12 mmol/L; Blood Urea Nitrogen 15 mg/dL (9-20); Calcium 9.8 mg/dL (8.4-10.2); Carbon Dioxide 27 mmol/L (22-30); Chloride 99 mmol/L (98-107); Glucose 128 mg/dL (74-99); Potassium 4.9 mmol/L (3.5-5.1); Sodium 138 mmol/L (137-145); Total Bilirubin 1.6 mg/dL (0.2-1.3); Total Protein 7.6 g/dL (6.3-8.2)
[2018-08-23 11:47] LABS: Glucose,Whole Blood 176 mg/dL (75-99)
[2018-08-23 13:15] VITALS: RESP 16
[2018-08-23 13:50] VITALS: BP 100/66; PULSE 72; TEMP 97.4
--- NOTE | 2018-08-23 14:28 | P.DS ---
Providers Date of admission: 08/02/18 14:51 Expected date of discharge: 08/23/18 Attending physician: Pavan Elmore Consults: 08/02/18 03:58 Consult Physician Routine Consulting Provider: [facility] Consult Reason/Comments: Chest Pain Do you want consulting provider notified?: Yes 08/04/18 08:36 Consult Physician Stat Consulting Provider: Jerman Jimenez Consult Reason/Comments: elevated potassium and creatnine Do you want consulting provider notified?: Yes 08/10/18 19:57 Consult Physician Routine Consulting Provider: Gage Greer Consult Reason/Comments: ICU MANAGEMENT Do you want consulting provider notified?: Yes 08/14/18 10:15 Consult Physician Routine Consulting Provider: Daniel Julian Consult Reason/Comments: Altered mentation Do you want consulting provider notified?: Yes 08/15/18 19:12 Consult Physician Routine Consulting Provider: Lg Morrison Consult Reason/Comments: cardiomyopathy, heart failure Do you want consulting provider notified?: Yes, Notify in am Primary care physician: Pavan Elmore Hospital Course: Final Diagnoses: Admitted with chest pain, second troponin elevated, acute kidney injury with elevated BUN/creatinine as well as elevated and potassium Patient was admitted with chest pain, second troponin was elevated. Underwent cardiac catheterization no ischemia noted however patient's developed ejection fraction on or about 20. Patient was recently admitted with A. fib rapid ventricular response this was corrected, he was noted to have subtherapeutic Coumadin levels and was switched to eliquis. Patient began developing hyperkalemia and in spite of doses of Late potassium continued to climb, patient's creatinine went from 1.2-3.1 patient basically developed acute kidney injury a consultation with nephrology was ordered the spironolactone was stopped as well as Lasix and Cozaar was stopped. Patient was started on calcium 2 daily insulin and bicarbonate IV Lasix 20 mg every 8 hours Urinary output has been low no vomiting diarrhea no active chest pain or shortness of breath current potassium is down from 8.1-6.1 08/05/2018 Patient's awake alert eating lunch, potassium is 5.1 patient is somewhat improved however his had episode in the room where she had loss of consciousness briefly, and awoke with focal deficits was transferred to the emergency room where she was evaluated and transferred to [facility] for possible stroke Patient is otherwise quite well Above notes per Dr. Coates 08/06/2018 Patient has his eyes closed. He is not easily arousable. Appears delirious. Withdrawing from pain. When asked several times and open his eyes briefly. He appears to be doing hand gestures consistent with hallucinating. He was admitted for suspected non-ST elevated myocardial infarction, due to a significantly worsening congestive heart pattern. He was cathed and found to have no coronary artery disease, but much worse ejection fraction around 20-25%. Cardiology felt this is from his atrial fibrillation. Although, he is cardioverted himself he has been having SVT, A. fib runs, followed by sinus rhythm. Cardiology is following him. He is unable to answer any significant questions for me today. Nursing staff indicating is been demented recently. He has a known history of closed head injury that his altered his personality and susceptibility to things such as delirium. His creatinine is elevated since arrival here on 08/02, most likely from the excessive diuretic use. Nephrology is following. Today his GFR is 16. He continues to have a microcytic, no minimal anemia. 08/07/2018. Patient remains confused and delirious. He opens his eyes but continues to hallucinate. He has a sitter to bedside. He is not responding to questions. Kidney functions continued to improve. GFR is now 22. Glucose also remains well controlled. Overnight he has pulled out his Quintero catheter and IV access. He was started on Seroquel last night hopefully help with this. He does have a history of closed head injury. 08/08/2018 delirium/confusion persists. Patient pulled out his own IVs, required sitter at bedside during the night. Restless, flinging legs over bedrail. Maintained on Seroquel. Lasix remains on hold .Significant improvement in renal function, creatinine down to 1.7. Afebrile, normal WBC. Consumed 15% of breakfast. Blood sugars controlled. Minimally converses. 08/09/2018 Seroquel dose increased yesterday,agitation lessening. Delirium improving, occasionally answering simple questions. Drinking water from a straw. Renal function continues to to improve, 1.48. Maintained on Lasix IV push. Sodium 147. Sitter at bedside. No bowel movement, abdomen soft mildly distended. 08/10/2018 rough night, continues to require sitter at bedside. Complains of low mid abdominal discomfort upon palpation. MiraLAX ordered yesterday, no bowel movements reported. Minimal oral intake. Potassium 5.2, sodium up to 149, chloride 109. Renal function continues to improve. Creatinine 1.37. Afebrile, normal WBC. Maintaining O2 sat of 98% on room air. Head CT nonacute. 08/11/2018: Overnight, patient had continued to be thrashing about. Staff reported that he looked "yellow". Stat labs and stat CT abdomen and pelvis were ordered. Findings showed acute abnormality and liver function tests, CT showed mild ascites high attenuation the gallbladder that could relate to a concentrated bile vicarious contrast extract, no dilated ducts. His lactic acid was also reported at 2.1, and then increase to 4.0. On these findings he was sent to the intensive care unit. This a.m. he is more somnolent and relax. He is receiving his medications. IV fluids were increased. His repeat lactic acid is now 1.7. This may be due to strenuous thrashing due to his significant encephalopathy. He is had 2 ammonia levels, both for less than 9. He seems improved but more somnolent. Urine remains dark. 08/12/2018: Patient continues to have significant somnolence now. ICU staff indicating is mostly after Xanax. He remains on Seroquel. Critical care discontinued his amiodarone, Depakote, and other medications that might continue to affect his liver. GI has been consult it and will evaluate him soon. They feel may be related to congestive heart failure that he has elevated unconjugated hyperbilirubinemia and abnormal liver function tests. He does remain slightly bradycardic. His blood pressure remains controlled. Staff report that lastly did become quite agitated before he receives Xanax and pulled out his IV. He did open his eyes for me when I spoke with him this morning. He has Haldol ordered as well for acute agitation. Nursing staff indicated did not help him at all last cycle. F also mention no significant bowel movements in the past several days. 08/13/2018 Encephalopathic, arousable, calm. Patient agitated during the night, received Haldol and Xanax. Confusion improving,following simple commands, cook dessert perative with taking oral meds per staff. Plan 1.7 Abdominal ultrasound, difficult exam secondary to patient unable to cooperate. INR 1.7, T bili 2.5, unconjugated bili 1.4. Significant improvement in LFT's. Hepatitis serology nonreactive. Maintaining O2 sats in the high 90s on 2 L nasal cannula O2. Renal function stable. Telemetry sinus bradycardia, in the 50s.VSS. 08/14/18 Significant improvement in renal function. Positive diet intake, consumed 100% of breakfast. Required Haldol last night , confusion/agitation fluctuates.Sitter at bedside, conversing more. Receiving magnesium supplements. LFTs improving, bili 2.4. 08/15/2018 magnesium 1.5, receiving supplementation. Continues to have sporadic episodes of agitation, anxiety. Xanax increased. Psych consult in place, recom mendations pending T bili 2.4, LFTs improving. INR 1.4. 08/16/2018 evaluated by psychiatry, recommendations noted; oral Haldol scheduled [id number], Ativan prn. Confused, agitated combative during the night. Sitter at bedside. Currently calm, cooperative. Good diet intake at lunch. Yesterday beta justine initiated, patient's blood pressure dropped, urine output decreased. Received fluid bolus with significant improvement. Obtained on gentle IV fluid hydration. Total bili 2.1, acute improving. Renal function normal, potassium 5.2. Patient currently calm, confused, cooperative, answering questions. Patient asking for his , Informed him that his is recovering from a stroke and now at a local rehab. 08/17/2018 maintained on Haldol, Ativan .sitter continues at bedside, more calm her today, conversing a little bit more, less agitation denies chest pain, palpitations or increasing shortness of breath. Awaiting transfer out of ICU to [facility]. 08/20/2018 restless, attempting to get out of bed, sitter at bedside. Patient is improving now, feeding himself. More conversational. Confused though thinks he's in [place]. T bili 2.7 , LFTs improving. Afebrile. 08/21/2018 further evaluated by psychiatry yesterday with Aricept and Depakote added to med regime. This morning patient less restless. Conversing appropriately. Ambulated with assistance of PT. diet intake good, feeding himself. Afebrile, CBC pending. Repeat UA reporting large leukocytes, large urine WBCs, culture pending. Denies chest pain, palpitations or increasing shortness of breath. 08/22/2018 significant clinical improvement. Good diet intake, blood sugars controlled. no restlessness. Conversing appropriately. Afebrile. Awaiting to subacute placement. Adjusting levothyroxine secondary to hypothyroidism. Statin on hold secondary to resolving elevated LFTs . Acute renal failure, improving ,diuretics discussed with cardiology, hold and will re-eval at F/U with cardiology. Significant clinical improvement .Cleared by all consults for discharge. Patient will be discharged to subacute rehab in a stable condition with guarded prognosis. EXAM: GENERAL:alert and oriented 2 , in no acute distress CARDIOVASCULAR: S1, S2 regular. No murmur, rub, or gallop RESPIRATION: Nonlabored, clear throughout. Bilateral bases diminished with no rhonchi,no crackles, or wheezing ABDOMEN: Soft, nontender, no organomegaly,no masses palpable.no guarding .positive Bowel sounds. NERVOUS SYSTEM: Less confused, less restless,cooperative.conversing appropriately.follows simple instructions,moves all 4 extremities, Diffuse weakness. No focal deficits. The impression and plan of care has been dictated as directed. : I performed a history and examination of this patient, discussed the same with the dictator. I agree with the dictator's note ,documented as a scribe. Any additional findings or plans will be noted. Time taken: 35 minutes Patient Condition at Discharge: Stable Plan - Discharge Summary Discharge Rx Participant: Yes New Discharge Prescriptions: New Donepezil [Aricept] 5 mg PO HS tab LORazepam [Ativan] 1 mg PO Q8HR PRN #9 tab PRN Reason: Agitation Or Acute Psychosis Divalproex Sprinkle [Depakote Sprinkle] 125 mg PO BID cap.sprink Bisacodyl [Dulcolax] 10 mg RECTAL DAILY PRN supp PRN Reason: Constipation Haloperidol Oral Soln [Haldol Oral Soln] 2.5 mg PO QID #15 ml INSULIN LISPRO (HumaLOG) [humaLOG] 0 unit SQ ACHS #1 vial Metoprolol Tartrate [Lopressor] 25 mg PO BID tab Polyethylene Glycol 3350 [Miralax] 17 gm PO DAILY powd.pack Memantine [Namenda] 10 mg PO BID tab Pantoprazole [Protonix] 40 mg PO AC-BRKFST tablet. Levothyroxine Sodium 25 mcg PO SUSA #1 tablet Cefuroxime Axetil [Ceftin] 500 mg PO BID #10 tab Continue DULoxetine HCL [Cymbalta] 60 mg PO DAILY Levothyroxine Sodium [Synthroid] 150 mcg PO SUSA Apixaban [Eliquis] 5 mg PO BID tab Losartan [Cozaar] 25 mg PO DAILY #30 tab Changed Levothyroxine Sodium [Synthroid] 125 mcg PO MOTUWETHFR #0 Discontinued Simvastatin [Zocor] 20 mg PO HS ALPRAZolam [Xanax] 0.25 mg PO Q6H PRN PRN Reason: Anxiety metFORMIN HCL 1,000 mg PO BID Divalproex ER [Depakote ER] 500 mg PO DAILY Metoprolol Tartrate [Lopressor] 50 mg PO BID #60 tab Insuln Asp Prt/Insulin Aspart [NovoLOG MIX 70-30 VIAL] 15 unit SQ AC-SUPPER vial Insuln Asp Prt/Insulin Aspart [NovoLOG MIX 70-30 VIAL] 30 unit SQ AC-BRKFST vial Spironolactone [Aldactone] 25 mg PO DAILY #30 tab Furosemide [Lasix] 40 mg PO DAILY #30 tab Discharge Medication List DULoxetine HCL [Cymbalta] 60 mg PO DAILY 07/21/18 [History] Levothyroxine Sodium [Synthroid] 150 mcg PO SUSA 07/21/18 [History] Apixaban [Eliquis] 5 mg PO BID tab 07/24/18 [Rx] Losartan [Cozaar] 25 mg PO DAILY #30 tab 07/24/18 [Rx] Bisacodyl [Dulcolax] 10 mg RECTAL DAILY PRN supp 08/23/18 [Rx] Cefuroxime Axetil [Ceftin] 500 mg PO BID #10 tab 08/23/18 [Rx] Divalproex Sprinkle [Depakote Sprinkle] 125 mg PO BID cap.sprink 08/23/18 [Rx] Donepezil [Aricept] 5 mg PO HS tab 08/23/18 [Rx] Haloperidol Oral Soln [Haldol Oral Soln] 2.5 mg PO QID #15 ml 08/23/18 [Rx] INSULIN LISPRO (HumaLOG) [humaLOG] 0 unit SQ ACHS #1 vial 08/23/18 [Rx] LORazepam [Ativan] 1 mg PO Q8HR PRN #9 tab 08/23/18 [Rx] Levothyroxine Sodium 25 mcg PO SUSA #1 tablet 08/23/18 [Rx] Levothyroxine Sodium [Synthroid] 125 mcg PO MOTUWETHFR #0 08/23/18 [Rx] Memantine [Namenda] 10 mg PO BID tab 08/23/18 [Rx] Metoprolol Tartrate [Lopressor] 25 mg PO BID tab 08/23/18 [Rx] Pantoprazole [Protonix] 40 mg PO AC-BRKFST tablet. 08/23/18 [Rx] Polyethylene Glycol 3350 [Miralax] 17 gm PO DAILY powd.pack 08/23/18 [Rx] Follow up Appointment(s)/Referral(s): Maggie cMmullen MD [STAFF PHYSICIAN] - 09/25/18 11:15 am [facility], [NON-STAFF] - 1-2 Days Pavan Elmore MD [Primary Care Provider] - 08/13/18 2:30 pm Patient Instructions/Handouts: Heart Healthy Diet (DC), After Radial Heart Catheterization (GEN) Activity/Diet/Wound Care/Special Instructions: Medi PH ECF Statin on hold secondary to resolving elevated LFTs . Acute renal failure, improving ,diuretics discussed with cardiology, hold and will re-eval at F/U with cardiology. Adjusting levothyroxine secondary to hypothyroidism. Cardiac, diabetic diet. cbc,bmp in 3 days
[2018-08-24] MEDS ORDERED: LEVOTHYROXINE 125 MCG TAB PO SCH (06:30)
--- NOTE | 2018-08-24 10:29 | CDI ---
Documentation Clarification Form Date: 08/24/18 From: Ana West Phone: If you have a question regarding this query, please contact Angeli Jama at [phone] between 8am and 5pm. Admit Date: 08/02/2018 2:51:00 PM Patient Name: Kory Roberts Visit Number: [id number] Discharge Date: 08/23/2018 5:00:00 PM ATTENTION: The Clinical Documentation Specialists (CDI) and [facility] Coding Staff appreciate your assistance in clarifying documentation. Please respond to the clarification below the line at the bottom and electronically sign. The CDI & [facility] Coding staff will review the response and follow-up if needed. Please note: Queries are made part of the Legal Health Record. If you have any questions, please contact the author of this message via ITS. Melanie Solorio NP/Dr. Pavan Elmore Rule out and possible acute UTI was documented in Melanie Solorio's progress notes from08/20 to 08/22. History/Risk Factors: (Quintero POA? incontinent?) The patient was noted to have urinary retention on 08/04 and a Quintero catheter was inserted. Patient was admitted for NSTEMI and had DAGOBERTO and CHF exacerbation. The patient has a history of hypertension and a-fib. Clinical Indicators: Elevated WBC x 2 days. Vital Signs: 08/19: t. 98.2, P. 102, R. 18, BP 112/65 WBC: 16.5 Urinalysis: 08/20: Protein trace, blood small, leukocyte esterase large, RBC 9, WBC 182 Urine Culture: Staph epidermidis Treatment Antibiotics: IV Ceftriaxone. Went home on Ceftin Please document the condition that these clinical indicators signify and cause if known: UTI Ruled Out UTI -If due to catheter, device or implant, please document -Specify organism, if known -Identify location of infection (if known) Bladder, Kidney, Urethra Pyelonephritis Contaminated specimen Other, please specify Unable to determine Doubt, UTI,Prophylactically treated MTDD
[2018-08-25] MEDS ORDERED: LEVOTHYROXINE 25 MCG TAB PO SCH (06:30)
== END 2018-08-23 17:00 | DRG 280 ==
LOC: EC 01:57 → 1SOBS 04:11 → 3SCARD 13:11 → OBSVTOIN 14:51 → 4MS4W 08-07 11:48 → 2SICU 08-10 21:37 → 3NMEDONC 08-17 18:30
PROVIDERS: ADMIT Family Medicine; ATTEND Family Medicine
PROC: B2111ZZ Fluoroscopy of Multiple Coronary Arteries using Low Osmolar Contrast (ICD-10-PCS; 2018-08-03)
PROC: B2151ZZ Fluoroscopy of Left Heart using Low Osmolar Contrast (ICD-10-PCS; 2018-08-03)
PROC: 4A023N7 Measurement of Cardiac Sampling and Pressure, Left Heart, Percutaneous Approach (ICD-10-PCS; principal; 2018-08-03 07:20)
DX: I21.4 Non-ST elevation (NSTEMI) myocardial infarction (principal); G93.41 Metabolic encephalopathy; I50.23 Acute on chronic systolic (congestive) heart failure; N17.0 Acute kidney failure with tubular necrosis; E87.0 Hyperosmolality and hypernatremia; E87.1 Hypo-osmolality and hyponatremia; E87.2 Acidosis; I47.1 Supraventricular tachycardia; I13.0 Hypertensive heart and chronic kidney disease with heart failure and stage 1 through stage 4 chronic kidney disease, or unspecified chronic kidney disease; I25.5 Ischemic cardiomyopathy; E11.22 Type 2 diabetes mellitus with diabetic chronic kidney disease; E87.5 Hyperkalemia; D50.9 Iron deficiency anemia, unspecified; E83.42 Hypomagnesemia; F03.90 Unspecified dementia, unspecified severity, without behavioral disturbance, psychotic disturbance, mood disturbance, and anxiety; I48.0 Paroxysmal atrial fibrillation; N13.9 Obstructive and reflux uropathy, unspecified; K76.89 Other specified diseases of liver; N14.1 Nephropathy induced by other drugs, medicaments and biological substances; E03.9 Hypothyroidism, unspecified; E78.5 Hyperlipidemia, unspecified; F32.9 Major depressive disorder, single episode, unspecified; F41.9 Anxiety disorder, unspecified; I25.10 Atherosclerotic heart disease of native coronary artery without angina pectoris; Z87.820 Personal history of traumatic brain injury; T50.8X5A Adverse effect of diagnostic agents, initial encounter; R01.1 Cardiac murmur, unspecified; T50.0X5A Adverse effect of mineralocorticoids and their antagonists, initial encounter; T46.5X5A Adverse effect of other antihypertensive drugs, initial encounter; T46.2X5A Adverse effect of other antidysrhythmic drugs, initial encounter; T50.995A Adverse effect of other drugs, medicaments and biological substances, initial encounter; R33.9 Retention of urine, unspecified; R32 Unspecified urinary incontinence; Z79.01 Long term (current) use of anticoagulants; Z79.4 Long term (current) use of insulin; Z79.890 Hormone replacement therapy; Z79.899 Other long term (current) drug therapy; Z88.8 Allergy status to other drugs, medicaments and biological substances; Z82.49 Family history of ischemic heart disease and other diseases of the circulatory system
CPT/HCPCS: 36415; 70450; 71045; 71046; 74018; 74176; 76700; 76770; 80048; 80053; 80061; 80074; 80076; 81001; 82103; 82140; 82390; 82728; 83036; 83516; 83540; 83550; 83605; 83735; 83880; 84100; 84132; 84165; 84436; 84439; 84443; 84480; 84484; 85025; 85027; 85610; 85730; 86038; 86376; 87077; 87086; 87186; 93005; 93458; 94640; 94760; 96374; 96375; 96376; 99285

== ENCOUNTER 2018-09-01 08:15 | Inpatient (IN) | payer MEDICARE, OTHER ==
[2018-09-01 08:41] LABS: Glucose,Whole Blood 182 mg/dL (75-99)
--- NOTE | 2018-09-01 08:41 | ED ---
General Adult HPI - General Chief complaint: Fall Stated complaint: fall, altered Source: patient, EMS, RN notes reviewed Mode of arrival: EMS Limitations: altered mental status - History of Present Illness Initial comments: 5-year-old male with a past medical history of atrial fibrillation, heart failure, diabetes mellitus, hyperlipidemia and hypertension renal disease presents to the emergency department for a chief complaint of increased confusion and falls. According to EMS patient was recently discharged from rehab facility for cardiac rehabilitation. Patient was also recently started on Ativan and Haldol. Family apparently states the patient has been slipping out of his chair. They do admit he hit his head last night. They state that he has been confused since his last admission about one month ago. States that before this he did not have any confusion. States that he did not get his metoprolol earlier today but did have Haldol about 2 hours prior to arrival. Patient denies any pain at this time. Patient has no other complaints at this time including shortness of breath, chest pain, abdominal pain, nausea or vomiting, headache, or visual changes. - Related Data Home Medications Medication Instructions Recorded Confirmed DULoxetine HCL [Cymbalta] 60 mg PO DAILY 07/21/18 09/01/18 Levothyroxine Sodium [Synthroid] 150 mcg PO SUSA 07/21/18 09/01/18 Haloperidol Oral Soln [Haldol Oral 2.5 mg PO Q6H 09/01/18 09/01/18 Soln] INSULIN LISPRO (HumaLOG) [humaLOG] See Protocol SQ ACHS 09/01/18 09/01/18 Levothyroxine Sodium [Synthroid] 25 mcg PO SUSA 09/01/18 09/01/18 Previous Rx's Medication Instructions Recorded Apixaban [Eliquis] 5 mg PO BID tab 07/24/18 Losartan [Cozaar] 25 mg PO DAILY #30 tab 07/24/18 Bisacodyl [Dulcolax] 10 mg RECTAL DAILY PRN supp 08/23/18 Divalproex Sprinkle [Depakote 125 mg PO BID cap.sprink 08/23/18 Sprinkle] Donepezil [Aricept] 5 mg PO HS tab 08/23/18 LORazepam [Ativan] 1 mg PO Q8HR PRN #9 tab 08/23/18 Levothyroxine Sodium [Synthroid] 125 mcg PO MOTUWETHFR #0 08/23/18 Memantine [Namenda] 10 mg PO BID tab 08/23/18 Metoprolol Tartrate [Lopressor] 25 mg PO BID tab 08/23/18 Pantoprazole [Protonix] 40 mg PO AC-[id number] tablet. 08/23/18 Polyethylene Glycol 3350 [Miralax] 17 gm PO DAILY powd.pack 08/23/18 Allergies Allergy/AdvReac Type Severity Reaction Status Date / Time bupropion [From Wellbutrin] Allergy Unknown Verified 09/01/18 09:03 venlafaxine [From Effexor] Allergy Unknown Verified 09/01/18 09:03 aripiprazole [From Abilify] AdvReac Unknown Verified 09/01/18 09:03 Review of Systems ROS Statement: Those systems with pertinent positive or pertinent negative responses have been documented in the HPI. ROS Other: All systems not noted in ROS Statement are negative. 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 of RAG WASHER concussion, hypothyroidism History of Any Multi-Drug Resistant Organisms: None Reported Past Surgical History: Back Surgery, Hernia Repair, Orthopedic Surgery, Tonsillectomy Additional Past Surgical History / Comment(s): rt inguinal hernia repair, rt ankle orif, Past Anesthesia/Blood Transfusion Reactions: No Reported Reaction Past Psychological History: Anxiety, Depression Smoking Status: Never smoker Past Alcohol Use History: None Reported Past Drug Use History: None Reported - Past Family History Mother Family Medical History: Congestive Heart Failure (CHF) Father Family Medical History: Congestive Heart Failure (CHF) General Exam Limitations: altered mental status General appearance: alert, in no apparent distress Head exam: Present: atraumatic, normocephalic, normal inspection Eye exam: Present: normal appearance, PERRL, EOMI. Absent: scleral icterus, c onjunctival injection, periorbital swelling ENT exam: Present: normal exam, normal oropharynx, mucous membranes moist, TM's normal bilaterally, normal external ear exam Neck exam: Present: normal inspection, full ROM. Absent: tenderness, meningismus, lymphadenopathy Respiratory exam: Present: normal lung sounds bilaterally. Absent: respiratory distress, wheezes, rales, rhonchi, stridor Cardiovascular Exam: Present: regular rate, normal rhythm, normal heart sounds. Absent: systolic murmur, diastolic murmur, rubs, gallop, clicks GI/Abdominal exam: Present: soft, normal bowel sounds. Absent: distended, tenderness, guarding, rebound, rigid Extremities exam: Present: full ROM (full ROM of both lower extremities), normal capillary refill (in BLE) Neurological exam: Present: alert, CN II-XII intact. Absent: oriented X3 (oriented to person, place) Psychiatric exam: Present: normal affect, normal mood Course Vital Signs 09/01/18 09/01/18 09/01/18 08:18 08:19 08:30 Temperature 97.8 F Pulse Rate 106 H 115 H 121 H Respiratory 18 18 18 Rate Blood Pressure 102/71 102/71 102/71 O2 Sat by Pulse 99 100 98 Oximetry 09/01/18 09/01/18 09/01/18 09:00 09:30 10:00 Temperature Pulse Rate 101 H 103 H Respiratory 18 18 Rate Blood Pressure 105/66 105/68 O2 Sat by Pulse 98 98 Oximetry 09/01/18 09/01/18 09/01/18 10:30 11:00 11:30 Temperature Pulse Rate 126 H 112 H Respiratory 18 18 Rate Blood Pressure 98/80 106/88 104/78 O2 Sat by Pulse Oximetry 09/01/18 09/01/18 09/01/18 12:00 12:30 13:26 Temperature Pulse Rate 126 H 121 H 110 H Respiratory 18 19 18 Rate Blood Pressure 112/93 O2 Sat by Pulse 99 Oximetry 09/01/18 14:30 Temperature 98.9 F Pulse Rate 105 H Respiratory 16 Rate Blood Pressure 114/69 O2 Sat by Pulse 95 Oximetry Procedures - Restraint - Face to Face Restraint Occurrence 1 Patient's Immediate Situation: Endangers self safety, Endangers others' safety, Endangers staff safety, Violent behavior Patient's Immediate Situation - Comment: Patient is currently altered mental status, he is getting out of bed, punching, kicking, biting staff and family members. He is endangering himself and others. Patient's Reaction to the Intervention: Hostile, Belligerent, Aggressive, Combative, Resistive to care Patient's Medical & Behavioral Condition: Anxious, Agitated Need to Continue or Terminate Restraint or Seclusion: Continue Face to Face Eval of Restraint Date: 09/01/18 Face to Face Eval of Restraint Time: 12:45 Medical Decision Making - Medical Decision Making 68-year-old male with a past medical history of atrial fibrillation, heart failure, diabetes mellitus, hypertension, renal disease presents for a chief complaint of increased confusion and falls. Patient was recently discharged home from a cardiac rehab facility yesterday. Apparently well at the facility he was very agitated and confused. Apparently just prior to this one month ago patient was functioning normally without any evidence for dementia. He was started on Haldol and Ativan. When discharged home yesterday he kept getting up and he had multiple falls. Family stating that they were not able to care for him yesterday due to his combativeness. When patient presents today he is alert and oriented x 2 lthough somewhat tired. She had received by mouth Haldol 2 hours prior to arrival. Throughout patient's stay he became increasingly agitated and combative. Patient was given 2 mg of Ativan without improvement. He was then given 2.5 mg of Haldol IM and subsequently restrained due to endangering himself and others. Patient is getting out of bed, punching, and kicking staff and family members. CBC and CMP are unremarkable. Patient does have a BNP of 11,800 with x-ray of the chest showing mild changes of CHF. Patient has been in atrial fibrillation with a rate of 100 to 120s. When calm patient's heart rate is in the low 100s. Patient did not receive his metoprolol this morning so was given this on presentation. X-ray of the lumbar spine does show wedge compression fracture of L1. CT brain shows no acute intercranial abnormality. Cervical spine shows no acute osseous lesion. Patient was taken out of restraints after he did begin to relax. Patient will be admitted for altered mental status as well as atrial fibrillation. - Lab Data Result diagrams: 09/01/18 08:50 09/01/18 08:50 Lab Results 09/01/18 09/01/18 09/01/18 Range/Units 08:39 08:50 08:50 WBC 9.9 (3.8-10.6) k/uL RBC 4.87 (4.30-5.90) m/uL Hgb 12.5 L (13.0-17.5) gm/dL Hct 38.6 L (39.0-53.0) % MCV 79.2 L (80.0-100.0) fL MCH 25.6 (25.0-35.0) pg MCHC 32.3 (31.0-37.0) g/dL RDW 21.0 H (11.5-15.5) % Plt Count 224 (150-450) k/uL Neutrophils % 73 % Lymphocytes % 9 % Monocytes % 9 % Eosinophils % 3 % Basophils % 0 % Neutrophils # 7.3 (1.3-7.7) k/uL Lymphocytes # 0.9 L (1.0-4.8) k/uL Monocytes # 0.9 (0-1.0) k/uL Eosinophils # 0.3 (0-0.7) k/uL Basophils # 0.0 (0-0.2) k/uL Anisocytosis Moderate Microcytosis Moderate PT (9.0-12.0) sec INR (<1.2) APTT (22.0-30.0) sec Sodium 132 L (137-145) mmol/L Potassium 4.4 (3.5-5.1) mmol/L Chloride 95 L (98-107) mmol/L Carbon Dioxide 27 (22-30) mmol/L Anion Gap 10 mmol/L BUN 10 (9-20) mg/dL Creatinine 0.79 (0.66-1.25) mg/dL Est GFR (CKD-EPI)AfAm >90 (>60 ml/min/1.73 sqM) Est GFR (CKD-EPI)NonAf >90 (>60 ml/min/1.73 sqM) Glucose 178 H (74-99) mg/dL POC Glucose (mg/dL) 182 H (75-99) mg/dL POC Glu Circus Hand ID Char Rhodes Calcium 9.2 (8.4-10.2) mg/dL Total Bilirubin 1.3 (0.2-1.3) mg/dL AST 27 (17-59) U/L ALT 39 (21-72) U/L Alkaline Phosphatase 124 (38-126) U/L Troponin I (0.000-0.034) ng/mL NT-Pro-B Natriuret Pep pg/mL Total Protein 6.2 L (6.3-8.2) g/dL Albumin 3.5 (3.5-5.0) g/dL Urine Color Urine Appearance (Clear) Urine pH (5.0-8.0) Ur Specific [place] (1.001-1.035) Urine Protein (Negative) Urine Glucose (UA) (Negative) Urine Ketones (Negative) Urine Blood (Negative) Urine Nitrite (Negative) Urine Bilirubin (Negative) Urine Urobilinogen (<2.0) mg/dL Ur Leukocyte Esterase (Negative) Urine Opiates Screen (NotDetected) Ur Oxycodone Screen (NotDetected) Urine Methadone Screen (NotDetected) Ur Propoxyphene Screen (NotDetected) Ur Barbiturates Screen (NotDetected) U Tricyclic Antidepress (NotDetected) Ur Phencyclidine Scrn (NotDetected) Ur Amphetamines Screen (NotDetected) U Methamphetamines Scrn (NotDetected) U Benzodiazepines Scrn (NotDetected) Urine Cocaine Screen (NotDetected) U Marijuana (THC) Screen (NotDetected) 09/01/18 09/01/18 09/01/18 Range/Units 08:50 08:50 08:50 WBC (3.8-10.6) k/uL RBC (4.30-5.90) m/uL Hgb (13.0-17.5) gm/dL Hct (39.0-53.0) % MCV (80.0-100.0) fL MCH (25.0-35.0) pg MCHC (31.0-37.0) g/dL RDW (11.5-15.5) % Plt Count (150-450) k/uL Neutrophils % % Lymphocytes % % Monocytes % % Eosinophils % % Basophils % % Neutrophils # (1.3-7.7) k/uL Lymphocytes # (1.0-4.8) k/uL Monocytes # (0-1.0) k/uL Eosinophils # (0-0.7) k/uL Basophils # (0-0.2) k/uL Anisocytosis Microcytosis PT 11.8 (9.0-12.0) sec INR 1.1 (<1.2) APTT 32.7 H (22.0-30.0) sec Sodium (137-145) mmol/L Potassium (3.5-5.1) mmol/L Chloride (98-107) mmol/L Carbon Dioxide (22-30) mmol/L Anion Gap mmol/L BUN (9-20) mg/dL Creatinine (0.66-1.25) mg/dL Est GFR (CKD-EPI)AfAm (>60 ml/min/1.73 sqM) Est GFR (CKD-EPI)NonAf (>60 ml/min/1.73 sqM) Glucose (74-99) mg/dL POC Glucose (mg/dL) (75-99) mg/dL POC Glu Circus Hand ID Calcium (8.4-10.2) mg/dL Total Bilirubin (0.2-1.3) mg/dL AST (17-59) U/L ALT (21-72) U/L Alkaline Phosphatase (38-126) U/L Troponin I <0.012 (0.000-0.034) ng/mL NT-Pro-B Natriuret Pep 34751 pg/mL Total Protein (6.3-8.2) g/dL Albumin (3.5-5.0) g/dL Urine Color Urine Appearance (Clear) Urine pH (5.0-8.0) Ur Specific [place] (1.001-1.035) Urine Protein (Negative) Urine Glucose (UA) (Negative) Urine Ketones (Negative) Urine Blood (Negative) Urine Nitrite (Negative) Urine Bilirubin (Negative) Urine Urobilinogen (<2.0) mg/dL Ur Leukocyte Esterase (Negative) Urine Opiates Screen (NotDetected) Ur Oxycodone Screen (NotDetected) Urine Methadone Screen (NotDetected) Ur Propoxyphene Screen (NotDetected) Ur Barbiturates Screen (NotDetected) U Tricyclic Antidepress (NotDetected) Ur Phencyclidine Scrn (NotDetected) Ur Amphetamines Screen (NotDetected) U Methamphetamines Scrn (NotDetected) U Benzodiazepines Scrn (NotDetected) Urine Cocaine Screen (NotDetected) U Marijuana (THC) Screen (NotDetected) 09/01/18 Range/Units 09:40 WBC (3.8-10.6) k/uL RBC (4.30-5.90) m/uL Hgb (13.0-17.5) gm/dL Hct (39.0-53.0) % MCV (80.0-100.0) fL MCH (25.0-35.0) pg MCHC (31.0-37.0) g/dL RDW (11.5-15.5) % Plt Count (150-450) k/uL Neutrophils % % Lymphocytes % % Monocytes % % Eosinophils % % Basophils % % Neutrophils # (1.3-7.7) k/uL Lymphocytes # (1.0-4.8) k/uL Monocytes # (0-1.0) k/uL Eosinophils # (0-0.7) k/uL Basophils # (0-0.2) k/uL Anisocytosis Microcytosis PT (9.0-12.0) sec INR (<1.2) APTT (22.0-30.0) sec Sodium (137-145) mmol/L Potassium (3.5-5.1) mmol/L Chloride (98-107) mmol/L Carbon Dioxide (22-30) mmol/L Anion Gap mmol/L BUN (9-20) mg/dL Creatinine (0.66-1.25) mg/dL Est GFR (CKD-EPI)AfAm (>60 ml/min/1.73 sqM) Est GFR (CKD-EPI)NonAf (>60 ml/min/1.73 sqM) Glucose (74-99) mg/dL POC Glucose (mg/dL) (75-99) mg/dL POC Glu Circus Hand ID Calcium (8.4-10.2) mg/dL Total Bilirubin (0.2-1.3) mg/dL AST (17-59) U/L ALT (21-72) U/L Alkaline Phosphatase (38-126) U/L Troponin I (0.000-0.034) ng/mL NT-Pro-B Natriuret Pep pg/mL Total Protein (6.3-8.2) g/dL Albumin (3.5-5.0) g/dL Urine Color Yellow Urine Appearance Clear (Clear) Urine pH 6.5 (5.0-8.0) Ur Specific [place] 1.004 (1.001-1.035) Urine Protein Negative (Negative) Urine Glucose (UA) Negative (Negative) Urine Ketones Negative (Negative) Urine Blood Negative (Negative) Urine Nitrite Negative (Negative) Urine Bilirubin Negative (Negative) Urine Urobilinogen <2.0 (<2.0) mg/dL Ur Leukocyte Esterase Negative (Negative) Urine Opiates Screen Not Detected (NotDetected) Ur Oxycodone Screen Not Detected (NotDetected) Urine Methadone Screen Not Detected (NotDetected) Ur Propoxyphene Screen Not Detected (NotDetected) Ur Barbiturates Screen Not Detected (NotDetected) U Tricyclic Antidepress Not Detected (NotDetected) Ur Phencyclidine Scrn Not Detected (NotDetected) Ur Amphetamines Screen Not Detected (NotDetected) U Methamphetamines Scrn Not Detected (NotDetected) U Benzodiazepines Scrn Detected H (NotDetected) Urine Cocaine Screen Not Detected (NotDetected) U Marijuana (THC) Screen Not Detected (NotDetected) Disposition Clinical Impression: Altered mental status, Agitation, CHF (congestive heart failure), Atrial fib rillation with rapid ventricular response, Compression fracture of L1 lumbar vertebra Disposition: ADMITTED IP TO THIS HOSP Condition: Fair Is patient prescribed a controlled substance at d/c from ED?: No Time of Disposition: 12:40
[2018-09-01 09:12] LABS: Anisocytosis Moderate; Basophils % (A) 0 %; Eosinophils # (A) 0.3 k/uL (0-0.7); Eosinophils % (A) 3 %; HCT 38.6 % (39.0-53.0); HGB 12.5 gm/dL (13.0-17.5); Lymphocytes # (A) 0.9 k/uL (1.0-4.8); Lymphocytes % (A) 9 %; MCH 25.6 pg (25.0-35.0); MCHC 32.3 g/dL (31.0-37.0); MCV 79.2 fL (80.0-100.0); Mean Platelet Volume 6.9; Microcytosis Moderate; Monocytes # (A) 0.9 k/uL (0-1.0); Monocytes % (A) 9 %; Neutrophils # (A) 7.3 k/uL (1.3-7.7); Neutrophils % (A) 73 %; Platelet Count 224 k/uL (150-450); RBC 4.87 m/uL (4.30-5.90); WBC 9.9 k/uL (3.8-10.6)
[2018-09-01 09:14] LABS: ALT 39 U/L (21-72); AST 27 U/L (17-59); Albumin 3.5 g/dL (3.5-5.0); Alkaline Phosphatase 124 U/L (38-126); Anion Gap 10 mmol/L; Blood Urea Nitrogen 10 mg/dL (9-20); Calcium 9.2 mg/dL (8.4-10.2); Carbon Dioxide 27 mmol/L (22-30); Chloride 95 mmol/L (98-107); Glucose 178 mg/dL (74-99); Potassium 4.4 mmol/L (3.5-5.1); Sodium 132 mmol/L (137-145); Total Bilirubin 1.3 mg/dL (0.2-1.3); Total Protein 6.2 g/dL (6.3-8.2)
[2018-09-01] MEDS ORDERED: METOPROLOL TARTRATE 25 MG TAB PO STA (09:14)
[2018-09-01 09:16] LABS: INR 1.1 (<1.2); Partial Thromboplastin Time 32.7 sec (22.0-30.0); Prothrombin Time 11.8 sec (9.0-12.0)
--- NOTE | 2018-09-01 09:18 | XR ---
EXAMINATION TYPE: XR chest 2V DATE OF EXAM: 09/01/2018 HISTORY: altered mental status. REFERENCE: Previous study dated 08/11/2018. FINDINGS: Heart size upper limits of normal. There is mild vascular congestion and subtle interstitia l change. I could not exclude a small left effusion. IMPRESSION: MILD CHANGES OF CONGESTIVE HEART FAILURE.
--- NOTE | 2018-09-01 09:22 | CT ---
EXAMINATION TYPE: CT brain gerine wo con DATE OF EXAM: 09/01/2018 COMPARISON: Previous CT scan of the brain dated 08/09/2018. HISTORY: Fall. Altered mental status CT DLP: 1540.9 mGycm Automated exposure control for dose reduction was used. TECHNIQUE: CT scan of the head and cervical spine are performed without contrast. FINDINGS: BRAIN: There are generalized changes of sulcal prominence and ventriculomegaly, compatible with atrop hic change. There is diffuse periventricular white matter lucency, compatible with chronic white radha er ischemic change. There is no acute focal lesion, mass effect or midline shift identified. I do not see evidence of intracranial blood. There is mild mucoperiosteal thickening involving the left maxil aspen sinus. The remainder the paranasal sinuses and mastoids are clear. The bony calvarium is intact. IMPRESSION: 1. NO ACUTE INTRACRANIAL ABNORMALITY. 2. DEGENERATIVE CHANGE. CERVICAL SPINE: The study is mildly compromised by patient motion artifact. Visualized portions of the lungs are clear. Prevertebral soft tissues are normal. Vertebral body height and alignment are maintained. Atlantoaxial relationships are normal. There is severe disc space loss at C3-4 and C5-6. There is uncovertebral joint disease present at the se levels. There is facet arthropathy present at C3-4. No definite protrusion is seen. No fractures a re identified. IMPRESSION: 1. NO ACUTE OSSEOUS LESION. 2. DEGENERATIVE CHANGE.
[2018-09-01] MEDS ORDERED: SODIUM CHLORIDE 0.9% 500 ML 500 ML IV STA (09:29)
[2018-09-01 10:45] LABS: Appearance,Urine Clear (Clear); Bilirubin,Urine Negative (Negative); Blood,Urine Negative (Negative); Color,Urine Yellow; Glucose,Urine (UA) Negative (Negative); Ketones,Urine Negative (Negative); Leukocyte Esterase,Urine Negative (Negative); Nitrite,Urine Negative (Negative); PH, Urine 6.5 (5.0-8.0); Protein,Urine Negative (Negative); Specific Gravity,Urine 1.004 (1.001-1.035); Urobilinogen,Urine <2.0 mg/dL (<2.0)
[2018-09-01 10:56] LABS: Amphetamine Screen,Urine Not Detected (NotDetected); Barbiturate Screen,Urine Not Detected (NotDetected); Benzodiazepines Screen,Urine Detected (NotDetected); Cocaine Screen,Urine Not Detected (NotDetected); Methadone Screen, Urine Not Detected (NotDetected); Opiate Screen,Urine Not Detected (NotDetected); Oxycodone Screen, Urine Not Detected (NotDetected); Phencyclidine Screen,Urine Not Detected (NotDetected); Tricyclic Antidepressant,Urine Not Detected (NotDetected); Urn Cannabinoid Scrn Not Detected (NotDetected)
[2018-09-01] MEDS: LORazepam 2 MG/ML INJ IV STA ×2 (11:10→11:43)
--- NOTE | 2018-09-01 11:36 | XR ---
EXAMINATION TYPE: XR Hip Bilateral and AP pelvis , 5 VIEWS DATE OF EXAM ORDERED: 09/01/2018 HISTORY: Pain. COMPARISON: None. FINDINGS: No fracture or dislocation is seen. There are degenerative changes within the hips. The fe moral heads are nonspherical. There are "bumps" on the femoral necks. IMPRESSION: 1. NO ACUTE OSSEOUS LESION. 2. PLEASE CORRELATE CLINICALLY FOR FEMORO ACETABULAR IMPINGEMENT SYNDROME.
--- NOTE | 2018-09-01 11:38 | XR ---
EXAMINATION TYPE: XR lumbar spine 2 or 3V , 3 VIEWS DATE OF EXAM ORDERED: 09/01/2018 HISTORY: Pain. COMPARISON: None. FINDINGS: There is a superior endplate infraction of L1. The age is not determined. Vertebral body h eight and alignment are otherwise maintained. The pedicles are intact. IMPRESSION: WEDGE COMPRESSION FRACTURE OF L1, AGE NOT DETERMINED.
[2018-09-01] MEDS ORDERED: HALOPERIDOL LACTATE 5 MG/ML 1 ML VIAL IM STA ×2 (12:19→13:46)
[2018-09-01] MEDS ORDERED: ACETAMINOPHEN TAB 325 MG TAB PO PRN (12:40)
[2018-09-01] MEDS ORDERED: NALOXONE 0.4 MG/ML 1 ML VIAL IV PRN (12:40)
[2018-09-01] MEDS ORDERED: BISACODYL 10 MG SUPP RECTAL PRN (16:22)
[2018-09-01] MEDS ORDERED: NON-FORMULARY DRUG (Levothyroxine Sodium [Synthroid] 150 MCG) PO SCH (16:30)
[2018-09-01] MEDS ORDERED: LEVOTHYROXINE 100 MCG TAB PO SCH (16:30)
[2018-09-01 16:47] LABS: Glucose,Whole Blood 155 mg/dL (75-99)
[2018-09-01] MEDS: HALOPERIDOL LACTATE 5 MG/ML 1 ML VIAL IM PRN ×2 (17:32→20:57)
[2018-09-01] MEDS: INSULIN ASPART (NovoLOG) 100 UNIT/ML VIAL SQ SCH ×2 (17:38→21:30)
--- NOTE | 2018-09-01 18:37 | P.CRDCN ---
History of Present Illness Consult date: 09/01/18 Chief complaint: Change in mental status History of present illness: This is a 68-year-old gentleman who sees Dr. LONYN Mcmullen in the office as an ou tpatient with a past medical history significant for nonischemic cardiomyopathy, paroxysmal atrial fibrillation, hypertension, and dyslipidemia, was brought from [facility] to the hospital because of change in mental status. The patient currently is very agitated as well as confused. The history was taken from the chart as well as from the ER notes. At the [facility] care facility, the patient was started on Ativan and Haldol. The family stated that the patient has been falling recently. He was brought by ambulance to the emergency room where he was found to be severely confused as well as agitated and combative. We get involved in his care because of atrial fibrillation with RVR. The patient is known to have paroxysmal atrial fibrillation but he is not on any AV elissa justine agents at home but he was on oral anticoagulation. Currently he is in A. fib with RVR. Oral anticoagulation was initiated. I am going to start the patient on oral beta justine as well as artisan IV. Continue following up with him. Please note that the patient underwent recently heart catheterization which showed normal coronaries and echocardiogram which showed cardiomyopathy. 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, hypothyroidism History of Any Multi-Drug Resistant Organisms: None Reported Past Surgical History: Back Surgery, Hernia Repair, Orthopedic Surgery, Tonsillectomy Additional Past Surgical History / Comment(s): rt inguinal hernia repair, rt ankle orif, Past Anesthesia/Blood Transfusion Reactions: No Reported Reaction Past Psychological History: Anxiety, Depression Smoking Status: Never smoker Past Alcohol Use History: None Reported Past Drug Use History: None Reported - Past Family History Mother Family Medical History: Congestive Heart Failure (CHF) Father Family Medical History: Congestive Heart Failure (CHF) Medications and Allergies Home Medications Medication Instructions Recorded Confirmed Type DULoxetine HCL [Cymbalta] 60 mg PO DAILY 07/21/18 09/01/18 History Levothyroxine Sodium [Synthroid] 150 mcg PO SUSA 07/21/18 09/01/18 History Apixaban [Eliquis] 5 mg PO BID tab 07/24/18 09/01/18 Rx Losartan [Cozaar] 25 mg PO DAILY #30 tab 07/24/18 09/01/18 Rx Bisacodyl [Dulcolax] 10 mg RECTAL DAILY PRN supp 08/23/18 09/01/18 Rx Divalproex Sprinkle [Depakote 125 mg PO BID cap.sprink 08/23/18 09/01/18 Rx Sprinkle] Donepezil [Aricept] 5 mg PO HS tab 08/23/18 09/01/18 Rx LORazepam [Ativan] 1 mg PO Q8HR PRN #9 tab 08/23/18 09/01/18 Rx Levothyroxine Sodium [Synthroid] 125 mcg PO MOTUWETHFR #0 08/23/18 09/01/18 Rx Memantine [Namenda] 10 mg PO BID tab 08/23/18 09/01/18 Rx Metoprolol Tartrate [Lopressor] 25 mg PO BID tab 08/23/18 09/01/18 Rx Pantoprazole [Protonix] 40 mg PO AC-BRKFST tablet. 08/23/18 09/01/18 Rx Polyethylene Glycol 3350 [Miralax] 17 gm PO DAILY powd.pack 08/23/18 09/01/18 Rx Haloperidol Oral Soln [Haldol Oral 2.5 mg PO Q6H 09/01/18 09/01/18 History Soln] INSULIN LISPRO (HumaLOG) [humaLOG] See Protocol SQ ACHS 09/01/18 09/01/18 History Levothyroxine Sodium [Synthroid] 25 mcg PO SUSA 09/01/18 09/01/18 History Allergies Allergy/AdvReac Type Severity Reaction Status Date / Time bupropion [From Wellbutrin] Allergy Unknown Verified 09/01/18 09:03 venlafaxine [From Effexor] Allergy Unknown Verified 09/01/18 09:03 aripiprazole [From Abilify] AdvReac Unknown Verified 09/01/18 09:03 Physical Exam Vitals: Vital Signs Temp Pulse Resp BP Pulse Ox 09/01/18 14:30 98.9 F 105 H 16 114/69 95 09/01/18 13:26 110 H 18 112/93 99 09/01/18 12:30 121 H 19 09/01/18 12:00 126 H 18 09/01/18 11:30 104/78 09/01/18 11:00 112 H 18 106/88 09/01/18 10:30 126 H 18 98/80 09/01/18 10:00 103 H 18 105/68 98 09/01/18 09:30 101 H 18 98 09/01/18 09:00 105/66 09/01/18 08:30 121 H 18 102/71 98 09/01/18 08:19 115 H 18 102/71 100 09/01/18 08:18 97.8 F 106 H 18 102/71 99 Intake and Output 09/01/18 09/01/18 09/01/18 06:59 14:59 22:59 Intake Total 240 Balance 240 Intake: Oral 240 Other: # Voids 2 Weight 88.451 kg - Constitutional General appearance: no acute distress - Respiratory Respiratory: bilateral: diminished - Cardiovascular Rhythm: irregularly irregular Heart sounds: normal: S1, S2 Abnormal Heart Sounds: systolic murmur Results 09/01/18 08:50 09/01/18 08:50 Cardiac Enzymes 09/01/18 09/01/18 Range/Units 08:50 08:50 AST 27 (17-59) U/L Troponin I <0.012 (0.000-0.034) ng/mL Coagulation 09/01/18 Range/Units 08:50 PT 11.8 (9.0-12.0) sec APTT 32.7 H (22.0-30.0) sec CBC 09/01/18 Range/Units 08:50 WBC 9.9 (3.8-10.6) k/uL RBC 4.87 (4.30-5.90) m/uL Hgb 12.5 L (13.0-17.5) gm/dL Hct 38.6 L (39.0-53.0) % Plt Count 224 (150-450) k/uL Comprehensive Metabolic Panel 09/01/18 Range/Units 08:50 Sodium 132 L (137-145) mmol/L Potassium 4.4 (3.5-5.1) mmol/L Chloride 95 L (98-107) mmol/L Carbon Dioxide 27 (22-30) mmol/L BUN 10 (9-20) mg/dL Creatinine 0.79 (0.66-1.25) mg/dL Glucose 178 H (74-99) mg/dL Calcium 9.2 (8.4-10.2) mg/dL AST 27 (17-59) U/L ALT 39 (21-72) U/L Alkaline Phosphatase 124 (38-126) U/L Total Protein 6.2 L (6.3-8.2) g/dL Albumin 3.5 (3.5-5.0) g/dL Current Medications Generic Name Dose Route Start Last Admin Trade Name Freq PRN Reason Stop Dose Admin Acetaminophen 650 mg 09/01/18 12:40 Tylenol Tab PO Q6HR PRN Mild Pain or Fever > 100.5 Apixaban 5 mg 09/01/18 21:00 Eliquis PO BID SAL[facility]ADOR Bisacodyl 10 mg 09/01/18 16:22 Dulcolax RECTAL DAILY PRN Constipation Divalproex Sodium 125 mg 09/01/18 21:00 Depakote Sprinkle PO BID [facility] Donepezil HCl 5 mg 09/01/18 21:00 Aricept PO HS [facility] Duloxetine HCl 60 mg 09/02/18 09:00 Cymbalta PO DAILY [facility] Haloperidol Lactate 5 mg 09/01/18 16:24 09/01/18 17:32 Haldol IM 5 mg Q4HR PRN Administration Agitation or Acute Psychosis Diltiazem HCl 125 mg/ Sodium 125 mls @ 5 mls/hr 09/01/18 17:45 Chloride IV .Q24H SALVADOR 5 MG/HR Insulin Aspart 0 unit 09/01/18 17:30 09/01/18 17:38 Novolog SQ Not Given ACHS [facility] Protocol Levothyroxine Sodium 125 mcg 09/03/18 06:30 Synthroid PO MOTUWETHFR [facility] Levothyroxine Sodium 75 mcg 09/02/18 06:30 Synthroid PO SUSA [facility] Levothyroxine Sodium 100 mcg 09/02/18 06:30 Synthroid PO SUSA [facility] Lorazepam 1 mg 09/01/18 12:40 Ativan IV Q6HR PRN Agitation Lorazepam 1 mg 09/01/18 16:22 Ativan PO Q8HR PRN Agitation or Acute Psychosis Losartan Potassium 25 mg 09/02/18 09:00 Cozaar PO DAILY [facility] Memantine 10 mg 09/01/18 21:00 Namenda PO BID [facility] Metoprolol Tartrate 25 mg 09/01/18 21:00 Lopressor PO BID [facility] Naloxone HCl 0.2 mg 09/01/18 12:40 Narcan IV Q2M PRN Opioid Reversal Pantoprazole Sodium 40 mg 09/02/18 07:30 Protonix PO AC-BRKFST [facility] Polyethylene Glycol 17 gm 09/02/18 09:00 Miralax PO DAILY [facility] Intake and Output 09/01/18 09/01/18 09/01/18 06:59 14:59 22:59 Intake Total 240 Balance 240 Intake: Oral 240 Other: # Voids 2 Weight 88.451 kg Patient Weight 09/02/18 06:59 Weight 88.451 kg 09/01/18 08:50 09/01/18 08:50 Assessment and Plan Assessment: Assessment #1 atrial fibrillation with RVR #2 change in mental status #3 known paroxysmal atrial fibrillation #4 nonischemic cardiomyopathy #5 multiple comorbid conditions Plan #1 start the patient on Cardizem IV #2 start the patient on oral beta justine #3 continue oral anticoagulation #4 follow-up with the patient. Thank you for allowing us participate in his care
[2018-09-01] MEDS: DILTIAZEM 125 MG in SODIUM CHLORIDE 0.9% 100 ML IV SCH (18:59)
[2018-09-01] MEDS: MEMANTINE 10 MG TAB PO SCH (20:00)
[2018-09-01] MEDS: METOPROLOL TARTRATE 25 MG TAB PO SCH (20:00)
[2018-09-01] MEDS: APIXABAN 5 MG TAB PO SCH (20:00)
[2018-09-01] MEDS: DIVALPROEX SPRINKLE 125 MG CAP.SPRINK PO SCH (20:01)
[2018-09-01] MEDS: LORazepam 2 MG/ML INJ IV PRN (20:08)
[2018-09-01 20:33] LABS: Glucose,Whole Blood 191 mg/dL (75-99)
[2018-09-01] MEDS ORDERED: DONEPEZIL 5 MG TAB PO SCH (21:00)
[2018-09-02] MEDS: HALOPERIDOL LACTATE 5 MG/ML 1 ML VIAL IM PRN ×4 (01:46→23:52)
[2018-09-02] MEDS: PANTOPRAZOLE 40 MG TABLET PO SCH (05:39)
[2018-09-02] MEDS: LEVOTHYROXINE 100 MCG TAB PO SCH (05:39)
[2018-09-02] MEDS: LEVOTHYROXINE 75 MCG TAB PO SCH (05:40)
[2018-09-02] MEDS: LORazepam 1 MG TAB PO PRN ×2 (05:40→15:19)
[2018-09-02 05:54] LABS: Glucose,Whole Blood 149 mg/dL (75-99)
[2018-09-02] MEDS: INSULIN ASPART (NovoLOG) 100 UNIT/ML VIAL SQ SCH ×4 (06:05→21:19)
--- NOTE | 2018-09-02 11:31 | P.PN ---
Subjective Progress Note Date: 09/02/18 Principal diagnosis: Paroxysmal atrial fibrillation This is a 68-year-old gentleman who sees Dr. LONNY Mcmullen in the office as an outpatient with a past medical history significant for nonischemic cardiomyopathy, paroxysmal atrial fibrillation, hypertension, and dyslipidemia, was brought from extended care facility to the hospital because of change in mental status. The patient currently is very agitated as well as confused. The history was taken from the chart as well as from the ER notes. At the extended care facility, the patient was started on Ativan and Haldol. The family stated that the patient has been falling recently. He was brought by ambulance to the emergency room where he was found to be severely confused as well as agitated and combative. We get involved in his care because of atrial fibrillation with RVR. The patient is known to have paroxysmal atrial fibrillation but he is not on any AV elissa justine agents at home but he was on oral anticoagulation. On follow-up with the patient today, September 022018, the patient still have change in mental status and he is lethargic. He continues to be on metoprolol by mouth as well as oral anticoagulation. Objective - Vital Signs Vital signs: Vital Signs Temp 98.5 F 09/02/18 03:07 Pulse 70 09/02/18 09:30 Resp 20 09/02/18 09:30 BP 120/76 09/02/18 09:30 Pulse Ox 95 09/02/18 09:30 Intake & Output 09/01/18 09/02/18 09/02/18 18:59 06:59 18:59 Intake Total 240 Balance 240 Weight 88.451 kg 81 kg Intake: Oral 240 Other: # Voids 2 1 # Bowel Movements 2 - Constitutional General appearance: Present: no acute distress - Respiratory Respiratory: bilateral: diminished - Cardiovascular Heart sounds: normal: S1, S2 - Labs CBC & Chem 7: 09/01/18 08:50 09/01/18 08:50 Labs: Abnormal Lab Results - Last 24 Hours (Table) 09/01/18 09/01/18 09/02/18 Range/Units 16:41 20:32 05:53 POC Glucose (mg/dL) 155 H 191 H 149 H (75-99) mg/dL Assessment and Plan Assessment: Assessment #1 atrial fibrillation with RVR #2 change in mental status #3 known paroxysmal atrial fibrillation #4 nonischemic cardiomyopathy #5 multiple comorbid conditions Plan #1 continue the current medical regimen #2 continue metoprolol by mouth which was started yesterday #3 continue oral anticoagulation #4 follow-up with the patient. Thank you for allowing us participate in his care
[2018-09-02 11:48] LABS: Glucose,Whole Blood 132 mg/dL (75-99)
--- NOTE | 2018-09-02 12:07 | P.HPIM ---
History of Present Illness H&P Date: 09/02/18 Chief Complaint: Confusion/A. fib with RVR This is a 68-year-old white male patient of mine. He was just discharged from [facility] on August 23 after having any extensive admission that began with chest pain and possibly nonischemic cardiomyopathy before he then developed acute delirium and metabolic encephalopathy that lasted multiple days. He also the complication of acute renal failure. While these had resolved and improved, patient was transferred to [facility] on August 23. I had seen him there at the facility on 08/24/2018. He was discharge from the facility on 08/31/2018.. He presented to the emergency room yesterday, September 01, with sign ificant confusion and agitation. Nursing informed me that he was discharged with 1 days were the medications, did not get his prescription filled yet. Since arriving in the hospital, he has had recurrence of his A. fib with RVR. He is unable to respond to any my questions today. As his eyes closed and continues to fully sheet over top of him. His history was obtained from the emergency room and his . 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, hypothyroidism History of Any Multi-Drug Resistant Organisms: None Reported Past Surgical History: Back Surgery, Hernia Repair, Orthopedic Surgery, Tonsillectomy Additional Past Surgical History / Comment(s): rt inguinal hernia repair, rt ankle orif, Past Anesthesia/Blood Transfusion Reactions: No Reported Reaction Past Psychological History: Anxiety, Depression Smoking Status: Never smoker Past Alcohol Use History: None Reported Past Drug Use History: None Reported - Past Family History Mother Family Medical History: Congestive Heart Failure (CHF) Father Family Medical History: Congestive Heart Failure (CHF) Medications and Allergies Home Medications Medication Instructions Recorded Confirmed Type DULoxetine HCL [Cymbalta] 60 mg PO DAILY 07/21/18 09/01/18 History Levothyroxine Sodium [Synthroid] 150 mcg PO SUSA 07/21/18 09/01/18 History Apixaban [Eliquis] 5 mg PO BID tab 07/24/18 09/01/18 Rx Losartan [Cozaar] 25 mg PO DAILY #30 tab 07/24/18 09/01/18 Rx Bisacodyl [Dulcolax] 10 mg RECTAL DAILY PRN supp 08/23/18 09/01/18 Rx Divalproex Sprinkle [Depakote 125 mg PO BID cap.sprink 08/23/18 09/01/18 Rx Sprinkle] Donepezil [Aricept] 5 mg PO HS tab 08/23/18 09/01/18 Rx LORazepam [Ativan] 1 mg PO Q8HR PRN #9 tab 08/23/18 09/01/18 Rx Levothyroxine Sodium [Synthroid] 125 mcg PO MOTUWETHFR #0 08/23/18 09/01/18 Rx Memantine [Namenda] 10 mg PO BID tab 08/23/18 09/01/18 Rx Metoprolol Tartrate [Lopressor] 25 mg PO BID tab 08/23/18 09/01/18 Rx Pantoprazole [Protonix] 40 mg PO AC-BRKFST tablet. 08/23/18 09/01/18 Rx Polyethylene Glycol 3350 [Miralax] 17 gm PO DAILY powd.pack 08/23/18 09/01/18 Rx Haloperidol Oral Soln [Haldol Oral 2.5 mg PO Q6H 09/01/18 09/01/18 History Soln] INSULIN LISPRO (HumaLOG) [humaLOG] See Protocol SQ ACHS 09/01/18 09/01/18 History Levothyroxine Sodium [Synthroid] 25 mcg PO SUSA 09/01/18 09/01/18 History Allergies Allergy/AdvReac Type Severity Reaction Status Date / Time bupropion [From Wellbutrin] Allergy Unknown Verified 09/01/18 09:03 venlafaxine [From Effexor] Allergy Unknown Verified 09/01/18 09:03 aripiprazole [From Abilify] AdvReac Unknown Verified 09/01/18 09:03 Physical Exam Vitals: Vital Signs Temp Pulse Pulse Resp BP BP BP 09/02/18 09:30 70 16 120/76 09/02/18 03:07 98.5 F 95 18 126/72 09/02/18 00:00 90 20 128/70 09/01/18 23:19 20 09/01/18 20:00 98.7 F 139 H 20 136/78 09/01/18 14:30 98.9 F 105 H 16 114/69 09/01/18 13:26 110 H 18 112/93 09/01/18 12:30 121 H 19 09/01/18 12:00 126 H 18 Pulse Ox 09/02/18 09:30 95 09/02/18 03:07 97 09/02/18 00:00 98 09/01/18 23:19 09/01/18 20:00 96 09/01/18 14:30 95 09/01/18 13:26 99 09/01/18 12:30 09/01/18 12:00 Intake and Output 09/01/18 09/02/18 09/02/18 22:59 06:59 14:59 Intake Total 240 Balance 240 Intake: Oral 240 Other: # Voids 2 1 # Bowel Movements 2 Weight 81 kg GENERAL: Asleep, easily arousable, but incoherent and sometimes violent recentl y. HEAD: Atraumatic, normocephalic. EYES: Untestable due to mentation ENT: Untestable due to mentation NECK: Normal range of motion, supple without lymphadenopathy or JVD, no thyromegaly LUNGS: Breath sounds coarse to auscultation bilaterally and equal. No wheezes rales or rhonchi. HEART: irregular rate and rhythm, , no rubs or gallops.S1S2 Normal ABDOMEN: Soft, nontender, normoactive bowel sounds. No guarding, no rebound. No masses appreciated. EXTREMITIES: Normal range of motion, no pitting or edema. No clubbing or cyanosis. NEUROLOGICAL: Cranial nerves II through XII grossly intact. He is A O 0 at this time. PSYCH: Normal mood, normal affect. SKIN: Warm, Dry, normal turgor, no rashes, some excoriations known from his flailing. Results CBC & Chem 7: 09/01/18 08:50 09/01/18 08:50 Labs: Abnormal Lab Results - Last 24 Hours (Table) 09/01/18 09/01/18 09/02/18 Range/Units 16:41 20:32 05:53 POC Glucose (mg/dL) 155 H 191 H 149 H (75-99) mg/dL CT Scan - head: report reviewed (Degenerative changes of the neck) Thrombosis Risk Factor Assmnt - DVT/VTE Prophylaxis DVT/VTE Prophylaxis: Pharmacologic Prophylaxis ordered (Is currently on Elequis for his atrial fibrillation) - Choose All That Apply Each Factor Represents 1 point: Heart failure (<1month) Each Risk Factor Represents 2 Points: Age 61-74 years Thrombosis Risk Factor Assessment Total Risk Factor Score: 3 Thrombosis Risk Factor Assessment Level: Moderate Risk Assessment and Plan (1) Chronic systolic (congestive) heart failure Current Visit: Yes Status: Acute Code(s): I50.22 - CHRONIC SYSTOLIC (CONGESTIVE) HEART FAILURE SNOMED Code(s): 198631048 (2) Hyponatremia Current Visit: Yes Status: Acute Code(s): E87.1 - HYPO-OSMOLALITY AND HYPONATREMIA SNOMED Code(s): 48897456 (3) Traumatic brain injury Current Visit: Yes Status: Acute Code(s): S06.9X9A - UNSP INTRACRANIAL INJURY W LOC OF UNSP DURATION, INIT SNOMED Code(s): 716451134 (4) Altered mental status Current Visit: Yes Status: Acute Code(s): R41.82 - ALTERED MENTAL STATUS, UNSPECIFIED SNOMED Code(s): 600980058 (5) Atrial fibrillation with RVR Current Visit: Yes Status: Acute Code(s): I48.91 - UNSPECIFIED ATRIAL FIBRILLATION SNOMED Code(s): 671140675992061 (6) CHF (congestive heart failure) Current Visit: Yes Status: Acute Code(s): I50.9 - HEART FAILURE, UNSPECIFIED SNOMED Code(s): 08703628 (7) Compression fracture of L1 lumbar vertebra Current Visit: Yes Status: Acute Code(s): S32.010A - WEDGE COMPRESSION F RACTURE OF FIRST LUMBAR VERTEBRA, INIT SNOMED Code(s): 161320332 (8) History of closed head injury Current Visit: No Status: Acute Code(s): Z87.820 - PERSONAL HISTORY OF TRAUMATIC BRAIN INJURY SNOMED Code(s): 51019116273707 (9) Insulin dependent diabetes mellitus Current Visit: No Status: Acute Code(s): E11.9 - TYPE 2 DIABETES MELLITUS WITHOUT COMPLICATIONS; Z79.4 - MCFP (CURRENT) USE OF INSULIN SNOMED Code(s): 06352720 (10) Metabolic encephalopathy Current Visit: No Status: Acute Code(s): G93.41 - METABOLIC ENCEPHALOPATHY SNOMED Code(s): 45870964 (11) Microcytic anemia Current Visit: No Status: Acute Code(s): D50.9 - IRON DEFICIENCY ANEMIA, UNSPECIFIED SNOMED Code(s): 810597983 (12) Psychosis Current Visit: No Status: Acute Priority: High Code(s): F29 - UNSP PSYCHOSIS NOT DUE TO A SUBSTANCE OR KNOWN PHYSIOL COND SNOMED Code(s): 76394545 Plan: Place of consultation for neurology to help me manage his care. Will have a sitter help him prevent from hurting himself. He will continue on his metoprolol. Continue on diltiazem drip per cardiology to control his heart rate Cardiology consult regarding A. fib with RVR. He'll continue on his Elequis. Continue on benazepril and Namenda for suspected underlying dementia. Continue on levothyroxine for hypothyroidism. We'll restart the Haldol 2.5 mg 4 times a day Continue on Cymbalta. For depression Continue insulin scale. For type 2 diabetes Continue when necessary Ativan for significant agitation. Repeat labs today and in a.m. I'll restart [id number] Haldol at 2.5 mg 4 times a day I'll review his chart from the senior living and his discharge medications from his recent previous hospital stay. He'll be reevaluated next 24 hours.
[2018-09-02 13:22] LABS: Anisocytosis Moderate; Basophils # (A) 0.1 k/uL (0-0.2); Basophils % (A) 1 %; Eosinophils # (A) 0.6 k/uL (0-0.7); Eosinophils % (A) 6 %; HCT 42.5 % (39.0-53.0); HGB 13.4 gm/dL (13.0-17.5); Hypochromasia Slight; Lymphocytes # (A) 1.2 k/uL (1.0-4.8); Lymphocytes % (A) 12 %; MCH 25.6 pg (25.0-35.0); MCHC 31.6 g/dL (31.0-37.0); MCV 81.1 fL (80.0-100.0); Mean Platelet Volume 7.4; Microcytosis Slight; Monocytes # (A) 0.8 k/uL (0-1.0); Monocytes % (A) 8 %; Neutrophils # (A) 7.1 k/uL (1.3-7.7); Neutrophils % (A) 70 %; Platelet Count 271 k/uL (150-450); RBC 5.24 m/uL (4.30-5.90); RDW 20.8 % (11.5-15.5); WBC 10.1 k/uL (3.8-10.6)
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
[2018-09-02 13:35] LABS: Anion Gap 8 mmol/L; Blood Urea Nitrogen 8 mg/dL (9-20); Calcium 9.3 mg/dL (8.4-10.2); Carbon Dioxide 31 mmol/L (22-30); Chloride 99 mmol/L (98-107); Glucose 142 mg/dL (74-99); Magnesium 1.7 mg/dL (1.6-2.3); Potassium 4.2 mmol/L (3.5-5.1); Sodium 138 mmol/L (137-145)
[2018-09-02 14:55] LABS: T4, Free (Free Thyroxine) 2.75 ng/dL (0.78-2.19)
[2018-09-02] MEDS: METOPROLOL TARTRATE 25 MG TAB PO SCH ×2 (15:19→19:55)
[2018-09-02] MEDS: APIXABAN 5 MG TAB PO SCH ×2 (15:19→19:55)
[2018-09-02] MEDS: LOSARTAN 25 MG TAB PO SCH (15:19)
[2018-09-02] MEDS: DULoxetine HCL 60 MG CAPSULE.DR PO SCH (15:20)
[2018-09-02] MEDS: DIVALPROEX SPRINKLE 125 MG CAP.SPRINK PO SCH ×2 (15:21→19:55)
[2018-09-02] MEDS: MEMANTINE 10 MG TAB PO SCH ×2 (15:21→19:55)
[2018-09-02] MEDS: POLYETHYLENE GLYCOL 3350 17 GM POWD.PACK PO SCH (15:23)
[2018-09-02] MEDS: HALOPERIDOL ORAL SOLN 10 MG/5 ML CUP PO SCH ×3 (16:42→23:20)
[2018-09-02 16:56] LABS: Glucose,Whole Blood 136 mg/dL (75-99)
[2018-09-02] MEDS: DILTIAZEM 125 MG in SODIUM CHLORIDE 0.9% 100 ML IV SCH (18:09)
[2018-09-02 20:25] LABS: Glucose,Whole Blood 192 mg/dL (75-99)
[2018-09-02] MEDS: LORazepam 2 MG/ML INJ IV PRN (22:21)
[2018-09-03] MEDS: LORazepam 2 MG/ML INJ IV PRN ×2 (04:14→19:51)
[2018-09-03 05:52] LABS: Glucose,Whole Blood 129 mg/dL (75-99)
[2018-09-03] MEDS: INSULIN ASPART (NovoLOG) 100 UNIT/ML VIAL SQ SCH ×4 (06:07→22:03)
[2018-09-03] MEDS: PANTOPRAZOLE 40 MG TABLET PO SCH (06:53)
[2018-09-03] MEDS: LEVOTHYROXINE 125 MCG TAB PO SCH (06:53)
--- NOTE | 2018-09-03 08:44 | US ---
EXAMINATION TYPE: US carotid duplex BILAT DATE OF EXAM: 09/03/2018 COMPARISON: NONE CLINICAL HISTORY: AMS, agitiation, Atrial fibrillation. EXAM MEASUREMENTS: RIGHT: Peak Systolic Velocity (PSV) cm/sec ----- Right CCA: 63.6 ----- Right ICA: 52.4 ----- Right ECA: 66.6 ICA/CCA ratio: 0.8 RIGHT: End Diastole cm/sec ----- Right CCA: 12.0 ----- Right ICA: 11.8 ----- Right ECA: 6.4 LEFT: Peak Systolic Velocity (PSV) cm/sec ----- Left CCA: 33.3 ----- Left ICA: 63.2 ----- Left ECA: 60.6 ICA/CCA ratio: 1.9 LEFT: End Diastole cm/sec ----- Left CCA: 7.2 ----- Left ICA: 20.0 ----- Left ECA: 7.3 VERTEBRALS (direction of flow): Right Vertebral: Antegrade Left Vertebral: Antegrade Rhythm: Arrhythmia Technically difficult more so on the left due to patient agitation. Mild atherosclerotic changes with no significant velocity increases. IMPRESSION: Mild atheromatous change without evidence for hemodynamically significant stenosis. Criteria for Assigning % of Stenosis / Diameter reduction (Estimation based on the indirect measurements of the internal carotid artery velocities (ICA PSV). 1. Normal (no stenosis)=ICA PSV < 125 cm/s: ratio < 2.0: ICA EDV<40 cm/s. 2. Less than 50% stenosis=ICA PSV < 125 cm/s: ratio < 2.0: ICA EDV<40 cm/s. 3. 50 to 69% stenosis=ICA PSV of 125 to 230 cm/s: ration 2.0 ? 4.0: ICA EDV 40-100 cm/s. 4. Greater than 70% stenosis to near occlusion= ICA PSV > 230 cm/s: ratio > 4.0: ICA EDV > 100 cm/s. 5. Near occlusion= ICA PSV velocities may be low or undetectable: variable ratio and ICA EDV. 6. Total occlusion=unable to detect flow.
[2018-09-03 08:47] LABS: Anisocytosis Moderate; Basophils # (A) 0.1 k/uL (0-0.2); Basophils % (A) 1 %; Eosinophils # (A) 0.7 k/uL (0-0.7); Eosinophils % (A) 7 %; HCT 39.2 % (39.0-53.0); HGB 12.2 gm/dL (13.0-17.5); Lymphocytes # (A) 1.1 k/uL (1.0-4.8); Lymphocytes % (A) 12 %; MCH 25.1 pg (25.0-35.0); MCHC 31.1 g/dL (31.0-37.0); MCV 80.9 fL (80.0-100.0); Mean Platelet Volume 6.6; Microcytosis Slight; Monocytes # (A) 1.1 k/uL (0-1.0); Monocytes % (A) 12 %; Neutrophils # (A) 5.7 k/uL (1.3-7.7); Neutrophils % (A) 64 %; Platelet Count 244 k/uL (150-450); RBC 4.84 m/uL (4.30-5.90); RDW 20.9 % (11.5-15.5)
[2018-09-03 09:04] LABS: ALT 39 U/L (21-72); AST 41 U/L (17-59); Albumin 3.3 g/dL (3.5-5.0); Alkaline Phosphatase 116 U/L (38-126); Anion Gap 7 mmol/L; Blood Urea Nitrogen 8 mg/dL (9-20); Carbon Dioxide 26 mmol/L (22-30); Chloride 100 mmol/L (98-107); Glucose 157 mg/dL (74-99); Magnesium 1.7 mg/dL (1.6-2.3); Potassium 4.2 mmol/L (3.5-5.1); Sodium 133 mmol/L (137-145); Total Bilirubin 1.5 mg/dL (0.2-1.3)
[2018-09-03] MEDS: HALOPERIDOL LACTATE 5 MG/ML 1 ML VIAL IM PRN ×3 (09:14→23:07)
[2018-09-03 09:32] LABS: Folate, Serum 7.1 ng/mL
--- NOTE | 2018-09-03 10:26 | P.PN ---
Subjective Progress Note Date: 09/03/18 Patient continues to be very agitated at times. He is either somnolent, or he is AGITATED, aggressive. Patient has received Haldol 5 mg IM a short while ago. All blood tests ordered yesterday are pending. EEG is pending. Objective - Vital Signs Vital signs: Vital Signs Temp 97.7 F 09/03/18 03:05 Pulse 89 09/03/18 03:05 Resp 16 09/03/18 03:05 BP 120/79 09/03/18 03:05 Pulse Ox 98 09/03/18 03:05 Intake & Output 09/02/18 09/03/18 09/03/18 18:59 06:59 18:59 Intake Total 235.833 Balance 235.833 Weight 81 kg 81 kg Intake: Intake, IV Titration 115.833 Amount Diltiazem 125 mg In 115.833 Sodium Chloride 0.9% 100 ml @ 5 MG/HR 5 mls/hr IV .Q[facility]H [facility] Rx#:[id number] Oral 120 Other: Voiding Method Diaper # Voids 1 2 # Bowel Movements 1 1 - Exam On examination patient is a elderly male, who keeps his eyes closed. Pupils are round and reacting. He moves all 4 extremities. Appears restless. Plantars are downgoing bilaterally. - Labs CBC & Chem 7: 09/03/18 08:19 09/03/18 08:19 Labs: Abnormal Lab Results - Last 24 Hours (Table) 09/02/18 09/02/18 09/02/18 Range/Units 11:34 12:51 12:51 Hgb (13.0-17.5) gm/dL RDW 20.8 H (11.5-15.5) % Monocytes # (0-1.0) k/uL Sodium (137-145) mmol/L Carbon Dioxide 31 H (22-30) mmol/L BUN 8 L (9-20) mg/dL Creatinine (0.66-1.25) mg/dL Glucose 142 H (74-99) mg/dL POC Glucose (mg/dL) 132 H (75-99) mg/dL Total Bilirubin (0.2-1.3) mg/dL Total Protein (6.3-8.2) g/dL Albumin (3.5-5.0) g/dL Vitamin B12 (200.0-944.0) pg/mL TSH 5.220 H (0.465-4.680) mIU/L Free T4 2.75 H (0.78-2.19) ng/dL 09/02/18 09/02/18 09/02/18 Range/Units 12:51 16:39 20:22 Hgb (13.0-17.5) gm/dL RDW (11.5-15.5) % Monocytes # (0-1.0) k/uL Sodium (137-145) mmol/L Carbon Dioxide (22-30) mmol/L BUN (9-20) mg/dL Creatinine (0.66-1.25) mg/dL Glucose (74-99) mg/dL POC Glucose (mg/dL) 136 H 192 H (75-99) mg/dL Total Bilirubin (0.2-1.3) mg/dL Total Protein (6.3-8.2) g/dL Albumin (3.5-5.0) g/dL Vitamin B12 1005.0 H (200.0-944.0) pg/mL TSH (0.465-4.680) mIU/L Free T4 (0.78-2.19) ng/dL 09/03/18 09/03/18 09/03/18 Range/Units 05:49 08:19 08:19 Hgb 12.2 L (13.0-17.5) gm/dL RDW 20.9 H (11.5-15.5) % Monocytes # 1.1 H (0-1.0) k/uL Sodium 133 L (137-145) mmol/L Carbon Dioxide (22-30) mmol/L BUN 8 L (9-20) mg/dL Creatinine 0.64 L (0.66-1.25) mg/dL Glucose 157 H (74-99) mg/dL POC Glucose (mg/dL) 129 H (75-99) mg/dL Total Bilirubin 1.5 H (0.2-1.3) mg/dL Total Protein 6.0 L (6.3-8.2) g/dL Albumin 3.3 L (3.5-5.0) g/dL Vitamin B12 (200.0-944.0) pg/mL TSH (0.465-4.680) mIU/L Free T4 (0.78-2.19) ng/dL Assessment and Plan Assessment: * 68-year-old male with acute onset of worsening altered mental status, with aggression, agitation of unclear etiology. No signs of intracranial infection at this time. Altered mental status started about over a month ago, with no prior history of cognitive impairment or dementia as per his . * Rule out dementia with behavioral disturbance, though less likely, given rapidity of onset of altered mental status. * Rule out depression with psychosis. Patient has long-standing history of d epression. * CHF * Atrial fibrillation, on anticoagulation. * Recurrent falls Plan: Vitamin B12 1005, which is normal, folate 7.1, ammonia <9, RPR pending. Hemoglobin A1c 6.5. EEG pending at this time. Carotid Doppler negative for carotid stenosis. Apparently patient was admitted to this hospital previously. On reviewing previous records, patient had an MRI of the brain performed 08/05/2014 for "myelopathy, imbalance and hyperreflexia", which revealed atrophic changes with prominence of the cortical sulci, ventricles and fissures. Abnormal signal along the periventricular white matter of both cerebral hemispheres, consistent with small vessel disease. MRI of the cervical spine from 02/17/2016 showed degenerative disc disease with no significant spinal stenosis. Patient has long-standing history of depression, currently not seeing a psychiatrist. We will obtain psychiatric consultation. If above tests negative, then we will consider lumbar puncture.
--- NOTE | 2018-09-03 11:58 | P.PN ---
Subjective Progress Note Date: 09/03/18 This is a 68-year-old gentleman who sees Dr. LONNY Mcmullen in the office as an outpatient with a past medical history significant for nonischemic cardiomyopathy, paroxysmal atrial fibrillation, hypertension, and dyslipidemia, was brought from [facility] to the hospital because of change in mental status. The patient currently is very agitated as well as confused. The history was taken from the chart as well as from the ER notes. At the [facility], the patient was started on Ativan and Haldol. The family stated that the patient has been falling recently. He was brought by ambulance to the emergency room where he was found to be severely confused as well as agitated and combative. We get involved in his care because of atrial fibrillation with RVR. The patient is known to have paroxysmal atrial fibrillation but he is not on any AV elissa justine agents at home but he was on oral anticoagulation. 09/03/2018 Patient was seen and examined this morning, lethargic. Blood pressure 118/60 with a heart rate in the 70s, 95% on room air. Blood cell count 9.0, hemoglobin 12.2, platelet count 244. Sodium 133, potassium 4.2, BUN 8 and creatinine 0.6. On Eliquis for anticoagulation. Objective - Vital Signs Vital signs: Vital Signs Temp 97.6 F 09/03/18 11:35 Pulse 70 09/03/18 11:35 Resp 16 09/03/18 11:35 BP 116/66 09/03/18 11:35 Pulse Ox 95 09/03/18 11:35 Intake & Output 09/02/18 09/03/18 09/03/18 18:59 06:59 18:59 Intake Total 235.833 Balance 235.833 Weight 81 kg 81 kg Intake: Intake, IV Titration 115.833 Amount Diltiazem 125 mg In 115.833 Sodium Chloride 0.9% 100 ml @ 5 MG/HR 5 mls/hr IV .Q24H [facility] Rx#:[id number] Oral 120 Other: Voiding Method Diaper Diaper # Voids 1 2 # Bowel Movements 1 1 1 - Exam PHYSICAL EXAMINATION: GENERAL: 68-year-old gentleman in no acute distress at the time of my examination HEENT: Head is atraumatic, normocephalic. Pupils equal, round. Sclera anicteric. Conjunctiva are clear. Mucous membranes of the mouth are moist. Neck is supple. There is no elevated jugular venous pressure. No carotid bruit is heard. HEART EXAMINATION: Heart S1 and S2 irregularly irregular CHEST EXAMINATION: Reveal scattered coarse rhonchi throughout. ABDOMEN: Soft, nontender. Bowel sounds are heard. No organomegaly noted. EXTREMITIES: 2+ peripheral pulses with no evidence of peripheral edema and no calf tenderness noted. NEUROLOGIC [patient is lethargic somewhat incoherent . - Labs CBC & Chem 7: 09/03/18 08:19 09/03/18 08:19 Labs: Abnormal Lab Results - Last 24 Hours (Table) 09/02/18 09/02/18 09/02/18 Range/Units 12:51 12:51 12:51 Hgb (13.0-17.5) gm/dL RDW 20.8 H (11.5-15.5) % Monocytes # (0-1.0) k/uL Sodium (137-145) mmol/L Carbon Dioxide 31 H (22-30) mmol/L BUN 8 L (9-20) mg/dL Creatinine (0.66-1.25) mg/dL Glucose 142 H (74-99) mg/dL POC Glucose (mg/dL) (75-99) mg/dL Total Bilirubin (0.2-1.3) mg/dL Total Protein (6.3-8.2) g/dL Albumin (3.5-5.0) g/dL Vitamin B12 1005.0 H (200.0-944.0) pg/mL TSH 5.220 H (0.465-4.680) mIU/L Free T4 2.75 H (0.78-2.19) ng/dL 09/02/18 09/02/18 09/03/18 Range/Units 16:39 20:22 05:49 Hgb (13.0-17.5) gm/dL RDW (11.5-15.5) % Monocytes # (0-1.0) k/uL Sodium (137-145) mmol/L Carbon Dioxide (22-30) mmol/L BUN (9-20) mg/dL Creatinine (0.66-1.25) mg/dL Glucose (74-99) mg/dL POC Glucose (mg/dL) 136 H 192 H 129 H (75-99) mg/dL Total Bilirubin (0.2-1.3) mg/dL Total Protein (6.3-8.2) g/dL Albumin (3.5-5.0) g/dL Vitamin B12 (200.0-944.0) pg/mL TSH (0.465-4.680) mIU/L Free T4 (0.78-2.19) ng/dL 09/03/18 09/03/18 Range/Units 08:19 08:19 Hgb 12.2 L (13.0-17.5) gm/dL RDW 20.9 H (11.5-15.5) % Monocytes # 1.1 H (0-1.0) k/uL Sodium 133 L (137-145) mmol/L Carbon Dioxide (22-30) mmol/L BUN 8 L (9-20) mg/dL Creatinine 0.64 L (0.66-1.25) mg/dL Glucose 157 H (74-99) mg/dL POC Glucose (mg/dL) (75-99) mg/dL Total Bilirubin 1.5 H (0.2-1.3) mg/dL Total Protein 6.0 L (6.3-8.2) g/dL Albumin 3.3 L (3.5-5.0) g/dL Vitamin B12 (200.0-944.0) pg/mL TSH (0.465-4.680) mIU/L Free T4 (0.78-2.19) ng/dL Assessment and Plan Plan: Assessment and plan #1 paroxysmal atrial fibrillation, continues to be in A. fib at this time #2 mental status changes #3 nonischemic cardiomyopathy #4 multiple comorbid conditions Plan From cardiology's perspective, we will continue with current anticoagulation and beta justine. We will follow this patient along with you now on an as-needed basis only, please don't hesitate to call with any questions. DNP note has been reviewed, I agree with a documented findings and plan of care. Patient was seen and examined.
[2018-09-03 12:04] LABS: Glucose,Whole Blood 148 mg/dL (75-99)
[2018-09-03] MEDS: DULoxetine HCL 60 MG CAPSULE.DR PO SCH (12:12)
[2018-09-03] MEDS: DIVALPROEX SPRINKLE 125 MG CAP.SPRINK PO SCH ×2 (12:12→22:07)
[2018-09-03] MEDS: MEMANTINE 10 MG TAB PO SCH ×2 (12:13→22:07)
[2018-09-03] MEDS: LOSARTAN 25 MG TAB PO SCH (12:13)
[2018-09-03] MEDS: POLYETHYLENE GLYCOL 3350 17 GM POWD.PACK PO SCH ×2 (12:13→17:28)
[2018-09-03] MEDS: METOPROLOL TARTRATE 25 MG TAB PO SCH ×3 (12:13→22:07)
[2018-09-03] MEDS: HALOPERIDOL ORAL SOLN 10 MG/5 ML CUP PO SCH ×4 (12:14→20:00)
[2018-09-03 12:27] LABS: Hemoglobin A1C 6.5 % (4.0-6.0)
[2018-09-03] MEDS: APIXABAN 5 MG TAB PO SCH ×2 (13:07→22:07)
--- NOTE | 2018-09-03 16:14 | P.PN ---
Subjective Progress Note Date: 09/03/18 This is a 68-year-old white male patient of mine. He was just discharged from [facility] on August 23 after having any extensive admission that began with chest pain and possibly nonischemic cardiomyopathy before he then developed acute delirium and metabolic encephalopathy that lasted multiple days. He also the complication of acute renal failure. While these had resolved and improved, patient was transferred to [facility] on August 23. I had seen him there at the facility on 08/24/2018. He was discharge from the facility on 08/31/2018.. He presented to the emergency room yesterday, September 01, with significant confusion and agitation. Nursing informed me that he was discharged with 1 days were the medications, did not get his prescription filled yet. Since arriving in the hospital, he has had recurrence of his A. fib with RVR. He is unable to respond to any my questions today. As his eyes closed and continues to fully sheet over top of him. His history was obtained from the emergency room and his . 09/03/2018 safety lamp keeper maintained at bedside, currently somnolent. Easily becomes agitated. Maintained on scheduled Haldol around the clock .Telemetry atrial fibrillation. Carotid ultrasound reported no hemodynamic significant stenosis. EEG pending. Evaluated by neurology, recommendations noted. Objective - Vital Signs Vital signs: Vital Signs Temp 97.6 F 09/03/18 11:35 Pulse 70 09/03/18 12:00 Resp 16 09/03/18 12:00 BP 116/66 09/03/18 11:35 Pulse Ox 95 09/03/18 11:35 Intake & Output 09/02/18 09/03/18 09/03/18 18:59 06:59 18:59 Intake Total 235.833 220 Balance 235.833 220 Weight 81 kg 81 kg Intake: IV 20 Invasive Line 3 20 Intake, IV Titration 115.833 Amount Diltiazem 125 mg In 115.833 Sodium Chloride 0.9% 100 ml @ 5 MG/HR 5 mls/hr IV .Q24H [facility] Rx#:[id number] Oral 120 200 Other: Voiding Method Diaper Diaper # Voids 1 2 3 # Bowel Movements 1 1 1 - Exam PHYSICAL EXAM: VITAL SIGNS: As above GENERAL: Sitting up in bed, incoherent, confused, restless ,sitter at bedside HEENT: Conjunctivae normal. eyes normal. NECK: No JVD. No thyroid enlargement. No LNs CARDIOVASCULAR: S1, S2 irregular. No murmur RESPIRATION: Breath sounds are coarse with bilateral bases diminished. No rhonchi or crackles. ABDOMEN: Soft, nontender . No guarding. no masses palpable. .Bowel sounds heard. LEGS: No edema. no swelling PSYCHIATRY: Alert and oriented -0, mood and affect confused, restless NERVOUS SYSTEM: Cranial N 2-12 grossly normal. Moves all 4 limbs, plantars downgoing bilaterally. Diffuse weakness; unable to fully assess at this time given his clinical presentation. Skin:no rash, no lesions, some excoriations secondary to his flailingling. - Labs CBC & Chem 7: 09/03/18 08:19 09/03/18 08:19 Labs: Abnormal Lab Results - Last 24 Hours (Table) 09/01/18 09/02/18 09/02/18 Range/Units 08:50 12:51 16:39 Hgb (13.0-17.5) gm/dL RDW (11.5-15.5) % Monocytes # (0-1.0) k/uL Sodium (137-145) mmol/L BUN (9-20) mg/dL Creatinine (0.66-1.25) mg/dL Glucose (74-99) mg/dL POC Glucose (mg/dL) 136 H (75-99) mg/dL Hemoglobin A1c 6.5 H (4.0-6.0) % Total Bilirubin (0.2-1.3) mg/dL Total Protein (6.3-8.2) g/dL Albumin (3.5-5.0) g/dL Vitamin B12 1005.0 H (200.0-944.0) pg/mL 09/02/18 09/03/18 09/03/18 Range/Units 20:22 05:49 08:19 Hgb 12.2 L (13.0-17.5) gm/dL RDW 20.9 H (11.5-15.5) % Monocytes # 1.1 H (0-1.0) k/uL Sodium (137-145) mmol/L BUN (9-20) mg/dL Creatinine (0.66-1.25) mg/dL Glucose (74-99) mg/dL POC Glucose (mg/dL) 192 H 129 H (75-99) mg/dL Hemoglobin A1c (4.0-6.0) % Total Bilirubin (0.2-1.3) mg/dL Total Protein (6.3-8.2) g/dL Albumin (3.5-5.0) g/dL Vitamin B12 (200.0-944.0) pg/mL 09/03/18 09/03/18 Range/Units 08:19 11:50 Hgb (13.0-17.5) gm/dL RDW (11.5-15.5) % Monocytes # (0-1.0) k/uL Sodium 133 L (137-145) mmol/L BUN 8 L (9-20) mg/dL Creatinine 0.64 L (0.66-1.25) mg/dL Glucose 157 H (74-99) mg/dL POC Glucose (mg/dL) 148 H (75-99) mg/dL Hemoglobin A1c (4.0-6.0) % Total Bilirubin 1.5 H (0.2-1.3) mg/dL Total Protein 6.0 L (6.3-8.2) g/dL Albumin 3.3 L (3.5-5.0) g/dL Vitamin B12 (200.0-944.0) pg/mL Assessment and Plan Assessment: (1)Altered mental status Current Visit: Yes Status: Acute Code(s): R41.82 - ALTERED MENTAL STATUS, UNSPECIFIED SNOMED Code(s): 139529668 (2) Psychosis, depression Current Visit: No Status: Acute Priority: High Code(s): F29 - UNSP PSYCHOSIS NOT DUE TO A SUBSTANCE OR KNOWN PHYSIOL COND SNOMED Code(s): 55498870 (3) Atrial fibrillation with RVR, paroxysmal Current Visit: Yes Status: Acute Code(s): I48.91 - UNSPECIFIED ATRIAL FIBRILLATION SNOMED Code(s): 435825682612590 (4) suspected underlying dementia, type unclear (5) recurrent falls (7) Compression fracture of L1 lumbar vertebra Current Visit: Yes Status: Acute Code(s): S32.010A - WEDGE COMPRESSION FRACTURE OF FIRST LUMBAR VERTEBRA, INIT SNOMED Code(s): 063078248 (8) Traumatic brain injury Current Visit: Yes Status: Acute Code(s): S06.9X9A - UNSP INTRACRANIAL INJURY W LOC OF UNSP DURATION, INIT SNOMED Code(s): 567024753 History of closed head injury Current Visit: No Status: Acute Code(s): Z87.820 - PERSONAL HISTORY OF TRAUMATIC BRAIN INJURY SNOMED Code(s): 89072831318701 (9) Insulin dependent diabetes mellitus Current Visit: No Status: Acute Code(s): E11.9 - TYPE 2 DIABETES MELLITUS WITHOUT COMPLICATIONS; Z79.4 - SENIOR LIVING (CURRENT) USE OF INSULIN SNOMED Code(s): 70457749 (10) Metabolic encephalopathy Current Visit: No Status: Acute Code(s): G93.41 - METABOLIC ENCEPHALOPATHY SNOMED Code(s): 60390832 (11) Microcytic anemia Current Visit: No Status: Acute Code(s): D50.9 - IRON DEFICIENCY ANEMIA, UNSPECIFIED SNOMED Code(s): 416629507 (12) Chronic systolic (congestive) heart failure Current Visit: Yes Status: Acute Code(s): I50.22 - CHRONIC SYSTOLIC (CONGESTIVE) HEART FAILURE SNOMED Code(s): 938309371 Plan: Continue on current medication regime ,monitoring and symptomatic treatment. Maintain safety lamp keeper. Tristan scheduled [id number], psychiatry consulted .Evaluated by neurology, recommendations noted-considering lumbar puncture- but patient currently unable to as he is anticoagulated on Eliquis. Cardizem drip has been discontinued, currently on beta justine as per cardiology. Prognosis guarded given multiple complex medical issues. The impression and plan of care has been dictated as directed. : I performed a history and examination of this patient, discussed the same with the dictator. I agree with the dictator's note ,documented as a scribe. Any additional findings or plans will be noted.
--- NOTE | 2018-09-03 16:17 | P.CN ---
Psychiatric Consult - . Consult date: 09/03/18 Consult:: 09/03/18 15:51 Altered mental status which is not acute in nature and had previously been diagnosed 08/20/2018 by myself for dementia Assessment and Plan Assessment: This is a 68-year-old white male patient of mine. He was just discharged from [facility] on August 23 after having any extensive admission that began with chest pain and possibly nonischemic cardiomyopathy before he then developed acute delirium and metabolic encephalopathy that lasted multiple days. He also the complication of acute renal failure. While these had resolved and improved, patient was transferred to [facility] on August 23. Nursing informed me that he was discharged with 1 days were the medications, did not get his prescription filled yet. Since arriving in the hospital, he has had r ecurrence of his A. fib with RVR. He is unable to participate in a mental status examination and really has not changed since 08/20/2018 when I examined him. 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, hypothyroidism History of Any Multi-Drug Resistant Organisms: None Reported Past Surgical History: Back Surgery, Hernia Repair, Orthopedic Surgery, Tonsillectomy Additional Past Surgical History / Comment(s): rt inguinal hernia repair, rt ankle orif, Past Anesthesia/Blood Transfusion Reactions: No Reported Reaction Past Psychological History: Anxiety, Depression Smoking Status: Never smoker Past Alcohol Use History: None Reported Past Drug Use History: None Reported - Past Family History Mother Family Medical History: Congestive Heart Failure (CHF) Father Family Medical History: Congestive Heart Failure (CHF) Medications and Allergies Home Medications Medication Instructions Recorded Confirmed Type DULoxetine HCL [Cymbalta] 60 mg PO DAILY 07/21/18 09/01/18 History Levothyroxine Sodium [Synthroid] 150 mcg PO SUSA 07/21/18 09/01/18 History Apixaban [Eliquis] 5 mg PO BID tab 07/24/18 09/01/18 Rx Losartan [Cozaar] 25 mg PO DAILY #30 tab 07/24/18 09/01/18 Rx Bisacodyl [Dulcolax] 10 mg RECTAL DAILY PRN supp 08/23/18 09/01/18 Rx Divalproex Sprinkle [Depakote 125 mg PO BID cap.sprink 08/23/18 09/01/18 Rx Sprinkle] Donepezil [Aricept] 5 mg PO HS tab 08/23/18 09/01/18 Rx LORazepam [Ativan] 1 mg PO Q8HR PRN #9 tab 08/23/18 09/01/18 Rx Levothyroxine Sodium [Synthroid] 125 mcg PO MOTUWETHFR #0 08/23/18 09/01/18 Rx Memantine [Namenda] 10 mg PO BID tab 08/23/18 09/01/18 Rx Metoprolol Tartrate [Lopressor] 25 mg PO BID tab 08/23/18 09/01/18 Rx Pantoprazole [Protonix] 40 mg PO AC-BRKFST tablet. 08/23/18 09/01/18 Rx Polyethylene Glycol 3350 [Miralax] 17 gm PO DAILY powd.pack 08/23/18 09/01/18 Rx Haloperidol Oral Soln [Haldol Oral 2.5 mg PO Q6H 09/01/18 09/01/18 History Soln] INSULIN LISPRO (HumaLOG) [humaLOG] See Protocol SQ ACHS 09/01/18 09/01/18 History Levothyroxine Sodium [Synthroid] 25 mcg PO SUSA 09/01/18 09/01/18 History Allergies Allergy/AdvReac Type Severity Reaction Status Date / Time bupropion [From Wellbutrin] Allergy Unknown Verified 09/01/18 09:03 venlafaxine [From Effexor] Allergy Unknown Verified 09/01/18 09:03 aripiprazole [From Abilify] AdvReac Unknown Verified 09/01/18 09:03 Assessment and Plan (1) Neurocognitive disorder Narrative/Plan: Mental Status Examination - General Appearance: [ disheveled, bizarre, appears older than stated age Speech/Language: [slow, slurred, rambled, mumbling, hesitant, halting, monotone, soft,] Attitude/Behavior: [ irritable, withdrawn Mood: [, anxious, irritable, angry, fearful Affect: [fflat, incongruent, labile, blunted constricted Orientation: [ not to time, only person, place situation] Thought Content: [ delusions, obsessions, phobias, other] Risk Factors: [denies suicidal (ideations, plan), and/or Homicidal (ideations, plan), other] Perception: [ hallucinations (auditory Thought Processes: [concrete, circumstantial, tangential, other] Concentration/Attention Span: [ impaired] [Per observation and interview with the patient] Recent Memory: [ impaired] [0 out of 3 in 3 minutes] Remote Memory: [ impaired] [past events, as related history] Intelligence: [below average] [based on history, based on vocabulary, syntax, grammar, and content] Judgement: [ poor] [per patient's behavior/history of present illness] Insight: [poor] [understanding severity of illness/history of present illness] Psychiatric impression: neurocognitive disorder-severe and acute psychosis; hypo thyroid converted to hyperthyroid; major depressive disorder, closed head injury and metabolic encephalopathy Recommendations: ativan only after haldol which is schedule QID, increase namenda, depokote sprinkles and add aricept. This patient is not a candidate for [facility] since he has alcoholic encephalopathy with underlying dementia with acute agitation and confusion. He would be best cared for and a geriatric psychiatry program. Considering he got out of his medications while transferred back to the facility after discharge from the hospital he probably has become sufficiently more confused and psychotic and he was not receiving any medications. So particular interest is he was hypothyroid with an elevated TSH on his last admission and now has TSH is still high but T4 is elevated which may cause most of the psychiatric symptoms so the man goes from hypothyroid lethargic to agitated and hyperthyroid. Since he has a history of closed head injury history of 40 years of drinking and computed tomography scan and MRI which shows cortical atrophy with temporoparietal region with enlarged ventricles indicates that he has progressive neurocognitive disorder with underlying history of depression and chronic alcohol use. I had added 08/20/2018 Namenda, Aricept and Depakote sprinkles last time to decrease his agitation but if he had gone without this for period of time he would have rebound worsening agitation. I have no further recommendations to make at this time. thank you Daniel Julian D.O., PhD.
[2018-09-03 17:07] LABS: Glucose,Whole Blood 140 mg/dL (75-99)
[2018-09-03 20:32] LABS: Glucose,Whole Blood 149 mg/dL (75-99)
[2018-09-04] MEDS: LORazepam 2 MG/ML INJ IV PRN ×4 (02:17→21:17)
[2018-09-04] MEDS: HALOPERIDOL LACTATE 5 MG/ML 1 ML VIAL IM PRN ×4 (04:38→23:44)
[2018-09-04] MEDS: LEVOTHYROXINE 125 MCG TAB PO SCH (06:10)
[2018-09-04] MEDS: PANTOPRAZOLE 40 MG TABLET PO SCH (06:10)
[2018-09-04 06:19] LABS: Glucose,Whole Blood 136 mg/dL (75-99)
[2018-09-04] MEDS: INSULIN ASPART (NovoLOG) 100 UNIT/ML VIAL SQ SCH ×4 (06:30→21:19)
[2018-09-04 07:18] LABS: Anisocytosis Moderate; Basophils # (A) 0.1 k/uL (0-0.2); Basophils % (A) 1 %; Eosinophils # (A) 0.6 k/uL (0-0.7); Eosinophils % (A) 8 %; HCT 39.9 % (39.0-53.0); HGB 12.5 gm/dL (13.0-17.5); Lymphocytes # (A) 1.2 k/uL (1.0-4.8); Lymphocytes % (A) 16 %; MCH 25.5 pg (25.0-35.0); MCHC 31.4 g/dL (31.0-37.0); MCV 81.3 fL (80.0-100.0); Mean Platelet Volume 6.8; Microcytosis Slight; Monocytes # (A) 0.8 k/uL (0-1.0); Monocytes % (A) 10 %; Neutrophils # (A) 4.9 k/uL (1.3-7.7); Neutrophils % (A) 63 %; Platelet Count 273 k/uL (150-450); RBC 4.91 m/uL (4.30-5.90); WBC 7.7 k/uL (3.8-10.6)
[2018-09-04 07:38] LABS: Anion Gap 7 mmol/L; Blood Urea Nitrogen 9 mg/dL (9-20); Calcium 9.3 mg/dL (8.4-10.2); Carbon Dioxide 30 mmol/L (22-30); Chloride 101 mmol/L (98-107); Glucose 128 mg/dL (74-99); Potassium 4.7 mmol/L (3.5-5.1); Sodium 138 mmol/L (137-145)
[2018-09-04] MEDS: APIXABAN 5 MG TAB PO SCH ×2 (09:37→19:47)
[2018-09-04] MEDS: DIVALPROEX SPRINKLE 125 MG CAP.SPRINK PO SCH ×2 (09:37→19:47)
[2018-09-04] MEDS: LOSARTAN 25 MG TAB PO SCH (09:38)
[2018-09-04] MEDS: DULoxetine HCL 60 MG CAPSULE.DR PO SCH (09:38)
[2018-09-04] MEDS: METOPROLOL TARTRATE 25 MG TAB PO SCH ×3 (09:38→19:47)
[2018-09-04] MEDS: HALOPERIDOL ORAL SOLN 10 MG/5 ML CUP PO SCH ×4 (09:38→22:15)
[2018-09-04] MEDS: POLYETHYLENE GLYCOL 3350 17 GM POWD.PACK PO SCH (09:39)
[2018-09-04] MEDS: MEMANTINE 10 MG TAB PO SCH ×2 (09:39→19:47)
--- NOTE | 2018-09-04 11:18 | CDI ---
Documentation Clarification Form Date: 09/04/2018 10:53:31 AM From: Nereyda Snow RN CCDS Admit Date: 09/02/2018 2:25:00 PM Patient Name: Kory Roberts Visit Number: [id number] Discharge Date: ATTENTION: The Clinical Documentation Specialists (CDI) and [facility] Coding Staff appreciate your assistance in clarifying documentation. Please respond to the clarification below the line at the bottom and electronically sign. The CDI & [facility] Coding staff will review the response and follow-up if needed. Please note: Queries are made part of the Legal Health Record. If you have any questions, please contact the author of this message via ITS. Dr. Pavan Elmore Conflicting documentation has been found in the medical record: In Your progress note 09/03/2018 Traumatic Brain Injury Personal history of Traumatic Brain Injury History/Risk Factors: 68 year old male presents to the ED with Confusion with Agitation and in Atrial Fibrillation RVR. 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 Brain CT no acute intracranial abnormality. Degenerative Change. Treatment: Brain CT , toys and games hand finisher. In your opinion, what is the most clinically appropriate diagnosis for this patient? * Acute Traumatic Brain Injury with Unknown loss of consciousness * Personal History of Traumatic Brain Injury * Other, please specify * Unable to determine (no explanation for clinical findings) (Last Revision: July 2017) History of traumatic brain injury MTDD
[2018-09-04 11:41] LABS: Glucose,Whole Blood 156 mg/dL (75-99)
--- NOTE | 2018-09-04 12:32 | P.PN ---
Subjective Progress Note Date: 09/04/18 Patient is laying in the bed, with his eyes closed. Per sitter he has been laying quiet. Only one time he swung his hand, but then he calmed down. He is somnolent. Patient at first stated he has no headache, but then when asked again, states he has a headache rating 8/10. His responses quite inconsistent. Lumbar puncture was planned, but not performed as patient is on anticoagulation with Eliquis. Patient has no signs of infection. His most recent WBC is 7.7. Normal differential as of this morning. EEG was performed, which revealed mild background slowing. Official report not available. No epileptiform activity seen. Blood test shows negative RPR, folate is normal 7.1 B12 1005, TSH normal 5.22. Patient was seen by psychiatry, who has diagnosed with Alzheimer's dementia, recommending Aricept 5 mg, Namenda 10 mg twice a day and Haldol. 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 According to his report, CT and MRI consistent with cortical atrophy and enlarged ventricles indicative of progressive neurocognitiv e disorder with underlying history of depression. As per report from patient's , he has history of closed head injury (patient has not drank any alcohol for the past 40 years, as per his ) Objective - Vital Signs Vital signs: Vital Signs Temp 98.2 F 09/04/18 08:00 Pulse 60 09/04/18 08:00 Resp 17 09/04/18 08:00 BP 127/75 09/04/18 08:00 Pulse Ox 95 09/04/18 08:00 Intake & Output 09/03/18 09/04/18 09/04/18 18:59 06:59 18:59 Intake Total 230 30 210 Balance 230 30 210 Weight 81.2 kg Intake: IV 30 30 10 Invasive Line 3 30 30 10 Oral 200 200 Other: Voiding Method Diaper Diaper Diaper # Voids 2 2 3 # Bowel Movements 1 - Exam On examination patient is a elderly male, who keeps his eyes closed. Pupils are round and reacting. He moves all 4 extremities. Patient was able to tell me his first name, states is "28 years old", and that he is in support [facility]. When asked about current month and year, he stated "I don't know", then kept on repeating the same phrase over and over, slightly agitated. At times tries to turn to the right side for no reason. Face is symmetric. Plantars are withdrawal bilaterally. - Labs CBC & Chem 7: 09/05/18 06:50 09/05/18 06:50 Labs: Abnormal Lab Results - Last 24 Hours (Table) 09/01/18 09/03/18 09/03/18 Range/Units 08:50 16:36 20:30 Hgb (13.0-17.5) gm/dL RDW (11.5-15.5) % Glucose (74-99) mg/dL POC Glucose (mg/dL) 140 H 149 H (75-99) mg/dL Hemoglobin A1c 6.5 H (4.0-6.0) % Total Bilirubin (0.2-1.3) mg/dL 09/04/18 09/04/18 09/04/18 Range/Units 06:17 06:47 06:47 Hgb 12.5 L (13.0-17.5) gm/dL RDW 21.0 H (11.5-15.5) % Glucose 128 H (74-99) mg/dL POC Glucose (mg/dL) 136 H (75-99) mg/dL Hemoglobin A1c (4.0-6.0) % Total Bilirubin (0.2-1.3) mg/dL 09/04/18 09/04/18 Range/Units 06:47 11:34 Hgb (13.0-17.5) gm/dL RDW (11.5-15.5) % Glucose (74-99) mg/dL POC Glucose (mg/dL) 156 H (75-99) mg/dL Hemoglobin A1c (4.0-6.0) % Total Bilirubin 1.4 H (0.2-1.3) mg/dL Assessment and Plan Assessment: * 68-year-old male with subacute onset of worsening altered mental status, with aggression, agitation of unclear etiology. No signs of intracranial infection at this time. Patient probably has dementia with behavioral problems.. * Patient has chronic depression with psychotic features. * CHF * Atrial fibrillation, on anticoagulation. * Recurrent falls Plan: Vitamin B12 1005, which is normal, folate 7.1, ammonia <9, RPR negative. Hemoglobin A1c 6.5. EEG showed background slowing consistent with encephalopathy with no epileptiform activity. Official report pending. Carotid Doppler negative for carotid stenosis. Patient had an MRI of the brain performed today, which on my review showed no acute process. Some cortical atrophy and prominence of the ventricles. Official report is pending. MRI of the cervical spine from 02/17/2016 showed degenerative disc disease with no significant spinal stenosis. Psychiatric consultation reviewed and input appreciated Will continue Namenda and Haldol. Donepezil is showing as some drug interactions with concern of prolonged QT. Will discuss with primary attending regarding further management.
--- NOTE | 2018-09-04 13:04 | MR ---
EXAMINATION TYPE: MR brain wo con DATE OF EXAM: 09/04/2018 COMPARISON: None HISTORY: Acute mental status change, and agitation, dementia CONTRAST: Performed utilizing 0 mL intravenous Gadavist gadolinium contrast. TECHNIQUE: Multiplanar, multiecho imaging on a 3.0 Stacey magnet is performed through the brain. Stud y is performed within 24 hours of arrival to the hospital. Patient motion limits the examination. Porfirio e sequences were not able to be performed. The craniovertebral junction as visualized is normal. There is limited visualization of the pituitary Diffusion-weighted imaging is performed. No abnormal hyperintensity is present to suggest an acute i ntracranial infarct or acute ischemic change. There is periventricular white matter hyperintensity on T2-weighted sequences, likely on the basis of chronic white matter ischemic change. Ventricles and sulci are prominent for the patient age. There is some mucosal thickening within left maxillary sinus and within ethmoid air cells. IMPRESSIONS: 1. Findings compatible with atrophy and periventricular white matter ischemic changes. 2. Examination very limited due to motion artifact throughout the exam limiting in delineating some p ulse sequences.
--- NOTE | 2018-09-04 13:46 | P.PN ---
Subjective Progress Note Date: 09/04/18 This is a 68-year-old white male patient of mine. He was just discharged from [facility] on August 23 after having any extensive admission that began with chest pain and possibly nonischemic cardiomyopathy before he then developed acute delirium and metabolic encephalopathy that lasted multiple days. He also the complication of acute renal failure. While these had resolved and improved, patient was transferred to [facility] on August 23. I had seen him there at the facility on 08/24/2018. He was discharge from the facility on 08/31/2018.. He presented to the emergency room yesterday, September 01, with significant confusion and agitation. Nursing informed me that he was discharged with 1 days were the medications, did not get his prescription filled yet. Since arriving in the hospital, he has had recurrence of his A. fib with RVR. He is unable to respond to any my questions today. As his eyes closed and continues to fully sheet over top of him. His history was obtained from the emergency room and his . 09/03/2018 health and safety manager maintained at bedside, currently somnolent. Easily becomes agitated. Maintained on scheduled Haldol around the clock .Telemetry atrial fibrillation. Carotid ultrasound reported no hemodynamic significant stenosis. EEG pending. Evaluated by neurology, recommendations noted. 09/04/18 sitter maintained at bedside, less agitation currently. diet intake of 25% and tender last night; this morning a few bites with partial consumption of Glucerna. Blood sugars controlled. Passing flatus and positive bowel movement- soft, no diarrhea. He underwent MRI of brain, limited study, reporting atrophy, paraventricular chronic white matter ischemic changes; reviewed by neurology, indicative of progressive neurocognitive disorder. ( Patient's states no history of alcohol use.) EEG reported as consistent with encephalopathy with no epileptiform activity as per neurology. Objective - Vital Signs Vital signs: Vital Signs Temp 98.2 F 09/04/18 03:42 Pulse 88 09/04/18 03:42 Resp 19 09/04/18 03:42 BP 100/54 09/04/18 03:42 Pulse Ox 93 L 09/04/18 03:42 Intake & Output 09/03/18 09/04/18 09/04/18 18:59 06:59 18:59 Intake Total 230 30 0 Balance 230 30 0 Weight 81.2 kg Intake: IV 30 30 Invasive Line 3 30 30 Oral 200 0 Other: Voiding Method Diaper Diaper # Voids 2 2 # Bowel Movements 1 - Exam PHYSICAL EXAM: VITAL SIGNS: As above GENERAL:Laying in bed, resting,sitter at bedside, alert and oriented X 2, disoriented to time. HEENT: Eyes closed, Conjunctivae normal. eyes round. NECK: No JVD. No thyroid enlargement. No LNs CARDIOVASCULAR: S1, S2 irregular. No murmur RESPIRATION: Breath sounds are coarse with bilateral bases diminished. No rhonc hi or crackles. ABDOMEN: Soft, nontender . No guarding. no masses palpable. .Bowel sounds heard. LEGS: No edema. no swelling PSYCHIATRY: Alert and oriented -2 mood and affect confused,restless at times NERVOUS SYSTEM: Cranial N 2-12 grossly normal. Moves all 4 limbs, plantars downgoing bilaterally. Diffuse weakness; unable to fully assess at this time given his clinical presentation. Skin:no rash, no lesions - Labs CBC & Chem 7: 09/04/18 06:47 09/04/18 06:47 Labs: Abnormal Lab Results - Last 24 Hours (Table) 09/01/18 09/02/18 09/03/18 Range/Units 08:50 12:51 11:50 Hgb (13.0-17.5) gm/dL RDW (11.5-15.5) % Glucose (74-99) mg/dL POC Glucose (mg/dL) 148 H (75-99) mg/dL Hemoglobin A1c 6.5 H (4.0-6.0) % Vitamin B12 1005.0 H (200.0-944.0) pg/mL 09/03/18 09/03/18 09/04/18 Range/Units 16:36 20:30 06:17 Hgb (13.0-17.5) gm/dL RDW (11.5-15.5) % Glucose (74-99) mg/dL POC Glucose (mg/dL) 140 H 149 H 136 H (75-99) mg/dL Hemoglobin A1c (4.0-6.0) % Vitamin B12 (200.0-944.0) pg/mL 09/04/18 09/04/18 Range/Units 06:47 06:47 Hgb 12.5 L (13.0-17.5) gm/dL RDW 21.0 H (11.5-15.5) % Glucose 128 H (74-99) mg/dL POC Glucose (mg/dL) (75-99) mg/dL Hemoglobin A1c (4.0-6.0) % Vitamin B12 (200.0-944.0) pg/mL Assessment and Plan Assessment: (1)Altered mental status Current Visit: Yes Status: Acute Code(s): R41.82 - ALTERED MENTAL STATUS, UNSPECIFIED SNOMED Code(s): 037815351 (2) Psychosis, depression Current Visit: No Status: Acute Priority: High Code(s): F29 - UNSP PSYCHOSIS NOT DUE TO A SUBSTANCE OR KNOWN PHYSIOL COND SNOMED Code(s): 08372787 (3) Atrial fibrillation with RVR, paroxysmal Current Visit: Yes Status: Acute Code(s): I48.91 - UNSPECIFIED ATRIAL FIBRILLATION SNOMED Code(s): 376538336760875 (4) suspected underlying dementia, type unclear (5) recurrent falls (7) Compression fracture of L1 lumbar vertebra Current Visit: Yes Status: Acute Code(s): S32.010A - WEDGE COMPRESSION FRACTURE OF FIRST LUMBAR VERTEBRA, INIT SNOMED Code(s): 190985010 (8) Traumatic brain injury, chronic Current Visit: Yes Status: Acute Code(s): S06.9X9A - UNSP INTRACRANIAL INJURY W LOC OF UNSP DURATION, INIT SNOMED Code(s): 102848581 History of closed head injury Current Visit: No Status: Acute Code(s): Z87.820 - PERSONAL HISTORY OF TRAUM ATIC BRAIN INJURY SNOMED Code(s): 96623064764900 (9) Insulin dependent diabetes mellitus Current Visit: No Status: Acute Code(s): E11.9 - TYPE 2 DIABETES MELLITUS WITHOUT COMPLICATIONS; Z79.4 - UNDERCOAT SPRAYER (CURRENT) USE OF INSULIN SNOMED Code(s): 66201065 (10) Metabolic encephalopathy Current Visit: No Status: Acute Code(s): G93.41 - METABOLIC ENCEPHALOPATHY SNOMED Code(s): 26519922 (11) Microcytic anemia Current Visit: No Status: Acute Code(s): D50.9 - IRON DEFICIENCY ANEMIA, UNSPECIFIED SNOMED Code(s): 058155973 (12) Chronic systolic (congestive) heart failure Current Visit: Yes Status: Acute Code(s): I50.22 - CHRONIC SYSTOLIC (CONGESTIVE) HEART FAILURE SNOMED Code(s): 756867076 Plan: Continue on current medication regime ,Namenda, Haldol,monitoring and symptomatic treatment. Maintain health and safety manager. Encourage diet intake. Follow closely with both psychiatry and neurology. As mentioned above patient's states that patient does not have a history of alcohol use/abuse. optical worker consult in place for ECF/rehab placement at discharge.Prognosis guarded given multiple complex medical issues. The impression and plan of care has been dictated as directed. : I performed a history and examination of this patient, discussed the same with the dictator. I agree with the dictator's note ,documented as a scribe. Any a dditional findings or plans will be noted.
--- NOTE | 2018-09-04 14:22 | EEG ---
ELECTROENCEPHALOGRAM REPORT ELECTROENCEPHALOGRAM REPORT: DATE OF SERVICE: 09/03/2018. PREAMBLE: This is a 68-year-old male who has developed rapidly progressive memory loss, possible dementia over the last 6 weeks. This study is performed to evaluate for any epileptiform activity and encephalopathy. EEG FINDINGS: A routine 21-channel awake digital EEG recording was accomplished utilizing the 10-20 international system with bipolar and referential montages. The background consists of well developed, poorly regulated mixed frequencies of low-amplitude fast- frequency beta mixed with low-voltage mixed theta and delta activity. Background does not seem to be reactive to eye opening or closing. Photic driving response was not seen. Hyperventilation was not performed. Different stages of sleep are not seen. No focal or generalized epileptiform activity was seen. IMPRESSION: This is a mildly abnormal EEG due to slightly slow background with intermittent fast- frequency activity. This is suggestive of generalized cerebral dysfunction, as can be seen with various toxic metabolic encephalopathy, a neurodegenerative process or related to medication effect. Clinical correlation is recommended. No definite epileptiform activity was seen. MMJOSEL / IJN: [id number] / [place]
[2018-09-04 16:48] LABS: Glucose,Whole Blood 123 mg/dL (75-99)
[2018-09-04 21:13] LABS: Glucose,Whole Blood 106 mg/dL (75-99)
[2018-09-05] MEDS: HALOPERIDOL LACTATE 5 MG/ML 1 ML VIAL IM PRN (04:15)
[2018-09-05] MEDS: LORazepam 2 MG/ML INJ IV PRN (04:15)
[2018-09-05] MEDS: LEVOTHYROXINE 125 MCG TAB PO SCH (06:34)
[2018-09-05] MEDS: PANTOPRAZOLE 40 MG TABLET PO SCH (06:34)
[2018-09-05 06:57] LABS: Glucose,Whole Blood 126 mg/dL (75-99)
[2018-09-05] MEDS: INSULIN ASPART (NovoLOG) 100 UNIT/ML VIAL SQ SCH ×4 (07:02→20:58)
[2018-09-05 07:07] LABS: Anisocytosis Moderate; Basophils # (A) 0.1 k/uL (0-0.2); Basophils % (A) 1 %; Eosinophils # (A) 0.6 k/uL (0-0.7); Eosinophils % (A) 7 %; HCT 42.8 % (39.0-53.0); HGB 13.3 gm/dL (13.0-17.5); Hypochromasia Slight; Lymphocytes # (A) 1.3 k/uL (1.0-4.8); Lymphocytes % (A) 16 %; MCH 25.4 pg (25.0-35.0); MCHC 31.1 g/dL (31.0-37.0); MCV 81.9 fL (80.0-100.0); Microcytosis Slight; Monocytes # (A) 0.9 k/uL (0-1.0); Monocytes % (A) 11 %; Neutrophils % (A) 61 %; Platelet Count 317 k/uL (150-450); RBC 5.23 m/uL (4.30-5.90); RDW 20.8 % (11.5-15.5); WBC 8.3 k/uL (3.8-10.6)
[2018-09-05 07:23] LABS: Anion Gap 8 mmol/L; Blood Urea Nitrogen 9 mg/dL (9-20); Calcium 9.3 mg/dL (8.4-10.2); Carbon Dioxide 28 mmol/L (22-30); Chloride 101 mmol/L (98-107); Glucose 133 mg/dL (74-99); Potassium 4.9 mmol/L (3.5-5.1); Sodium 137 mmol/L (137-145)
[2018-09-05] MEDS: METOPROLOL TARTRATE 25 MG TAB PO SCH ×3 (08:14→20:29)
[2018-09-05] MEDS: MEMANTINE 10 MG TAB PO SCH ×2 (08:14→20:29)
[2018-09-05] MEDS: DULoxetine HCL 60 MG CAPSULE.DR PO SCH (08:14)
[2018-09-05] MEDS: APIXABAN 5 MG TAB PO SCH ×2 (08:14→20:29)
[2018-09-05] MEDS: LOSARTAN 25 MG TAB PO SCH (08:14)
[2018-09-05] MEDS: DIVALPROEX SPRINKLE 125 MG CAP.SPRINK PO SCH (08:14)
[2018-09-05] MEDS: HALOPERIDOL ORAL SOLN 10 MG/5 ML CUP PO SCH ×4 (08:14→20:29)
[2018-09-05] MEDS: POLYETHYLENE GLYCOL 3350 17 GM POWD.PACK PO SCH (08:15)
[2018-09-05 11:23] LABS: Glucose,Whole Blood 109 mg/dL (75-99)
--- NOTE | 2018-09-05 14:23 | P.PN ---
Subjective Progress Note Date: 09/05/18 Principal diagnosis: Dementia with agitation Chart thoroughly reviewed and evaluated all the MRIs that have been done which shows atrophy particularly over the right temporoparietal region and the most recent MRI done has little to offer since it was so much artifact from the the patient moving. Objective - Vital Signs Vital signs: Vital Signs Temp 97.9 F 09/05/18 12:00 Pulse 66 09/05/18 12:00 Resp 18 09/05/18 12:00 BP 119/64 09/05/18 12:00 Pulse Ox 98 09/05/18 12:00 Intake & Output 09/04/18 09/05/18 09/05/18 18:59 06:59 18:59 Intake Total 220 100 100 Balance 220 100 100 Weight 78.5 kg Intake: IV 20 Invasive Line 3 20 Oral 200 100 100 Other: Voiding Method Diaper Diaper Incontinent # Voids 3 3 1 # Bowel Movements 2 - Labs CBC & Chem 7: 09/05/18 06:50 09/05/18 06:50 Labs: Abnormal Lab Results - Last 24 Hours (Table) 09/04/18 09/04/18 09/05/18 Range/Units 16:39 21:11 06:48 RDW (11.5-15.5) % Glucose (74-99) mg/dL POC Glucose (mg/dL) 123 H 106 H 126 H (75-99) mg/dL 09/05/18 09/05/18 09/05/18 Range/Units 06:50 06:50 11:19 RDW 20.8 H (11.5-15.5) % Glucose 133 H (74-99) mg/dL POC Glucose (mg/dL) 109 H (75-99) mg/dL Assessment and Plan Assessment: This is a 68-year-old white male patient of mine. He was just discharged from [facility] on August 23 after having any extensive admission that began with chest pain and possibly nonischemic cardiomyopathy before he then developed acute delirium and metabolic encephalopathy that lasted multiple days. He also the complication of acute renal failure. While these had resolved and improved, patient was transferred to [facility] on August 23. Nursing informed me that he was discharged with 1 days were the medications, did not get his prescription filled yet. Since arriving in the hospital, he has had recurrence of his A. fib with RVR. He is unable to participate in a mental status examination and really has not changed since 08/20/2018 when I examined him. Assessment and Plan (1) Neurocognitive disorder Narrative/Plan: Mental Status Examination - General Appearance: [ disheveled, bizarre, appears older than stated age Speech/Language: [slow, slurred, rambled, mumbling, hesitant, halting, monotone, soft,] Attitude/Behavior: [ irritable, withdrawn Mood: [, anxious, irritable, angry, fearful Affect: [fflat, incongruent, labile, blunted constricted Orientation: [ not to time, only person, place situation] Thought Content: [ delusions, obsessions, phobias, other] Risk Factors: [denies suicidal (ideations, plan), and/or Homicidal (ideations, plan), other] Perception: [ hallucinations (auditory Thought Processes: [concrete, circumstantial, tangential, other] Concentration/Attention Span: [ impaired] [Per observation and interview with the patient] Recent Memory: [ impaired] [0 out of 3 in 3 minutes] Remote Memory: [ impaired] [past events, as related history] Intelligence: [below average] [based on history, based on vocabulary, syntax, grammar, and content] Judgement: [ poor] [per patient's behavior/history of present illness] Insight: [poor] [understanding severity of illness/history of present illness] Psychiatric impression: neurocognitive disorder-severe and acute psychosis; hypothyroid converted to hyperthyroid; major depressive disorder, closed head injury and metabolic encephalopathy Recommendations: ativan only after haldol which is schedule QID, increase namenda, depokote sprinkles and add aricept. This patient is not a candidate for [facility] since he has alcoholic encephalopathy with underlying dementia with acute agitation and confusion. He would be best cared for and a geriatric psychiatry program. Considering he got out of his medications while transferred back to the facility after discharge from the hospital he probably has become sufficiently more confused and psychotic and he was not receiving any medications. So particular interest is he was hypothyroid with an elevated TSH on his last admission and now has TSH is still high but T4 is elevated which may cause most of the psychiatric symptoms so the man goes from hypothyroid lethargic to agitated and hyperthyroid. Since he has a history of closed head injury history of 40 years of drinking and computed tomography scan and MRI which shows cortical atrophy with temporoparietal region with enlarged ventricles indicates that he has progressive neurocognitive disorder with underlying history of depression and chronic alcohol use. I had added 08/20/2018 Namenda, Aricept and Depakote sprinkles last time to decrease his agitation but if he had gone without this for period of time he would have rebound worsening agitation. I have no further recommendations to make at this time. X 09/05/2018: Will increase Depakote to 250 mg twice a day and will have to maintain on haloperidol since he did see only antipsychotic that is neutral to cardiac conduction defect. I have a little more to add to this and if you need further assistance please consider that he may need an Alzheimer's unit or transfer to geropsychiatric unit for further medication adjustments. There is little I can do in this setting and he is not a candidate for [address] [place] [address] unit at [facility]. Therefore I am signing off the case. thank you Daniel Julian D.O., PhD. (1) Major neurocognitive disorder as late effect of traumatic brain injury with behavioral disturbance Current Visit: Yes Status: Acute Priority: High Code(s): S06.9X9S - UNSP INTRACRANIAL INJURY W LOC OF UNSP DURATION, SEQUELA; F01.51 - VASCULAR DEMENTIA WITH BEHAVIORAL DISTURBANCE SNOMED Code(s): 595533229 (2) Neurocognitive disorder Current Visit: Yes Status: Acute Priority: High Code(s): R41.9 - UNSP SYMPTOMS AND SIGNS W COGNITIVE FUNCTIONS AND AWARENESS SNOMED Code(s): 836283082
--- NOTE | 2018-09-05 15:16 | P.PN ---
Subjective Progress Note Date: 09/05/18 Patient is laying in the bed, with his eyes closed. Per sitter he has been laying quiet. He is somnolent. Patient states "I want something easy". Lumbar puncture was planned, but not performed as patient is on anticoagulation with Eliquis. Patient has no signs of infection. His most recent WBC is 7.7. Normal differential. EEG was performed, which revealed mild background slowing. No epileptiform activity seen. Blood test shows negative RPR, folate is normal 7.1 B12 1005, TSH normal 5.22. Patient was seen by psychiatry, who has diagnosed with Alzheimer's dementia, recommending Aricept 5 mg, Namenda 10 mg twice a day and Haldol. 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 According to his report, CT and MRI consistent with cortical atrophy and enlarged ventricles indicative of progressive neurocognitive disorder with underlying history of depression. As per report from patient's , he has history of closed head injury (patient has not drank any alcohol for the past 40 years, as per his ) Objective - Vital Signs Vital signs: Vital Signs Temp 97.9 F 09/05/18 14:58 Pulse 59 L 09/05/18 14:58 Resp 18 09/05/18 14:58 BP 112/66 09/05/18 14:58 Pulse Ox 96 09/05/18 14:58 Intake & Output 09/04/18 09/05/18 09/05/18 18:59 06:59 18:59 Intake Total 220 100 100 Balance 220 100 100 Weight 78.5 kg Intake: IV 20 Invasive Line 3 20 Oral 200 100 100 Other: Voiding Method Diaper Diaper Incontinent # Voids 3 3 1 # Bowel Movements 2 - Exam On examination patient is a elderly male, who keeps his eyes closed. Pupils are round and reacting. He moves all 4 extremities. Face is symmetric. Plantars are downgoing bilaterally. - Labs CBC & Chem 7: 09/05/18 06:50 09/05/18 06:50 Labs: Abnormal Lab Results - Last 24 Hours (Table) 09/04/18 09/04/18 09/05/18 Range/Units 16:39 21:11 06:48 RDW (11.5-15.5) % Glucose (74-99) mg/dL POC Glucose (mg/dL) 123 H 106 H 126 H (75-99) mg/dL 09/05/18 09/05/18 09/05/18 Range/Units 06:50 06:50 11:19 RDW 20.8 H (11.5-15.5) % Glucose 133 H (74-99) mg/dL POC Glucose (mg/dL) 109 H (75-99) mg/dL Assessment and Plan Assessment: * 68-year-old male with subacute onset of worsening altered mental status, with aggression, agitation of unclear etiology. No signs of intracranial infection at this time. Patient probably has dementia with psychotic features. * Patient has chronic depression. * CHF * Atrial fibrillation, on anticoagulation. * Recurrent falls Plan: Vitamin B12 1005, which is normal, folate 7.1, ammonia <9, RPR negative. Hemoglobin A1c 6.5. EEG showed mild background slowing consistent with encephalopathy with no epileptiform activity. Carotid Doppler negative for carotid stenosis. Patient had an MRI of the brain performed today, which showed no acute process. Some cortical atrophy and prominence of the ventricles. MRI of the cervical spine from 02/17/2016 showed degenerative disc disease with no significant spinal stenosis. Psychiatric consultation reviewed and input appreciated Will continue Amy. Discussed with patient's primary physician Dr. Jose Coates about further management. It appears lumbar puncture probably has very low yield, as there is no signs of infection. Stopping anticoagulation could pose potential risk of CVA given his atrial fibrillation. The risks are more than benefits. His condition appears more psychiatric rather than neurological. No other neurological workup indicated. Suggest follow-up with the psychiatrist.
[2018-09-05 16:30] LABS: Glucose,Whole Blood 104 mg/dL (75-99)
--- NOTE | 2018-09-05 16:54 | P.PN ---
Subjective Progress Note Date: 09/05/18 This is a 68-year-old white male patient of mine. He was just discharged from [facility] on August 23 after having any extensive admission that began with chest pain and possibly nonischemic cardiomyopathy before he then developed acute delirium and metabolic encephalopathy that lasted multiple days. He also the complication of acute renal failure. While these had resolved and improved, patient was transferred to [facility] on August 23. I had seen him there at the facility on 08/24/2018. He was discharge from the facility on 08/31/2018.. He presented to the emergency room yesterday, September 01, with significant confusion and agitation. Nursing informed me that he was discharged with 1 days were the medications, did not get his prescription filled yet. Since arriving in the hospital, he has had recurrence of his A. fib with RVR. He is unable to respond to any my questions today. As his eyes closed and continues to fully sheet over top of him. His history was obtained from the emergency room and his . 09/03/2018 safety instruction police officer maintained at bedside, currently somnolent. Easily becomes agitated. Maintained on scheduled Haldol around the clock .Telemetry atrial fibrillation. Carotid ultrasound reported no hemodynamic significant stenosis. EEG pending. Evaluated by neurology, recommendations noted. 09/04/18 sitter maintained at bedside, less agitation currently. diet intake of 25% and tender last night; this morning a few bites with partial consumption of Glucerna. Blood sugars controlled. Passing flatus and positive bowel movement- soft, no diarrhea. He underwent MRI of brain, limited study, reporting atrophy, paraventricular chronic white matter ischemic changes; reviewed by neurology, indicative of progressive neurocognitive disorder. ( Patient's states no history of alcohol use.) EEG reported as consistent with encephalopathy with no epileptiform activity as per neurology. 09/05/18 no overnight events. Diet intake slowly improving. Sugars controlled. MRI of brain as previously mentioned nonacute per neurology review, with no further neuro workup recommended at this time. Today not conversing, Catatonic appearing with possible symptoms of tardive dyskinesia in a patient on antipsychotic medications. Reevaluated by psychiatry, recommendations noted. Objective - Vital Signs Vital signs: Vital Signs Temp 97.6 F 09/05/18 07:56 Pulse 86 09/05/18 07:56 Resp 18 09/05/18 07:56 BP 117/70 09/05/18 07:56 Pulse Ox 99 09/05/18 07:56 Intake & Output 09/04/18 09/05/18 09/05/18 18:59 06:59 18:59 Intake Total 220 100 100 Balance 220 100 100 Weight 78.5 kg Intake: IV 20 Invasive Line 3 20 Oral 200 100 100 Other: Voiding Method Diaper Diaper Incontinent # Voids 3 3 # Bowel Movements 2 - Exam PHYSICAL EXAM: VITAL SIGNS: As above GENERAL:Laying in bed, catatonic, no verbal responses today. HEENT: Eyes closed, Conjunctivae normal. eyes round. NECK: No JVD. No thyroid enlargement. No LNs CARDIOVASCULAR: S1, S2 irregular. No murmur RESPIRATION: Breath sounds are coarse with bilateral bases diminished. No rhonchi or crackles. ABDOMEN: Soft, nontender . No guarding. no masses palpable. .Bowel sounds heard. LEGS: No edema. no swelling PSYCHIATRY: Unable to assess given patient's current clinical presentation. NERVOUS SYSTEM: Cranial N 2-12 grossly normal. Moves all 4 limbs, plantars downgoing bilaterally, curling toes. unable to fully assess at this time given his clinical presentation. Skin:no rash, no lesions - Labs CBC & Chem 7: 09/05/18 06:50 09/05/18 06:50 Labs: Abnormal Lab Results - Last 24 Hours (Table) 09/04/18 09/04/18 09/04/18 Range/Units 06:47 11:34 16:39 RDW (11.5-15.5) % Glucose (74-99) mg/dL POC Glucose (mg/dL) 156 H 123 H (75-99) mg/dL Total Bilirubin 1.4 H (0.2-1.3) mg/dL 09/04/18 09/05/18 09/05/18 Range/Units 21:11 06:48 06:50 RDW 20.8 H (11.5-15.5) % Glucose (74-99) mg/dL POC Glucose (mg/dL) 106 H 126 H (75-99) mg/dL Total Bilirubin (0.2-1.3) mg/dL 09/05/18 Range/Units 06:50 RDW (11.5-15.5) % Glucose 133 H (74-99) mg/dL POC Glucose (mg/dL) (75-99) mg/dL Total Bilirubin (0.2-1.3) mg/dL Assessment and Plan Assessment: (1)Altered mental status, possible tardive dyskinesia Current Visit: Yes Status: Acute Code(s): R41.82 - ALTERED MENTAL STATUS, UNSPECIFIED SNOMED Code(s): 561527179 (2) Psychosis, depression Current Visit: No Status: Acute Priority: High Code(s): F29 - UNSP PSYCHOSIS NOT DUE TO A SUBSTANCE OR KNOWN PHYSIOL COND SNOMED Code(s): 54801558 (3) Atrial fibrillation with RVR, paroxysmal Current Visit: Yes Status: Acute Code(s): I48.91 - UNSPECIFIED ATRIAL FIBRILLATION SNOMED Code(s): 728249890868732 (4) suspected underlying dementia, type unclear (5) recurrent falls (7) Compression fracture of L1 lumbar vertebra Current Visit: Yes Status: Acute Code(s): S32.010A - WEDGE COMPRESSION FRACTURE OF FIRST LUMBAR VERTEBRA, INIT SNOMED Code(s): 345726809 (8) Traumatic brain injury, chronic Current Visit: Yes Status: Acute Code(s): S06.9X9A - UNSP INTRACRANIAL INJURY W LOC OF UNSP DURATION, INIT SNOMED Code(s): 557850537 History of closed head injury Current Visit: No Status: Acute Code(s): Z87.820 - PERSONAL HISTORY OF TRAUMATIC BRAIN INJURY SNOMED Code(s): 29728505764540 (9) Insulin dependent diabetes mellitus Current Visit: No Status: Acute Code(s): E11.9 - TYPE 2 DIABETES MELLITUS WITHOUT COMPLICATIONS; Z79.4 - DIRECTOR OF FIELD SALES (CURRENT) USE OF INSULIN SNOMED Code(s): 28575157 (10) Metabolic encephalopathy Current Visit: No Status: Acute Code(s): G93.41 - METABOLIC ENCEPHALOPATHY SNOMED Code(s): 44867804 (11) Microcytic anemia Current Visit: No Status: Acute Code(s): D50.9 - IRON DEFICIENCY ANEMIA, UNSPECIFIED SNOMED Code(s): 360454355 (12) Chronic systolic (congestive) heart failure Current Visit: Yes Status: Acute Code(s): I50.22 - CHRONIC SYSTOLIC (CONGESTIVE) HEART FAILURE SNOMED Code(s): 632402665 Plan: Continue on current medication regime ,Namenda, Haldol,monitoring and symptomatic treatment. Maintain safety instruction police officer. No further neurological workup as per neurology at this time. Encourage diet intake. Discharge planning in progress pending geriatric psychiatric placement as recommended per psychiatry .Prognosis guarded given multiple complex medical issues. The impression and plan of care has been dictated as directed. : I performed a history and examination of this patient, discussed the same with the dictator. I agree with the dictator's note ,documented as a scribe. Any additional findings or plans will be noted.
[2018-09-05] MEDS: DIVALPROEX 250 MG TABLET.DR PO SCH (20:29)
[2018-09-05] MEDS: LORazepam 1 MG TAB PO PRN (20:29)
[2018-09-05 21:01] LABS: Glucose,Whole Blood 159 mg/dL (75-99)
[2018-09-06] MEDS: HALOPERIDOL LACTATE 5 MG/ML 1 ML VIAL IM PRN ×2 (01:26→11:14)
[2018-09-06] MEDS: LORazepam 2 MG/ML INJ IV PRN (04:10)
[2018-09-06] MEDS: LEVOTHYROXINE 125 MCG TAB PO SCH ×2 (05:41→05:44)
[2018-09-06] MEDS: POLYETHYLENE GLYCOL 3350 17 GM POWD.PACK PO SCH (07:17)
[2018-09-06] MEDS: MEMANTINE 10 MG TAB PO SCH ×2 (07:18→19:58)
[2018-09-06] MEDS: LOSARTAN 25 MG TAB PO SCH (07:18)
[2018-09-06] MEDS: APIXABAN 5 MG TAB PO SCH ×2 (07:18→19:58)
[2018-09-06] MEDS: DULoxetine HCL 60 MG CAPSULE.DR PO SCH (07:18)
[2018-09-06] MEDS: PANTOPRAZOLE 40 MG TABLET PO SCH (07:18)
[2018-09-06] MEDS: METOPROLOL TARTRATE 25 MG TAB PO SCH ×4 (07:18→19:55)
[2018-09-06] MEDS: HALOPERIDOL ORAL SOLN 10 MG/5 ML CUP PO SCH ×4 (07:18→19:58)
[2018-09-06] MEDS: DIVALPROEX 250 MG TABLET.DR PO SCH ×2 (07:19→19:58)
[2018-09-06] MEDS: INSULIN ASPART (NovoLOG) 100 UNIT/ML VIAL SQ SCH ×4 (07:25→20:31)
[2018-09-06 07:42] LABS: Glucose,Whole Blood 145 mg/dL (75-99)
[2018-09-06] MEDS: LORazepam 1 MG TAB PO PRN (08:05)
[2018-09-06 09:39] LABS: Anisocytosis Moderate; Basophils # (A) 0.1 k/uL (0-0.2); Basophils % (A) 1 %; Eosinophils # (A) 0.5 k/uL (0-0.7); Eosinophils % (A) 7 %; HCT 42.5 % (39.0-53.0); HGB 13.3 gm/dL (13.0-17.5); Hypochromasia Slight; Lymphocytes # (A) 1.2 k/uL (1.0-4.8); Lymphocytes % (A) 17 %; MCH 25.7 pg (25.0-35.0); MCHC 31.4 g/dL (31.0-37.0); Mean Platelet Volume 7.4; Microcytosis Slight; Monocytes # (A) 0.9 k/uL (0-1.0); Monocytes % (A) 12 %; Neutrophils # (A) 4.3 k/uL (1.3-7.7); Neutrophils % (A) 59 %; Platelet Count 303 k/uL (150-450); RBC 5.19 m/uL (4.30-5.90); RDW 20.8 % (11.5-15.5); WBC 7.2 k/uL (3.8-10.6)
[2018-09-06 10:04] LABS: Anion Gap 9 mmol/L; Blood Urea Nitrogen 13 mg/dL (9-20); Calcium 9.5 mg/dL (8.4-10.2); Carbon Dioxide 30 mmol/L (22-30); Chloride 100 mmol/L (98-107); Glucose 137 mg/dL (74-99); Potassium 4.4 mmol/L (3.5-5.1); Sodium 139 mmol/L (137-145)
--- NOTE | 2018-09-06 11:51 | P.PN ---
Subjective Progress Note Date: 09/06/18 Patient is laying in the bed, with his eyes closed. Per sitter he has been laying quiet. He is somnolent. Patient continuously tends to roll on the left side. Patient mumbles, but sometimes speaks clearly what he wants. Lumbar puncture was planned, but not performed as patient is on anticoagulation with Eliquis. Patient has no signs of infection. His most recent WBC is 7.7. Normal differential. EEG was performed, which revealed mild background slowing. No epileptiform activity seen. Blood test shows negative RPR, folate is normal 7.1 B12 1005, TSH normal 5.22. Patient was seen by psychiatry, who has diagnosed with Alzheimer's dementia, recommending Aricept 5 mg, Namenda 10 mg twice a day and Haldol. 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 According to his report, CT and MRI consistent with cortical atrophy and enlarged ventricles indicative of progressive neurocognitive disorder with underlying history of depression. As per report from patient's , he has history of closed head injury (patient has not drank any alcohol for the past 40 years, as per his ) Objective - Vital Signs Vital signs: Vital Signs Temp 97.1 F L 09/06/18 07:00 Pulse 57 L 09/06/18 07:00 Resp 16 09/06/18 07:00 BP 143/72 09/06/18 07:00 Pulse Ox 99 09/06/18 07:00 Intake & Output 09/05/18 09/06/18 09/06/18 18:59 06:59 18:59 Intake Total 100 100 Output Total 2 Balance 100 98 Intake: Oral 100 100 Output: Stool 2 Other: Voiding Method Incontinent Incontinent Incontinent # Voids 1 3 2 # Bowel Movements 4 2 - Exam On examination patient is a elderly male, who keeps his eyes closed. Pupils are round and reacting. He moves all 4 extremities. Face is symmetric. Plantars are downgoing bilaterally. - Labs CBC & Chem 7: 09/06/18 08:55 09/06/18 08:55 Labs: Abnormal Lab Results - Last 24 Hours (Table) 09/05/18 09/05/18 09/06/18 Range/Units 16:19 20:50 07:24 RDW (11.5-15.5) % Glucose (74-99) mg/dL POC Glucose (mg/dL) 104 H 159 H 145 H (75-99) mg/dL 09/06/18 09/06/18 Range/Units 08:55 08:55 RDW 20.8 H (11.5-15.5) % Glucose 137 H (74-99) mg/dL POC Glucose (mg/dL) (75-99) mg/dL Assessment and Plan Assessment: * 68-year-old male with subacute onset of worsening altered mental status, with aggression, agitation of unclear etiology. No signs of intracranial infection at this time. Patient probably has dementia with psychotic features. * Patient has chronic depression. * CHF * Atrial fibrillation, on anticoagulation. * Recurrent falls Plan: Patient continues to be altered mental status, appears psychotic. Mumbles. Vitamin B12 1005, which is normal, folate 7.1, ammonia <9, RPR negative. Hemoglobin A1c 6.5. EEG showed mild background slowing consistent with encephalopathy with no epileptiform activity. Carotid Doppler negative for carotid stenosis. Patient had an MRI of the brain performed today, which showed no acute process. Some cortical atrophy and prominence of the ventricles. MRI of the cervical spine from 02/17/2016 showed degenerative disc disease with no significant spinal stenosis. Psychiatric consultation reviewed and input appreciated Will continue Amy. Discussed with patient's primary physician Dr. Jose Coates about further management. It appears lumbar puncture probably has very low yield, as there is no signs of infection. Stopping anticoagulation could pose potential risk of CVA given his atrial fibrillation. The risks are more than benefits. His condition appears more psychiatric rather than neurological. No other neurological workup indicated. Suggest follow-up with the psychiatrist.
[2018-09-06] MEDS ORDERED: LORazepam 2 MG/ML INJ IM STA (11:57)
[2018-09-06 12:14] LABS: Glucose,Whole Blood 171 mg/dL (75-99)
[2018-09-06] MEDS: LORazepam 1 MG TAB PO STA ×2 (13:24→13:35)
[2018-09-06] MEDS ORDERED: diphenhydrAMINE 50 MG/ML 1 ML VIAL IVP PRN (15:15)
--- NOTE | 2018-09-06 15:21 | P.PN ---
Subjective Progress Note Date: 09/06/18 Principal diagnosis: Dementia with agitation Chart thoroughly reviewed and evaluated all the MRIs that have been done which shows atrophy particularly over the right temporoparietal region and the most recent MRI done has little to offer since it was so much artifact from the the patient moving. 09/06/2018: Patient still agitated with little result from medications thus far Objective - Vital Signs Vital signs: Vital Signs Temp 97.1 F L 09/06/18 07:00 Pulse 57 L 09/06/18 07:00 Resp 16 09/06/18 07:00 BP 143/72 09/06/18 07:00 Pulse Ox 99 09/06/18 07:00 Intake & Output 09/05/18 09/06/18 09/06/18 18:59 06:59 18:59 Intake Total 100 100 Output Total 2 Balance 100 98 Intake: Oral 100 100 Output: Stool 2 Other: Voiding Method Incontinent Incontinent Incontinent # Voids 1 3 2 # Bowel Movements 4 2 - Labs CBC & Chem 7: 09/06/18 08:55 09/06/18 08:55 Labs: Abnormal Lab Results - Last 24 Hours (Table) 09/05/18 09/05/18 09/06/18 Range/Units 16:19 20:50 07:24 RDW (11.5-15.5) % Glucose (74-99) mg/dL POC Glucose (mg/dL) 104 H 159 H 145 H (75-99) mg/dL 09/06/18 09/06/18 09/06/18 Range/Units 08:55 08:55 12:13 RDW 20.8 H (11.5-15.5) % Glucose 137 H (74-99) mg/dL POC Glucose (mg/dL) 171 H (75-99) mg/dL Assessment and Plan Assessment: This is a 68-year-old white male patient of mine. He was just discharged from [facility] on August 23 after having any extensive admission that began with chest pain and possibly nonischemic cardiomyopathy before he then developed acute delirium and metabolic encephalopathy that lasted multiple days. He also the complication of acute renal failure. While these had resolved and improved, patient was transferred to [facility] on August 23. Nursing informed me that he was discharged with 1 days were the medications, did not get his prescription filled yet. Since arriving in the hospital, he has had recurrence of his A. fib with RVR. He is unable to participate in a mental status examination and really has not changed since 08/20/2018 when I examined him. Assessment and Plan (1) Neurocognitive disorder Narrative/Plan: Mental Status Examination - General Appearance: [ disheveled, bizarre, appears older than stated age Speech/Language: [slow, slurred, rambled, mumbling, hesitant, halting, monotone, soft,] Attitude/Behavior: [ irritable, withdrawn Mood: [, anxious, irritable, angry, fearful Affect: [fflat, incongruent, labile, blunted constricted Orientation: [ not to time, only person, place situation] Thought Content: [ delusions, obsessions, phobias, other] Risk Factors: [denies suicidal (ideations, plan), and/or Homicidal (ideations, plan), other] Perception: [ hallucinations (auditory Thought Processes: [concrete, circumstantial, tangential, other] Concentration/Attention Span: [ impaired] [Per observation and interview with the patient] Recent Memory: [ impaired] [0 out of 3 in 3 minutes] Remote Memory: [ impaired] [past events, as related history] Intelligence: [below average] [based on history, based on vocabulary, syntax, grammar, and content] Judgement: [ poor] [per patient's behavior/history of present illness] Insight: [poor] [understanding severity of illness/history of present illness] Psychiatric impression: neurocognitive disorder-severe and acute psychosis; hypothyroid converted to hyperthyroid; major depressive disorder, closed head injury and metabolic encephalopathy Recommendations: ativan only after haldol which is schedule QID, increase namenda, depokote sprinkles and add aricept. This patient is not a candidate for [facility] since he has alcoholic encephalopathy with underlying dementia with acute agitation and confusion. He would be best cared for and a geriatric psychiatry program. Considering he got out of his medications while transferred back to the facility after discharge from the hospital he probably has become sufficiently more confused and psychotic and he was not receiving any medications. So particular interest is he was hypothyroid with an elevated TSH on his last admission and now has TSH is still high but T4 is elevated which may cause most of the psychiatric symptoms so the man goes from hypothyroid lethargic to agitated and hyperthyroid. Since he has a history of closed head injury history of 40 years of drinking and computed tomography scan and MRI which shows cortical atrophy with temporoparietal region with enlarged ventricles indicates that he has progressive neurocognitive disorder with underlying history of depression and chronic alcohol use. I had added 08/20/2018 Namenda, Aricept and Depakote sprinkles last time to decrease his agitation but if he had gone without this for period of time he would have rebound worsening agitation. I have no further recommendations to make at this time. X 09/05/2018: Will increase Depakote to 250 mg twice a day and will have to maintain on haloperidol since he did see only antipsychotic that is neutral to cardiac conduction defect. I have a little more to add to this and if you need further assistance please consider that he may need an Alzheimer's unit or transfer to geropsychiatric unit for further medication adjustments. There is little I can do in this setting and he is not a candidate for [address] [place] [id number] unit at [facility]. Therefore I am signing off the case. 09/06/2018: Increase Depakote last 24 hours has not decreased his agitation. He may be having a reaction to haloperidol and will add Benadryl and Cogentin to see if this calms him down. We'll obtain a Depakote blood level and ammonia level. Daniel Julian D.O., PhD. (1) Major neurocognitive disorder as late effect of traumatic brain injury with behavioral disturbance Current Visit: Yes Status: Acute Priority: High Code(s): S06.9X9S - UNSP INTRACRANIAL INJURY W LOC OF UNSP DURATION, SEQUELA; F01.51 - VASCULAR DEMENTIA WITH BEHAVIORAL DISTURBANCE SNOMED Code(s): 403124820 (2) Neurocognitive disorder Current Visit: Yes Status: Acute Priority: High Code(s): R41.9 - UNSP SYMPTOMS AND SIGNS W COGNITIVE FUNCTIONS AND AWARENESS SNOMED Code(s): 768108055 Time with Patient: Less than 30
[2018-09-06] MEDS: BENZTROPINE 2 MG/2 ML AMP IM SCH ×2 (15:37→23:10)
--- NOTE | 2018-09-06 15:38 | P.PN ---
Subjective Progress Note Date: 09/06/18 This is a 68-year-old white male patient of mine. He was just discharged from [facility] on August 23 after having any extensive admission that began with chest pain and possibly nonischemic cardiomyopathy before he then developed acute delirium and metabolic encephalopathy that lasted multiple days. He also the complication of acute renal failure. While these had resolved and improved, patient was transferred to [facility] on August 23. I had seen him there at the facility on 08/24/2018. He was discharge from the facility on 08/31/2018.. He presented to the emergency room yesterday, September 01, with significant confusion and agitation. Nursing informed me that he was discharged with 1 days were the medications, did not get his prescription filled yet. Since arriving in the hospital, he has had recurrence of his A. fib with RVR. He is unable to respond to any my questions today. As his eyes closed and continues to fully sheet over top of him. His history was obtained from the emergency room and his . 09/03/2018 airworthiness safety inspector maintained at bedside, currently somnolent. Easily becomes agitated. Maintained on scheduled Haldol around the clock .Telemetry atrial fibrillation. Carotid ultrasound reported no hemodynamic significant stenosis. EEG pending. Evaluated by neurology, recommendations noted. 09/04/18 sitter maintained at bedside, less agitation currently. diet intake of 25% and tender last night; this morning a few bites with partial consumption of Glucerna. Blood sugars controlled. Passing flatus and positive bowel movement- soft, no diarrhea. He underwent MRI of brain, limited study, reporting atrophy, paraventricular chronic white matter ischemic changes; reviewed by neurology, indicative of progressive neurocognitive disorder. ( Patient's states no history of alcohol use.) EEG reported as consistent with encephalopathy with no epileptiform activity as per neurology. 09/05/18 no overnight events. Diet intake slowly improving. Sugars controlled. MRI of brain as previously mentioned nonacute per neurology review, with no further neuro workup recommended at this time. Today not conversing, Catatonic appearing with possible symptoms of tardive dyskinesia in a patient on antipsychotic medications. Reevaluated by psychiatry, recommendations noted. 09/06/2018 despite increase in Depakote, increased agitation, kicking, screaming. Afebrile, normal WBC. Afebrile, normal WBC. Objective - Vital Signs Vital signs: Vital Signs Temp 97.1 F L 09/06/18 07:00 Pulse 57 L 09/06/18 07:00 Resp 16 09/06/18 07:00 BP 143/72 09/06/18 07:00 Pulse Ox 99 09/06/18 07:00 Intake & Output 09/05/18 09/06/18 09/06/18 18:59 06:59 18:59 Intake Total 100 100 Output Total 2 Balance 100 98 Intake: Oral 100 100 Output: Stool 2 Other: Voiding Method Incontinent Incontinent Incontinent # Voids 1 3 2 # Bowel Movements 4 2 - Exam PHYSICAL EXAM: VITAL SIGNS: As above GENERAL: Restless in bed, agitated, kicking, screaming, possibly oriented 1 to person HEENT: Eyes closed, Conjunctivae normal. eyes round. NECK: No JVD. No thyroid enlargement. No LNs CARDIOVASCULAR: S1, S2 irregular. No murmur RESPIRATION: Breath sounds are coarse with bilateral bases diminished. No rhonchi or crackles. No wheezing ABDOMEN: Soft, nontender . No guarding. no masses palpable. .Bowel sounds heard. LEGS: No edema. no swelling PSYCHIATRY: Unable to assess given patient's current clinical presentation. NERVOUS SYSTEM: Cranial N 2-12 grossly normal. Moves all 4 limbs, plantars downgoing bilaterally, unable to fully assess at this time given his clinical presentation. Skin:no rash, no lesions - Labs CBC & Chem 7: 09/06/18 08:55 09/06/18 08:55 Labs: Abnormal Lab Results - Last 24 Hours (Table) 09/05/18 09/05/18 09/06/18 Range/Units 16:19 20:50 07:24 RDW (11.5-15.5) % Glucose (74-99) mg/dL POC Glucose (mg/dL) 104 H 159 H 145 H (75-99) mg/dL 09/06/18 09/06/18 09/06/18 Range/Units 08:55 08:55 12:13 RDW 20.8 H (11.5-15.5) % Glucose 137 H (74-99) mg/dL POC Glucose (mg/dL) 171 H (75-99) mg/dL Assessment and Plan Assessment: (1)Altered mental status, multifactorial possible related to psychosis, progressive neurocognitive disorder with underlying depression ,tardive dyskinesia possibly secondary to haldol Current Visit: Yes Status: Acute Code(s): R41.82 - ALTERED MENTAL STATUS, UNSPECIFIED SNOMED Code(s): 797000191 (2) Psychosis, depression Current Visit: No Status: Acute Priority: High Code(s): F29 - UNSP PSYCHOSIS NOT DUE TO A SUBSTANCE OR KNOWN PHYSIOL COND SNOMED Code(s): 51679259 (3) Atrial fibrillation with RVR, paroxysmal Current Visit: Yes Status: Acute Code(s): I48.91 - UNSPECIFIED ATRIAL FIBRILLATION SNOMED Code(s): 341000662079579 (4) suspected underlying dementia, type unclear (5) recurrent falls (7) Compression fracture of L1 lumbar vertebra Current Visit: Yes Status: Acute Code(s): S32.010A - WEDGE COMPRESSION FRACTURE OF FIRST LUMBAR VERTEBRA, INIT SNOMED Code(s): 897976668 (8) Traumatic brain injury, chronic Current Visit: Yes Status: Acute Code(s): S06.9X9A - UNSP INTRACRANIAL INJURY W LOC OF UNSP DURATION, INIT SNOMED Code(s): 862472829 History of closed head injury Current Visit: No Status: Acute Code(s): Z87.820 - PERSONAL HISTORY OF T RAUMATIC BRAIN INJURY SNOMED Code(s): 72148958636144 (9) Insulin dependent diabetes mellitus Current Visit: No Status: Acute Code(s): E11.9 - TYPE 2 DIABETES MELLITUS WITHOUT COMPLICATIONS; Z79.4 - SYSTEMS DESIGN ENGINEER (CURRENT) USE OF INSULIN SNOMED Code(s): 44660322 (10) Metabolic encephalopathy Current Visit: No Status: Acute Code(s): G93.41 - METABOLIC ENCEPHALOPATHY SNOMED Code(s): 55244288 (11) Microcytic anemia Current Visit: No Status: Acute Code(s): D50.9 - IRON DEFICIENCY ANEMIA, UNSPECIFIED SNOMED Code(s): 492428127 (12) Chronic systolic (congestive) heart failure Current Visit: Yes Status: Acute Code(s): I50.22 - CHRONIC SYSTOLIC (CONGESTIVE) HEART FAILURE SNOMED Code(s): 130563399 Plan: Continue on current medication regime ,Namenda, Haldol,monitoring and symptomatic treatment. Maintain airworthiness safety inspector. Reevaluated by psychiatry, Be thompsonl and Francineentin added to med regime. CMP/ammonia level ordered. Depakote level pending. Discharge planning in progress pending geriatric psychiatric placement as recommended per psychiatry .Prognosis guarded given multiple complex medical issues. The impression and plan of care has been dictated as directed. : I performed a history and examination of this patient, discussed the same with the dictator. I agree with the dictator's note ,documented as a scribe. Any additional findings or plans will be noted.
[2018-09-06] MEDS ORDERED: BENZTROPINE 2 MG/2 ML AMP IV SCH (16:00)
[2018-09-06 17:05] LABS: ALT 28 U/L (21-72); AST 69 U/L (17-59); Albumin 3.7 g/dL (3.5-5.0); Alkaline Phosphatase 126 U/L (38-126); Anion Gap 9 mmol/L; Blood Urea Nitrogen 14 mg/dL (9-20); Calcium 9.4 mg/dL (8.4-10.2); Carbon Dioxide 23 mmol/L (22-30); Chloride 104 mmol/L (98-107); Glucose 114 mg/dL (74-99); Sodium 136 mmol/L (137-145); Total Bilirubin 1.7 mg/dL (0.2-1.3)
[2018-09-06 17:08] LABS: Potassium 5.2 mmol/L (3.5-5.1)
[2018-09-06 17:21] LABS: Glucose,Whole Blood 133 mg/dL (75-99)
[2018-09-06 20:12] LABS: Glucose,Whole Blood 232 mg/dL (75-99)
[2018-09-07] MEDS: LEVOTHYROXINE 125 MCG TAB PO SCH (06:11)
[2018-09-07] MEDS: DIVALPROEX 250 MG TABLET.DR PO SCH ×2 (07:25→22:30)
[2018-09-07] MEDS: HALOPERIDOL ORAL SOLN 10 MG/5 ML CUP PO SCH ×4 (07:25→21:51)
[2018-09-07] MEDS: BENZTROPINE 2 MG/2 ML AMP IM SCH ×2 (07:26→16:44)
[2018-09-07] MEDS: DULoxetine HCL 60 MG CAPSULE.DR PO SCH (07:26)
[2018-09-07] MEDS: PANTOPRAZOLE 40 MG TABLET PO SCH (07:27)
[2018-09-07] MEDS: APIXABAN 5 MG TAB PO SCH ×2 (07:27→21:51)
[2018-09-07] MEDS: MEMANTINE 10 MG TAB PO SCH ×2 (07:27→21:51)
[2018-09-07 07:29] LABS: Glucose,Whole Blood 111 mg/dL (75-99)
[2018-09-07] MEDS: LOSARTAN 25 MG TAB PO SCH (07:34)
[2018-09-07] MEDS: INSULIN ASPART (NovoLOG) 100 UNIT/ML VIAL SQ SCH ×4 (07:34→21:51)
[2018-09-07] MEDS: POLYETHYLENE GLYCOL 3350 17 GM POWD.PACK PO SCH (07:35)
[2018-09-07] MEDS: METOPROLOL TARTRATE 25 MG TAB PO SCH ×3 (07:35→21:59)
[2018-09-07 09:48] VITALS: BMI 24.1
[2018-09-07 09:52] LABS: Anisocytosis Moderate; Basophils # (A) 0.1 k/uL (0-0.2); Basophils % (A) 1 %; Eosinophils # (A) 0.3 k/uL (0-0.7); Eosinophils % (A) 4 %; HCT 44.2 % (39.0-53.0); HGB 13.8 gm/dL (13.0-17.5); Lymphocytes # (A) 1.3 k/uL (1.0-4.8); Lymphocytes % (A) 16 %; MCH 25.4 pg (25.0-35.0); MCHC 31.2 g/dL (31.0-37.0); MCV 81.6 fL (80.0-100.0); Mean Platelet Volume 6.9; Microcytosis Slight; Monocytes # (A) 0.8 k/uL (0-1.0); Monocytes % (A) 11 %; Neutrophils # (A) 4.9 k/uL (1.3-7.7); Neutrophils % (A) 64 %; Platelet Count 304 k/uL (150-450); RBC 5.42 m/uL (4.30-5.90); RDW 20.8 % (11.5-15.5); WBC 7.6 k/uL (3.8-10.6)
[2018-09-07 10:07] LABS: Anion Gap 8 mmol/L; Blood Urea Nitrogen 14 mg/dL (9-20); Calcium 9.3 mg/dL (8.4-10.2); Carbon Dioxide 28 mmol/L (22-30); Chloride 102 mmol/L (98-107); Glucose 162 mg/dL (74-99); Potassium 4.7 mmol/L (3.5-5.1); Sodium 138 mmol/L (137-145)
[2018-09-07] MEDS: diphenhydrAMINE 50 MG/ML 1 ML VIAL IM PRN ×3 (10:20→21:52)
--- NOTE | 2018-09-07 11:31 | P.PN ---
Subjective Progress Note Date: 09/07/18 Principal diagnosis: Dementia with agitation Chart thoroughly reviewed and evaluated all the MRIs that have been done which shows atrophy particularly over the right temporoparietal region and the most recent MRI done has little to offer since it was so much artifact from the the patient moving. 09/06/2018: Patient still agitated with little result from medications thus far 09/07/2018: Patient is still somewhat agitated summer responding to Benadryl and Cogentin Objective - Vital Signs Vital signs: Vital Signs Temp 97.2 F L 09/07/18 06:34 Pulse 83 09/07/18 10:34 Resp 15 09/07/18 06:34 BP 96/58 09/07/18 10:34 Pulse Ox 100 09/07/18 06:34 Intake & Output 09/06/18 09/07/18 09/07/18 18:59 06:59 18:59 Intake Total 100 Balance 100 Weight 78.5 kg Intake: Oral 100 Other: Voiding Method Incontinent Incontinent Incontinent # Voids 2 1 # Bowel Movements 2 1 - Labs CBC & Chem 7: 09/07/18 09:10 09/07/18 09:10 Labs: Abnormal Lab Results - Last 24 Hours (Table) 09/06/18 09/06/18 09/06/18 Range/Units 12:13 16:32 17:19 RDW (11.5-15.5) % Sodium 136 L (137-145) mmol/L Potassium 5.2 H (3.5-5.1) mmol/L Glucose 114 H (74-99) mg/dL POC Glucose (mg/dL) 171 H 133 H (75-99) mg/dL Total Bilirubin 1.7 H (0.2-1.3) mg/dL AST 69 H (17-59) U/L 09/06/18 09/07/18 09/07/18 Range/Units 20:03 07:08 09:10 RDW 20.8 H (11.5-15.5) % Sodium (137-145) mmol/L Potassium (3.5-5.1) mmol/L Glucose (74-99) mg/dL POC Glucose (mg/dL) 232 H 111 H (75-99) mg/dL Total Bilirubin (0.2-1.3) mg/dL AST (17-59) U/L 09/07/18 Range/Units 09:10 RDW (11.5-15.5) % Sodium (137-145) mmol/L Potassium (3.5-5.1) mmol/L Glucose 162 H (74-99) mg/dL POC Glucose (mg/dL) (75-99) mg/dL Total Bilirubin (0.2-1.3) mg/dL AST (17-59) U/L Assessment and Plan Assessment: This is a 68-year-old white male patient of mine. He was just discharged from [facility] on August 23 after having any extensive admission that began with chest pain and possibly nonischemic cardiomyopathy before he then developed acute delirium and metabolic encephalopathy that lasted multiple days. He also the complication of acute renal failure. While these had resolved and improved, patient was transferred to [facility] on August 23. Nursing informed me that he was discharged with 1 days were the medications, did not get his prescription filled yet. Since arriving in the hospital, he has had recurre nce of his A. fib with RVR. He is unable to participate in a mental status examination and really has not changed since 08/20/2018 when I examined him. Assessment and Plan (1) Neurocognitive disorder Narrative/Plan: Mental Status Examination - General Appearance: [ disheveled, bizarre, appears older than stated age Speech/Language: [slow, slurred, rambled, mumbling, hesitant, halting, monotone, soft,] Attitude/Behavior: [ irritable, withdrawn Mood: [, anxious, irritable, angry, fearful Affect: [fflat, incongruent, labile, blunted constricted Orientation: [ not to time, only person, place situation] Thought Content: [ delusions, obsessions, phobias, other] Risk Factors: [denies suicidal (ideations, plan), and/or Homicidal (ideations, plan), other] Perception: [ hallucinations (auditory Thought Processes: [concrete, circumstantial, tangential, other] Concentration/Attention Span: [ impaired] [Per observation and interview with the patient] Recent Memory: [ impaired] [0 out of 3 in 3 minutes] Remote Memory: [ impaired] [past events, as related history] Intelligence: [below average] [based on history, based on vocabulary, syntax, grammar, and content] Judgement: [ poor] [per patient's behavior/history of present illness] Insight: [poor] [understanding severity of illness/history of present illness] Psychiatric impression: neurocognitive disorder-severe and acute psychosis; hypothyroid converted to hyperthyroid; major depressive disorder, closed head injury and metabolic encephalopathy Recommendations: ativan only after haldol which is schedule QID, increase namenda, depokote sprinkles and add aricept. This patient is not a candidate for [facility] since he has alcoholic encephalopathy with underlying dementia with acute agitation and confusion. He would be best cared for and a geriatric psychiatry program. Considering he got out of his medications while transferred back to the facility after discharge from the hospital he probably has become sufficiently more confused and psychotic and he was not receiving any medications. So particular interest is he was hypothyroid with an elevated TSH on his last admission and now has TSH is still high but T4 is elevated which may cause most of the psychiatric symptoms so the man goes from hypothyroid l ethargic to agitated and hyperthyroid. Since he has a history of closed head injury history of 40 years of drinking and computed tomography scan and MRI which shows cortical atrophy with temporoparietal region with enlarged ventricles indicates that he has progressive neurocognitive disorder with u nderlying history of depression and chronic alcohol use. I had added 08/20/2018 Namenda, Aricept and Depakote sprinkles last time to decrease his agitation but if he had gone without this for period of time he would have rebound worsening agitation. I have no further recommendations to make at this time. X 09/05/2018: Will increase Depakote to 250 mg twice a day and will have to maintain on haloperidol since he did see only antipsychotic that is neutral to cardiac conduction defect. I have a little more to add to this and if you need further assistance please consider that he may need an Alzheimer's unit or transfer to geropsychiatric unit for further medication adjustments. There is little I can do in this setting and he is not a candidate for [address] [place] [id number] unit at [facility]. Therefore I am signing off the case. 09/06/2018: Increase Depakote last 24 hours has not decreased his agitation. He may be having a reaction to haloperidol and will add Benadryl and Cogentin to see if this calms him down. We'll obtain a Depakote blood level and ammonia level. 09/07/2018: Continue Haldol Benadryl and Francineentin. This 68-year-old male who will need to be transferred to a long-term care facility that has Alzheimer patients that can easily handle his behaviors. I will be out of town this weekend and if he still here on Monday will check back. Daniel Julian D.O., PhD. (1) Major neurocognitive disorder as late effect of traumatic brain injury with behavioral disturbance Current Visit: Yes Status: Acute Priority: High Code(s): S06.9X9S - UNSP INTRACRANIAL INJURY W LOC OF UNSP DURATION, SEQUELA; F01.51 - VASCULAR DEMENTIA WITH BEHAVIORAL DISTURBANCE SNOMED Code(s): 158279961 (2) Neurocognitive disorder Current Visit: Yes Status: Acute Priority: High Code(s): R41.9 - UNSP SYMPTOMS AND SIGNS W COGNITIVE FUNCTIONS AND AWARENESS SNOMED Code(s): 178592018 Time with Patient: Less than 30
[2018-09-07 11:55] LABS: Glucose,Whole Blood 114 mg/dL (75-99)
--- NOTE | 2018-09-07 14:35 | P.PN ---
Subjective Progress Note Date: 09/07/18 This is a 68-year-old white male patient of mine. He was just discharged from [facility] on August 23 after having any extensive admission that began with chest pain and possibly nonischemic cardiomyopathy before he then developed acute delirium and metabolic encephalopathy that lasted multiple days. He also the complication of acute renal failure. While these had resolved and improved, patient was transferred to [facility] on August 23. I had seen him there at the facility on 08/24/2018. He was discharge from the facility on 08/31/2018.. He presented to the emergency room yesterday, September 01, with significant confusion and agitation. Nursing informed me that he was discharged with 1 days were the medications, did not get his prescription filled yet. Since arriving in the hospital, he has had recurrence of his A. fib with RVR. He is unable to respond to any my questions today. As his eyes closed and continues to fully sheet over top of him. His history was obtained from the emergency room and his . 09/03/2018 patient safety sitter maintained at bedside, currently somnolent. Easily becomes agitated. Maintained on scheduled Haldol around the clock .Telemetry atrial fibrillation. Carotid ultrasound reported no hemodynamic significant stenosis. EEG pending. Evaluated by neurology, recommendations noted. 09/04/18 sitter maintained at bedside, less agitation currently. diet intake of 25% and tender last night; this morning a few bites with partial consumption of Glucerna. Blood sugars controlled. Passing flatus and positive bowel movement- soft, no diarrhea. He underwent MRI of brain, limited study, reporting atrophy, paraventricular chronic white matter ischemic changes; reviewed by neurology, indicative of progressive neurocognitive disorder. ( Patient's states no history of alcohol use.) EEG reported as consistent with encephalopathy with no epileptiform activity as per neurology. 09/05/18 no overnight events. Diet intake slowly improving. Sugars controlled. MRI of brain as previously mentioned nonacute per neurology review, with no further neuro workup recommended at this time. Today not conversing, Catatonic appearing with possible symptoms of tardive dyskinesia in a patient on antipsychotic medications. Reevaluated by psychiatry, recommendations noted. 09/06/2018 despite increase in Depakote, increased agitation, kicking, screaming. Afebrile, normal WBC. Afebrile, normal WBC. 09/07/2018 continues on Haldol, Benadryl and Cogentin as per psychiatry .currently, calm, resting, staff reports earlier had been restless and agitated. Sitter maintained at bedside. utility worker assisting in arrangement of long- term care facility. Afebrile, normal WBC. Ammonia less than 9. Last night consumed 50% of dinner, this morning bites of breakfast. Objective - Vital Signs Vital signs: Vital Signs Temp 97.5 F L 09/07/18 12:43 Pulse 66 09/07/18 12:43 Resp 16 09/07/18 12:43 BP 110/76 09/07/18 12:43 Pulse Ox 95 09/07/18 12:43 Intake & Output 09/06/18 09/07/18 09/07/18 18:59 06:59 18:59 Intake Total 100 Balance 100 Weight 78.5 kg Intake: Oral 100 Other: Voiding Method Incontinent Incontinent Incontinent # Voids 2 1 # Bowel Movements 2 1 - Exam PHYSICAL EXAM: VITAL SIGNS: As above GENERAL: Lying in bed, sleeping, arousable, possibly alert and oriented 1. HEENT: Eyes closed, Conjunctivae normal. eyes round. NECK: No JVD. No thyroid enlargement. No LNs CARDIOVASCULAR: S1, S2 irregular. No murmur RESPIRATION: Breath sounds are coarse with bilateral bases diminished. No rhonchi or crackles. No wheezing ABDOMEN: Soft, nontender . No guarding. no masses palpable. .Bowel sounds heard. LEGS: No edema. no swelling PSYCHIATRY: Unable to assess given patient's current clinical presentation. NERVOUS SYSTEM: Cranial N 2-12 grossly normal. Moves all 4 limbs, plantars downgoing bilaterally, unable to fully assess at this time given his clinical presentation. Skin:no rash, no lesions - Labs CBC & Chem 7: 09/07/18 09:10 09/07/18 09:10 Labs: Abnormal Lab Results - Last 24 Hours (Table) 09/06/18 09/06/18 09/06/18 Range/Units 16:32 17:19 20:03 RDW (11.5-15.5) % Sodium 136 L (137-145) mmol/L Potassium 5.2 H (3.5-5.1) mmol/L Glucose 114 H (74-99) mg/dL POC Glucose (mg/dL) 133 H 232 H (75-99) mg/dL Total Bilirubin 1.7 H (0.2-1.3) mg/dL AST 69 H (17-59) U/L 09/07/18 09/07/18 09/07/18 Range/Units 07:08 09:10 09:10 RDW 20.8 H (11.5-15.5) % Sodium (137-145) mmol/L Potassium (3.5-5.1) mmol/L Glucose 162 H (74-99) mg/dL POC Glucose (mg/dL) 111 H (75-99) mg/dL Total Bilirubin (0.2-1.3) mg/dL AST (17-59) U/L 09/07/18 Range/Units 11:53 RDW (11.5-15.5) % Sodium (137-145) mmol/L Potassium (3.5-5.1) mmol/L Glucose (74-99) mg/dL POC Glucose (mg/dL) 114 H (75-99) mg/dL Total Bilirubin (0.2-1.3) mg/dL AST (17-59) U/L Assessment and Plan Assessment: (1)Altered mental status, multifactorial possible related to psychosis, progressive neurocognitive disorder with underlying depression ,tardive dyskinesia possibly secondary to haldol Current Visit: Yes Status: Acute Code(s): R41.82 - ALTERED MENTAL STATUS, UNSPECIFIED SNOMED Code(s): 485391864 (2) Psychosis, depression Current Visit: No Status: Acute Priority: High Code(s): F29 - UNSP PSYCHOSIS NOT DUE TO A SUBSTANCE OR KNOWN PHYSIOL COND SNOMED Code(s): 12848010 (3) Atrial fibrillation with RVR, paroxysmal Current Visit: Yes Status: Acute Code(s): I48.91 - UNSPECIFIED ATRIAL FIBRILLATION SNOMED Code(s): 560507458751382 (4) suspected underlying dementia, type unclear (5) recurrent falls (7) Compression fracture of L1 lumbar vertebra Current Visit: Yes Status: Acute Code(s): S32.010A - WEDGE COMPRESSION FRACTURE OF FIRST LUMBAR VERTEBRA, INIT SNOMED Code(s): 702259852 (8) Traumatic brain injury, chronic Current Visit: Yes Status: Acute Code(s): S06.9X9A - UNSP INTRACRANIAL INJURY W LOC OF UNSP DURATION, INIT SNOMED Code(s): 635984727 History of closed head injury Current Visit: No Status: Acute Code(s): Z87.820 - PERSONAL HISTORY OF TRAUMATIC BRAIN INJURY SNOMED Code(s): 14095588562491 (9) Insulin dependent diabetes mellitus Current Visit: No Status: Acute Code(s): E11.9 - TYPE 2 DIABETES MELLITUS WITHOUT COMPLICATIONS; Z79.4 - PROPERTY UTILIZATION MANAGER (CURRENT) USE OF INSULIN SNOMED Code(s): 26948539 (10) Metabolic encephalopathy Current Visit: No Status: Acute Code(s): G93.41 - METABOLIC ENCEPHALOPATHY SNOMED Code(s): 34352816 (11) Microcytic anemia Current Visit: No Status: Acute Code(s): D50.9 - IRON DEFICIENCY ANEMIA, UNSPECIFIED SNOMED Code(s): 905696095 (12) Chronic systolic (congestive) heart failure Current Visit: Yes Status: Acute Code(s): I50.22 - CHRONIC SYSTOLIC (CONGESTIVE) HEART FAILURE SNOMED Code(s): 445410117 Plan: Continue on current medication regime ,monitoring and symptomatic treatment. Maintain patient safety sitter. Continue on Haldol, Benadryl, Cogentin as per psychiatry. Depakote level pending. Social work assisting with Discharge planning in progress pending long-term care/geriatric psychiatric placement as recommended per psychiatry .Prognosis guarded given multiple complex medical issues. The impression and plan of care has been dictated as directed. : I performed a history and examination of this patient, discussed the same with the dictator. I agree with the dictator's note ,documented as a scribe. Any additional findings or plans will be noted.
[2018-09-07 16:55] LABS: Glucose,Whole Blood 177 mg/dL (75-99)
[2018-09-07 21:05] LABS: Glucose,Whole Blood 104 mg/dL (75-99)
[2018-09-08] MEDS: BENZTROPINE 2 MG/2 ML AMP IM SCH ×3 (05:03→16:14)
[2018-09-08] MEDS: diphenhydrAMINE 50 MG/ML 1 ML VIAL IM PRN ×3 (05:03→21:42)
[2018-09-08 06:54] LABS: Glucose,Whole Blood 104 mg/dL (75-99)
[2018-09-08] MEDS: LEVOTHYROXINE 100 MCG TAB PO SCH (06:58)
[2018-09-08] MEDS: LEVOTHYROXINE 75 MCG TAB PO SCH (06:58)
[2018-09-08] MEDS: INSULIN ASPART (NovoLOG) 100 UNIT/ML VIAL SQ SCH ×4 (07:03→21:37)
[2018-09-08] MEDS: HALOPERIDOL ORAL SOLN 10 MG/5 ML CUP PO SCH ×4 (08:48→21:37)
[2018-09-08] MEDS: PANTOPRAZOLE 40 MG TABLET PO SCH (08:51)
[2018-09-08] MEDS: DIVALPROEX 250 MG TABLET.DR PO SCH ×2 (08:51→20:32)
[2018-09-08] MEDS: POLYETHYLENE GLYCOL 3350 17 GM POWD.PACK PO SCH ×2 (08:51→08:54)
[2018-09-08] MEDS: DULoxetine HCL 60 MG CAPSULE.DR PO SCH (08:51)
[2018-09-08] MEDS: APIXABAN 5 MG TAB PO SCH ×2 (08:51→20:32)
[2018-09-08] MEDS: METOPROLOL TARTRATE 25 MG TAB PO SCH ×2 (08:51→16:14)
[2018-09-08] MEDS: MEMANTINE 10 MG TAB PO SCH ×2 (08:51→20:32)
[2018-09-08] MEDS: LOSARTAN 25 MG TAB PO SCH (08:51)
--- NOTE | 2018-09-08 10:37 | P.PN ---
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 Complications included acute renal failure, liver complications, these resolved and improved patient was originally transferred to medicine [place]. Her urine on August 23 he arrived back here at the hospital currently is on Haldol and Benadryl and Cogentin per psychiatry patient is calm and resting has occasional episodes of restlessness. Sitter at bedside. Social work [facility] Objective - Vital Signs Vital signs: Vital Signs Temp 97.0 F L 09/08/18 07:12 Pulse 60 09/08/18 07:12 Resp 16 09/08/18 01:46 BP 132/67 09/08/18 07:12 Pulse Ox 94 L 09/08/18 01:46 Intake & Output 09/07/18 09/08/18 09/08/18 18:59 06:59 18:59 Output Total 2 Balance -2 Weight 78.5 kg Output: Stool 2 Other: Voiding Method Incontinent Incontinent # Voids 6 1 # Bowel Movements 1 - Exam General: [Patient awake, alert and oriented times 3. Patient in no acute distress.] HEENT: [PERRL. EOMI. No pharyngeal erythema or exudate.] Neck: [No adenopathy.] Cardiac: [Heart regular in rate and rhythm. No S3. No S4. No clicks, rubs. No murmur.] Lungs: [Clear to auscultation bilaterally.] Abdomen: [No mass. No organomegaly. Bowel sounds presnt and normoactive in all 4 quadrants.] Extremes: [No edema no cyanosis no claudication normal pulses] : [] Musculoskeletal: [No joint erythema, edema or tenderness.] Skin: [No rash.] Neurologic: [No lateralizing deficits. CN II - XII grossly intact.] Lymphatic: [No adenopathy.] - Labs CBC & Chem 7: 09/07/18 09:10 09/07/18 09:10 Labs: Abnormal Lab Results - Last 24 Hours (Table) 09/07/18 09/07/18 09/07/18 Range/Units 11:53 16:23 21:04 POC Glucose (mg/dL) 114 H 177 H 104 H (75-99) mg/dL 09/08/18 Range/Units 06:53 POC Glucose (mg/dL) 104 H (75-99) mg/dL Assessment and Plan (1) Agitation Current Visit: Yes Status: Acute Code(s): R45.1 - RESTLESSNESS AND AGITATION SNOMED Code(s): 926932805 (2) Altered mental status Current Visit: Yes Status: Acute Code(s): R41.82 - ALTERED MENTAL STATUS, UNSPECIFIED SNOMED Code(s): 736008653 (3) Atrial fibrillation with RVR Current Visit: Yes Status: Acute Code(s): I48.91 - UNSPECIFIED ATRIAL FIBRILLATION SNOMED Code(s): 843133411284492 (4) CHF (congestive heart failure) Current Visit: Yes Status: Acute Code(s): I50.9 - HEART FAILURE, UNSPECIFIED SNOMED Code(s): 09385642 (5) Major neurocognitive disorder as late effect of traumatic brain injury with behavioral disturbance Current Visit: Yes Status: Acute Priority: High Code(s): S06.9X9S - UNSP INTRACRANIAL INJURY W LOC OF UNSP DURATION, SEQUELA; F01.51 - VASCULAR DEMENTIA WITH BEHAVIORAL DISTURBANCE SNOMED Code(s): 880165543 Plan: Patient awaiting placement in a neuropsychiatric facility Time with Patient: Greater than 30
[2018-09-08 11:35] LABS: Glucose,Whole Blood 148 mg/dL (75-99)
[2018-09-08 16:48] LABS: Glucose,Whole Blood 130 mg/dL (75-99)
[2018-09-08 20:18] LABS: Glucose,Whole Blood 138 mg/dL (75-99)
[2018-09-09] MEDS: METOPROLOL TARTRATE 25 MG TAB PO SCH ×4 (00:45→23:42)
[2018-09-09] MEDS: BENZTROPINE 2 MG/2 ML AMP IM SCH ×4 (05:01→21:23)
[2018-09-09] MEDS: diphenhydrAMINE 50 MG/ML 1 ML VIAL IM PRN ×2 (05:01→21:20)
[2018-09-09] MEDS: LEVOTHYROXINE 75 MCG TAB PO SCH (06:33)
[2018-09-09] MEDS: LEVOTHYROXINE 100 MCG TAB PO SCH (06:33)
[2018-09-09 06:58] LABS: Glucose,Whole Blood 106 mg/dL (75-99)
[2018-09-09] MEDS: INSULIN ASPART (NovoLOG) 100 UNIT/ML VIAL SQ SCH ×4 (08:43→22:55)
[2018-09-09] MEDS: APIXABAN 5 MG TAB PO SCH ×2 (10:14→22:53)
[2018-09-09] MEDS: PANTOPRAZOLE 40 MG TABLET PO SCH (10:14)
[2018-09-09] MEDS: MEMANTINE 10 MG TAB PO SCH ×2 (10:14→22:53)
[2018-09-09] MEDS: LOSARTAN 25 MG TAB PO SCH (10:14)
[2018-09-09] MEDS: DULoxetine HCL 60 MG CAPSULE.DR PO SCH (10:14)
[2018-09-09] MEDS: DIVALPROEX 250 MG TABLET.DR PO SCH ×2 (10:18→23:59)
[2018-09-09] MEDS: HALOPERIDOL ORAL SOLN 10 MG/5 ML CUP PO SCH ×4 (10:18→21:22)
[2018-09-09] MEDS: POLYETHYLENE GLYCOL 3350 17 GM POWD.PACK PO SCH (10:19)
[2018-09-09 11:17] LABS: Glucose,Whole Blood 176 mg/dL (75-99)
--- NOTE | 2018-09-09 12:31 | P.PN ---
Subjective Progress Note Date: 09/09/18 Principal diagnosis: Patient continues on Haldol Benadryl Cogentin per psychiatry. resting somewhat restless ,occasionally agitated, sitter at bedside. 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 Complications included acute renal failure, liver complications, these resolved and improved patient was originally transferred to medicine [place]. Her urine on August 23 he arrived back here at the hospital currently is on Haldol and Benadryl and Cogentin per psychiatry patient is calm and resting has occasional episodes of restlessness. Sitter at bedside. Social work arranging for follow-up at [facility] Objective - Vital Signs Vital signs: Vital Signs Temp 97.3 F L 09/09/18 07:27 Pulse 59 L 09/09/18 07:27 Resp 19 09/09/18 07:27 BP 132/80 09/09/18 07:27 Pulse Ox 85 L 09/09/18 07:27 Intake & Output 09/08/18 09/09/18 09/09/18 18:59 06:59 18:59 Output Total 300 Balance -300 Output: Urine 300 Straight 300 Other: Voiding Method Diaper Incontinent # Voids 1 1 - Exam General: [Patient awake, alert and oriented times 3. Patient in no acute distress.] HEENT: [PERRL. EOMI. No pharyngeal erythema or exudate.] Neck: [No adenopathy.] Cardiac: [Heart regular in rate and rhythm. No S3. No S4. No clicks, rubs. No murmur.] Lungs: [Clear to auscultation bilaterally.] Abdomen: [No mass. No organomegaly. Bowel sounds presnt and normoactive in all 4 quadrants.] Extremes: [No edema no cyanosis no claudication normal pulses] : [] Musculoskeletal: [No joint erythema, edema or tenderness.] Skin: [No rash.] Neurologic: [No lateralizing deficits. CN II - XII grossly intact.] Lymphatic: [No adenopathy.] - Labs CBC & Chem 7: 09/07/18 09:10 09/07/18 09:10 Labs: Abnormal Lab Results - Last 24 Hours (Table) 09/08/18 09/08/18 09/09/18 Range/Units 16:47 20:16 06:57 POC Glucose (mg/dL) 130 H 138 H 106 H (75-99) mg/dL 09/09/18 Range/Units 11:16 POC Glucose (mg/dL) 176 H (75-99) mg/dL Assessment and Plan (1) Agitation Current Visit: Yes Status: Acute Code(s): R45.1 - RESTLESSNESS AND AGITATION SNOMED Code(s): 393467418 (2) Altered mental status Current Visit: Yes Status: Acute Code(s): R41.82 - ALTERED MENTAL STATUS, UNSPECIFIED SNOMED Code(s): 032313457 (3) Atrial fibrillation with RVR Current Visit: Yes Status: Acute Code(s): I48.91 - UNSPECIFIED ATRIAL F IBRILLATION SNOMED Code(s): 559406812520745 (4) CHF (congestive heart failure) Current Visit: Yes Status: Acute Code(s): I50.9 - HEART FAILURE, UNSPECIFIED SNOMED Code(s): 56555184 (5) Major neurocognitive disorder as late effect of traumatic brain injury with behavioral disturbance Current Visit: Yes Status: Acute Priority: High Code(s): S06.9X9S - UNSP INTRACRANIAL INJURY W LOC OF UNSP DURATION, SEQUELA; F01.51 - VASCULAR DEMENTIA WITH BEHAVIORAL DISTURBANCE SNOMED Code(s): 967392542 Plan: Patient awaiting placement in a neuropsychiatric facility Time with Patient: Less than 30
[2018-09-09 16:58] LABS: Glucose,Whole Blood 95 mg/dL (75-99)
[2018-09-09 21:31] LABS: Glucose,Whole Blood 122 mg/dL (75-99)
[2018-09-09] MEDS: HALOPERIDOL LACTATE 5 MG/ML 1 ML VIAL IM PRN (23:13)
[2018-09-09] MEDS: DIVALPROEX SPRINKLE 125 MG CAP.SPRINK PO SCH (23:43)
[2018-09-10] MEDS: HALOPERIDOL LACTATE 5 MG/ML 1 ML VIAL IM PRN ×2 (03:55→11:24)
[2018-09-10] MEDS: BENZTROPINE 2 MG/2 ML AMP IM SCH (06:28)
[2018-09-10] MEDS: diphenhydrAMINE 50 MG/ML 1 ML VIAL IM PRN ×2 (06:28→21:14)
[2018-09-10] MEDS: LEVOTHYROXINE 125 MCG TAB PO SCH (06:29)
[2018-09-10 06:51] LABS: Glucose,Whole Blood 126 mg/dL (75-99)
[2018-09-10] MEDS: INSULIN ASPART (NovoLOG) 100 UNIT/ML VIAL SQ SCH ×4 (07:02→21:18)
[2018-09-10] MEDS: PANTOPRAZOLE 40 MG TABLET PO SCH (07:18)
[2018-09-10] MEDS: DIVALPROEX SPRINKLE 125 MG CAP.SPRINK PO SCH ×2 (07:18→21:17)
[2018-09-10] MEDS: APIXABAN 5 MG TAB PO SCH ×2 (07:19→21:18)
[2018-09-10] MEDS: DULoxetine HCL 60 MG CAPSULE.DR PO SCH (07:19)
[2018-09-10] MEDS: METOPROLOL TARTRATE 25 MG TAB PO SCH ×3 (07:19→21:17)
[2018-09-10] MEDS: MEMANTINE 10 MG TAB PO SCH ×2 (07:19→21:18)
[2018-09-10] MEDS: LOSARTAN 25 MG TAB PO SCH (07:19)
[2018-09-10] MEDS: HALOPERIDOL ORAL SOLN 10 MG/5 ML CUP PO SCH ×4 (07:22→21:18)
[2018-09-10] MEDS: POLYETHYLENE GLYCOL 3350 17 GM POWD.PACK PO SCH (07:25)
[2018-09-10 11:19] LABS: Glucose,Whole Blood 132 mg/dL (75-99)
--- NOTE | 2018-09-10 11:55 | P.DS ---
Providers Date of admission: 09/02/18 14:25 Expected date of discharge: 09/10/18 Attending physician: Pavan Elmore Consults: 09/01/18 12:40 Consult Physician Stat Consulting Provider: Breonna Barth Consult Reason/Comments: altered mental status, agitation, Do you want consulting provider notified?: Yes 09/01/18 16:25 Consult Physician Stat Consulting Provider: [facility] Consult Reason/Comments: afib rvr Do you want consulting provider notified?: Yes 09/02/18 13:25 Consult Physician Urgent Consulting Provider: Daniel Julian Consult Reason/Comments: Acute onset of AMS with aggression, agitation. History of depression Do you want consulting provider notified?: Yes 09/06/18 15:13 Consult Physician Urgent Consulting Provider: Daniel Julian Consult Reason/Comments: increased agitation Do you want consulting provider notified?: Yes Primary care physician: Pavan Elmore [facility] Course: Final Diagnoses: (1)Altered mental status, multifactorial possible related to psychosis, progressive neurocognitive disorder with underlying depression ,tardive dyskinesia possibly secondary to haldol Current Visit: Yes Status: Acute Code(s): R41.82 - ALTERED MENTAL STATUS, UNSPECIFIED SNOMED Code(s): 491694598 (2) Psychosis, depression Current Visit: No Status: Acute Priority: High Code(s): F29 - UNSP PSYCHOSIS NOT DUE TO A SUBSTANCE OR KNOWN PHYSIOL COND SNOMED Code(s): 53983699 (3) Atrial fibrillation with RVR, paroxysmal Current Visit: Yes Status: Acute Code(s): I48.91 - UNSPECIFIED ATRIAL FIBRILLATION SNOMED Code(s): 144096196908013 (4) suspected underlying dementia, type unclear (5) recurrent falls (7) Compression fracture of L1 lumbar vertebra Current Visit: Yes Status: Acute Code(s): S32.010A - WEDGE COMPRESSION FRACTURE OF FIRST LUMBAR VERTEBRA, INIT SNOMED Code(s): 631739647 (8) Traumatic brain injury, chronic Current Visit: Yes Status: Acute Code(s): S06.9X9A - UNSP INTRACRANIAL INJURY W LOC OF UNSP DURATION, INIT SNOMED Code(s): 257416369 History of closed head injury Current Visit: No Status: Acute Code(s): Z87.820 - PERSONAL HISTORY OF TRAUMATIC BRAIN INJURY SNOMED Code(s): 68522879867116 (9) Insulin dependent diabetes mellitus Current Visit: No Status: Acute Code(s): E11.9 - TYPE 2 DIABETES MELLITUS WITHOUT COMPLICATIONS; Z79.4 - DETENTION (CURRENT) USE OF INSULIN SNOMED Code(s): 51175992 (10) Metabolic encephalopathy Current Visit: No Status: Acute Code(s): G93.41 - METABOLIC ENCEPHALOPATHY SNOMED Code(s): 66656376 (11) Microcytic anemia Current Visit: No Status: Acute Code(s): D50.9 - IRON DEFICIENCY ANEMIA, UNSPECIFIED SNOMED Code(s): 013771383 (12) Chronic systolic (congestive) heart failure Current Visit: Yes Status: Acute Code(s): I50.22 - CHRONIC SYSTOLIC (CONGESTIVE) HEART FAILURE SNOMED Code(s): 928465268 Hospital course:This is a 68-year-old white male patient of mine. He was just discharged from [facility] on August 23 after having any extensive admission that began with chest pain and possibly nonischemic cardiomyopathy before he then developed acute delirium and metabolic encephalopathy that lasted multiple days. He also the complication of acute renal failure. While these had resolved and improved, patient was transferred to [facility] on August 23. I had seen him there at the facility on 08/24/2018. He was discharge from the facility on 08/31/2018.. He presented to the emergency room yesterday, September 01, with significant confusion and agitation. Nursing informed me that he was discharged with 1 days were the medications, did not get his prescription filled yet. Since arriving in the hospital, he has had recurrence of his A. fib with RVR. He is unable to respond to any my questions today. As his eyes closed and continues to fully sheet over top of him. His history was obtained from the emergency room and his . 09/03/2018 highway safety engineer maintained at bedside, currently somnolent. Easily becomes agitated. Maintained on scheduled Haldol around the clock .Telemetry atrial fibrillation. Carotid ultrasound reported no hemodynamic significant stenosis. EEG pending. Evaluated by neurology, recommendations noted. 09/04/18 sitter maintained at bedside, less agitation currently. diet intake of 25% and tender last night; this morning a few bites with partial consumption of Glucerna. Blood sugars controlled. Passing flatus and positive bowel movement- soft, no diarrhea. He underwent MRI of brain, limited study, reporting atrophy, paraventricular chronic white matter ischemic changes; reviewed by neurology, indicative of progressive neurocognitive disorder. ( Patient's states no history of alcohol use.) EEG reported as consistent with encephalopathy with no epileptiform activity as per neurology. 09/05/18 no overnight events. Diet intake slowly improving. Sugars controlled. MRI of brain as previously mentioned nonacute per neurology review, with no further neuro workup recommended at this time. Today not conversing, Catatonic appearing with possible symptoms of tardive dyskinesia in a patient on antipsychotic medications. Reevaluated by psychiatry, recommendations noted. 09/06/2018 despite increase in Depakote, increased agitation, kicking, screaming. Afebrile, normal WBC. Afebrile, normal WBC. 09/07/2018 continues on Haldol, Benadryl and Cogentin as per psychiatry .currently, calm, resting, staff reports earlier had been restless and agitated. Sitter maintained at bedside. early childhood education worker assisting in arrangement of long- term care facility. Afebrile, normal WBC. Ammonia less than 9. Last night consumed 50% of dinner, this morning bites of breakfast. This 68 year old patient with history of recent admission prior ;[facility] on August 23 to having extensive admission that began with chest pain possibly nonischemic cardiomyopathy before he then developed an acute delirium and metabolic encephalopathy adenopathy that lasted multiple days. Complications included acute renal failure, liver complications, these resolved and improved patient was originally transferred to [facility] [place]. Her urine on August 23 he arrived back here at the hospital currently is on Haldol and Benadryl and Cogentin per psychiatry patient is calm and resting has occasional episodes of restlessness. Sitter at bedside. Social work arranging for follow- up at [facility] long-term facility Maintained on Cogentin, Haldol Benadryl as per psychiatry. Fluctuating restlessness. Afebrile. Cleared by neurology, psychiatry, cardiology for discharge. Discharge planning in progress for [facility] in a stable condition with guarded prognosis. - Exam GENERAL: alert and oriented 1, no acute distress. CARDIOVASCULAR: S1, S2 irregular. No murmur RESPIRATION: Breath sounds are coarse with bilateral bases diminished. No rhonchi or crackles. No wheezing ABDOMEN: Soft, nontender . No guarding. no masses palpable.Bowel sounds heard. NERVOUS SYSTEM: Cranial N 2-12 grossly normal. Moves all 4 limbs, plantars downgoing bilaterally, unable to fully assess at this time given his clinical presentation. The impression and plan of care has been dictated as directed. : I performed a history and examination of this patient, discussed the same with the dictator. I agree with the dictator's note ,documented as a scribe. Any additional findings or plans will be noted. Time taken: 35 minutes Patient Condition at Discharge: Stable Plan - Discharge Summary Discharge Rx Participant: No New Discharge Prescriptions: New Divalproex Sprinkle [Depakote Sprinkle] 250 mg PO BID cap.sprink Haloperidol Oral Soln [Haldol Oral Soln] 2.5 mg PO QID cup diphenhydrAMINE [Benadryl] 25 mg PO Q6H PRN #1 capsule PRN Reason: Agitation Continue DULoxetine HCL [Cymbalta] 60 mg PO DAILY Levothyroxine Sodium [Synthroid] 150 mcg PO SUSA Apixaban [Eliquis] 5 mg PO BID tab Losartan [Cozaar] 25 mg PO DAILY #30 tab Donepezil [Aricept] 5 mg PO HS tab Bisacodyl [Dulcolax] 10 mg RECTAL DAILY PRN supp PRN Reason: Constipation Metoprolol Tartrate [Lopressor] 25 mg PO BID tab Polyethylene Glycol 3350 [Miralax] 17 gm PO DAILY powd.pack Memantine [Namenda] 10 mg PO BID tab Pantoprazole [Protonix] 40 mg PO AC-BRKFST tablet. Levothyroxine Sodium [Synthroid] 125 mcg PO MOTUWETHFR #0 INSULIN LISPRO (HumaLOG) [humaLOG] See Protocol SQ ACHS Levothyroxine Sodium [Synthroid] 25 mcg PO SUSA LORazepam [Ativan] 1 mg PO Q8HR PRN #9 tab PRN Reason: Agitation Or Acute Psychosis Discontinued Divalproex Sprinkle [Depakote Sprinkle] 125 mg PO BID cap.sprink Haloperidol Oral Soln [Haldol Oral Soln] 2.5 mg PO Q6H Discharge Medication List DULoxetine HCL [Cymbalta] 60 mg PO DAILY 07/21/18 [History] Levothyroxine Sodium [Synthroid] 150 mcg PO SUSA 07/21/18 [History] Apixaban [Eliquis] 5 mg PO BID tab 07/24/18 [Rx] Losartan [Cozaar] 25 mg PO DAILY #30 tab 07/24/18 [Rx] Bisacodyl [Dulcolax] 10 mg RECTAL DAILY PRN supp 08/23/18 [Rx] Donepezil [Aricept] 5 mg PO HS tab 08/23/18 [Rx] Levothyroxine Sodium [Synthroid] 125 mcg PO MOTUWETHFR #0 08/23/18 [Rx] Memantine [Namenda] 10 mg PO BID tab 08/23/18 [Rx] Metoprolol Tartrate [Lopressor] 25 mg PO BID tab 08/23/18 [Rx] Pantoprazole [Protonix] 40 mg PO AC-BRKFST tablet. 08/23/18 [Rx] Polyethylene Glycol 3350 [Miralax] 17 gm PO DAILY powd.pack 08/23/18 [Rx] INSULIN LISPRO (HumaLOG) [humaLOG] See Protocol SQ ACHS 09/01/18 [History] Levothyroxine Sodium [Synthroid] 25 mcg PO SUSA 09/01/18 [History] Divalproex Sprinkle [Depakote Sprinkle] 250 mg PO BID cap.sprink 09/10/18 [Rx] Haloperidol Oral Soln [Haldol Oral Soln] 2.5 mg PO QID cup 09/10/18 [Rx] LORazepam [Ativan] 1 mg PO Q8HR PRN #9 tab 09/10/18 [Rx] diphenhydrAMINE [Benadryl] 25 mg PO Q6H PRN #1 capsule 09/10/18 [Rx] Follow up Appointment(s)/Referral(s): Psychiatry,@ [facility] [Other] - 1 Week Pavan Elmore MD [Primary Care Provider] - 1 Week (After DC from Rehab ) Activity/Diet/Wound Care/Special Instructions: [facility] as per Psychiatry confirm cardiology follow-up appointment prior to discharge Diet: Dysphagia, level III CHOP Activity: as tolerated CBC, BMP in 3 days Final urine culture results to [facility] Discharge Disposition: TRANSFER TO SNF/ECF
[2018-09-10 16:50] LABS: Glucose,Whole Blood 146 mg/dL (75-99)
[2018-09-10 20:22] LABS: Glucose,Whole Blood 126 mg/dL (75-99)
[2018-09-10] MEDS: BENZTROPINE MESYLATE 1 MG TAB PO SCH (21:18)
[2018-09-11 07:10] LABS: Glucose,Whole Blood 115 mg/dL (75-99)
[2018-09-11] MEDS: MEMANTINE 10 MG TAB PO SCH (07:18)
[2018-09-11] MEDS: DULoxetine HCL 60 MG CAPSULE.DR PO SCH (07:18)
[2018-09-11] MEDS: METOPROLOL TARTRATE 25 MG TAB PO SCH (07:18)
[2018-09-11] MEDS: LEVOTHYROXINE 125 MCG TAB PO SCH (07:18)
[2018-09-11] MEDS: APIXABAN 5 MG TAB PO SCH (07:19)
[2018-09-11] MEDS: HALOPERIDOL ORAL SOLN 10 MG/5 ML CUP PO SCH ×2 (07:19→13:54)
[2018-09-11] MEDS: LOSARTAN 25 MG TAB PO SCH (07:19)
[2018-09-11] MEDS: BENZTROPINE MESYLATE 1 MG TAB PO SCH (07:19)
[2018-09-11] MEDS: PANTOPRAZOLE 40 MG TABLET PO SCH (07:19)
[2018-09-11] MEDS: DIVALPROEX SPRINKLE 125 MG CAP.SPRINK PO SCH (07:19)
[2018-09-11] MEDS: POLYETHYLENE GLYCOL 3350 17 GM POWD.PACK PO SCH (07:20)
[2018-09-11] MEDS: INSULIN ASPART (NovoLOG) 100 UNIT/ML VIAL SQ SCH ×2 (07:21→11:40)
[2018-09-11 07:31] VITALS: BP 133/72; RESP 16; TEMP 97.6
[2018-09-11] MEDS: LORazepam 1 MG TAB PO PRN (10:15)
--- NOTE | 2018-09-11 10:27 | P.PN ---
Progress Note - Text She was seen and examined. Social work tell me that he is going to be placed in [facility] facility for long-term care. His condition is stable at this time. His mentation remains significantly deranged. He has obvious dementia with active hallucinations.
[2018-09-11 11:40] LABS: Glucose,Whole Blood 181 mg/dL (75-99)
[2018-09-11 15:08] VITALS: PULSE 57
== END 2018-09-11 17:00 | DRG 884 ==
LOC: EC 08:15 → 3SCARD 13:14 → OBSVTOIN 09-02 14:25 → 4MS4W 09-05 17:05 → 4SSUR 09-07 18:49
PROVIDERS: ADMIT Family Medicine; ATTEND Family Medicine
DX: F03.91 Unspecified dementia, unspecified severity, with behavioral disturbance (principal); G93.41 Metabolic encephalopathy; E87.1 Hypo-osmolality and hyponatremia; F32.3 Major depressive disorder, single episode, severe with psychotic features; I42.9 Cardiomyopathy, unspecified; I50.22 Chronic systolic (congestive) heart failure; S32.010A Wedge compression fracture of first lumbar vertebra, initial encounter for closed fracture; R41.9 Unspecified symptoms and signs involving cognitive functions and awareness; I11.0 Hypertensive heart disease with heart failure; E05.90 Thyrotoxicosis, unspecified without thyrotoxic crisis or storm; E11.9 Type 2 diabetes mellitus without complications; S06.0X9S Concussion with loss of consciousness of unspecified duration, sequela; F03.90 Unspecified dementia, unspecified severity, without behavioral disturbance, psychotic disturbance, mood disturbance, and anxiety; I48.0 Paroxysmal atrial fibrillation; I48.2 Chronic atrial fibrillation; G24.01 Drug induced subacute dyskinesia; T43.4X5A Adverse effect of butyrophenone and thiothixene neuroleptics, initial encounter; E03.9 Hypothyroidism, unspecified; E78.5 Hyperlipidemia, unspecified; F41.9 Anxiety disorder, unspecified; I25.10 Atherosclerotic heart disease of native coronary artery without angina pectoris; I25.2 Old myocardial infarction; R29.6 Repeated falls; R01.1 Cardiac murmur, unspecified; R32 Unspecified urinary incontinence; W07.XXXA Fall from chair, initial encounter; Z78.1 Physical restraint status; Z79.01 Long term (current) use of anticoagulants; Z79.4 Long term (current) use of insulin; Z79.890 Hormone replacement therapy; Z79.899 Other long term (current) drug therapy; Z88.8 Allergy status to other drugs, medicaments and biological substances; Z82.49 Family history of ischemic heart disease and other diseases of the circulatory system
CPT/HCPCS: 36415; 70450; 70551; 71046; 72100; 72125; 73521; 80048; 80053; 80165; 80306; 81003; 82140; 82247; 82607; 82746; 83036; 83735; 83880; 84425; 84439; 84443; 84484; 85025; 85610; 85730; 86780; 87077; 87086; 87186; 93005; 93880; 95816; 96361; 96372; 96374; 96376; 99285